=== PATIENT | female | born 1945 | race Caucasian/White ===

== ENCOUNTER 2020-07-03 00:54 | Outpatient (REF) | payer MEDICARE, SELFPAY ==
[2020-07-03 07:13] LABS: Hematocrit 30.1 % (37-47); Hemoglobin 9.6 g/dl (12.0-16.0); Mean Corpuscular HGB Conc 31.9 g/dl (31.0-35.0); Mean Corpuscular Volume 87.8 fL (80-98); Mean Platelet Volume 8.4 fL (9.4-12.3); Platelet Count 709 X10*3/uL (160-400); Red Blood Count 3.43 X10*6/uL (4.20-5.50); Red Cell Distribution Width 15.2 % (11.0-16.0)
[2020-07-03 07:21] LABS: White Blood Count 2.3 X10*3/uL (4.8-10.8)
[2020-07-03 07:27] LABS: Anion Gap 14 (12-20); Blood Urea Nitrogen 13 mg/dL (9-16); Calcium 8.3 mg/dL (8.4-10.2); Carbon Dioxide 25 mmol/L (22-29); Chloride 103 mmol/L (96-108); Estimated Glomerular Filt Rate > 60; Glucose Random 103 mg/dL (60-115); Potassium 4.6 mmol/L (3.3-5.1); Sodium 137 mmol/L (135-145)
== END 2020-07-03 00:55 | disposition home or self-care (01) ==
LOC: HO.MMNH1L 00:54
PROVIDERS: Visit Provider Family Medicine
DX: U07.1 COVID-19 (principal); N17.9 Acute kidney failure, unspecified
CPT/HCPCS: 36415; 80048; 85027; 85060

== ENCOUNTER 2020-07-10 00:38 | Outpatient (REF) | payer MEDICARE, SELFPAY ==
[2020-07-10 07:13] LABS: Hematocrit 28.4 % (37-47); Mean Corpuscular HGB Conc 31.7 g/dl (31.0-35.0); Mean Corpuscular Hemoglobin 27.4 pg (27.0-33.0); Mean Corpuscular Volume 86.3 fL (80-98); Mean Platelet Volume 8.4 fL (9.4-12.3); Platelet Count 506 X10*3/uL (160-400); Red Blood Count 3.29 X10*6/uL (4.20-5.50); Red Cell Distribution Width 15.9 % (11.0-16.0); White Blood Count 4.8 X10*3/uL (4.8-10.8)
[2020-07-10 07:42] LABS: Anion Gap 14 (12-20); Blood Urea Nitrogen 17 mg/dL (9-16); Calcium 8.7 mg/dL (8.4-10.2); Carbon Dioxide 24 mmol/L (22-29); Chloride 107 mmol/L (96-108); Estimated Glomerular Filt Rate > 60; Glucose Random 127 mg/dL (60-115); Potassium 3.8 mmol/L (3.3-5.1); Sodium 141 mmol/L (135-145)
== END 2020-07-10 00:39 | disposition home or self-care (01) ==
LOC: HO.MMNH1L 00:38
PROVIDERS: Visit Provider Family Medicine
DX: U07.1 COVID-19 (principal); N17.9 Acute kidney failure, unspecified
CPT/HCPCS: 36415; 80048; 85027

== ENCOUNTER 2020-07-17 00:32 | Outpatient (REF) | payer SELFPAY | END 2020-07-17 00:33 | disposition home or self-care (01) | LOC: HO.MMNH1L 00:32 | PROVIDERS: Visit Provider Family Medicine | DX: Z13.89 Encounter for screening for other disorder (principal) ==

== ENCOUNTER 2020-08-14 06:42 | Outpatient (REF) | payer MEDICARE, SELFPAY ==
[2020-08-14 06:58] LABS: Hematocrit 33.3 % (37-47); Hemoglobin 10.2 g/dl (12.0-16.0); Mean Corpuscular HGB Conc 30.6 g/dl (31.0-35.0); Mean Corpuscular Hemoglobin 27.3 pg (27.0-33.0); Mean Platelet Volume 8.2 fL (9.4-12.3); Platelet Count 293 X10*3/uL (160-400); Red Blood Count 3.74 X10*6/uL (4.20-5.50); Red Cell Distribution Width 19.3 % (11.0-16.0); White Blood Count 5.5 X10*3/uL (4.8-10.8)
[2020-08-14 07:23] LABS: Anion Gap 13 (12-20); Blood Urea Nitrogen 13 mg/dL (9-16); Calcium 9.2 mg/dL (8.4-10.2); Carbon Dioxide 24 mmol/L (22-29); Chloride 111 mmol/L (96-108); Estimated Glomerular Filt Rate > 60; Glucose Random 131 mg/dL (60-115); Potassium 3.3 mmol/L (3.3-5.1); Sodium 145 mmol/L (135-145)
== END 2020-08-14 06:43 | disposition home or self-care (01) ==
LOC: HO.MMNH3L 06:42
PROVIDERS: Visit Provider Family Medicine
DX: U07.1 COVID-19 (principal); N17.9 Acute kidney failure, unspecified
CPT/HCPCS: 36415; 80048; 85027

== ENCOUNTER 2020-08-21 00:37 | Outpatient (REF) | payer MEDICARE, SELFPAY ==
[2020-08-21 07:35] LABS: Hematocrit 31.9 % (37-47); Hemoglobin 9.8 g/dl (12.0-16.0); Mean Corpuscular HGB Conc 30.7 g/dl (31.0-35.0); Mean Corpuscular Hemoglobin 27.3 pg (27.0-33.0); Mean Corpuscular Volume 88.9 fL (80-98); Mean Platelet Volume 8.5 fL (9.4-12.3); Platelet Count 291 X10*3/uL (160-400); Red Blood Count 3.59 X10*6/uL (4.20-5.50); Red Cell Distribution Width 18.4 % (11.0-16.0); White Blood Count 6.6 X10*3/uL (4.8-10.8)
[2020-08-21 08:26] LABS: Anion Gap 14 (12-20); Blood Urea Nitrogen 12 mg/dL (9-16); Calcium 8.9 mg/dL (8.4-10.2); Carbon Dioxide 24 mmol/L (22-29); Chloride 111 mmol/L (96-108); Estimated Glomerular Filt Rate > 60; Glucose Random 130 mg/dL (60-115); Potassium 2.7 mmol/L (3.3-5.1); Sodium 146 mmol/L (135-145)
== END 2020-08-21 00:38 | disposition home or self-care (01) ==
LOC: HO.MMNH3L 00:37
PROVIDERS: Visit Provider Family Medicine
DX: U07.1 COVID-19 (principal); N17.9 Acute kidney failure, unspecified
CPT/HCPCS: 36415; 80048; 85027

== ENCOUNTER 2020-08-28 10:26 | Outpatient (REF) | payer MEDICARE, SELFPAY ==
[2020-08-28 07:53] LABS: Estimated Average Glucose 120 mg/dL; Hemoglobin A1c % 5.8 %
[2020-08-28 07:59] LABS: Hemoglobin 10.7 g/dl (12.0-16.0); Mean Corpuscular HGB Conc 31.5 g/dl (31.0-35.0); Mean Corpuscular Hemoglobin 27.7 pg (27.0-33.0); Mean Corpuscular Volume 88.1 fL (80-98); Mean Platelet Volume 8.4 fL (9.4-12.3); Platelet Count 278 X10*3/uL (160-400); Red Blood Count 3.86 X10*6/uL (4.20-5.50); White Blood Count 6.1 X10*3/uL (4.8-10.8)
[2020-08-28 08:22] LABS: Cholesterol 148 mg/dL; HDL Cholesterol 35 mg/dL; LDL Cholesterol Calculated 88 mg/dl; Triglycerides 125 mg/dL
[2020-08-28 08:24] LABS: Anion Gap 15 (12-20); Blood Urea Nitrogen 12 mg/dL (9-16); Calcium 9.1 mg/dL (8.4-10.2); Carbon Dioxide 23 mmol/L (22-29); Chloride 110 mmol/L (96-108); Estimated Glomerular Filt Rate > 60; Glucose Random 134 mg/dL (60-115); Potassium 3.6 mmol/L (3.3-5.1); Sodium 144 mmol/L (135-145)
[2020-08-28 08:43] LABS: Free T4 (Free Thyroxine) 1.02 ng/dL (0.71-1.85); Thyroid Stimulating Hormone 2.62 uIU/mL (0.32-4.0)
== END 2020-08-28 10:27 | disposition home or self-care (01) ==
LOC: HO.MMNH3L 10:26
PROVIDERS: Visit Provider Family Medicine
DX: E03.9 Hypothyroidism, unspecified (principal); E78.5 Hyperlipidemia, unspecified; I50.40 Unspecified combined systolic (congestive) and diastolic (congestive) heart failure; N17.9 Acute kidney failure, unspecified; U07.1 COVID-19
CPT/HCPCS: 36415; 80048; 80061; 83036; 84439; 84443; 85027

== ENCOUNTER 2020-10-24 07:22 | Outpatient (REF) | payer MEDICARE, SELFPAY ==
[2020-10-24 07:30] LABS: MANUAL DIFF FLAG NO
[2020-10-24 07:38] LABS: Basophils Percent Auto 0.5 % (0-2); Eosinophils Absolute Auto 0.2 X10*3/uL (0.0-0.4); Eosinophils Percent Auto 3.8 % (0-4); Hematocrit 34.4 % (37-47); Hemoglobin 11.2 g/dl (12.0-16.0); Imm Gran Abs Auto 0.05 X10*3/uL (0.00-0.03); Imm Gran Pct Auto 0.8 % (0.0-0.4); Lymphocytes Absolute Auto 1.6 X10*3/uL (1.2-4.9); Lymphocytes Percent Auto 25.7 % (20-40); Mean Corpuscular HGB Conc 32.6 g/dl (31.0-35.0); Mean Corpuscular Hemoglobin 27.5 pg (27.0-33.0); Mean Corpuscular Volume 84.5 fL (80-98); Mean Platelet Volume 8.2 fL (9.4-12.3); Monocytes Absolute Auto 0.5 X10*3/uL (0.1-1.2); Monocytes Percent Auto 7.2 % (2-11); Platelet Count 245 X10*3/uL (160-400); Red Blood Count 4.07 X10*6/uL (4.20-5.50); Red Cell Distribution Width 15.5 % (11.0-16.0); White Blood Count 6.4 X10*3/uL (4.8-10.8)
[2020-10-24 08:01] LABS: Anion Gap 14 (12-20); Blood Urea Nitrogen 17 mg/dL (9-16); Calcium 9.4 mg/dL (8.4-10.2); Carbon Dioxide 21 mmol/L (22-29); Chloride 112 mmol/L (96-108); Estimated Glomerular Filt Rate > 60; Glucose Random 124 mg/dL (60-115); Potassium 3.8 mmol/L (3.3-5.1); Sodium 143 mmol/L (135-145)
== END 2020-10-24 07:23 | disposition home or self-care (01) ==
LOC: HO.MMNH3L 07:22
PROVIDERS: Visit Provider Family Medicine
DX: E03.9 Hypothyroidism, unspecified (principal); E78.5 Hyperlipidemia, unspecified; I50.40 Unspecified combined systolic (congestive) and diastolic (congestive) heart failure
CPT/HCPCS: 36415; 80048; 85025

== ENCOUNTER 2020-11-24 12:09 | Outpatient (REF) | payer MEDICARE, SELFPAY ==
[2020-11-24 06:57] LABS: MANUAL DIFF FLAG NO
[2020-11-24 07:06] LABS: Basophils Percent Auto 0.5 % (0-2); Eosinophils Absolute Auto 0.3 X10*3/uL (0.0-0.4); Eosinophils Percent Auto 3.3 % (0-4); Hemoglobin 10.9 g/dl (12.0-16.0); Imm Gran Pct Auto 2.6 % (0.0-0.4); Lymphocytes Absolute Auto 1.7 X10*3/uL (1.2-4.9); Lymphocytes Percent Auto 22.8 % (20-40); Mean Corpuscular HGB Conc 32.1 g/dl (31.0-35.0); Mean Corpuscular Hemoglobin 27.3 pg (27.0-33.0); Mean Corpuscular Volume 85.2 fL (80-98); Mean Platelet Volume 8.2 fL (9.4-12.3); Monocytes Absolute Auto 0.5 X10*3/uL (0.1-1.2); Monocytes Percent Auto 6.8 % (2-11); Neutrophils Absolute Auto 4.9 X10*3/uL (2.0-8.3); Platelet Count 339 X10*3/uL (160-400); Red Blood Count 3.99 X10*6/uL (4.20-5.50); Red Cell Distribution Width 15.5 % (11.0-16.0); White Blood Count 7.6 X10*3/uL (4.8-10.8)
[2020-11-24 07:48] LABS: Anion Gap 15 (12-20); Blood Urea Nitrogen 18 mg/dL (9-16); Calcium 9.5 mg/dL (8.4-10.2); Carbon Dioxide 20 mmol/L (22-29); Chloride 111 mmol/L (96-108); Estimated Glomerular Filt Rate > 60; Glucose Random 132 mg/dL (60-115); Potassium 3.8 mmol/L (3.3-5.1); Sodium 142 mmol/L (135-145)
== END 2020-11-24 12:10 | disposition home or self-care (01) ==
LOC: HO.MMNH3L 12:09
PROVIDERS: Visit Provider Family Medicine
DX: E03.9 Hypothyroidism, unspecified (principal); E78.5 Hyperlipidemia, unspecified; I50.40 Unspecified combined systolic (congestive) and diastolic (congestive) heart failure
CPT/HCPCS: 36415; 80048; 85025

== ENCOUNTER 2020-12-26 05:00 | Outpatient (REF) | payer MEDICARE, MEDICAID, SELFPAY ==
[2020-12-26 07:13] LABS: Hematocrit 35.6 % (37-47); Hemoglobin 11.8 g/dl (12.0-16.0); Mean Corpuscular HGB Conc 33.1 g/dl (31.0-35.0); Mean Corpuscular Hemoglobin 28.2 pg (27.0-33.0); Mean Corpuscular Volume 85.2 fL (80-98); Mean Platelet Volume 8.4 fL (9.4-12.3); Platelet Count 252 X10*3/uL (160-400); Red Blood Count 4.18 X10*6/uL (4.20-5.50); Red Cell Distribution Width 15.9 % (11.0-16.0); White Blood Count 6.9 X10*3/uL (4.8-10.8)
[2020-12-26 08:11] LABS: Anion Gap 13 (12-20); Blood Urea Nitrogen 14 mg/dL (9-16); Calcium 9.5 mg/dL (8.4-10.2); Carbon Dioxide 22 mmol/L (22-29); Chloride 112 mmol/L (96-108); Estimated Glomerular Filt Rate > 60; Glucose Random 149 mg/dL (60-115); Potassium 3.9 mmol/L (3.3-5.1); Sodium 143 mmol/L (135-145)
== END 2020-12-26 05:01 ==
LOC: HO.MMNH3L 05:00
PROVIDERS: Visit Provider Family Medicine
DX: E03.9 Hypothyroidism, unspecified (principal); E78.5 Hyperlipidemia, unspecified; I50.40 Unspecified combined systolic (congestive) and diastolic (congestive) heart failure
CPT/HCPCS: 36415; 80048; 85027

== ENCOUNTER 2021-02-23 | Outpatient (REF) | payer MEDICARE, MEDICAID, SELFPAY ==
[2021-02-23 08:04] LABS: Hemoglobin 11.8 g/dl (12.0-16.0); Mean Corpuscular HGB Conc 32.8 g/dl (31.0-35.0); Mean Corpuscular Hemoglobin 28.6 pg (27.0-33.0); Mean Corpuscular Volume 87.4 fL (80.0-98.0); Mean Platelet Volume 8.6 fL (9.4-12.3); Platelet Count 211 X10*3/uL (160-400); Red Blood Count 4.12 X10*6/uL (4.20-5.50); Red Cell Distribution Width 14.7 % (11.0-16.0); White Blood Count 6.1 X10*3/uL (4.8-10.8)
[2021-02-23 08:37] LABS: Anion Gap 12 (12-20); Blood Urea Nitrogen 24 mg/dL (9-16); Calcium 9.4 mg/dL (8.4-10.2); Carbon Dioxide 21 mmol/L (22-29); Chloride 113 mmol/L (96-108); Estimated Glomerular Filt Rate > 60; Glucose Random 164 mg/dL (60-115); Potassium 3.7 mmol/L (3.3-5.1); Sodium 142 mmol/L (135-145)
== END 2021-02-23 00:01 | disposition home or self-care (01) ==
LOC: HO.MMNH3L
PROVIDERS: Visit Provider Family Medicine
DX: I50.40 Unspecified combined systolic (congestive) and diastolic (congestive) heart failure (principal); E78.5 Hyperlipidemia, unspecified; E03.9 Hypothyroidism, unspecified
CPT/HCPCS: 36415; 80048; 85027

== ENCOUNTER 2021-03-26 00:24 | Outpatient (REF) | payer MEDICARE, MEDICAID, SELFPAY ==
[2021-03-26 07:42] LABS: MANUAL DIFF FLAG NO
[2021-03-26 08:07] LABS: Basophils Percent Auto 0.4 % (0-2); Eosinophils Absolute Auto 0.2 X10*3/uL (0.0-0.4); Eosinophils Percent Auto 2.7 % (0-4); Hematocrit 36.5 % (37.0-47.0); Hemoglobin 11.9 g/dl (12.0-16.0); Imm Gran Abs Auto 0.13 X10*3/uL (0.00-0.03); Imm Gran Pct Auto 1.9 % (0.0-0.4); Lymphocytes Absolute Auto 1.9 X10*3/uL (1.2-4.9); Lymphocytes Percent Auto 27.4 % (20-40); Mean Corpuscular HGB Conc 32.6 g/dl (31.0-35.0); Mean Platelet Volume 8.4 fL (9.4-12.3); Monocytes Absolute Auto 0.5 X10*3/uL (0.1-1.2); Neutrophils Absolute Auto 4.1 x10*3/uL (2.0-8.3); Neutrophils Percent Auto 60.6 % (45-73); Platelet Count 223 X10*3/uL (160-400); Red Cell Distribution Width 14.9 % (11.0-16.0); White Blood Count 6.7 X10*3/uL (4.8-10.8)
[2021-03-26 08:27] LABS: Anion Gap 12 (12-20); Blood Urea Nitrogen 16 mg/dL (9-16); Calcium 9.6 mg/dL (8.4-10.2); Carbon Dioxide 22 mmol/L (22-29); Chloride 114 mmol/L (96-108); Estimated Glomerular Filt Rate > 60; Glucose Random 182 mg/dL (60-115); Potassium 3.9 mmol/L (3.3-5.1); Sodium 144 mmol/L (135-145)
== END 2021-03-26 00:25 | disposition home or self-care (01) ==
LOC: HO.MMNH3L 00:24
PROVIDERS: Visit Provider Family Medicine
DX: E03.9 Hypothyroidism, unspecified (principal); E78.5 Hyperlipidemia, unspecified; I50.40 Unspecified combined systolic (congestive) and diastolic (congestive) heart failure
CPT/HCPCS: 36415; 80048; 85025

== ENCOUNTER 2021-04-26 00:25 | Outpatient (REF) | payer MEDICARE, MEDICAID, SELFPAY ==
[2021-04-26 07:21] LABS: MANUAL DIFF FLAG NO
[2021-04-26 07:27] LABS: Basophils Percent Auto 0.5 % (0-2); Eosinophils Absolute Auto 0.2 X10*3/uL (0.0-0.4); Eosinophils Percent Auto 2.7 % (0-4); Hematocrit 35.8 % (37.0-47.0); Imm Gran Abs Auto 0.08 X10*3/uL (0.00-0.03); Imm Gran Pct Auto 1.1 % (0.0-0.4); Lymphocytes Percent Auto 27.6 % (20-40); Mean Corpuscular HGB Conc 33.5 g/dl (31.0-35.0); Mean Corpuscular Hemoglobin 29.3 pg (27.0-33.0); Mean Corpuscular Volume 87.3 fL (80.0-98.0); Mean Platelet Volume 8.5 fL (9.4-12.3); Monocytes Absolute Auto 0.5 X10*3/uL (0.1-1.2); Monocytes Percent Auto 6.3 % (2-11); Neutrophils Absolute Auto 4.5 x10*3/uL (2.0-8.3); Neutrophils Percent Auto 61.8 % (45-73); Platelet Count 224 X10*3/uL (160-400); Red Cell Distribution Width 14.3 % (11.0-16.0); White Blood Count 7.3 X10*3/uL (4.8-10.8)
[2021-04-26 07:54] LABS: Anion Gap 12 (12-20); Blood Urea Nitrogen 16 mg/dL (9-16); Calcium 9.5 mg/dL (8.4-10.2); Carbon Dioxide 22 mmol/L (22-29); Chloride 112 mmol/L (96-108); Estimated Glomerular Filt Rate > 60; Glucose Random 201 mg/dL (60-115); Potassium 3.8 mmol/L (3.3-5.1); Sodium 142 mmol/L (135-145)
== END 2021-04-26 00:26 | disposition home or self-care (01) ==
LOC: HO.MMNH3L 00:25
PROVIDERS: Visit Provider Family Medicine
DX: E03.9 Hypothyroidism, unspecified (principal); E78.5 Hyperlipidemia, unspecified; I50.40 Unspecified combined systolic (congestive) and diastolic (congestive) heart failure
CPT/HCPCS: 36415; 80048; 85025

== ENCOUNTER 2021-05-18 06:30 | Outpatient (REF) | payer MEDICARE, MEDICAID, SELFPAY ==
[2021-05-18 07:06] LABS: Appearance Urine HAZY; Color Urine YELLOW; Glucose Urine UA NEG (NEG); Leukocyte Esterase Urine 1+ (NEG); Nitrite Urine POS (NEG); PH 5.5 (5.0-8.0); Specific Gravity - Urine 1.025 (1.005-1.025); UACC Culture Trigger YES; Urine Blood NEG (NEG); Urine Ketones NEG (NEG); Urine Protein NEG (NEG-TRACE)
[2021-05-18 07:38] LABS: WBC Urine 30-49 /HPF (0-4)
[2021-05-18 07:39] LABS: Bacteria Urine 2+ /LPF; Mucus Urine 2+ /LPF; RBC Urine 0 /HPF (0); Squamous Epithelial Cell Urine 1+ /LPF
== END 2021-05-18 06:31 | disposition home or self-care (01) ==
LOC: HO.MMNH3L 06:30
PROVIDERS: Visit Provider Family Medicine
DX: R50.9 Fever, unspecified (principal); R41.0 Disorientation, unspecified
CPT/HCPCS: 81001; 81003; 87086; 87088; 87186

== ENCOUNTER 2021-05-28 | Outpatient (REF) | payer MEDICARE, MEDICAID, SELFPAY ==
[2021-05-28 07:21] LABS: MANUAL DIFF FLAG NO
[2021-05-28 07:35] LABS: Basophils Percent Auto 0.6 % (0-2); Eosinophils Absolute Auto 0.2 X10*3/uL (0.0-0.4); Eosinophils Percent Auto 2.6 % (0-4); Hematocrit 36.8 % (37.0-47.0); Hemoglobin 12.1 g/dl (12.0-16.0); Imm Gran Abs Auto 0.09 X10*3/uL (0.00-0.03); Imm Gran Pct Auto 1.3 % (0.0-0.4); Lymphocytes Percent Auto 28.7 % (20-40); Mean Corpuscular HGB Conc 32.9 g/dl (31.0-35.0); Mean Corpuscular Hemoglobin 29.3 pg (27.0-33.0); Mean Corpuscular Volume 89.1 fL (80.0-98.0); Mean Platelet Volume 8.8 fL (9.4-12.3); Monocytes Absolute Auto 0.4 X10*3/uL (0.1-1.2); Monocytes Percent Auto 6.1 % (2-11); Neutrophils Absolute Auto 4.1 x10*3/uL (2.0-8.3); Neutrophils Percent Auto 60.7 % (45-73); Platelet Count 244 X10*3/uL (160-400); Red Blood Count 4.13 X10*6/uL (4.20-5.50); Red Cell Distribution Width 14.3 % (11.0-16.0); White Blood Count 6.8 X10*3/uL (4.8-10.8)
[2021-05-28 08:20] LABS: Anion Gap 14 (12-20); Blood Urea Nitrogen 15 mg/dL (9-16); Calcium 9.6 mg/dL (8.4-10.2); Carbon Dioxide 23 mmol/L (22-29); Chloride 110 mmol/L (96-108); Estimated Glomerular Filt Rate > 60; Glucose Random 266 mg/dL (60-115); Potassium 3.8 mmol/L (3.3-5.1); Sodium 143 mmol/L (135-145)
== END 2021-05-28 00:01 | disposition home or self-care (01) ==
LOC: HO.MMNH3L
PROVIDERS: Visit Provider Family Medicine
DX: E03.9 Hypothyroidism, unspecified (principal); E78.5 Hyperlipidemia, unspecified; I50.40 Unspecified combined systolic (congestive) and diastolic (congestive) heart failure
CPT/HCPCS: 36415; 80048; 85025

== ENCOUNTER 2021-05-31 | Outpatient (REF) | payer MEDICARE, MEDICAID, SELFPAY ==
[2021-05-31 07:58] LABS: MANUAL DIFF FLAG NO
[2021-05-31 09:15] LABS: Basophils Percent Auto 0.4 % (0-2); Eosinophils Absolute Auto 0.2 X10*3/uL (0.0-0.4); Eosinophils Percent Auto 2.8 % (0-4); Hematocrit 37.7 % (37.0-47.0); Hemoglobin 12.5 g/dl (12.0-16.0); Imm Gran Abs Auto 0.07 X10*3/uL (0.00-0.03); Lymphocytes Absolute Auto 1.8 X10*3/uL (1.2-4.9); Lymphocytes Percent Auto 25.7 % (20-40); Mean Corpuscular HGB Conc 33.2 g/dl (31.0-35.0); Mean Corpuscular Hemoglobin 29.2 pg (27.0-33.0); Mean Corpuscular Volume 88.1 fL (80.0-98.0); Mean Platelet Volume 8.7 fL (9.4-12.3); Monocytes Absolute Auto 0.4 X10*3/uL (0.1-1.2); Monocytes Percent Auto 5.6 % (2-11); Neutrophils Absolute Auto 4.6 x10*3/uL (2.0-8.3); Neutrophils Percent Auto 64.5 % (45-73); Platelet Count 248 X10*3/uL (160-400); Red Blood Count 4.28 X10*6/uL (4.20-5.50); Red Cell Distribution Width 14.1 % (11.0-16.0); White Blood Count 7.1 X10*3/uL (4.8-10.8)
[2021-05-31 09:32] LABS: Estimated Average Glucose 183 mg/dL
[2021-05-31 09:50] LABS: Anion Gap 13 (12-20); Blood Urea Nitrogen 13 mg/dL (9-16); Calcium 9.5 mg/dL (8.4-10.2); Carbon Dioxide 25 mmol/L (22-29); Chloride 107 mmol/L (96-108); Estimated Glomerular Filt Rate > 60; Glucose Random 196 mg/dL (60-115); Potassium 3.6 mmol/L (3.3-5.1); Sodium 141 mmol/L (135-145)
== END 2021-05-31 00:01 | disposition home or self-care (01) ==
LOC: HO.MMNH3L
PROVIDERS: Visit Provider Family Medicine
DX: I48.91 Unspecified atrial fibrillation (principal)
CPT/HCPCS: 36415; 80048; 83036; 85025

== ENCOUNTER 2021-06-11 | Outpatient (REF) | payer MEDICARE, MEDICAID, SELFPAY ==
[2021-06-11 06:58] LABS: Hematocrit 37.1 % (37.0-47.0); Hemoglobin 12.3 g/dl (12.0-16.0); Mean Corpuscular HGB Conc 33.2 g/dl (31.0-35.0); Mean Corpuscular Hemoglobin 29.2 pg (27.0-33.0); Mean Corpuscular Volume 88.1 fL (80.0-98.0); Mean Platelet Volume 8.4 fL (9.4-12.3); Platelet Count 217 X10*3/uL (160-400); Red Blood Count 4.21 X10*6/uL (4.20-5.50); White Blood Count 6.9 X10*3/uL (4.8-10.8)
[2021-06-11 07:18] LABS: Anion Gap 12 (12-20); Blood Urea Nitrogen 15 mg/dL (9-16); Calcium 9.6 mg/dL (8.4-10.2); Carbon Dioxide 24 mmol/L (22-29); Chloride 108 mmol/L (96-108); Estimated Glomerular Filt Rate > 60; Glucose Random 235 mg/dL (60-115); Potassium 3.7 mmol/L (3.3-5.1); Sodium 140 mmol/L (135-145)
== END 2021-06-11 00:01 | disposition home or self-care (01) ==
LOC: HO.MMNH3L
PROVIDERS: Visit Provider Family Medicine
DX: I48.91 Unspecified atrial fibrillation (principal)
CPT/HCPCS: 36415; 80048; 85027

== ENCOUNTER 2021-06-26 | Outpatient (REF) | payer MEDICARE, MEDICAID, SELFPAY ==
[2021-06-26 06:08] LABS: MANUAL DIFF FLAG NO
[2021-06-26 06:12] LABS: Basophils Percent Auto 0.6 % (0-2); Eosinophils Absolute Auto 0.2 X10*3/uL (0.0-0.4); Eosinophils Percent Auto 3.1 % (0-4); Hematocrit 37.2 % (37.0-47.0); Hemoglobin 12.7 g/dl (12.0-16.0); Imm Gran Abs Auto 0.08 X10*3/uL (0.00-0.03); Imm Gran Pct Auto 1.3 % (0.0-0.4); Lymphocytes Absolute Auto 1.9 X10*3/uL (1.2-4.9); Lymphocytes Percent Auto 29.4 % (20-40); Mean Corpuscular HGB Conc 34.1 g/dl (31.0-35.0); Mean Corpuscular Hemoglobin 29.5 pg (27.0-33.0); Mean Corpuscular Volume 86.3 fL (80.0-98.0); Mean Platelet Volume 8.2 fL (9.4-12.3); Monocytes Absolute Auto 0.4 X10*3/uL (0.1-1.2); Monocytes Percent Auto 6.6 % (2-11); Neutrophils Absolute Auto 3.7 x10*3/uL (2.0-8.3); Platelet Count 221 X10*3/uL (160-400); Red Blood Count 4.31 X10*6/uL (4.20-5.50); Red Cell Distribution Width 13.7 % (11.0-16.0); White Blood Count 6.4 X10*3/uL (4.8-10.8)
[2021-06-26 06:26] LABS: Anion Gap 15 (12-20); Blood Urea Nitrogen 13 mg/dL (9-16); Calcium 9.8 mg/dL (8.4-10.2); Carbon Dioxide 23 mmol/L (22-29); Chloride 107 mmol/L (96-108); Estimated Glomerular Filt Rate > 60; Glucose Random 247 mg/dL (60-115); Potassium 3.9 mmol/L (3.3-5.1); Sodium 141 mmol/L (135-145)
== END 2021-06-26 00:01 ==
LOC: HO.MMNH3L
PROVIDERS: Visit Provider Family Medicine
DX: E03.9 Hypothyroidism, unspecified (principal); E78.5 Hyperlipidemia, unspecified; I50.40 Unspecified combined systolic (congestive) and diastolic (congestive) heart failure
CPT/HCPCS: 36415; 80048; 85025

== ENCOUNTER 2021-07-26 | Outpatient (REF) | payer MEDICARE, MEDICAID, SELFPAY ==
[2021-07-26 07:39] LABS: MANUAL DIFF FLAG NO
[2021-07-26 07:46] LABS: Basophils Percent Auto 0.6 % (0-2); Eosinophils Absolute Auto 0.2 X10*3/uL (0.0-0.4); Eosinophils Percent Auto 2.9 % (0-4); Hematocrit 36.6 % (37.0-47.0); Imm Gran Abs Auto 0.07 X10*3/uL (0.00-0.03); Imm Gran Pct Auto 1.1 % (0.0-0.4); Lymphocytes Absolute Auto 1.9 X10*3/uL (1.2-4.9); Lymphocytes Percent Auto 29.1 % (20-40); Mean Corpuscular HGB Conc 32.8 g/dl (31.0-35.0); Mean Corpuscular Hemoglobin 28.9 pg (27.0-33.0); Mean Corpuscular Volume 88.2 fL (80.0-98.0); Mean Platelet Volume 8.7 fL (9.4-12.3); Monocytes Absolute Auto 0.5 X10*3/uL (0.1-1.2); Monocytes Percent Auto 7.1 % (2-11); Neutrophils Absolute Auto 3.8 x10*3/uL (2.0-8.3); Neutrophils Percent Auto 59.2 % (45-73); Platelet Count 262 X10*3/uL (160-400); Red Blood Count 4.15 X10*6/uL (4.20-5.50); Red Cell Distribution Width 14.1 % (11.0-16.0); White Blood Count 6.5 X10*3/uL (4.8-10.8)
[2021-07-26 08:07] LABS: Anion Gap 16 (12-20); Blood Urea Nitrogen 12 mg/dL (9-16); Calcium 9.5 mg/dL (8.4-10.2); Carbon Dioxide 22 mmol/L (22-29); Chloride 109 mmol/L (96-108); Estimated Glomerular Filt Rate > 60; Glucose Random 225 mg/dL (60-115); Sodium 143 mmol/L (135-145)
== END 2021-07-26 00:01 | disposition home or self-care (01) ==
LOC: HO.MMNH3L
PROVIDERS: Visit Provider Family Medicine
DX: I48.91 Unspecified atrial fibrillation (principal)
CPT/HCPCS: 36415; 80048; 85025

== ENCOUNTER 2021-08-28 06:20 | Outpatient (REF) | payer MEDICARE, MEDICAID, SELFPAY ==
[2021-08-28 06:28] LABS: MANUAL DIFF FLAG NO
[2021-08-28 07:02] LABS: Basophils Percent Auto 0.4 % (0-2); Eosinophils Absolute Auto 0.3 X10*3/uL (0.0-0.4); Eosinophils Percent Auto 4.2 % (0-4); Hematocrit 38.4 % (37.0-47.0); Hemoglobin 12.5 g/dl (12.0-16.0); Imm Gran Abs Auto 0.07 X10*3/uL (0.00-0.03); Imm Gran Pct Auto 0.9 % (0.0-0.4); Lymphocytes Absolute Auto 1.7 X10*3/uL (1.2-4.9); Lymphocytes Percent Auto 22.4 % (20-40); Mean Corpuscular HGB Conc 32.6 g/dl (31.0-35.0); Mean Corpuscular Hemoglobin 28.9 pg (27.0-33.0); Mean Corpuscular Volume 88.7 fL (80.0-98.0); Mean Platelet Volume 8.7 fL (9.4-12.3); Monocytes Absolute Auto 0.5 X10*3/uL (0.1-1.2); Monocytes Percent Auto 6.2 % (2-11); Neutrophils Absolute Auto 4.9 x10*3/uL (2.0-8.3); Neutrophils Percent Auto 65.9 % (45-73); Platelet Count 241 X10*3/uL (160-400); Red Blood Count 4.33 X10*6/uL (4.20-5.50); Red Cell Distribution Width 14.5 % (11.0-16.0); White Blood Count 7.5 X10*3/uL (4.8-10.8)
[2021-08-28 07:18] LABS: Anion Gap 15 (12-20); Blood Urea Nitrogen 15 mg/dL (9-16); Calcium 9.7 mg/dL (8.4-10.2); Carbon Dioxide 22 mmol/L (22-29); Chloride 111 mmol/L (96-108); Cholesterol 167 mg/dL; Estimated Glomerular Filt Rate > 60; Glucose Random 215 mg/dL (60-115); Potassium 3.7 mmol/L (3.3-5.1); Sodium 144 mmol/L (135-145)
[2021-08-28 07:41] LABS: Free T4 (Free Thyroxine) 0.92 ng/dL (0.71-1.85); Thyroid Stimulating Hormone 0.79 uIU/mL (0.32-4.0)
[2021-08-28 07:52] LABS: Estimated Average Glucose 200 mg/dL; Hemoglobin A1c % 8.6 %
== END 2021-08-28 06:21 | disposition home or self-care (01) ==
LOC: HO.MMNH3L 06:20
PROVIDERS: Visit Provider Family Medicine
DX: E03.9 Hypothyroidism, unspecified (principal); I50.40 Unspecified combined systolic (congestive) and diastolic (congestive) heart failure; G93.41 Metabolic encephalopathy
CPT/HCPCS: 36415; 80048; 82465; 83036; 84439; 84443; 85025

== ENCOUNTER 2021-09-28 | Outpatient (REF) | payer MEDICARE, MEDICAID, SELFPAY ==
[2021-09-28 05:34] LABS: MANUAL DIFF FLAG NO
[2021-09-28 05:45] LABS: Basophils Percent Auto 0.5 % (0-2); Eosinophils Absolute Auto 0.2 X10*3/uL (0.0-0.4); Hematocrit 38.7 % (37.0-47.0); Imm Gran Abs Auto 0.07 X10*3/uL (0.00-0.03); Imm Gran Pct Auto 1.2 % (0.0-0.4); Lymphocytes Absolute Auto 1.8 X10*3/uL (1.2-4.9); Lymphocytes Percent Auto 29.4 % (20-40); Mean Corpuscular HGB Conc 33.6 g/dl (31.0-35.0); Mean Corpuscular Volume 86.2 fL (80.0-98.0); Mean Platelet Volume 8.5 fL (9.4-12.3); Monocytes Absolute Auto 0.4 X10*3/uL (0.1-1.2); Monocytes Percent Auto 6.1 % (2-11); Neutrophils Absolute Auto 3.6 x10*3/uL (2.0-8.3); Neutrophils Percent Auto 59.8 % (45-73); Platelet Count 230 X10*3/uL (160-400); Red Blood Count 4.49 X10*6/uL (4.20-5.50); Red Cell Distribution Width 13.9 % (11.0-16.0)
[2021-09-28 06:07] LABS: Anion Gap 16 (12-20); Blood Urea Nitrogen 13 mg/dL (9-16); Calcium 9.5 mg/dL (8.4-10.2); Carbon Dioxide 24 mmol/L (22-29); Chloride 106 mmol/L (96-108); Estimated Glomerular Filt Rate > 60; Glucose Random 291 mg/dL (60-115); Potassium 3.9 mmol/L (3.3-5.1); Sodium 142 mmol/L (135-145)
== END 2021-09-28 00:01 | disposition home or self-care (01) ==
LOC: HO.MMNH3L
PROVIDERS: Visit Provider Family Medicine
DX: E03.9 Hypothyroidism, unspecified (principal); I50.40 Unspecified combined systolic (congestive) and diastolic (congestive) heart failure; G93.41 Metabolic encephalopathy
CPT/HCPCS: 36415; 80048; 85025

== ENCOUNTER 2021-10-29 06:39 | Outpatient (REF) | payer MEDICARE, MEDICAID, SELFPAY ==
[2021-10-29 06:23] LABS: MANUAL DIFF FLAG NO
[2021-10-29 06:54] LABS: Basophils Percent Auto 0.4 % (0-2); Eosinophils Absolute Auto 0.2 X10*3/uL (0.0-0.4); Eosinophils Percent Auto 2.6 % (0-4); Hematocrit 39.9 % (37.0-47.0); Hemoglobin 13.3 g/dl (12.0-16.0); Imm Gran Abs Auto 0.12 X10*3/uL (0.00-0.03); Imm Gran Pct Auto 1.8 % (0.0-0.4); Lymphocytes Absolute Auto 2.2 X10*3/uL (1.2-4.9); Lymphocytes Percent Auto 31.8 % (20-40); Mean Corpuscular HGB Conc 33.3 g/dl (31.0-35.0); Mean Corpuscular Hemoglobin 28.2 pg (27.0-33.0); Mean Corpuscular Volume 84.7 fL (80.0-98.0); Mean Platelet Volume 8.7 fL (9.4-12.3); Monocytes Absolute Auto 0.4 X10*3/uL (0.1-1.2); Neutrophils Absolute Auto 3.9 x10*3/uL (2.0-8.3); Neutrophils Percent Auto 57.4 % (45-73); Platelet Count 264 X10*3/uL (160-400); Red Blood Count 4.71 X10*6/uL (4.20-5.50); White Blood Count 6.8 X10*3/uL (4.8-10.8)
[2021-10-29 07:12] LABS: Anion Gap 15 (12-20); Blood Urea Nitrogen 14 mg/dL (9-16); Calcium 9.6 mg/dL (8.4-10.2); Carbon Dioxide 22 mmol/L (22-29); Chloride 105 mmol/L (96-108); Estimated Glomerular Filt Rate > 60; Glucose Random 269 mg/dL (60-115); Potassium 3.2 mmol/L (3.3-5.1); Sodium 139 mmol/L (135-145)
== END 2021-10-29 06:40 | disposition home or self-care (01) ==
LOC: HO.MMNH3L 06:39
PROVIDERS: Visit Provider Family Medicine
DX: E03.9 Hypothyroidism, unspecified (principal); I50.40 Unspecified combined systolic (congestive) and diastolic (congestive) heart failure; G93.41 Metabolic encephalopathy
CPT/HCPCS: 36415; 80048; 85025

== ENCOUNTER 2021-11-28 06:19 | Outpatient (REF) | payer MEDICARE, MEDICAID, SELFPAY ==
[2021-11-28 06:23] LABS: MANUAL DIFF FLAG NO
[2021-11-28 06:28] LABS: Basophils Percent Auto 0.6 % (0-2); Eosinophils Absolute Auto 0.2 X10*3/uL (0.0-0.4); Eosinophils Percent Auto 2.8 % (0-4); Hematocrit 38.4 % (37.0-47.0); Hemoglobin 12.9 g/dl (12.0-16.0); Imm Gran Abs Auto 0.05 X10*3/uL (0.00-0.03); Imm Gran Pct Auto 0.7 % (0.0-0.4); Lymphocytes Absolute Auto 2.2 X10*3/uL (1.2-4.9); Lymphocytes Percent Auto 31.4 % (20-40); Mean Corpuscular HGB Conc 33.6 g/dl (31.0-35.0); Mean Corpuscular Hemoglobin 28.4 pg (27.0-33.0); Mean Corpuscular Volume 84.6 fL (80.0-98.0); Mean Platelet Volume 8.9 fL (9.4-12.3); Monocytes Absolute Auto 0.5 X10*3/uL (0.1-1.2); Monocytes Percent Auto 6.7 % (2-11); Neutrophils Percent Auto 57.8 % (45-73); Platelet Count 250 X10*3/uL (160-400); Red Blood Count 4.54 X10*6/uL (4.20-5.50); Red Cell Distribution Width 14.2 % (11.0-16.0); White Blood Count 6.9 X10*3/uL (4.8-10.8)
[2021-11-28 06:46] LABS: Anion Gap 16 (12-20); Blood Urea Nitrogen 13 mg/dL (9-16); Calcium 9.2 mg/dL (8.4-10.2); Carbon Dioxide 25 mmol/L (22-29); Chloride 103 mmol/L (96-108); Estimated Glomerular Filt Rate > 60; Glucose Random 235 mg/dL (60-115); Potassium 3.4 mmol/L (3.3-5.1); Sodium 141 mmol/L (135-145)
== END 2021-11-28 06:20 | disposition home or self-care (01) ==
LOC: HO.MMNH3L 06:19
PROVIDERS: Visit Provider Family Medicine
DX: E03.9 Hypothyroidism, unspecified (principal); I50.40 Unspecified combined systolic (congestive) and diastolic (congestive) heart failure; G93.41 Metabolic encephalopathy
CPT/HCPCS: 36415; 80048; 85025

== ENCOUNTER 2022-01-01 14:14 | Outpatient (REF) | payer MEDICARE, MEDICAID, SELFPAY ==
[2022-01-01 06:15] LABS: MANUAL DIFF FLAG NO
[2022-01-01 06:21] LABS: Basophils Percent Auto 0.6 % (0-2); Eosinophils Absolute Auto 0.2 X10*3/uL (0.0-0.4); Eosinophils Percent Auto 2.3 % (0-4); Hematocrit 37.7 % (37.0-47.0); Hemoglobin 12.5 g/dl (12.0-16.0); Imm Gran Abs Auto 0.05 X10*3/uL (0.00-0.03); Imm Gran Pct Auto 0.7 % (0.0-0.4); Lymphocytes Absolute Auto 2.1 X10*3/uL (1.2-4.9); Lymphocytes Percent Auto 29.7 % (20-40); Mean Corpuscular HGB Conc 33.2 g/dl (31.0-35.0); Mean Corpuscular Hemoglobin 28.8 pg (27.0-33.0); Mean Corpuscular Volume 86.9 fL (80.0-98.0); Mean Platelet Volume 8.8 fL (9.4-12.3); Monocytes Absolute Auto 0.5 X10*3/uL (0.1-1.2); Monocytes Percent Auto 7.1 % (2-11); Neutrophils Absolute Auto 4.2 x10*3/uL (2.0-8.3); Neutrophils Percent Auto 59.6 % (45-73); Platelet Count 248 X10*3/uL (160-400); Red Blood Count 4.34 X10*6/uL (4.20-5.50); Red Cell Distribution Width 14.6 % (11.0-16.0)
[2022-01-01 06:44] LABS: Anion Gap 17 (12-20); Blood Urea Nitrogen 23 mg/dL (9-16); Calcium 9.5 mg/dL (8.4-10.2); Carbon Dioxide 23 mmol/L (22-29); Chloride 108 mmol/L (96-108); Estimated Glomerular Filt Rate > 60; Glucose Random 288 mg/dL (60-115); Potassium 3.8 mmol/L (3.3-5.1); Sodium 144 mmol/L (135-145)
== END 2022-01-01 14:15 | disposition home or self-care (01) ==
LOC: HO.MMNH3L 14:14
PROVIDERS: Visit Provider Family Medicine
DX: E03.9 Hypothyroidism, unspecified (principal); I50.40 Unspecified combined systolic (congestive) and diastolic (congestive) heart failure; G93.41 Metabolic encephalopathy
CPT/HCPCS: 36415; 80048; 85025

== ENCOUNTER 2022-01-21 07:18 | Outpatient (REF) | payer MEDICARE, MEDICAID, SELFPAY ==
[2022-01-21 07:20] LABS: MANUAL DIFF FLAG NO
[2022-01-21 07:31] LABS: Basophils Percent Auto 0.4 % (0-2); Eosinophils Absolute Auto 0.2 X10*3/uL (0.0-0.4); Eosinophils Percent Auto 2.7 % (0-4); Hematocrit 37.5 % (37.0-47.0); Hemoglobin 12.2 g/dl (12.0-16.0); Imm Gran Abs Auto 0.04 X10*3/uL (0.00-0.03); Imm Gran Pct Auto 0.6 % (0.0-0.4); Lymphocytes Percent Auto 29.2 % (20-40); Mean Corpuscular HGB Conc 32.5 g/dl (31.0-35.0); Mean Platelet Volume 8.7 fL (9.4-12.3); Monocytes Absolute Auto 0.4 X10*3/uL (0.1-1.2); Monocytes Percent Auto 5.3 % (2-11); Neutrophils Absolute Auto 4.3 x10*3/uL (2.0-8.3); Neutrophils Percent Auto 61.8 % (45-73); Platelet Count 269 X10*3/uL (160-400); Red Blood Count 4.36 X10*6/uL (4.20-5.50); Red Cell Distribution Width 14.4 % (11.0-16.0)
[2022-01-21 08:13] LABS: Anion Gap 18 (12-20); Blood Urea Nitrogen 16 mg/dL (9-16); Calcium 9.3 mg/dL (8.4-10.2); Carbon Dioxide 20 mmol/L (22-29); Chloride 107 mmol/L (96-108); Estimated Glomerular Filt Rate > 60; Glucose Random 261 mg/dL (60-115); Potassium 3.7 mmol/L (3.3-5.1); Sodium 141 mmol/L (135-145)
== END 2022-01-21 07:19 | disposition home or self-care (01) ==
LOC: HO.MMNH3L 07:18
PROVIDERS: Visit Provider Family Medicine
DX: E03.9 Hypothyroidism, unspecified (principal); I50.40 Unspecified combined systolic (congestive) and diastolic (congestive) heart failure; G93.41 Metabolic encephalopathy
CPT/HCPCS: 36415; 80048; 85025

== ENCOUNTER 2022-01-28 06:44 | Outpatient (REF) | payer MEDICARE, MEDICAID, SELFPAY ==
[2022-01-28 06:47] LABS: MANUAL DIFF FLAG NO
[2022-01-28 07:17] LABS: Basophils Absolute Auto 0.1 X10*3/uL (0.0-0.2); Basophils Percent Auto 0.7 % (0-2); Eosinophils Absolute Auto 0.2 X10*3/uL (0.0-0.4); Eosinophils Percent Auto 2.4 % (0-4); Hematocrit 36.9 % (37.0-47.0); Hemoglobin 12.3 g/dl (12.0-16.0); Imm Gran Abs Auto 0.07 X10*3/uL (0.00-0.03); Lymphocytes Absolute Auto 2.1 X10*3/uL (1.2-4.9); Lymphocytes Percent Auto 29.7 % (20-40); Mean Corpuscular HGB Conc 33.3 g/dl (31.0-35.0); Mean Corpuscular Hemoglobin 28.4 pg (27.0-33.0); Mean Corpuscular Volume 85.2 fL (80.0-98.0); Mean Platelet Volume 8.6 fL (9.4-12.3); Monocytes Absolute Auto 0.4 X10*3/uL (0.1-1.2); Monocytes Percent Auto 5.7 % (2-11); Neutrophils Absolute Auto 4.4 x10*3/uL (2.0-8.3); Neutrophils Percent Auto 60.5 % (45-73); Platelet Count 251 X10*3/uL (160-400); Red Blood Count 4.33 X10*6/uL (4.20-5.50); Red Cell Distribution Width 14.2 % (11.0-16.0); White Blood Count 7.2 X10*3/uL (4.8-10.8)
[2022-01-28 07:28] LABS: Anion Gap 18 (12-20); Blood Urea Nitrogen 15 mg/dL (9-16); Calcium 9.1 mg/dL (8.4-10.2); Carbon Dioxide 20 mmol/L (22-29); Chloride 109 mmol/L (96-108); Cholesterol 164 mg/dL; Estimated Glomerular Filt Rate > 60; Glucose Random 222 mg/dL (60-115); Potassium 3.5 mmol/L (3.3-5.1); Sodium 143 mmol/L (135-145)
[2022-01-28 07:52] LABS: Free T4 (Free Thyroxine) 0.93 ng/dL (0.71-1.85); Thyroid Stimulating Hormone 2.31 uIU/mL (0.32-4.0)
== END 2022-01-28 06:45 | disposition home or self-care (01) ==
LOC: HO.MMNH3L 06:44
PROVIDERS: Visit Provider Family Medicine
DX: I69.391 Dysphagia following cerebral infarction (principal); E03.9 Hypothyroidism, unspecified
CPT/HCPCS: 36415; 80048; 82465; 84439; 84443; 85025

== ENCOUNTER 2022-02-18 06:19 | Outpatient (REF) | payer MEDICARE, MEDICAID, SELFPAY ==
[2022-02-18 06:33] LABS: MANUAL DIFF FLAG NO
[2022-02-18 06:56] LABS: Basophils Percent Auto 0.6 % (0-2); Eosinophils Absolute Auto 0.2 X10*3/uL (0.0-0.4); Eosinophils Percent Auto 2.6 % (0-4); Hematocrit 37.1 % (37.0-47.0); Hemoglobin 12.6 g/dl (12.0-16.0); Imm Gran Abs Auto 0.11 X10*3/uL (0.00-0.03); Imm Gran Pct Auto 1.6 % (0.0-0.4); Lymphocytes Absolute Auto 2.1 X10*3/uL (1.2-4.9); Lymphocytes Percent Auto 30.6 % (20-40); Mean Corpuscular Hemoglobin 28.9 pg (27.0-33.0); Mean Corpuscular Volume 85.1 fL (80.0-98.0); Mean Platelet Volume 9.1 fL (9.4-12.3); Monocytes Absolute Auto 0.5 X10*3/uL (0.1-1.2); Monocytes Percent Auto 6.7 % (2-11); Neutrophils Absolute Auto 4.1 x10*3/uL (2.0-8.3); Neutrophils Percent Auto 57.9 % (45-73); Platelet Count 254 X10*3/uL (160-400); Red Blood Count 4.36 X10*6/uL (4.20-5.50)
[2022-02-18 07:26] LABS: Anion Gap 17 (12-20); Blood Urea Nitrogen 12 mg/dL (9-16); Calcium 9.6 mg/dL (8.4-10.2); Carbon Dioxide 23 mmol/L (22-29); Chloride 106 mmol/L (96-108); Estimated Glomerular Filt Rate > 60; Glucose Random 284 mg/dL (60-115); Potassium 3.5 mmol/L (3.3-5.1); Sodium 142 mmol/L (135-145)
== END 2022-02-18 06:20 | disposition home or self-care (01) ==
LOC: HO.MMNH3L 06:19
PROVIDERS: Visit Provider Family Medicine
DX: E03.9 Hypothyroidism, unspecified (principal); I50.40 Unspecified combined systolic (congestive) and diastolic (congestive) heart failure; G93.41 Metabolic encephalopathy
CPT/HCPCS: 36415; 80048; 85025

== ENCOUNTER 2022-03-25 07:27 | Outpatient (REF) | payer MEDICARE, MEDICAID, SELFPAY ==
[2022-03-25 07:17] LABS: MANUAL DIFF FLAG NO
[2022-03-25 07:38] LABS: Basophils Absolute Auto 0.1 X10*3/uL (0.0-0.2); Basophils Percent Auto 0.7 % (0-2); Eosinophils Absolute Auto 0.2 X10*3/uL (0.0-0.4); Eosinophils Percent Auto 2.4 % (0-4); Hemoglobin 13.3 g/dl (12.0-16.0); Imm Gran Abs Auto 0.07 X10*3/uL (0.00-0.03); Lymphocytes Absolute Auto 2.1 X10*3/uL (1.2-4.9); Lymphocytes Percent Auto 29.6 % (20-40); Mean Corpuscular HGB Conc 32.4 g/dl (31.0-35.0); Mean Corpuscular Hemoglobin 28.1 pg (27.0-33.0); Mean Corpuscular Volume 86.7 fL (80.0-98.0); Mean Platelet Volume 8.9 fL (9.4-12.3); Monocytes Absolute Auto 0.5 X10*3/uL (0.1-1.2); Monocytes Percent Auto 6.6 % (2-11); Neutrophils Absolute Auto 4.3 x10*3/uL (2.0-8.3); Neutrophils Percent Auto 59.7 % (45-73); Platelet Count 281 X10*3/uL (160-400); Red Blood Count 4.73 X10*6/uL (4.20-5.50); Red Cell Distribution Width 14.1 % (11.0-16.0); White Blood Count 7.2 X10*3/uL (4.8-10.8)
[2022-03-25 08:21] LABS: Anion Gap 14 (12-20); Blood Urea Nitrogen 15 mg/dL (9-16); Calcium 9.4 mg/dL (8.4-10.2); Carbon Dioxide 22 mmol/L (22-29); Chloride 113 mmol/L (96-108); Estimated Glomerular Filt Rate > 60; Glucose Random 196 mg/dL (60-115); Potassium 3.8 mmol/L (3.3-5.1); Sodium 145 mmol/L (135-145)
== END 2022-03-25 07:28 | disposition home or self-care (01) ==
LOC: HO.MMNH3L 07:27
PROVIDERS: Visit Provider Family Medicine
DX: E03.9 Hypothyroidism, unspecified (principal); I50.40 Unspecified combined systolic (congestive) and diastolic (congestive) heart failure; G93.41 Metabolic encephalopathy
CPT/HCPCS: 36415; 80048; 85025

== ENCOUNTER 2022-05-27 06:44 | Outpatient (REF) | payer MEDICARE, MEDICAID, SELFPAY ==
[2022-05-27 06:40] LABS: MANUAL DIFF FLAG NO
[2022-05-27 07:20] LABS: Basophils Absolute Auto 0.1 X10*3/uL (0.0-0.2); Basophils Percent Auto 0.7 % (0-2); Eosinophils Absolute Auto 0.2 X10*3/uL (0.0-0.4); Eosinophils Percent Auto 2.8 % (0-4); Hematocrit 38.2 % (37.0-47.0); Hemoglobin 12.4 g/dl (12.0-16.0); Imm Gran Abs Auto 0.03 X10*3/uL (0.00-0.03); Imm Gran Pct Auto 0.4 % (0.0-0.4); Lymphocytes Absolute Auto 2.4 X10*3/uL (1.2-4.9); Lymphocytes Percent Auto 34.6 % (20-40); Mean Corpuscular HGB Conc 32.5 g/dl (31.0-35.0); Mean Corpuscular Hemoglobin 27.8 pg (27.0-33.0); Mean Corpuscular Volume 85.7 fL (80.0-98.0); Mean Platelet Volume 8.6 fL (9.4-12.3); Monocytes Absolute Auto 0.4 X10*3/uL (0.1-1.2); Monocytes Percent Auto 5.7 % (2-11); Neutrophils Absolute Auto 3.8 x10*3/uL (2.0-8.3); Neutrophils Percent Auto 55.8 % (45-73); Platelet Count 240 X10*3/uL (160-400); Red Blood Count 4.46 X10*6/uL (4.20-5.50); Red Cell Distribution Width 14.5 % (11.0-16.0); White Blood Count 6.8 X10*3/uL (4.8-10.8)
[2022-05-27 07:48] LABS: Anion Gap 17 (12-20); Blood Urea Nitrogen 16 mg/dL (9-16); Calcium 9.6 mg/dL (8.4-10.2); Carbon Dioxide 20 mmol/L (22-29); Chloride 109 mmol/L (96-108); Estimated Glomerular Filt Rate > 60; Glucose Random 213 mg/dL (60-115); Potassium 3.5 mmol/L (3.3-5.1); Sodium 142 mmol/L (135-145)
== END 2022-05-27 06:45 | disposition home or self-care (01) ==
LOC: HO.MMNH3L 06:44
PROVIDERS: Visit Provider Family Medicine
DX: E03.9 Hypothyroidism, unspecified (principal); I50.40 Unspecified combined systolic (congestive) and diastolic (congestive) heart failure; G93.41 Metabolic encephalopathy
CPT/HCPCS: 36415; 80048; 85025

== ENCOUNTER 2022-06-24 06:51 | Outpatient (REF) | payer MEDICARE, MEDICAID, SELFPAY ==
[2022-06-24 06:31] LABS: MANUAL DIFF FLAG NO
[2022-06-24 07:28] LABS: Basophils Absolute Auto 0.1 X10*3/uL (0.0-0.2); Basophils Percent Auto 0.9 % (0-2); Eosinophils Absolute Auto 0.2 X10*3/uL (0.0-0.4); Eosinophils Percent Auto 3.2 % (0-4); Hematocrit 39.2 % (37.0-47.0); Hemoglobin 13.1 g/dl (12.0-16.0); Imm Gran Abs Auto 0.05 X10*3/uL (0.00-0.03); Imm Gran Pct Auto 0.7 % (0.0-0.4); Lymphocytes Percent Auto 29.1 % (20-40); Mean Corpuscular HGB Conc 33.4 g/dl (31.0-35.0); Mean Corpuscular Hemoglobin 28.5 pg (27.0-33.0); Mean Corpuscular Volume 85.2 fL (80.0-98.0); Mean Platelet Volume 8.9 fL (9.4-12.3); Monocytes Absolute Auto 0.4 X10*3/uL (0.1-1.2); Monocytes Percent Auto 6.1 % (2-11); Neutrophils Absolute Auto 4.1 x10*3/uL (2.0-8.3); Platelet Count 254 X10*3/uL (160-400); Red Cell Distribution Width 14.2 % (11.0-16.0); White Blood Count 6.9 X10*3/uL (4.8-10.8)
== END 2022-06-24 06:52 | disposition home or self-care (01) ==
LOC: HO.MMNH3L 06:51
PROVIDERS: Visit Provider Family Medicine
DX: E03.9 Hypothyroidism, unspecified (principal); I50.40 Unspecified combined systolic (congestive) and diastolic (congestive) heart failure; G93.41 Metabolic encephalopathy
CPT/HCPCS: 36415; 85025

== ENCOUNTER 2022-07-22 06:24 | Outpatient (REF) | payer MEDICARE, MEDICAID, SELFPAY ==
[2022-07-22 06:23] LABS: MANUAL DIFF FLAG NO
[2022-07-22 06:51] LABS: Basophils Percent Auto 0.6 % (0-2); Eosinophils Absolute Auto 0.2 X10*3/uL (0.0-0.4); Eosinophils Percent Auto 2.7 % (0-4); Hematocrit 37.4 % (37.0-47.0); Hemoglobin 12.6 g/dl (12.0-16.0); Imm Gran Abs Auto 0.07 X10*3/uL (0.00-0.03); Lymphocytes Absolute Auto 2.4 X10*3/uL (1.2-4.9); Lymphocytes Percent Auto 33.8 % (20-40); Mean Corpuscular HGB Conc 33.7 g/dl (31.0-35.0); Mean Corpuscular Hemoglobin 28.4 pg (27.0-33.0); Mean Corpuscular Volume 84.2 fL (80.0-98.0); Mean Platelet Volume 8.7 fL (9.4-12.3); Monocytes Absolute Auto 0.4 X10*3/uL (0.1-1.2); Monocytes Percent Auto 5.6 % (2-11); Neutrophils Absolute Auto 3.9 x10*3/uL (2.0-8.3); Neutrophils Percent Auto 56.3 % (45-73); Platelet Count 254 X10*3/uL (160-400); Red Blood Count 4.44 X10*6/uL (4.20-5.50); Red Cell Distribution Width 14.1 % (11.0-16.0)
== END 2022-07-22 06:25 | disposition home or self-care (01) ==
LOC: HO.MMNH3L 06:24
PROVIDERS: Visit Provider Family Medicine
DX: E03.9 Hypothyroidism, unspecified (principal); I50.40 Unspecified combined systolic (congestive) and diastolic (congestive) heart failure; G93.41 Metabolic encephalopathy
CPT/HCPCS: 36415; 85025

== ENCOUNTER 2022-08-19 06:07 | Outpatient (REF) | payer MEDICARE, MEDICAID, SELFPAY ==
[2022-08-19 06:00] LABS: MANUAL DIFF FLAG NO
[2022-08-19 06:51] LABS: Basophils Absolute Auto 0.1 X10*3/uL (0.0-0.2); Basophils Percent Auto 0.7 % (0-2); Eosinophils Absolute Auto 0.2 X10*3/uL (0.0-0.4); Eosinophils Percent Auto 2.2 % (0-4); Hematocrit 39.8 % (37.0-47.0); Hemoglobin 13.1 g/dl (12.0-16.0); Imm Gran Abs Auto 0.08 X10*3/uL (0.00-0.03); Imm Gran Pct Auto 1.2 % (0.0-0.4); Lymphocytes Absolute Auto 2.1 X10*3/uL (1.2-4.9); Lymphocytes Percent Auto 30.2 % (20-40); Mean Corpuscular HGB Conc 32.9 g/dl (31.0-35.0); Mean Corpuscular Hemoglobin 28.3 pg (27.0-33.0); Mean Platelet Volume 8.8 fL (9.4-12.3); Monocytes Absolute Auto 0.5 X10*3/uL (0.1-1.2); Monocytes Percent Auto 6.6 % (2-11); Neutrophils Percent Auto 59.1 % (45-73); Platelet Count 250 X10*3/uL (160-400); Red Blood Count 4.63 X10*6/uL (4.20-5.50); Red Cell Distribution Width 14.1 % (11.0-16.0); White Blood Count 6.8 X10*3/uL (4.8-10.8)
[2022-08-19 07:21] LABS: Anion Gap 14 (12-20); Blood Urea Nitrogen 11 mg/dL (9-16); Calcium 9.7 mg/dL (8.4-10.2); Carbon Dioxide 24 mmol/L (22-29); Chloride 108 mmol/L (96-108); Estimated Glomerular Filt Rate > 60; Potassium 3.6 mmol/L (3.3-5.1); Sodium 142 mmol/L (135-145)
[2022-08-19 12:00] LABS: Glucose Random 346 mg/dL (60-115)
== END 2022-08-19 06:08 | disposition home or self-care (01) ==
LOC: HO.MMNH3L 06:07
PROVIDERS: Visit Provider Family Medicine
DX: E03.9 Hypothyroidism, unspecified (principal); I50.40 Unspecified combined systolic (congestive) and diastolic (congestive) heart failure; G93.41 Metabolic encephalopathy
CPT/HCPCS: 36415; 80048; 85025

== ENCOUNTER 2022-09-23 06:17 | Outpatient (REF) | payer MEDICARE, MEDICAID, SELFPAY ==
[2022-09-23 06:06] LABS: MANUAL DIFF FLAG NO
[2022-09-23 07:03] LABS: Anion Gap 15 (12-20); Basophils Percent Auto 0.6 % (0-2); Blood Urea Nitrogen 12 mg/dL (9-16); Calcium 9.8 mg/dL (8.4-10.2); Carbon Dioxide 24 mmol/L (22-29); Chloride 109 mmol/L (96-108); Eosinophils Absolute Auto 0.1 X10*3/uL (0.0-0.4); Estimated Glomerular Filt Rate > 60; Glucose Random 344 mg/dL (60-115); Hematocrit 39.2 % (37.0-47.0); Imm Gran Abs Auto 0.06 X10*3/uL (0.00-0.03); Imm Gran Pct Auto 0.9 % (0.0-0.4); Lymphocytes Percent Auto 28.3 % (20-40); Mean Corpuscular HGB Conc 33.2 g/dl (31.0-35.0); Mean Corpuscular Volume 87.3 fL (80.0-98.0); Mean Platelet Volume 8.9 fL (9.4-12.3); Monocytes Absolute Auto 0.4 X10*3/uL (0.1-1.2); Monocytes Percent Auto 6.4 % (2-11); Neutrophils Absolute Auto 4.3 x10*3/uL (2.0-8.3); Neutrophils Percent Auto 61.8 % (45-73); Platelet Count 268 X10*3/uL (160-400); Potassium 3.7 mmol/L (3.3-5.1); Red Blood Count 4.49 X10*6/uL (4.20-5.50); Sodium 144 mmol/L (135-145); White Blood Count 6.9 X10*3/uL (4.8-10.8)
== END 2022-09-23 06:18 | disposition home or self-care (01) ==
LOC: HO.MMNH3L 06:17
PROVIDERS: Visit Provider Family Medicine
DX: E03.9 Hypothyroidism, unspecified (principal); I50.40 Unspecified combined systolic (congestive) and diastolic (congestive) heart failure; G93.41 Metabolic encephalopathy
CPT/HCPCS: 36415; 80048; 85025

== ENCOUNTER 2022-10-21 06:21 | Outpatient (REF) | payer MEDICARE, MEDICAID, SELFPAY ==
[2022-10-21 06:13] LABS: MANUAL DIFF FLAG NO
[2022-10-21 07:05] LABS: Anion Gap 16 (12-20); Blood Urea Nitrogen 11 mg/dL (9-16); Calcium 9.7 mg/dL (8.4-10.2); Carbon Dioxide 18 mmol/L (22-29); Chloride 111 mmol/L (96-108); Estimated Glomerular Filt Rate > 60; Glucose Random 170 mg/dL (60-115); Potassium 3.6 mmol/L (3.3-5.1); Sodium 141 mmol/L (135-145)
[2022-10-21 07:19] LABS: Basophils Absolute Auto 0.1 X10*3/uL (0.0-0.2); Basophils Percent Auto 0.9 % (0-2); Eosinophils Absolute Auto 0.5 X10*3/uL (0.0-0.4); Eosinophils Percent Auto 6.7 % (0-4); Hematocrit 43.2 % (37.0-47.0); Hemoglobin 14.1 g/dl (12.0-16.0); Imm Gran Abs Auto 0.03 X10*3/uL (0.00-0.03); Imm Gran Pct Auto 0.4 % (0.0-0.4); Lymphocytes Percent Auto 28.7 % (20-40); Mean Corpuscular HGB Conc 32.6 g/dl (31.0-35.0); Mean Corpuscular Hemoglobin 28.6 pg (27.0-33.0); Mean Corpuscular Volume 87.6 fL (80.0-98.0); Mean Platelet Volume 9.2 fL (9.4-12.3); Monocytes Absolute Auto 0.4 X10*3/uL (0.1-1.2); Monocytes Percent Auto 6.1 % (2-11); Neutrophils Percent Auto 57.2 % (45-73); Platelet Count 212 X10*3/uL (160-400); Red Blood Count 4.93 X10*6/uL (4.20-5.50)
== END 2022-10-21 06:22 | disposition home or self-care (01) ==
LOC: HO.MMNH3L 06:21
PROVIDERS: Visit Provider Family Medicine
DX: E03.9 Hypothyroidism, unspecified (principal); I50.40 Unspecified combined systolic (congestive) and diastolic (congestive) heart failure; G93.41 Metabolic encephalopathy
CPT/HCPCS: 36415; 80048; 85025

== ENCOUNTER 2022-11-25 05:58 | Outpatient (REF) | payer MEDICARE, MEDICAID, SELFPAY ==
[2022-11-25 05:55] LABS: MANUAL DIFF FLAG NO
[2022-11-25 06:09] LABS: Basophils Percent Auto 0.5 % (0-2); Eosinophils Absolute Auto 0.3 X10*3/uL (0.0-0.4); Eosinophils Percent Auto 3.9 % (0-4); Hematocrit 36.7 % (37.0-47.0); Hemoglobin 12.1 g/dl (12.0-16.0); Imm Gran Abs Auto 0.07 X10*3/uL (0.00-0.03); Imm Gran Pct Auto 0.9 % (0.0-0.4); Lymphocytes Absolute Auto 2.5 X10*3/uL (1.2-4.9); Lymphocytes Percent Auto 31.9 % (20-40); Mean Corpuscular Hemoglobin 28.5 pg (27.0-33.0); Mean Corpuscular Volume 86.6 fL (80.0-98.0); Mean Platelet Volume 8.6 fL (9.4-12.3); Monocytes Absolute Auto 0.5 X10*3/uL (0.1-1.2); Monocytes Percent Auto 6.5 % (2-11); Neutrophils Absolute Auto 4.5 x10*3/uL (2.0-8.3); Neutrophils Percent Auto 56.3 % (45-73); Platelet Count 255 X10*3/uL (160-400); Red Blood Count 4.24 X10*6/uL (4.20-5.50); Red Cell Distribution Width 14.1 % (11.0-16.0)
[2022-11-25 06:30] LABS: Anion Gap 16 (12-20); Blood Urea Nitrogen 13 mg/dL (9-16); Calcium 9.3 mg/dL (8.4-10.2); Carbon Dioxide 21 mmol/L (22-29); Chloride 109 mmol/L (96-108); Estimated Glomerular Filt Rate > 60; Glucose Random 134 mg/dL (60-115); Potassium 3.6 mmol/L (3.3-5.1); Sodium 142 mmol/L (135-145)
== END 2022-11-25 05:59 | disposition home or self-care (01) ==
LOC: HO.MMNH3L 05:58
PROVIDERS: Visit Provider Family Medicine
DX: E03.9 Hypothyroidism, unspecified (principal); I50.40 Unspecified combined systolic (congestive) and diastolic (congestive) heart failure; G93.41 Metabolic encephalopathy
CPT/HCPCS: 36415; 80048; 85025

== ENCOUNTER 2022-11-29 20:12 | Outpatient (REF) | payer MEDICARE, MEDICAID, SELFPAY | END 2022-11-29 20:13 | disposition home or self-care (01) | LOC: HO.MMNH3L 20:12 | PROVIDERS: Visit Provider Family Medicine | DX: R50.9 Fever, unspecified (principal) | CPT/HCPCS: 87070 ==

== ENCOUNTER 2022-12-24 06:37 | Outpatient (REF) | payer MEDICARE, MEDICAID, SELFPAY ==
[2022-12-24 06:31] LABS: MANUAL DIFF FLAG NO
[2022-12-24 07:20] LABS: Basophils Absolute Auto 0.1 X10*3/uL (0.0-0.2); Basophils Percent Auto 0.7 % (0-2); Eosinophils Absolute Auto 0.2 X10*3/uL (0.0-0.4); Eosinophils Percent Auto 2.9 % (0-4); Hematocrit 42.1 % (37.0-47.0); Hemoglobin 13.9 g/dl (12.0-16.0); Imm Gran Abs Auto 0.05 X10*3/uL (0.00-0.03); Imm Gran Pct Auto 0.7 % (0.0-0.4); Lymphocytes Absolute Auto 2.2 X10*3/uL (1.2-4.9); Lymphocytes Percent Auto 28.2 % (20-40); Mean Corpuscular Hemoglobin 28.2 pg (27.0-33.0); Mean Corpuscular Volume 85.4 fL (80.0-98.0); Mean Platelet Volume 8.4 fL (9.4-12.3); Monocytes Absolute Auto 0.4 X10*3/uL (0.1-1.2); Monocytes Percent Auto 5.7 % (2-11); Neutrophils Absolute Auto 4.8 x10*3/uL (2.0-8.3); Neutrophils Percent Auto 61.8 % (45-73); Platelet Count 250 X10*3/uL (160-400); Red Blood Count 4.93 X10*6/uL (4.20-5.50); Red Cell Distribution Width 14.1 % (11.0-16.0); White Blood Count 7.7 X10*3/uL (4.8-10.8)
[2022-12-24 07:45] LABS: Anion Gap 14 (12-20); Blood Urea Nitrogen 13 mg/dL (9-16); Calcium 9.9 mg/dL (8.4-10.2); Carbon Dioxide 24 mmol/L (22-29); Chloride 108 mmol/L (96-108); Estimated Glomerular Filt Rate > 60; Glucose Random 184 mg/dL (60-115); Potassium 3.6 mmol/L (3.3-5.1); Sodium 142 mmol/L (135-145)
== END 2022-12-24 06:38 | disposition home or self-care (01) ==
LOC: HO.MMNH3L 06:37
PROVIDERS: Visit Provider Family Medicine
DX: E03.9 Hypothyroidism, unspecified (principal); I50.40 Unspecified combined systolic (congestive) and diastolic (congestive) heart failure; G93.41 Metabolic encephalopathy
CPT/HCPCS: 36415; 80048; 85025

== ENCOUNTER 2023-04-12 10:37 | Outpatient (REF) | payer MEDICARE, MEDICAID, SELFPAY ==
[2023-04-12 11:22] LABS: Influenza A PCR NEGATIVE (Negative); Influenza B PCR NEGATIVE (Negative); Resp Syncy Virus RNA Qual PCR NEGATIVE (Negative); SARS COV2 PCR INHOUSE NEGATIVE (Negative)
== END 2023-04-12 10:38 | disposition home or self-care (01) ==
LOC: HO.MMNH3L 10:37
PROVIDERS: Visit Provider Family Medicine
DX: I10 Essential (primary) hypertension (principal); F32.0 Major depressive disorder, single episode, mild; E11.8 Type 2 diabetes mellitus with unspecified complications; Z20.822 Contact with and (suspected) exposure to COVID-19
CPT/HCPCS: 0241U

== ENCOUNTER 2023-05-19 06:27 | Outpatient (REF) | payer MEDICARE, MEDICAID, SELFPAY ==
[2023-05-19 06:29] LABS: MANUAL DIFF FLAG NO
[2023-05-19 07:14] LABS: Basophils Absolute Auto 0.1 X10*3/uL (0.0-0.2); Basophils Percent Auto 0.6 % (0-2); Eosinophils Absolute Auto 0.3 X10*3/uL (0.0-0.4); Eosinophils Percent Auto 3.2 % (0-4); Hematocrit 39.4 % (37.0-47.0); Hemoglobin 12.9 g/dl (12.0-16.0); Imm Gran Abs Auto 0.06 X10*3/uL (0.00-0.03); Imm Gran Pct Auto 0.8 % (0.0-0.4); Lymphocytes Absolute Auto 2.1 X10*3/uL (1.2-4.9); Lymphocytes Percent Auto 27.2 % (20-40); Mean Corpuscular HGB Conc 32.7 g/dl (31.0-35.0); Mean Corpuscular Hemoglobin 28.7 pg (27.0-33.0); Mean Corpuscular Volume 87.6 fL (80.0-98.0); Mean Platelet Volume 8.6 fL (9.4-12.3); Monocytes Absolute Auto 0.5 X10*3/uL (0.1-1.2); Monocytes Percent Auto 6.8 % (2-11); Neutrophils Absolute Auto 4.8 x10*3/uL (2.0-8.3); Neutrophils Percent Auto 61.4 % (45-73); Platelet Count 262 X10*3/uL (160-400); Red Cell Distribution Width 14.3 % (11.0-16.0); White Blood Count 7.8 X10*3/uL (4.8-10.8)
[2023-05-19 07:29] LABS: Anion Gap 14 (12-20); Blood Urea Nitrogen 15 mg/dL (9-16); Calcium 9.8 mg/dL (8.4-10.2); Carbon Dioxide 22 mmol/L (22-29); Chloride 111 mmol/L (96-108); Estimated Glomerular Filt Rate > 60; Glucose Random 144 mg/dL (60-115); Potassium 3.4 mmol/L (3.3-5.1); Sodium 144 mmol/L (135-145)
== END 2023-05-19 06:28 | disposition home or self-care (01) ==
LOC: HO.MMNH3L 06:27
PROVIDERS: Visit Provider Family Medicine
DX: F32.0 Major depressive disorder, single episode, mild (principal); F22 Delusional disorders; E87.6 Hypokalemia
CPT/HCPCS: 36415; 80048; 85025

== ENCOUNTER 2023-05-20 15:04 | Outpatient (REF) | payer MEDICARE, MEDICAID, SELFPAY ==
[2023-05-20 15:58] LABS: Influenza A PCR NEGATIVE (Negative); Influenza B PCR NEGATIVE (Negative); Resp Syncy Virus RNA Qual PCR NEGATIVE (Negative); SARS COV2 PCR INHOUSE NEGATIVE (Negative)
== END 2023-05-20 15:05 | disposition home or self-care (01) ==
LOC: HO.MMNH3L 15:04
PROVIDERS: Visit Provider Family Medicine
DX: Z11.52 Encounter for screening for COVID-19 (principal); Z86.16 Personal history of COVID-19; Z20.828 Contact with and (suspected) exposure to other viral communicable diseases
CPT/HCPCS: 0241U

== ENCOUNTER 2023-07-30 07:03 | Outpatient (REF) | payer MEDICARE, MEDICAID, SELFPAY ==
[2023-07-30 07:05] LABS: MANUAL DIFF FLAG NO
[2023-07-30 07:46] LABS: Basophils Absolute Auto 0.1 X10*3/uL (0.0-0.2); Basophils Percent Auto 0.6 % (0-2); Eosinophils Absolute Auto 0.2 X10*3/uL (0.0-0.4); Eosinophils Percent Auto 2.5 % (0-4); Hemoglobin 13.2 g/dl (12.0-16.0); Imm Gran Abs Auto 0.09 X10*3/uL (0.00-0.03); Lymphocytes Absolute Auto 2.6 X10*3/uL (1.2-4.9); Lymphocytes Percent Auto 29.1 % (20-40); Mean Corpuscular HGB Conc 33.8 g/dl (31.0-35.0); Mean Corpuscular Volume 85.7 fL (80.0-98.0); Mean Platelet Volume 8.4 fL (9.4-12.3); Monocytes Absolute Auto 0.5 X10*3/uL (0.1-1.2); Monocytes Percent Auto 5.3 % (2-11); Neutrophils Absolute Auto 5.4 x10*3/uL (2.0-8.3); Neutrophils Percent Auto 61.5 % (45-73); Platelet Count 232 X10*3/uL (160-400); Red Blood Count 4.55 X10*6/uL (4.20-5.50); Red Cell Distribution Width 14.3 % (11.0-16.0); White Blood Count 8.8 X10*3/uL (4.8-10.8)
[2023-07-30 07:47] LABS: Anion Gap 12 (12-20); Blood Urea Nitrogen 19 mg/dL (9-16); Calcium 9.2 mg/dL (8.4-10.2); Carbon Dioxide 24 mmol/L (22-29); Chloride 110 mmol/L (96-108); Estimated Glomerular Filt Rate > 60; Glucose Random 91 mg/dL (60-115); Potassium 3.1 mmol/L (3.3-5.1); Sodium 143 mmol/L (135-145)
== END 2023-07-30 07:04 | disposition home or self-care (01) ==
LOC: HO.MMNH3L 07:03
PROVIDERS: Visit Provider Family Medicine
DX: I63.531 Cerebral infarction due to unspecified occlusion or stenosis of right posterior cerebral artery (principal); G93.41 Metabolic encephalopathy; E11.8 Type 2 diabetes mellitus with unspecified complications
CPT/HCPCS: 36415; 80048; 85025

== ENCOUNTER 2023-08-11 11:46 | Outpatient (REF) | payer MEDICARE, MEDICAID, SELFPAY ==
[2023-08-11 14:32] LABS: CDiff Gene PCR NEGATIVE (Negative)
== END 2023-08-11 11:47 | disposition home or self-care (01) ==
LOC: HO.MMNH3L 11:46
PROVIDERS: Visit Provider Family Medicine
DX: E11.8 Type 2 diabetes mellitus with unspecified complications (principal); I10 Essential (primary) hypertension
CPT/HCPCS: 87493

== ENCOUNTER 2023-08-12 05:43 | Outpatient (REF) | payer MEDICARE, MEDICAID, SELFPAY ==
[2023-08-12 05:45] LABS: MANUAL DIFF FLAG NO
[2023-08-12 06:31] LABS: Basophils Percent Auto 0.2 % (0-2); Eosinophils Percent Auto 0.1 % (0-4); Hematocrit 42.7 % (37.0-47.0); Hemoglobin 14.2 g/dl (12.0-16.0); Imm Gran Abs Auto 0.07 X10*3/uL (0.00-0.03); Imm Gran Pct Auto 0.5 % (0.0-0.4); Lymphocytes Percent Auto 7.7 % (20-40); Mean Corpuscular HGB Conc 33.3 g/dl (31.0-35.0); Mean Corpuscular Hemoglobin 28.7 pg (27.0-33.0); Mean Corpuscular Volume 86.3 fL (80.0-98.0); Mean Platelet Volume 8.6 fL (9.4-12.3); Monocytes Absolute Auto 0.6 X10*3/uL (0.1-1.2); Monocytes Percent Auto 4.2 % (2-11); Neutrophils Absolute Auto 11.4 x10*3/uL (2.0-8.3); Neutrophils Percent Auto 87.3 % (45-73); Platelet Count 254 X10*3/uL (160-400); Red Blood Count 4.95 X10*6/uL (4.20-5.50); Red Cell Distribution Width 14.7 % (11.0-16.0); White Blood Count 13.1 X10*3/uL (4.8-10.8)
[2023-08-12 06:35] LABS: Alanine Aminotransferase 19 U/L (0-31); Albumin Level 3.5 g/dL (3.5-5.0); Alkaline Phosphatase 82 U/L (39-117); Anion Gap 14 (12-20); Aspartate Amino Transferase 13 U/L (5-31); Bilirubin Total 0.8 mg/dL (0.0-1.0); Blood Urea Nitrogen 25 mg/dL (9-16); Carbon Dioxide 23 mmol/L (22-29); Chloride 111 mmol/L (96-108); Estimated Glomerular Filt Rate > 60; Glucose Random 209 mg/dL (60-115); Potassium 3.5 mmol/L (3.3-5.1); Sodium 144 mmol/L (135-145); Total Protein 6.7 g/dL (6.5-8.0)
== END 2023-08-12 05:44 | disposition home or self-care (01) ==
LOC: HO.MMNH3L 05:43
PROVIDERS: Visit Provider Family Medicine
DX: I10 Essential (primary) hypertension (principal)
CPT/HCPCS: 36415; 80053; 85025

== ENCOUNTER 2023-08-14 04:25 | Observation (INO) | payer MEDICARE, MEDICAID, SELFPAY ==
[2023-08-14] VITALS (7 sets, daily range): BP systolic 140–170; BP diastolic 68–88; PULSE 61–80; RESP 12–17; TEMP 36.4–36.7; O2SAT 94–97; BMI 32.1
--- NOTE | 2023-08-14 | ECG_ITS ---
Test Reason : SOB Blood Pressure : / mmHG Vent. Rate : 063 BPM Atrial Rate : 063 BPM P-R Int : 196 ms QRS Dur : 092 ms QT Int : 434 ms P-R-T Axes : 021 -41 116 degrees QTc Int : 444 ms Normal sinus rhythm Left axis deviation Left ventricular hypertrophy with repolarization abnormality ( R in aVL , [place] product ) Cannot rule out Septal infarct , age undetermined Abnormal ECG No previous ECGs available Referred By: Generic ED Physician Electronically Signed By:ANTHONY CHRISTIANSON MD
--- NOTE | ~2023-08-14 | CT_ITS ---
EXAMINATION: CT ANGIOGRAM OF THE CHEST WITH CONTRAST (CT PULMONARY ANGIOGRAM FOR PE) CLINICAL INFORMATION: Reason for Exam + dimer sob COMPARISON: Chest radiograph from 08/14/2023. TECHNIQUE: Prior to contrast administration, noncontrast localization images were obtained. Subsequently, multidetector volumetric imaging was performed from the thoracic inlet to below the diaphragms following the administration of 70 mL Omnipaque 350 intravenous contrast. No contrast reaction reported. Sagittal, coronal, and MIP oblique sagittal reformatted images were obtained on the CT workstation, uploaded to PACS, and reviewed. This CT examination was performed using dose optimization techniques as appropriate, variously including the following: *Automated exposure control *Adjustment of mA and/or kV according to patient size (this includes techniques or standardized protocols for targeted exams where dose is matched to indication/reason for exam; i.e. extremities or head) *Use of iterative reconstruction technique DLP: Total exam dose-length product 418 mGy-cm FINDINGS: LUNGS AND PLEURA: Mild respiratory motion on these images through the chest. Mild centrilobular emphysema. Bronchial patel are diffusely thickened. Subsegmental atelectasis within the right middle lobe. Small right pleural effusion is layering from the base to the apex. Associated mild compressive atelectasis in the dependent aspect of the right lung. The hazy and linear opacities in the posterior left upper lobe and left lower lobe appear to represent mild atelectatic changes. QUALITY OF STUDY/CONTRAST BOLUS: Satisfactory. PULMONARY ARTERIES: The pulmonary arteries are normal in size. No embolic filling defects within the main, lobar or segmental vessels. OTHER CARDIOVASCULAR: Cardiac chambers are normal in size. There is multivessel coronary artery atherosclerotic calcification. There is atherosclerotic calcification of the thoracic aorta without aneurysm or dissection. Alerx-zq-llcdqvsk pericardial effusion is present in the fluid has a simple appearance. No evidence of pericardial thickening. MEDIASTINUM/LOWER NECK: No mediastinal mass. The thyroid gland and esophagus are unremarkable. LYMPHATICS: No pathologic sized axillary, hilar or mediastinal lymph nodes. UPPER ABDOMEN: 1.6 x 1.7 cm nodule of the right adrenal gland has density of -18 Hounsfield units on these contrast-enhanced images, highly suggestive of lipid rich adenoma. 1.8 x 2.1 cm nodule of the left adrenal gland has a density of 8 Hounsfield units, also consistent with lipid rich adenoma. No adrenal imaging follow-up required/recommended. OSSEOUS STRUCTURES: Skeletal hyperostosis with presence of bulky flowing anterior ligament ossification of the degenerated thoracic spine. There is vacuum disc phenomenon at T10-T11. Osteoarthritis of bilateral glenohumeral joints and osteochondral bodies of the left glenohumeral joint. CT/CT angio chest PE protocol IMPRESSION: * No evidence of pulmonary embolism. * Mild centrilobular emphysema and diffusely thickened bronchial patel. Correlate for any history of chronic obstructive pulmonary disease. * Small right pleural effusion is present. * Kxtjd-oo-rcrtkfck pericardial effusion. * Atherosclerotic calcification of coronary arteries and thoracic aorta without aortic aneurysm. * Bilateral adrenal nodules have low attenuation, highly suggestive of lipid rich adenomas.
--- NOTE | ~2023-08-14 | XR_ITS ---
EXAMINATION: XR CHEST CLINICAL INFORMATION: Cough. COMPARISON: None available. TECHNIQUE: AP portable view of the chest was obtained. FINDINGS: No definite pneumothorax or significant pleural effusion identified. Heart upper limits of normal in size. No evidence of pulmonary edema. About the right chest there are some linear densities present and on this portable view it is difficult to tell whether these may represent suture lines of previous surgery. Clinical correlation suggested. Adjacent to the linear densities there appears to be an oval opacity and it is difficult to tell whether this may represent a lung mass. This is seen overlying the posterior aspect of the seventh rib. No old studies available for comparison. Vascular calcifications are present. XR/XR chest 1V IMPRESSION: Question post right lung surgery as described. Oval density about the right chest overlying posterior aspect of the right seventh rib.
--- OUTSIDE RECORDS SUMMARY | 2023-08-14 04:50 | XMS_ITS | Continuity of Care Document ---
Author Organization [facility] Address [address] [place] [address]- Care Team Providers Care Environmental Health Officer Name Role Phone Garret MURCIA, Gala Mohan Primary Care Physician [facility] Date[facility]): 11/[facility]/19 - 12/02/19 [facility] [address] [place] [address]- [facility] Allergies, Adverse Reactions, Alerts Substance Reaction Severity Status NKA Active Immunizations Given and Recorded Vaccine Date Status Refusal Reason Influenza Virus Vaccine (oldterm) 01/19/19 Recorde d Influenza Virus Vaccine (oldterm) 02/08/18 Recorde d pneumococcal 13-valent vaccine 02/08/18 Recorded pneumococcal 13-valent vaccine 1 03/31/15 Recorded pneumococcal 23-valent vaccine 2 02/04/17 Recorded influenza virus vaccine, inactivated 3 01/10/17 Re corded influenza virus vaccine, inactivated 02/03/16 Alberto rded influenza virus vaccine, inactivated 4 01/19/15 Re corded influenza virus vaccine, inactivated 5 01/10/14 Gi adirana influenza virus vaccine, inactivated 6 01/01/13 Gi adriana influenza virus vaccine, inactivated 7 05/07/12 Gi adriana tetanus/diphtheria/pertussis, acel(Tdap) 05/07/12 Given Zoster Vaccine Live 02/05/12 Given Pneumococcal Poly (PPV23) (oldterm) 01/06/12 Given [facility] 4Result Comment: [03/20/2015] [facility] 5Admin Note: FLUZONE [id number] 6Result Comment: [01/01/2013] vis denied, given w/o incidense..mh 7Admin Note: [facility] allopurinol 300 mg oral tablet 1 tablet = 300 mg, By Mouth, Daily, # 30 tablet, 0 Refills, Maintenance, 06/27/14 16:10:02, Tablet Start Date: 06/27/14 Status: Ordered amLODIPine 5 mg oral tablet 5 mg, 1, tablet, By Mouth, Daily, Refills 0, Maintenance, 02/16/19 13:06:58 EDT Start Date: 02/16/19 Status: Ordered aspirin 81 mg oral tablet 1 tablet = 81 mg, By Mouth, Daily, 0 Refills, Maintenance, 01/27/19 9:25:54 EDT Start Date: 01/27/19 Status: Ordered carvedilol 25 mg oral tablet 25 mg, 1, tablet, By Mouth, 2 times a day, Refills 0, Maintenance, 01/27/19 9:30:32 EDT Start Date: 01/27/19 Status: Ordered Estrace 1 mg oral tablet 1 mg, 1, tablet, By Mouth, Daily, # 30 tablet, Refills 8, Tot. Refills 8, Maintenance, 01/06/19 11:44:41 EDT, Route to Pharmacy Electronically, [id number], [facility] Start Date: 01/06/19 Stop Date: 10/03/19 Status: Ordered flutamide 125 mg oral capsule 1 capsule = 125 mg, By Mouth, 2 times a day, # 60 capsule, 11 Refills, Maintenance, 07/24/18 12:16:12 EDT Start Date: 07/24/18 Status: Ordered Freestyle Lite Lancets See Instructions, # 100 units, Refills 1, Tot. Refills 1, Maintenance, check sugars BID -AC dx-E11.65, 02/16/19 13:08:21 EDT, Compound Start Date: 02/16/19 Status: Ordered Freestyle Lite Monitor See Instructions, # 1 units, Refills 0, Tot. Refills 0, Maintenance, check sugars BID -AC dx-E11.65, 02/16/19 13:08:06 EDT, Compound Start Date: 02/16/19 Status: Ordered Freestyle Lite Test Strips See Instructions, # 100 strip(s), Refills 1, Tot. Refills 1, Maintenance, check sugars BID -AC dx-E11.65, 02/16/19 13:08:12 EDT, Compound Start Date: 02/16/19 Status: Ordered furosemide 40 mg oral tablet 80 mg, 2, tablet, By Mouth, 2 times a day, # 360 tablet, Refills 3, Tot. Refills 3, Maintenance, 02/04/17 19:17:03, Route to Pharmacy Electronically, [id number], [facility] Start Date: 02/04/17 Stop Date: 01/30/18 Status: Ordered levothyroxine 0.088 mg oral tablet 1 tablet, By Mouth, Daily, # 30 tablet, 11 Refills, Maintenance, 10/15/19 15:23:00 EDT, [facility], 155, cm, 05/24/19 11:20:00 EST, Height, 84.2, kg, 08/28/18 10:03:00 EDT, Dry Weight Start Date: 10/15/19 Status: Ordered losartan 100 mg oral tablet 1 tablet = 100 mg, By Mouth, Daily, # 90 tablet, 0 Refills, Maintenance, 04/30/17 10:36:22, Tablet Start Date: 04/30/17 Status: Ordered metFORMIN 500 mg oral tablet 1 tablet = 500 mg, By Mouth, 2 times a day, # 60 tablet, 5 Refills, Maintenance, 11/11/19 15:16:00 EDT, [facility], 155, cm, 05/24/19 11:20:00 EST, Height, 84.2, kg, 08/28/18 10:03:00 EDT, Dry Weight Start Date: 11/11/19 Stop Date: 05/09/20 Status: Ordered oxybutynin 5 mg oral tablet 1 tablet, By Mouth, 2 times a day, PLEASE SCHEDULE AN APPOINTMENT., # 60 tablet, 3 Refills, Maintenance, 07/27/19 14:23:00 EDT, [facility], 155, cm, 05/24/19 11:20:00 EST, Height, 84.2, kg, 08/28/18 10:03:00 EDT, Dry Weight Start Date: 07/27/19 Status: Ordered pravastatin 80 mg oral tablet 1 tablet = 80 mg, By Mouth, Daily, # 90 tablet, 3 Refills, Maintenance, 05/24/19 11:39:00 EST, Tablet, [facility], 155, cm, 05/24/19 11:20:00 EST, Height, 84.2, kg, 08/28/18 10:03:00 EDT, Dry Weight Start Date: 05/24/19 Stop Date: 05/18/20 Status: Ordered spironolactone 25 mg oral tablet 25 mg, 1, tablet, By Mouth, 2 times a day, # 180 tablet, Refills 0, Maintenance, 04/30/17 10:36:06 Start Date: 04/30/17 Status: Ordered Vitamin D3 1000 intl units oral tablet 1 tablet = 1,000 International_Units, By Mouth, Daily, # 30 tablet, 5 Refills, Maintenance, 07/23/19 10:39:00 EDT, Tablet, [facility], 155, cm, 05/24/19 11:20:00 EST, Height, 84.2, kg, 08/28/18 10:03:00 EDT, Dry Weight Start Date: 07/23/19 Stop Date: 01/19/20 Status: Ordered Problem List Condition Effective Dates Status Health Status Inform ant Alopecia(Confirmed) Active Dyspnea and other respirator y abnormalities(Confirmed) 08/01/10 Active Gout(Confirmed) Active Hirsutism(Confirmed) Active HTN - Hypertension(Confirmed) Active Hypothyroidism(Confirmed) Active Obstructive sleep apnea (beto lt or pediatric)(Confirmed) Active Rheumatoid Arthritis(Confirmed) Active Thyroid nodule(Confirmed) Active Social History Social History Type Response Smoking Status Never smoker entered on: 09/08/13 Sex
--- OUTSIDE RECORDS SUMMARY | 2023-08-14 04:50 | XMS_ITS | Continuity of Care Document ---
Author Organization [facility] Address [address] [place] [address]- Care Team Providers Care Overhead Crane Technician Name Role Phone Garret MURCIA, Gala Mohan Primary Care Physician [facility] Date[facility]s): 05/24/19 - 05/31/19 [facility] [address] [place] [address]- [facility] Attending Physician: Gala Combs MD Allergies, Adverse Reactions, Alerts Substance Reaction Severity [...] influenza virus vaccine, inactivated 5 01/10/14 Gi adriana influenza virus vaccine, inactivated 6 01/01/13 Gi adriana influenza virus vaccine, inactivated 7 05/07/12 Gi adriana tetanus/diphtheria/pertussis, acel(Tdap) 05/07/12 Given Zoster Vaccine Live 02/05/12 Given Pneumococcal Poly (PPV23) (oldterm) 01/06/12 Given [facility] 4Result Comment: [03/20/2015[facility] 5Admin Note: FLUZONE [id number] 6Result Comment: [01/01/2013] vis denied, given w/o incidense.. 7Admin Note: [facility] allopurinol 300 mg [...] 01/06/19 11:44:41 EDT, Route to Pharmacy Electronically, [id number], [facility] Start Date: [...] Maintenance, 02/04/17 19:17:03, Route to Pharmacy Electronically, [id number], [facility] Start Date: 02/04/17 Stop Date: 01/30/18 Status: Ordered levothyroxine 0.088 mg oral tablet 1 tablet = 88 mcg, By Mouth, Daily, # 30 tablet, 11 Refills, Maintenance, 10/26/18 12:12:53 EDT, Tablet Start Date: 10/26/18 Status: Ordered losartan 100 mg oral tablet 1 tablet = 100 mg, By Mouth, Daily, # 90 tablet, 0 Refills, Maintenance, 04/30/17 10:36:22, Tablet Start Date: 04/30/17 Status: Ordered metFORMIN 500 mg oral tablet 1 tablet = 500 mg, By Mouth, 2 times a day, # 60 tablet, 5 Refills, Maintenance, 01/27/19 9:24:34 EDT, [facility] Start Date: 01/27/19 Stop Date: 07/26/19 Status: Ordered oxybutynin 5 mg oral tablet 1 tablet, By Mouth, 2 times a day, PLEASE SCHEDULE AN APPOINTMENT., # 60 tablet, 2 Refills, Maintenance, 05/31/19 12:06:00 EST, [facility], 155, cm, 05/24/19 11:20:00 EST, Height, 84.2, kg, 08/28/18 10:03:00 EDT, Dry Weight Start Date: 05/31/19 Status: Ordered pravastatin 80 mg oral tablet 1 tablet = 80 mg, By Mouth, Daily, # 90 tablet, 3 Refills, Maintenance, 05/24/19 11:39:00 EST, Tablet, [facility], 155, cm, 05/24/19 11:20:00 EST, [...] Daily, # 30 tablet, 5 Refills, Maintenance, 01/27/19 9:24:50 EDT, Tablet Start Date: 01/27/19 Stop Date: 07/26/19 Status: Ordered Problem List Condition Effective Dates Status Health Status Inform ant Alopecia(Confirmed) Active Dyspnea and other respirator y abnormalities(Confirmed) 08/01/10 Active Gout(Confirmed) Active Hirsutism(Confirmed) Active HTN - Hypertension(Confirmed) Active Hypothyroidism(Confirmed) Active Obstructive sleep apnea (beto lt or pediatric)(Confirmed) Active Rheumatoid Arthritis(Confirmed) Active Thyroid nodule(Confirmed) Active Vital Signs Most recent to oldest [Reference Range]: 1 Height 155 cm (05/24/19 11:20 AM) Weight 83.6 kg (05/24/19 11:20 AM) Oxygen Saturation [94-100 %] 97 % (05/24/19 11:20 AM) Pulse Rate [55-90 bpm] 67 bpm (05/24/19 11:20 AM) Body Mass Index [18.5-24.99] 34.8 *>HHI* (05/24/19 11:20 AM) Blood Pressure [90-138/55-84 mm Hg] 100/ 67mm Hg (05/24/19 11:20 AM) Mode of Delivery (Oxygen) Room air (05/24/19 11:20 AM) Blood pressure sites Arm, left (05/24/19 11:20 AM) Weight Obtained Via Standing scale (05/24/19 11:20 AM) Social History Social History Type Response Smoking Status Never smoker entered on: 09/08/13 Sex
--- OUTSIDE RECORDS SUMMARY | 2023-08-14 04:50 | XMS_ITS | Continuity of Care Document ---
Author Organization [facility] Address [address] [place] [address]- Care Team Providers Care Kiln Pusher Name Role Phone Eduardo MURCIA, Valdez Primary Care Physician [facility] Date[facility]s): 03/30/20 - 07/02/20 [facility] [address] [place], [place] [address] Attending Physician: Garret MURCIA, Gala Mohan Allergies, Adverse Reactions, Alerts Substance Reaction Severity [...] [03/20/2015] [facility] 5Admin Note: FLUZONE [id number] 6Result Comment: [01/01/2013] vis denied, given w/o incidense..mh 7Admin Note: [facility] allopurinol 100 mg oral tablet 100 mg, 1, tablet, By Mouth, Daily, Refills 0, Maintenance, 06/05/20 11:14:00 EST, Partial fill upon patient request if the prescription is for a schedule II opioid drug. Start Date: 06/05/20 Status: Ordered amLODIPine 10 mg oral tablet 10 mg, 1, tablet, By Mouth, Daily, Refills 0, Maintenance, 06/05/20 11:14:00 EST, Partial fill uponpatient request if the prescription is for a schedule II opioid drug. Start Date: 06/05/20 Status: Ordered atorvastatin 80 mg oral tablet 1 tablet = 80 mg, By Mouth, Daily, # 90 tablet, 0 Refills, Maintenance, 05/18/20 18:02:00 EST, Tablet, Partial fill upon patient request if the prescription is for a schedule II opioid drug. Start Date: 05/18/20 Status: Ordered carvedilol 25 mg oral tablet 25 mg, 1, tablet, By Mouth, 2 times a day, Refills 0, Maintenance, 01/27/19 9:30:32 EDT Start Date: 01/27/19 Status: Ordered clopidogrel 75 mg oral tablet 75 mg, 1, tablet, By Mouth, Daily, for stroke, # 90 tablet, Refills 0, Tot. Refills 0, Maintenance,05/19/20 12:01:00 EST, Route to Pharmacy Electronically, [facility], Partial fillupon patient request if the prescription is for a sched... Start Date: 05/19/20 Status: Ordered Docusate/Senna Tablet 1 tablet, By Mouth, Daily, PRN Constipation, 0 Refills, Maintenance, 06/05/20 11:11:00 EST, Tablet,Partial fill upon patient request if the prescription is for a schedule II opioid drug. Start Date: 06/05/20 Status: Ordered Enoxaparin 0.4 mL = 40 mg, Subcutaneous Injection, Daily, 0 Refills, Maintenance, 06/05/20 11:11:00 EST, Injection, Partial fill upon patient request if the prescription is for a schedule II opioid drug. Start Date: 06/05/20 Status: Ordered estradiol 1 mg oral tablet 1 mg, 1, tablet, By Mouth, Daily, # 90 tablet, Refills 0, Maintenance, 05/18/20 19:43:00 EST, Partial fill upon patient request if the prescription is for a schedule II opioid drug. Start Date: 05/18/20 Status: Ordered Insulin Lispro 2-18 units, Subcutaneous Injection, 3 times a day before meals, << Sliding Scale Comments >> 150 - 199 2 units Call if less than 100 200 - 249 6 units 250 - 299 10 units 300 - 349 14 units 350 - 399 18 units Call if greater than 400 ... Start Date: 06/05/20 Status: Ordered Lantus Inj 0.2 mL = 20 units, Subcutaneous Injection, Daily at bedtime, 0 Refills, Maintenance, 06/05/20 11:11:00 EST, Injection, Partial fill upon patient request if the prescription is for a schedule II opioid drug. Start Date: 06/05/20 Status: Ordered levothyroxine 0.088 mg oral tablet 1 tablet = 88 mcg, By Mouth, Daily, # 90 tablet, 0 Refills, Maintenance, 05/18/20 19:42:00 EST, Tablet, Partial fill upon patient request if the prescription is for a schedule II opioid drug. Start Date: 05/18/20 Status: Ordered lidocaine 5% topical film Topically, Daily, 0 Refills, Maintenance, 05/19/20 12:02:00 EST, Patch, Partial fill upon patient request if the prescription is for a schedule II opioid drug. Start Date: 05/19/20 Status: Ordered losartan 100 mg oral tablet 1 tablet = 100 mg, By Mouth, Daily, # 90 tablet, 0 Refills, Maintenance, 05/18/20 19:42:00 EST, Tablet, Partial fill upon patient request if the prescription is for a schedule II opioid drug. Start Date: 05/18/20 Status: Ordered oxybutynin 5 mg oral tablet 1 tablet, By Mouth, 2 times a day, PLEASE SCHEDULE AN APPOINTMENT., # 60 tablet, 3 Refills, Maintenance, 07/27/19 14:23:00 EDT, [facility], 155, cm, 05/24/19 11:20:00 EST, Height, 84.2, kg, 08/28/18 10:03:00 EDT, Dry Weight Start Date: 07/27/19 Status: Ordered Tylenol 325 mg oral tablet 650 mg, 2, tablet, By Mouth, Every 6 hours, PRN, Refills 0, Maintenance, Pain , Mild, 05/19/20 12:02:00 EST, Partial fill upon patient request if the prescription is for a schedule II opioid drug. Start Date: 05/19/20 Status: Ordered Vitamin D3 1000 intl units [...]
--- OUTSIDE RECORDS SUMMARY | 2023-08-14 04:50 | XMS_ITS | Continuity of Care Document ---
Author Organization [facility] Address [address] [place] [address]- Care Team Providers Care Spring Layer Name Role Phone Gala Combs MD Primary Care Physician Encounter [facility] Date(s): 10/08/19 - 10/15/19 [facility] [address] [place] [address]- [facility] Attending Physician: Alexandre Fierro MD Referring Physician: Gala Combs MD Allergies, Adverse Reactions, [...] [03/20/2015] [facility] 5Admin Note: FLUZONE [id number] 6Result Comment: [01/01/2013] vis denied, given w/o [...] 01/06/19 11:44:41 EDT, Route to Pharmacy Electronically, [id number], [facility] Start Date: [...] Maintenance, 02/04/17 19:17:03, Route to Pharmacy Electronically, [id number], [facility] Start Date: 02/04/17 Stop Date: 01/30/18 Status: Ordered levothyroxine 0.088 mg oral tablet 1 tablet, By Mouth, Daily, # 30 tablet, 11 Refills, Maintenance, 10/15/19 15:23:00 EDT, [facility], 155, cm, 05/24/19 11:20:00 EST, [...] tablet, 5 Refills, Maintenance, 01/27/19 9:24:34 EDT, [facility] Start Date: 01/27/19 Stop Date: 07/26/19 Status: Ordered oxybutynin 5 mg oral tablet 1 tablet, By Mouth, 2 times a day, PLEASE SCHEDULE AN APPOINTMENT., # 60 tablet, 3 Refills, Maintenance, 07/27/19 14:23:00 EDT, [facility], 155, cm, 05/24/19 11:20:00 EST, [...]
--- OUTSIDE RECORDS SUMMARY | 2023-08-14 04:50 | XMS_ITS | Continuity of Care Document ---
Author Organization [facility] Address [address] [place] [address]- Care Team Providers Care Lifestyle Consultant Name Role Phone Gala Combs MD Primary Care Physician [facility] Date[facility]): 02[facility]16[facility]19 - 04/15/19 [facility] [address] [place] [address]- [facility] Attending Physician: Gala Combs MD [...] [03/20/2015] [facility] 5Admin Note: FLUZONE [id number] 6Result Comment: [01/01/2013] vis denied, given w/o [...] 01/06/19 11:44:41 EDT, Route to Pharmacy Electronically, [id number], [facility] Start Date: [...] Maintenance, 02/04/17 19:17:03, Route to Pharmacy Electronically, [id number], [facility] Start Date: 02/04/17 Stop Date: [...] Status: Ordered metFORMIN 500 mg oral tablet 2 tablet = 1,000 mg, By Mouth, 2 times a day, # 120 tablet, 5 Refills, Maintenance, 01/27/19 9:24:34 EDT Start Date: 01/27/19 Stop Date: 07/26/19 Status: Ordered oxybutynin 5 mg oral tablet 1 tablet = 5 mg, By Mouth, 2 times a day, # 60 tablet, 0 Refills, Maintenance, 01/06/19 11:44:42 EDT, Tablet Start Date: 01/06/19 Status: Ordered pravastatin 80 mg oral tablet 1 tablet = 80 mg, By Mouth, Daily, # 90 tablet, 3 Refills, Maintenance, 07/05/18 7:15:32 EDT, Tablet Start Date: 07/05/18 Stop Date: 06/30/19 Status: Ordered spironolactone 25 mg oral tablet 25 mg, 1, tablet, By Mouth, 2 times a day, # 180 tablet, Refills 0, Maintenance, 04/30/17 10:36:06 Start Date: 04/30/17 Status: Ordered Vitamin D 72628 iu oral capsule 50,000 International_Units, 1, capsule, By Mouth, Every week, # 5 capsule, Refills 3, Tot. Refills 3, Maintenance, 07/05/18 7:16:47 EDT, Route to Pharmacy Electronically, [id number], [facility] Start Date: 07/05/18 Stop Date: 11/02/18 Status: Ordered Vitamin D3 1000 intl units [...]
--- OUTSIDE RECORDS SUMMARY | 2023-08-14 04:50 | XMS_ITS | Continuity of Care Document ---
Author Organization [facility] Address [address] [place] [address]- Care Team Providers Care Auto Carrier Driver Name Role Phone Eduardo MURCIA, Valdez Primary Care Physician [facility] Date[facility]s): 01/17/21 - 02/16/21 [facility] [address] [place], [place] [address] Allergies, Adverse Reactions, Alerts Substance Reaction Severity [...] [03/20/2015] [facility] 5Admin Note: FLUZONE [id number] 6Result Comment: [01/01/2013] vis denied, given w/o [...] opioid drug. Start Date: 06/05/20 Status: Ordered Insulin Lispro 2-18 units, Subcutaneous [...] Dry Weight Start Date: 07/27/19 Status: Ordered Remeron 15 mg oral tablet See Instructions, 1/2 tablet (7.5 mg) By Mouth Daily at bedtime, 0 Refills, Maintenance, 07/16/20 5:46:00 EDT, Tablet, Partial fill upon patient request if the prescription is for a schedule II opioid drug. Start Date: 07/16/20 Status: Ordered Tylenol 325 mg oral tablet [...] Date: 07/23/19 Stop Date: 01/19/20 Status: Ordered Zofran 4 mg oral tablet 1 tablet = 4 mg, By Mouth, Every 12 hours, PRN Nausea, 0 Refills, Maintenance, 07/16/20 5:47:00 EDT, Partial fill upon patient request if the prescription is for a schedule II opioid drug. Start Date: 07/16/20 Status: Ordered Problem List Condition Effective Dates [...]
--- OUTSIDE RECORDS SUMMARY | 2023-08-14 04:50 | XMS_ITS | Continuity of Care Document ---
Author Organization [facility] Address [address] [place] [address]- Care Team Providers Care Doctor Podiatric Medicine Name Role Phone Garret MURCIA, Gala Mohan Primary Care Physician Encounter [facility] Date(s): 07/23/19 - 08/02/19 [facility] [address] [place] [address]- [facility] Attending Physician: Frantz Oswald Admitting Physician: Frantz Oswald Referring Physician: Frantz Oswald Allergies, Adverse Reactions, Alerts Substance Reaction Severity [...] [03/20/2015] [facility] 5Admin Note: FLUZONE [id number] 6Result Comment: [01/01/2013] vis denied, given w/o [...] 01/06/19 11:44:41 EDT, Route to Pharmacy Electronically, [id number], [facility] Start Date: [...] Maintenance, 02/04/17 19:17:03, Route to Pharmacy Electronically, [id number], [facility] Start Date: 02/04/17 Stop Date: [...] tablet, 5 Refills, Maintenance, 01/27/19 9:24:34 EDT, [facility] Start Date: 01/27/19 Stop Date: 07/26/19 Status: Ordered oxybutynin 5 mg oral tablet 1 tablet, By Mouth, 2 times a day, PLEASE SCHEDULE AN APPOINTMENT., # 60 tablet, 3 Refills, Maintenance, 07/27/19 14:23:00 EDT, [facility], 155, cm, 05/24/19 11:20:00 EST, [...] 5 Refills, Maintenance, 07/23/19 10:39:00 EDT, Tablet, [facility], 155, cm, 05/24/19 11:20:00 EST, [...]
--- OUTSIDE RECORDS SUMMARY | 2023-08-14 04:50 | XMS_ITS | Continuity of Care Document ---
Author Organization [facility] ter Address [address] [place] [address]- Care Team Providers Care Shelter Advocate Name Role Phone Eduardo MURCIA, Valdez Primary Care Physician [facility]counter [facility] Date(s): 05/30/20 - 06/05/[address] [address] Encounter Diagnosis Shortness of breath(Final) - 05/30/20 Discharge Disposition: A-Transfer SNF Attending Physician: Malick Dalton MD Admitting Physician: Alexi Malik MD Referring Physician: Not on Staff, Referring MD Allergies, Adverse Reactions, Alerts Substance Reaction [...] [03/20/2015] [facility] 5Admin Note: FLUZONE [id number] 6Result Comment: [01/01/2013] vis denied, given w/o incidense.. 7Admin Note: [facility] allopurinol 100 mg oral tablet 100 mg, 1, tablet, By Mouth, Daily, Refills 0, Maintenance, 06/05/20 11:14:00 EST, Partial fill upon patient request if the prescription is for a schedule II opioid drug. Start Date: 06/05/20 Status: Ordered amLODIPine 10 mg oral tablet 10 mg, Tablet, By Mouth, 06/05/20 9:00:00 EST Start Date: 06/05/20 Stop Date: 06/05/20 Status: Completed amLODIPine 10 mg oral tablet 10 mg, [...] carvedilol 25 mg oral tablet 25 mg, Tablet, By Mouth, 06/05/20 9:00:00 EST Start Date: 06/05/20 Stop Date: 06/05/20 Status: Completed carvedilol 25 mg oral tablet 25 mg, [...] a sched... Start Date: 05/19/20 Status: Ordered dexamethasone 6 mg oral tablet 1 tablet = 6 mg, By Mouth, Daily, for 5 days, # 5 tablet, 0 Refills, Acute 06/10/20 11:11:00 EST, 06/05/20 11:11:00 EST, Partial fill upon patient request if the prescription is for a schedule II opioid drug. Start Date: 06/05/20 Stop Date: 06/10/20 Status: Ordered Docusate/Senna Tablet 1 tablet, By [...] opioid drug. Start Date: 05/18/20 Status: Ordered losartan 50 mg oral tablet 50 mg, Tablet, By Mouth, 06/05/20 9:00:00 EST Start Date: 06/05/20 Stop Date: 06/05/20 Status: Completed oxybutynin 5 mg oral tablet 1 tablet, By Mouth, 2 times a day, PLEASE SCHEDULE AN APPOINTMENT., # 60 tablet, 3 Refills, Maintenance, 07/27/19 14:23:00 EDT, [facility], 155, cm, 05/24/19 11:20:00 EST, [...] Maintenance, 07/23/19 10:39:00 EDT, Tablet, [facility], 155, cm, 05/24/19 11:20:00 EST, [...] Active Rheumatoid Arthritis(Confirmed) Active Thyroid nodule(Confirmed) Active Results Radiology Reports * Exam Date Time Procedure Performing Provider Status 05/30/20 8:21 PM Chest Portable Yoana Hodges; Auth (Ve rified) Notes: (Chest Portable) Reason For Exam: Fever, PUI;Shortness of Breath RESULT: Chest Portable Chest Portable Hx of Present Illness: from [facility], 1500 with lethargy, 84% on RA prior to EMS arrival. SNF for[facility]A; Reason: Shortness of Breath; Fever, PUI; Clinical Question(s): Pneumonia COMPARISON: 05/08/2020 FINDINGS: LINES AND TUBES: None. LUNGS AND PLEURA: Groundglass densities in both lungs, left greater than right. No definite pleural effusion. HEART, MEDIASTINUM AND RAHEEL: Unchanged. Atherosclerosis of the thoracic aorta. BONES AND SOFT TISSUES: No acute abnormality. Chronic degenerative changes in both shoulders. IMPRESSION: Bilateral airspace disease, left greater than right, can be seen with atypical pneumonia. WSN: [id number] Ordering Physician: Isai Power Dictated By: Raman Navarrete MD Dictated Date/Time: 05/30/20 8:29 pm Reviewed By: Raman Navarrete MD Signed By: Raman Navarrete MD Signed Date/Time: 05/30/20 8:29 pm Transcribed By: LU Transcribed Date/Time: 05/30/20 8:26 pm Vital Signs Most recent to oldest [Reference Range]: 1 2 3 Height 162.5 cm (06/05/20 10:56 AM) 162.5 cm (06/05/20 7:58 AM) 162.5 cm (06/04/20 12:00 AM) Weight 83 kg (06/02/20 8:03 AM) 83.9 kg (05/30/20 11:20 PM) Oxygen Saturation [94-100 %] 94 % (06/05/20 10:56 AM) 95 % (06/05/20 7:58 AM) 95 % (06/05/20 4:00 AM) Pulse Rate [55-90 bpm] 70 bpm (06/05/20 11:28 AM) 70 bpm (06/05/20 10:56 AM) 71 bpm (06/05/20 7:58 AM) Body Mass Index [18.5-24.99] 31.43 *>HHI* (06/02/20 8:03 AM) 31.77 *>HHI* (05/30/20 11:20 PM) Blood Pressure [90-138/55-84 mm Hg] 131/64mm Hg (06/05/20 11:28 AM) 131/64mm Hg (06/05/20 11:28 AM) 131/64mm Hg (06/05/20 11:28 AM) Respiratory Rate [16-30 br/min] 16 br/min (06/05/20 10:56 AM) 16 br/min (06/05/20 7:58 AM) 17 br/min (06/05/20 4:00 AM) Temperature [96.8-100.4 DegF] 97.7 DegF (06/05/20 10:56 AM) 97.6 DegF (06/05/20 7:58 AM) 97.8 DegF (06/05/20 4:00 AM) Liters per Minute 2 L/min (06/02/20 5:00 AM) 4 L/min (06/01/20 12:00 AM) 4 L/min (05/31/20 7:00 PM) Mode of Delivery (Oxygen) Room air (06/05/20 10:56 AM) Room air (06/05/20 7:58 AM) Room air (06/05/20 4:00 AM) Blood pressure sites Arm, left (06/05/20 10:56 AM) Arm, left (06/05/20 7:58 AM) Arm, right (06/05/20 4:00 AM) Temperature Route Axillary (06/05/20 10:56 AM) Axillary (06/05/20 7:58 AM) Oral (06/05/20 4:00 AM) Dry Weight 82.9 kg (05/30/20 11:20 PM) Social History Social History Type Response Smoking Status Never smoker entered on: 09/08/13 Sex
--- OUTSIDE RECORDS SUMMARY | 2023-08-14 04:50 | XMS_ITS | Continuity of Care Document ---
Author Organization [facility] Address [address] [place] [address]- Care Team Providers Care Marketing Services Coordinator Name Role Phone Garret MURCIA, Gala Mohan Primary Care Physician [phone] [place] [facility] [place] [facility] [address] [place] [address]- [facility] Attending Physician: Frantz Oswald Admitting Physician: Frantz Oswald Referring Physician: AdmtrFrantz Allergies, Adverse Reactions, Alerts Substance Reaction Severity [...] [03/20/2015] [facility] 5Admin Note: FLUZONE [id number] 6Result Comment: [01/01/2013] vis denied, given w/o [...] 01/06/19 11:44:41 EDT, Route to Pharmacy Electronically, [id number], [facility] Start Date: [...] Maintenance, 02/04/17 19:17:03, Route to Pharmacy Electronically, [id number], [facility] Start Date: [...] Start Date: 04/30/17 Status: Ordered Vitamin D 54143 iu oral capsule 50,000 International_Units, 1, capsule, By Mouth, Every week, # 5 capsule, Refills 3, Tot. Refills 3, Maintenance, 07/05/18 7:16:47 EDT, Route to Pharmacy Electronically, [id number], [facility] Start Date: [...]
--- OUTSIDE RECORDS SUMMARY | 2023-08-14 04:50 | XMS_ITS | Continuity of Care Document ---
Author Organization [facility] Address [address] [place] [address]- Care Team Providers Care Sandwich Artist Name Role Phone Eduardo MURCIA, Valdez Primary Care Physician [facility]counter [facility] Date(s): 05/17/20 - 06/16/20 [facility] [address] [place], [place] [address] Allergies, Adverse Reactions, Alerts Substance Reaction Severity [...] [03/20/2015] [facility] 5Admin Note: FLUZONE [id number] 6Result Comment: [01/01/2013] vis denied, given w/o [...]
--- OUTSIDE RECORDS SUMMARY | 2023-08-14 04:50 | XMS_ITS | Continuity of Care Document ---
Author Organization [facility] Address [address] [place] [address]- Care Team Providers Care Financial Retirement Plan Specialist Name Role Phone Garret MURCIA, Gala Mohan Primary Care Physician [facility] Date(s): 11/10/19 - 12/10/19 [facility] [address] [place] [address]- [facility] Allergies, Adverse Reactions, Alerts Substance Reaction Severity [...] [03/20/2015] [facility] 5Admin Note: FLUZONE [id number] 6Result Comment: [01/01/2013] vis denied, given w/o [...] 01/06/19 11:44:41 EDT, Route to Pharmacy Electronically, [id number], [facility] Start Date: [...] Maintenance, 02/04/17 19:17:03, Route to Pharmacy Electronically, [id number], [facility] Start Date: 02/04/17 Stop Date: 01/30/18 Status: Ordered levothyroxine 0.088 mg oral tablet 1 tablet, By Mouth, Daily, # 30 tablet, 11 Refills, Maintenance, 10/15/19 15:23:00 EDT, [facility], 155, cm, 05/24/19 11:20:00 EST, [...] tablet, 5 Refills, Maintenance, 11/11/19 15:16:00 EDT, [facility], 155, cm, 05/24/19 11:20:00 EST, Height, 84.2, kg, 08/28/18 10:03:00 EDT, Dry Weight Start Date: 11/11/19 Stop Date: 05/09/20 Status: Ordered oxybutynin 5 mg oral tablet 1 tablet, By Mouth, 2 times a day, PLEASE SCHEDULE AN APPOINTMENT., # 60 tablet, 3 Refills, Maintenance, 07/27/19 14:23:00 EDT, [facility], 155, cm, 05/24/19 11:20:00 EST, [...]
--- OUTSIDE RECORDS SUMMARY | 2023-08-14 04:50 | XMS_ITS | Continuity of Care Document ---
Author Organization [facility] Address [address] [place] [address]- Care Team Providers Care Box Spring Upholsterer Name Role Phone Garret MURCIA, Gala Mohan Primary Care Physician [phone] Encounter [facility] Date(s): 03/29/20 - 04/05/20 [facility] [address] [place], [place] [address] Encounter Diagnosis HTN - Hypertension(Discharge Diagnosis) - 03/29/20 Rheumatoid Arthritis(Discharge Diagnosis) - 03/29/20 Hand arthritis(Discharge Diagnosis) - 03/29/20 Diabetes mellitus type 2, controlled(Discharge Diagnosis) - 03/29/20 Attending Physician: Gala Combs MD Allergies, Adverse [...] [03/20/2015] [facility] 5Admin Note: FLUZONE [id number] 6Result Comment: [01/01/2013] vis denied, given w/o [...] 01/06/19 11:44:41 EDT, Route to Pharmacy Electronically, [id number], [facility] Start Date: 01/06/19 Stop Date: 10/03/19 Status: Ordered flutamide 125 mg oral capsule 1 capsule = 125 mg, By Mouth, 2 times a day, # 60 capsule, 11 Refills, Maintenance, 07/24/18 12:16:12 EDT Start Date: 07/24/18 Status: Ordered Freestyle Lite Lancets See Instructions, # 100 each, Refills 5, Tot. Refills 5, Maintenance, check sugars BID -AC dx-E11.65, 03/01/20 8:55:00 EST, Compound, 155, cm, 02/23/20 10:11:00 EST, Height, 84.2, kg, 08/28/18 10:03:00 EDT, Dry Weight Start Date: 03/01/20 Status: Ordered Freestyle Lite Monitor See Instructions, # 1 units, Refills 0, Tot. Refills 0, Maintenance, check sugars BID -AC dx-E11.65, 02/16/19 13:08:06 EDT, Compound Start Date: 02/16/19 Status: Ordered Freestyle Lite Test Strips See Instructions, # 100 each, Refills 1, Tot. Refills 1, Maintenance, check sugars BID -AC dx-E11.65, 02/11/20 11:14:00 EDT, Compound, 155, cm, 05/24/19 11:20:00 EST, Height, 84.2, kg, 08/28/18 10:03:00 EDT, Dry Weight Start Date: 02/11/20 Status: Ordered furosemide 40 mg oral tablet 80 mg, 2, tablet, By Mouth, 2 times a day, # 360 tablet, Refills 3, Tot. Refills 3, Maintenance, 02/04/17 19:17:03, Route to Pharmacy Electronically, [id number], [facility] Start Date: 02/04/17 Stop Date: 01/30/18 Status: Ordered levothyroxine 0.088 mg oral tablet 1 tablet, By Mouth, Daily, # 30 tablet, 11 Refills, Maintenance, 10/15/19 15:23:00 EDT, [facility], 155, cm, 05/24/19 11:20:00 EST, Height, 84.2, kg, 08/28/18 10:03:00 EDT, Dry Weight Start Date: 10/15/19 Status: Ordered losartan 100 mg oral tablet 1 tablet = 100 mg, By Mouth, Daily, # 90 tablet, 0 Refills, Maintenance, 04/30/17 10:36:22, Tablet Start Date: 04/30/17 Status: Ordered meloxicam 15 mg oral tablet 1 tablet = 15 mg, By Mouth, Every other day, # 15 tablet, 0 Refills, Maintenance, 03/29/20 12:28:00EST, [facility], 155, cm, 02/23/20 10:11:00 EST, Height, 84.2, kg, 08/28/18 10:03:00 EDT, Dry Weight Start Date: 03/29/20 Stop Date: 04/28/20 Status: Ordered metFORMIN 500 mg oral tablet 1 tablet = 500 mg, By Mouth, 2 times a day, # 60 tablet, 5 Refills, Maintenance, 11/11/19 15:16:00 EDT, [facility], 155, cm, 05/24/19 11:20:00 EST, Height, 84.2, kg, 08/28/18 10:03:00 EDT, Dry Weight Start Date: 11/11/19 Stop Date: 05/09/20 Status: Ordered oxybutynin 5 mg oral tablet 1 tablet, By Mouth, 2 times a day, PLEASE SCHEDULE AN APPOINTMENT., # 60 tablet, 3 Refills, Maintenance, 07/27/19 14:23:00 EDT, [facility], 155, cm, 05/24/19 11:20:00 EST, Height, 84.2, kg, 08/28/18 10:03:00 EDT, Dry Weight Start Date: 07/27/19 Status: Ordered pravastatin 80 mg oral tablet 1 tablet = 80 mg, By Mouth, Daily, # 90 tablet, 3 Refills, Maintenance, 05/24/19 11:39:00 EST, Tablet, [facility], 155, cm, 05/24/19 11:20:00 EST, [...] Maintenance, 07/23/19 10:39:00 EDT, Tablet, [facility], 155, cm, 05/24/19 11:20:00 EST, [...] Active Rheumatoid Arthritis(Confirmed) Active Thyroid nodule(Confirmed) Active Diagnosis Diagnosis Type Effective Dates Health Status Clinical Service Informant HTN - Hypertension Discharge Diagnosis 03/29/20 Rheumatoid Arthritis Discharge Diagnosis 03/29/20 Hand arthritis Discharge Diagnosis 03/29/20 Diabetes mellitus type 2, controlled Discharge Diagnosis 03/29/20 Social History Social History Type Response Smoking Status Never smoker entered on: 09/08/13 Sex
--- OUTSIDE RECORDS SUMMARY | 2023-08-14 04:50 | XMS_ITS | Continuity of Care Document ---
Author Organization [facility] Address [address] [place] [address]- Care Team Providers Care Commercial Airplane Pilot Name Role Phone Gala Combs MD Primary Care Physician Encounter [facility] [place] Date(s): 05/17/20 - 05/24/20 [facility] [address] [place], [place] [address] Encounter Diagnosis Acute cerebral infarction(Discharge Diagnosis) - 05/23/20 Hypertensive urgency(Discharge Diagnosis) - 05/23/20 Complicated urinary tract infection(Discharge Diagnosis) - 05/23/20 Acute metabolic encephalopathy(Discharge Diagnosis) - 05/23/20 Hypothyroidism(Discharge Diagnosis) - 05/23/20 Diabetes mellitus(Discharge Diagnosis) - 05/23/20 Attending Physician: Gala Combs MD Allergies, Adverse [...] [03/20/2015] [facility] 5Admin Note: FLUZONE [id number] 6Result Comment: [01/01/2013] vis denied, given w/o incidense..mh 7Admin Note: [facility] allopurinol 300 mg oral tablet 300 mg, 1, tablet, By Mouth, Daily, # 90 tablet, Refills 0, Maintenance, 05/18/20 19:44:00 EST, Partial fill upon patient request if the prescription is for a schedule II opioid drug. Start Date: 05/18/20 Status: Ordered Amlodipine = 5 mg, By Mouth, Daily, 0 Refills, Maintenance, 05/18/20 19:43:00 EST, Partial fill upon patient request if the prescription is for a schedule II opioid drug. Start Date: 05/18/20 Status: Ordered aspirin 81 mg oral delayed release tablet 81 mg, 1, tablet, By Mouth, Daily, # 90 tablet, Refills 0, Maintenance, 05/18/20 19:43:00 EST, Partial fill upon patient request if the prescription is for a schedule II opioid drug. Start Date: 05/18/20 Status: Ordered atorvastatin 80 mg oral tablet [...] a sched... Start Date: 05/19/20 Status: Ordered estradiol 1 mg oral tablet 1 mg, 1, tablet, By Mouth, Daily, # 90 tablet, Refills 0, Maintenance, 05/18/20 19:43:00 EST, Partial fill upon patient request if the prescription is for a schedule II opioid drug. Start Date: 05/18/20 Status: Ordered flutamide 125 mg oral capsule 2 capsule = 250 mg, By Mouth, 2 times a day, # 180 capsule, 0 Refills, Maintenance, 05/18/20 19:42:00 EST, Capsule, Partial fill upon patient request if the prescription is for a schedule II opioid drug. Start Date: 05/18/20 Status: Ordered levothyroxine 0.088 mg oral tablet [...] opioid drug. Start Date: 05/18/20 Status: Ordered meloxicam 15 mg oral tablet 1 tablet = 15 mg, By Mouth, Every other day, # 15 tablet, 0 Refills, Maintenance, 03/29/20 12:28:00EST, [facility], 155, cm, 02/23/20 10:11:00 EST, Height, 84.2, kg, 08/28/18 10:03:00 EDT, Dry Weight Start Date: 03/29/20 Stop Date: 04/28/20 Status: Ordered metFORMIN 500 mg oral tablet 1 tablet = 500 mg, By Mouth, 2 times a day, # 60 tablet, 5 Refills, Maintenance, 11/11/19 15:16:00 EDT, [facility], 155, cm, 05/24/19 11:20:00 EST, Height, 84.2, kg, 08/28/18 10:03:00 EDT, Dry Weight Start Date: 11/11/19 Stop Date: 05/09/20 Status: Ordered oxybutynin 5 mg oral tablet 1 tablet, By Mouth, 2 times a day, PLEASE SCHEDULE AN APPOINTMENT., # 60 tablet, 3 Refills, Maintenance, 07/27/19 14:23:00 EDT, [facility], 155, cm, 05/24/19 11:20:00 EST, Height, 84.2, kg, 08/28/18 10:03:00 EDT, Dry Weight Start Date: 07/27/19 Status: Ordered spironolactone 25 mg oral tablet 25 mg, 1, tablet, By Mouth, Daily, # 30 tablet, Refills 0, Maintenance, 05/18/20 19:42:00 EST, Partial fill upon patient request if the prescription is for a schedule II opioid drug. Start Date: 05/18/20 Status: Ordered Tylenol 325 mg oral tablet [...] Maintenance, 07/23/19 10:39:00 EDT, Tablet, [facility], 155, cm, 05/24/19 11:20:00 EST, [...] Effective Dates Health Status Clinical Service Informant Acute cerebral infarction Discharge Diagnosis 05/23/20 Hypertensive urgency Discharge Diagnosis 05/23/20 Complicated urinary tract infection Discharge Diagnosis 05/23/20 Acute metabolic encephalopathy Discharge Diagnosis 05/23/20 Hypothyroidism Discharge Diagnosis 05/23/20 Diabetes mellitus Discharge Diagnosis 05/23/20 Social History Social History Type Response Smoking Status Never smoker entered on: 09/08/13 Sex
--- OUTSIDE RECORDS SUMMARY | 2023-08-14 04:51 | XMS_ITS | Continuity of Care Document ---
Author Organization [facility] Address [address] [place] [address]- Care Team Providers Care Testing And Regulating Technician Name Role Phone Eduardo MURCIA, Valdez Primary Care Physician [phone] Encounter [facility] Date(s): 06/02/20 - 07/02/20 [facility] [address] [place], [place] [address] Attending Physician: Frantz Oswald Admitting Physician: Frantz [...] [03/20/2015] [facility] 5Admin Note: FLUZONE [id number] 6Result Comment: [01/01/2013] vis denied, given w/o [...]
--- OUTSIDE RECORDS SUMMARY | 2023-08-14 04:51 | XMS_ITS | Continuity of Care Document ---
Author Organization [facility] Address [address] [place] [address]- Care Team Providers Care Cost And Risk Analysis Manager Name Role Phone Eduardo MURCIA, Valdez Primary Care Physician [phone] [facility] Date(s): 08/10/20 - 09/09/20 [facility] [address] [place], [place] [address] Allergies, Adverse Reactions, Alerts Substance Reaction Severity [...] [03/20/2015] [facility] 5Admin Note: FLUZONE [id number] 6Result Comment: [01/01/2013] vis denied, given w/o [...]
--- OUTSIDE RECORDS SUMMARY | 2023-08-14 04:51 | XMS_ITS | Continuity of Care Document ---
Author Organization [facility] Address [address] [place] [address]- Care Team Providers Care Dairy Farmworker Name Role Phone Gala Combs MD Primary Care Physician [phone] [place] [facility] [place] 07/23/19 - 07/30/19 [facility] [address] [place] [address]- [facility] Encounter Diagnosis Gout(Discharge Diagnosis) - 07/23/19 HTN - Hypertension(Discharge Diagnosis) - 07/23/19 Rheumatoid Arthritis(Discharge Diagnosis) - 07/23/19 Uncontrolled diabetes mellitus(Discharge Diagnosis) - 07/23/19 CKD (chronic kidney disease)(Discharge Diagnosis) - 07/23/19 Attending Physician: Gala Combs MD Allergies, Adverse [...] [03/20/2015] [facility] 5Admin Note: FLUZONE [id number] 6Result Comment: [01/01/2013] vis denied, given w/o [...] 01/06/19 11:44:41 EDT, Route to Pharmacy Electronically, [id number], [facility] Start Date: [...] Maintenance, 02/04/17 19:17:03, Route to Pharmacy Electronically, [id number], [facility] Start Date: 02/04/17 Stop Date: [...] tablet, 5 Refills, Maintenance, 01/27/19 9:24:34 EDT, [facility] Start Date: 01/27/19 Stop Date: 07/26/19 Status: Ordered oxybutynin 5 mg oral tablet 1 tablet, By Mouth, 2 times a day, PLEASE SCHEDULE AN APPOINTMENT., # 60 tablet, 3 Refills, Maintenance, 07/27/19 14:23:00 EDT, [facility], 155, cm, 05/24/19 11:20:00 EST, [...] Effective Dates Health Status Clinical Service Informant Gout Discharge Diagnosis 07/23/19 HTN - Hypertension Discharge Diagnosis 07/23/19 Rheumatoid Arthritis Discharge Diagnosis 07/23/19 Uncontrolled diabetes mellitus Discharge Diagnosis 07/23/19 CKD (chronic kidney disease) Discharge Diagnosis 07/23/19 Social History Social History Type Response Smoking Status Never smoker entered on: 09/08/13 Sex
--- OUTSIDE RECORDS SUMMARY | 2023-08-14 04:51 | XMS_ITS | Continuity of Care Document ---
Author Organization [facility] Address [address] [place] [address]- Care Team Providers Care Open Hearth Melter Name Role Phone Eduardo MURCIA, Valdez Primary Care Physician [facility]counter [facility] Date(s): 05/26/20 - 06/25/20 [facility] [address] [place], [place] [address] Allergies, Adverse Reactions, Alerts Substance [...] [03/20/2015] [facility] 5Admin Note: FLUZONE [id number] 6Result Comment: [01/01/2013] vis denied, given w/o [...]
--- OUTSIDE RECORDS SUMMARY | 2023-08-14 04:51 | XMS_ITS | Continuity of Care Document ---
Author Organization [facility] ter Address [address] [place] [address]- Care Team Providers Care Police Officer Crime Prevention Name Role Phone Valdez Clark MD Primary Care Physician [place] [facility] [place]): [place] 07/18/[address] [address] Encounter Diagnosis UTI (urinary tract infection)(Final) - 07/15/20 Discharge Disposition: A-Transfer SNF Attending Physician: Adrienne MURCIA, [facility] Admitting Physician: India Haddad DO Referring Physician: Not on Staff, Referring MD [...] [03/20/2015] [facility] 5Admin Note: FLUZONE [id number] 6Result Comment: [01/01/2013] vis denied, given w/o [...] oral tablet 10 mg, Tablet, By Mouth, 07/18/20 9:00:00 EDT Start Date: 07/18/20 Stop Date: 07/18/20 Status: Completed atorvastatin 80 mg oral tablet 1 tablet [...] 9:30:32 EDT Start Date: 01/27/19 Status: Ordered carvedilol 25 mg oral tablet 25 mg, Tablet, By Mouth, Hold for: sbp<100 or hr <55, 07/18/20 9:00:00 EDT Start Date: 07/18/20 Stop Date: 07/18/20 Status: Completed clopidogrel 75 mg oral tablet 75 mg, [...] Status: Ordered losartan 50 mg oral tablet 100 mg, Tablet, By Mouth, Hold for: sbp<100, 07/18/20 9:00:00 EDT Start Date: 07/18/20 Stop Date: 07/18/20 Status: Completed oxybutynin 5 mg oral tablet 1 tablet, By Mouth, 2 times a day, PLEASE SCHEDULE AN APPOINTMENT., # 60 tablet, 3 Refills, Maintenance, 07/27/19 14:23:00 EDT, [facility], 155, cm, 05/24/19 11:20:00 EST, [...] 5 Refills, Maintenance, 07/23/19 10:39:00 EDT, Tablet, [facility], 155, cm, 05/24/19 11:20:00 EST, [...] Rheumatoid Arthritis(Confirmed) Active Thyroid nodule(Confirmed) Active Results Orders for Microbiology Reports Name Date Urine Culture (URINE CULTURE) 07/15/20 Blood Culture 07/15/20 Blood Culture #2 07/15/20 Microbiology Reports TEST:Urine Culture STATUS:Auth (Verified) BODY SITE: SOURCE:URINE COLLECTED DATE/TIME:07/15/20 2:56 PM Urine Culture SPECIMEN DESCRIPTION : URINE SPECIAL REQUESTS : NONE CULTURE : Mixed bacterial sean, indicative of urogenital contamination. REPORT STATUS : FINAL 07/17/2020 TEST:Blood Culture, Second Order STATUS:Unauthenticated BODY SITE: SOURCE:Blood COLLECTED DATE/TIME:07/15/20 2:56 PM Blood Culture, Second Order SPECIMEN DESCRIPTION : BLOOD L HND SPECIAL REQUESTS : NONE CULTURE : NO GROWTH 3 DAYS REPORT STATUS : PRELIMINARY REPORT TEST:Blood Culture STATUS:Unauthenticated BODY SITE: SOURCE:Blood COLLECTED DATE/TIME:07/15/20 2:18 PM Blood Culture SPECIMEN DESCRIPTION : BLOOD RT WRST SPECIAL REQUESTS : NONE CULTURE : NO GROWTH 3 DAYS REPORT STATUS : PRELIMINARY REPORT Radiology Reports * Exam Date Time Procedure Performing Provider Status 07/15/20 2:02 PM Elbow Min 3 Views Left Ashley Abdul; Au th (Verified) Notes: (Elbow Min 3 Views Left) Reason For Exam: Pain RESULT: Elbow Min 3 Views Left Elbow Min 3 Views Left, 3 views Hx of Present Illness: LUE pain x 1 week; Reason: Pain; Clinical Question(s): Arthritis COMPARISON: None. FINDINGS: 3 views of the elbow is provided for interpretation demonstrating no acute fracture or dislocation. There is a moderate size joint effusion. There is mild dorsal soft tissue prominence. IMPRESSION: No acute fracture or dislocation. Moderate joint effusion. Follow-up imaging in 7-[address] imaging if management options would change. WSN: [id number] Ordering Physician: Katty Crowder Dictated By: Adolfo Harrell MD Dictated Date/Time: 07/15/20 3:25 pm Reviewed By: Adolfo Harrell MD Signed By: Adolfo Harrell MD Signed Date/Time: 07/15/20 3:25 pm Transcribed By: LU Transcribed Date/Time: 07/15/20 3:24 pm * Exam Date Time Procedure Performing Provider Status 07/15/20 2:02 PM Wrist Comp Min 3 Views Left Ashley Abdul ; Gabriel (Verified) Notes: (Wrist Comp Min 3 Views Left) Reason For Exam: Pain RESULT: Wrist Comp Min 3 Views Left Wrist Comp Min 3 Views Left Hx of Present Illness: LUE pain x 1 week; Reason: Pain; Clinical Question(s): Arthritis COMPARISON: None. FINDINGS: 4 views of the left wrist demonstrate no acute fracture or dislocation. There is deformity of the distal radius and ulna consistent with old fractures, ulnar styloid fracture is ununited. There is also an old ununited triquetral avulsion fracture. There is dorsal tilt of the lunate with mild widening of the scapholunate distance on the scaphoid view. IMPRESSION: No acute fracture or dislocation is identified. Chronic appearing injuries as noted. WSN: [id number] Ordering Physician: Katty Crowder Dictated By: Adolfo Harrell MD Dictated Date/Time: 07/15/20 3:24 pm Reviewed By: Adolfo Harrell MD Signed By: Adolfo Harrell MD Signed Date/Time: 07/15/20 3:24 pm Transcribed By: LU Transcribed Date/Time: 07/15/20 3:22 pm * Exam Date Time Procedure Performing Provider Status 07/15/20 1:59 PM Chest 2 Views Frontal and Lat Batool Abdul sa; Auth (Verified) Notes: (Chest 2 Views Frontal and Lat) Reason For Exam: Shortness of Breath, Fever;Other: RESULT: Chest 2 Views Frontal and Lat Chest 2 Views Frontal and Lat Hx of Present Illness: LUE pain x 1 week; Reason: Other:; Shortness of Breath, Fever; Clinical Question(s): Pneumonia COMPARISON: 05/30/2020 FINDINGS: LINES AND TUBES: None. LUNGS AND PLEURA: Patchy opacities in the lungs, decreased since prior. Overall low lung images. No pleural effusion. No pneumothorax. HEART, MEDIASTINUM AND RAHEEL: Heart appears enlarged but this is likely exaggerated by technique. Aorta is mildly calcified. BONES AND SOFT TISSUES: Round ossifications about the left shoulder. IMPRESSION: Improved appearance of the lungs. Round ossifications about the left shoulder could represent loose bodies or synovial calcifications. WSN: [id number] Ordering Physician: Katty Crowder Dictated By: Savanna Guerrero MD Dictated Date/Time: 07/15/20 2:09 pm Reviewed By: Savanna Guerrero MD Signed By: Savanna Guerrero MD Signed Date/Time: 07/15/20 2:09 pm Transcribed By: LU Transcribed Date/Time: 07/15/20 2:04 pm * Exam Date Time Procedure Performing Provider Status 07/15/20 2:02 PM Wrist Comp Min 3 Views Right Romelia Abdul; Auth (Verified) Notes: (Wrist Comp Min 3 Views Right) Reason For Exam: Pain RESULT: Wrist Comp Min 3 Views Right Wrist Comp Min 3 Views Right Hx of Present Illness: LUE pain x 1 week; COMPARISON: None. FINDINGS: There is diffuse osteopenia, no fracture or dislocation is seen. There is advanced degenerative changes at the base of the thumb. There is chondrocalcinosis. Moderate atherosclerotic arterial calcification. IMPRESSION: No fracture or dislocation. WSN: [id number] Ordering Physician: Katty Crowder Dictated By: Adolfo Harrell MD Dictated Date/Time: 07/15/20 2:07 pm Reviewed By: Adolfo Harrell MD Signed By: Adolfo Harrell MD Signed Date/Time: 07/15/20 2:07 pm Transcribed By: LU Transcribed Date/Time: 07/15/20 2:03 pm Vital Signs Most recent to oldest [Reference Range]: 1 2 3 4 Height 162.5 cm (07/18/20 7:53 AM) 162.5 cm (07/17/20 1:07 PM) 162.5 cm (07/17/20 8:47 AM) Weight 73.3 kg (07/18/20 12:12 AM) 73.7 kg (07/17/20 1:07 PM) 73.7 kg (07/16/20 4:30 AM) Oxygen Saturation [94-100 %] 96 % (07/18/20 4:00 PM) 96 % (07/18/20 7:53 AM) 96 % (07/18/20 12:00 AM) Pulse Rate [55-90 bpm] 63 bpm (07/18/20 4:00 PM) 64 bpm (07/18/20 9:05 AM) 64 bpm (07/18/20 7:53 AM) Body Mass Index [18.5-24.99] 27.91 *H* (07/17/20 1:07 PM) 27.91 *H* (07/16/20 4:30 AM) Blood Pressure [90-138/55-84 mm Hg] 131/84mm Hg (07/18/20 4:00 PM) 149/70mm Hg *H* (07/18/20 9:05 AM) 149/70mm Hg *H* (07/18/20 9:04 AM) 149/70mm Hg *H* (07/18/20 9:04 AM) Respiratory Rate [16-30 br/min] 18 br/min (07/18/20 4:00 PM) 20 br/min (07/18/20 7:53 AM) 18 br/min (07/18/20 12:00 AM) Temperature [96.8-100.4 DegF] 97.3 DegF (07/18/20 4:00 PM) 98.4 DegF (07/18/20 7:53 AM) 98.3 DegF (07/18/20 12:00 AM) Mode of Delivery (Oxygen) Room air (07/18/20 4:00 PM) Room air (07/18/20 7:53 AM) Room air (07/18/20 12:00 AM) Blood pressure sites Arm, right (07/18/20 4:00 PM) Arm, right (07/18/20 7:53 AM) Arm, left (07/18/20 12:00 AM) Temperature Route Oral (07/18/20 4:00 PM) Oral (07/18/20 7:53 AM) Oral (07/18/20 12:00 AM) Dry Weight 73.7 kg (07/17/20 1:07 PM) 73.7 kg (07/16/20 4:30 AM) Weight Obtained Via Bed scale (07/18/20 12:12 AM) Bed scale (07/16/20 4:30 AM) Dry Weight Obtained Via Bed scale (07/16/20 4:30 AM) Social History Social History Type Response Smoking Status Never smoker entered on: 09/08/13 Sex
--- OUTSIDE RECORDS SUMMARY | 2023-08-14 04:51 | XMS_ITS | Continuity of Care Document ---
Author Organization [facility] Address [address] [place] [address]- Care Team Providers Care Signal Operator Linguist Name Role Phone Garret MURCIA, Gala Mohan Primary Care Physician Encounter [facility] Date(s): 03/23/19 - 03/30/19 [facility] [address] [place] [address]- [facility] Attending Physician: Gala Cmobs MD Allergies, Adverse Reactions, Alerts Substance Reaction [...] [03/20/2015] [facility] 5Admin Note: FLUZONE [id number] 6Result Comment: [01/01/2013] vis denied, given w/o [...] 01/06/19 11:44:41 EDT, Route to Pharmacy Electronically, [id number], [facility] Start Date: [...] Maintenance, 02/04/17 19:17:03, Route to Pharmacy Electronically, [id number], [facility] Start Date: [...] Refills 0, Maintenance, 04/30/17 10:36:06 Start Date: 1/10/18 Status: Ordered Vitamin D 52703 iu oral capsule 50,000 International_Units, 1, capsule, By Mouth, Every week, # 5 capsule, Refills 3, Tot. Refills 3, Maintenance, 07/05/18 7:16:47 EDT, Route to Pharmacy Electronically, [id number], [facility] Start Date: [...] oldest [Reference Range]: 1 Height 155 cm (03/23/19 11:36 AM) Weight 85.3 kg (03/23/19 11:36 AM) Oxygen Saturation [94-100 %] 97 % (03/23/19 11:36 AM) Pulse Rate [55-90 bpm] 73 bpm (03/23/19 11:36 AM) Body Mass Index [18.5-24.99] 35.5 *>HHI* (03/23/19 11:36 AM) Blood Pressure [90-138/55-84 mm Hg] 140/ 80mm Hg *H* (03/23/19 11:36 AM) Mode of Delivery (Oxygen) Room air (03/23/19 11:36 AM) Blood pressure sites Arm, left (03/23/19 11:36 AM) Social History Social History Type Response Smoking Status Never smoker entered on: 09/08/13 Sex
--- OUTSIDE RECORDS SUMMARY | 2023-08-14 04:51 | XMS_ITS | Continuity of Care Document ---
Author Organization [facility] Address [address] [place] [address]- Care Team Providers Care Fiscal Specialist Name Role Phone Garret MURCIA, Gala Mohan Primary Care Physician Encounter [facility] Date(s): 03/04/20 - 04/03/20 [facility] [address] [place], [place] [address] Allergies, Adverse Reactions, Alerts Substance Reaction [...] [03/20/2015] [facility] 5Admin Note: FLUZONE [id number] 6Result Comment: [01/01/2013] vis denied, given w/o [...] 01/06/19 11:44:41 EDT, Route to Pharmacy Electronically, [id number], [facility] Start Date: [...] Maintenance, 02/04/17 19:17:03, Route to Pharmacy Electronically, [id number], [facility] Start Date: 02/04/17 Stop Date: 01/30/18 Status: Ordered levothyroxine 0.088 mg oral tablet 1 tablet, By Mouth, Daily, # 30 tablet, 11 Refills, Maintenance, 10/15/19 15:23:00 EDT, [facility], 155, cm, 05/24/19 11:20:00 EST, [...] 0 Refills, Maintenance, 03/29/20 12:28:00EST, [facility], 155, cm, 02/23/20 10:11:00 EST, Height, 84.2, kg, 08/28/18 10:03:00 EDT, Dry Weight Start Date: 03/29/20 Stop Date: 04/28/20 Status: Ordered metFORMIN 500 mg oral tablet 1 tablet = 500 mg, By Mouth, 2 times a day, # 60 tablet, 5 Refills, Maintenance, 11/11/19 15:16:00 EDT, [facility], 155, cm, 05/24/19 11:20:00 EST, Height, 84.2, kg, 08/28/18 10:03:00 EDT, Dry Weight Start Date: 11/11/19 Stop Date: 05/09/20 Status: Ordered oxybutynin 5 mg oral tablet 1 tablet, By Mouth, 2 times a day, PLEASE SCHEDULE AN APPOINTMENT., # 60 tablet, 3 Refills, Maintenance, 07/27/19 14:23:00 EDT, [facility], 155, cm, 05/24/19 11:20:00 EST, Height, 84.2, kg, 08/28/18 10:03:00 EDT, Dry Weight Start Date: 07/27/19 Status: Ordered pravastatin 80 mg oral tablet 1 tablet = 80 mg, By Mouth, Daily, # 90 tablet, 3 Refills, Maintenance, 05/24/19 11:39:00 EST, Tablet, [facility], 155, cm, 05/24/19 11:20:00 EST, [...] 5 Refills, Maintenance, 07/23/19 10:39:00 EDT, Tablet, [facility], 155, cm, 05/24/19 11:20:00 EST, [...]
--- OUTSIDE RECORDS SUMMARY | 2023-08-14 04:51 | XMS_ITS | Continuity of Care Document ---
Author Organization [facility] ter Address [address] [place] [address]- Care Team Providers Care Splitting Machine Operator Helper Name Role Phone Gala Combs MD Primary Care Physician Encounter [facility] Date(s): 03/22/19 - 04/25/[address] [address]- [facility] Attending Physician: Gala Combs MD Admitting Physician: Gala Combs MD Referring Physician: Gala Combs MD Allergies, [...] [03/20/2015] [facility] 5Admin Note: FLUZONE [id number] 6Result Comment: [01/01/2013] vis denied, given w/o [...] 01/06/19 11:44:41 EDT, Route to Pharmacy Electronically, [id number], [facility] Start Date: [...] Maintenance, 02/04/17 19:17:03, Route to Pharmacy Electronically, [id number], [facility] Start Date: [...] Start Date: 04/30/17 Status: Ordered Vitamin D 14290 iu oral capsule 50,000 International_Units, 1, capsule, By Mouth, Every week, # 5 capsule, Refills 3, Tot. Refills 3, Maintenance, 07/05/18 7:16:47 EDT, Route to Pharmacy Electronically, [id number], [facility] Start Date: [...]
[2023-08-14 05:19] LABS: Basophils Percent Auto 0.3 % (0-2); Eosinophils Absolute Auto 0.2 X10*3/uL (0.0-0.4); Eosinophils Percent Auto 1.9 % (0-4); Hematocrit 41.7 % (37.0-47.0); Hemoglobin 13.8 g/dl (12.0-16.0); Imm Gran Abs Auto 0.05 X10*3/uL (0.00-0.03); Imm Gran Pct Auto 0.6 % (0.0-0.4); Lymphocytes Absolute Auto 2.2 X10*3/uL (1.2-4.9); Lymphocytes Percent Auto 27.3 % (20-40); MANUAL DIFF FLAG NO; Mean Corpuscular HGB Conc 33.1 g/dl (31.0-35.0); Mean Corpuscular Hemoglobin 28.2 pg (27.0-33.0); Mean Corpuscular Volume 85.1 fL (80.0-98.0); Mean Platelet Volume 8.4 fL (9.4-12.3); Monocytes Absolute Auto 0.6 X10*3/uL (0.1-1.2); Monocytes Percent Auto 7.5 % (2-11); Neutrophils Percent Auto 62.4 % (45-73); Platelet Count 230 X10*3/uL (160-400); Red Cell Distribution Width 14.6 % (11.0-16.0)
[2023-08-14 05:35] LABS: Alanine Aminotransferase 53 U/L (0-31); Albumin Level 3.4 g/dL (3.5-5.0); Alkaline Phosphatase 86 U/L (39-117); Anion Gap 12 (12-20); Aspartate Amino Transferase 45 U/L (5-31); Bilirubin Total 0.6 mg/dL (0.0-1.0); Blood Urea Nitrogen 29 mg/dL (9-16); Calcium 9.3 mg/dL (8.4-10.2); Carbon Dioxide 24 mmol/L (22-29); Chloride 112 mmol/L (96-108); Creatinine Clr Calc Pharmacy 57.7; Estimated Glomerular Filt Rate > 60; Glucose Random 141 mg/dL (60-115); Potassium 3.3 mmol/L (3.3-5.1); Sodium 145 mmol/L (135-145); Total Protein 6.4 g/dL (6.5-8.0)
[2023-08-14 05:55] LABS: Influenza A PCR NEGATIVE (Negative); Influenza B PCR NEGATIVE (Negative); Resp Syncy Virus RNA Qual PCR NEGATIVE (Negative); SARS COV2 PCR INHOUSE NEGATIVE (Negative)
--- NOTE | 2023-08-14 06:48 | ED_ITS ---
HPI - General Adult General Chief complaint: Dyspnea Stated complaint: dyspnia Time Seen by Provider: 08/14/23 06:46 Source: patient and EMS Mode of arrival: EMS Limitations: altered mental status History of Present Illness HPI narrative: This is an 78-year-old female history of dementia, hypertension, gout, hyperlipidemia, CHF, diabetes presenting to the emergency department with EMS, EMS state that the facility she was at state that she reported an episode of dyspnea earlier this morning which has since resolved she took somebody else's inhaler and then felt better. She offers no complaints right now. She denies chest pain, shortness breath, nausea, vomiting abdominal pain, headache, vision changes, dizziness, weakness, fevers, chills, recent sick contacts, trauma. Patient alert to person not place, time or situation poor historian. Related Data Home Medications ?Medication ?Instructions ?Recorded ?Confirmed acetaminophen 325 mg tablet 650 mg PO Q6H PRN Mild Pain (Scale 08/14/23 08/14/23 Score 1-4) allopurinol 100 mg tablet 100 mg PO DAILY 08/14/23 08/14/23 amlodipine 10 mg tablet 10 mg PO DAILY 08/14/23 08/14/23 atorvastatin 80 mg tablet 80 mg PO DAILY 08/14/23 08/14/23 carvedilol 25 mg tablet 25 mg PO BID 08/14/23 08/14/23 cholecalciferol (vitamin D3) 75 25 mcg PO DAILY 08/14/23 08/14/23 mcg (3,000 unit) tablet clopidogrel 75 mg tablet 75 mg PO DAILY 08/14/23 08/14/23 escitalopram oxalate 10 mg tablet 10 mg PO DAILY 08/14/23 08/14/23 estradiol 0.01% (0.1 mg/gram) 2 g vaginal DAILY 08/14/23 08/14/23 vaginal cream furosemide 20 mg tablet 20 mg PO DAILY 08/14/23 08/14/23 insulin glargine 100 unit/mL (3 40 unit subcut BEDTIME 08/14/23 08/14/23 mL) subcutaneous pen (Lantus Solostar U-100 Insulin) insulin lispro 100 unit/mL 0 - 18 sliding scale dose subcut 08/14/23 08/14/23 subcutaneous pen (Humalog KwikPen TIDAC (U-100) Insulin) ipratropium 0.5 mg-albuterol 3 mg 3 ml inhalation Q6H PRN sob 08/14/23 08/14/23 (2.5 mg base)/3 mL nebulization soln levothyroxine 88 mcg tablet 88 mcg PO DAILY 08/14/23 08/14/23 losartan 100 mg tablet 100 mg PO DAILY 08/14/23 08/14/23 mirabegron 50 mg tablet,extended 50 mg PO DAILY 08/14/23 08/14/23 release 24 hr (Myrbetriq) mirtazapine 15 mg tablet (Remeron) 15 mg PO BEDTIME 08/14/23 08/14/23 nystatin 100,000 unit/gram topical 1 appl topical TID 08/14/23 08/14/23 powder potassium chloride 10 mEq 10 meq PO DAILY 08/14/23 08/14/23 tablet,extended release sennosides 8.6 mg tablet (Senna 8.6 mg PO DAILY PRN Constipation 08/14/23 08/14/23 Lax) Previous Rx's ?Medication ?Instructions ?Recorded cefuroxime axetil 250 mg tablet 250 mg PO BID 7 days #14 tabs 08/14/23 Allergies Allergy/AdvReac Type Severity Reaction Status Date / Time No Known Allergies Allergy Verified 08/14/23 04:43 Review of Systems 2 Review of Systems: Yes all other systems are reviewed and are negative PMFSH Past Medical History Attestation statement: The following information was validated with the patient. Source: old records reviewed and nursing notes reviewed Social History Social History Smoked in Last 30 Days: No Use of substances other than those prescribed or required for medical reasons: No Advance Directives: No Advance Directives Information Provided: Yes Do you have a plan to hurt others: No Plan Physical Exam ED Vital Signs: Vital Signs - 24 hr 08/14/23 04:34 08/14/23 06:08 08/14/23 08:32 Temperature 97.6 F 97.6 F 98 F Pulse Rate 64 63 61 Respiratory Rate 17 17 15 Blood Pressure 140/77 H 152/70 H 164/88 H Pulse Oximetry 96 95 94 Oxygen Delivery Method Room Air Room Air Room Air 08/14/23 12:53 08/14/23 17:17 Temperature 98.1 F Pulse Rate 62 72 Respiratory Rate 12 16 Blood Pressure 151/69 H 168/75 H Pulse Oximetry 95 95 Oxygen Delivery Method Room Air Room Air BMI result Body Mass Index 32.1 vss Appearance: Alert.? Oriented to person, not place time or situation.? No acute distress.? Head: Normocephalic, atraumatic, no step-offs or deformities Eyes: Pupils equal, round and reactive to light.? Neck: Normal inspection.? Neck supple.? CVS: Normal heart rate and rhythm.? Pulses normal.? Respiratory: No respiratory distress.? Breath sounds normal.? Abdomen: Soft and nontender.? Skin: Skin warm and dry.? Normal skin color.? Normal skin turgor.? Extremities: No lower extremity edema.? No calf ttp. Global weakness Back: No midline tenderness, no C-spine tenderness, full range of motion, no CVA tenderness bilaterally Neuro: Oriented to person, not place, time or situation.? No motor deficit.? No sensory deficit. Unable to perform a thorough neurological assessment on patient as she is only intermittently following commands. Course Reevaluation(s) Reevaluation #1: CBC unremarkable. Chemistry no acute findings requiring intervention. Troponin negative, normal BNP. Coags unremarkable. UA with infection positive nitrates positive leukocyte esterases positive bacteria. Likely contributing to patient's confusion. Flu, COVID, RSV negative. D-dimer pending Time: 12:28 Reevaluation #2: Dimer + tough access --> IV line under Us guidance attempted no sucess. Dr. Marcelo to try. Time: 15:23 Reevaluation #3: I was able to obtain access r brachial region no complication US used. Patient tolelrate well CTA ordered. Sign out to Manuel Time: 15:58 Additional Reevaluation(s): Patient's CTA shows no evidence of pulmonary embolism. However there is a small to moderate pericardial effusion. Will discuss with Dr. Serrano, Cardiothoracic. Dr. Serrano recommends echocardiogram to evaluate for cardiac compromise/strain. He recommends admission as this can not be done in the ER at night. The patient is currently hemodynamically stable Medications Administered Discontinued Medications Generic Name Dose Route Start Last Admin Trade Name Freq PRN Reason Stop Dose Admin Cefuroxime Axetil 250 mg 08/14/23 12:27 08/14/23 12:54 Cefuroxime Axetil 250 Mg Tablet PO 08/14/23 12:28 250 mg ONCE ONE Administration Iohexol 100 ml 08/14/23 16:20 08/14/23 16:20 Iohexol 350 Mg/Ml 100 Ml Infus..Btl IV 08/14/23 16:21 70 ml ONCE ONE Administration Medical Decision Making Medical Decision Making [facility] Narrative: 78-year-old female presents with an episode of dyspnea earlier today. Now she is feeling fine offers no complaints she is pleasantly confused. Physical exam alert to person, not place time or situation. No other findings on exam. Patient well-appearing. Stable vital signs. History and physical exam concerning for UTI versus cystitis versus metabolic derangements. Unlikely intracranial hemorrhage, stroke, posterior stroke, PE, ACS, dissection, acute respiratory distress. Other differentials include worsening dementia Plan at this time labs, urine. Differential Diagnosis Differential Diagnoses: The differential diagnosis associated with the presentation includes History and physical exam concerning for UTI versus cystitis versus metabolic derangements. Unlikely intracranial hemorrhage, stroke, posterior stroke, PE, ACS, dissection, acute respiratory distress. Other differentials include worsening dementia Admission/Observation Consideration of admission/observation: Escalation of care including admission/observation considered Patient requires admission for echocardiogram Consult Healthcare Provider Management of the patient was discussed with: Hospitalist (Dr. Mata) and Registered Nurse Hh Case Manager (Dr. Serrano, Cardiothoracic) Lab Data [facility] Lab Attestation statement: I reviewed the patient's lab results. 08/14/23 05:09 08/14/23 05:09 Labs: Lab Results 08/14/23 08/14/23 08/14/23 Range/Units 05:09 08:52 09:54 WBC 8.0 (4.8-10.8) X10*3/uL RBC 4.90 (4.20-5.50) X10*6/uL Hgb 13.8 (12.0-16.0) g/dl Hct 41.7 (37.0-47.0) % MCV 85.1 (80.0-98.0) fL MCH 28.2 (27.0-33.0) pg MCHC 33.1 (31.0-35.0) g/dl RDW 14.6 (11.0-16.0) % Plt Count 230 (160-400) X10*3/uL MPV 8.4 L (9.4-12.3) fL Immature Gran % (Auto) 0.6 H (0.0-0.4) % Neut % (Auto) 62.4 (45-73) % Lymph % (Auto) 27.3 (20-40) % Burt % (Auto) 7.5 (2-11) % Eos % (Auto) 1.9 (0-4) % Baso % (Auto) 0.3 (0-2) % Lymph # (Auto) 2.2 (1.2-4.9) X10*3/uL Burt # (Auto) 0.6 (0.1-1.2) X10*3/uL Eos # (Auto) 0.2 (0.0-0.4) X10*3/uL Baso # (Auto) 0.0 (0.0-0.2) X10*3/uL Abs Immat Gran (auto) 0.05 H (0.00-0.03) X10*3/uL Absolute Neuts (auto) 5.0 (2.0-8.3) x10*3/uL Absolute Nucleated RBC 0.000 (0.0-0.012) X10*3/uL Nucleated RBC % (auto) 0.0 (0.0-0.2) /100WBC PT 11.8 (11.1-13.3) SEC INR 1.0 (0.9-1.1) D-Dimer High Sensitivty 530 NG/ML Sodium 145 (135-145) mmol/L Potassium 3.3 (3.3-5.1) mmol/L Chloride 112 H (96-108) mmol/L Carbon Dioxide 24 (22-29) mmol/L Anion Gap 12 (12-20) BUN 29 H (9-16) mg/dL Creatinine 0.73 (0.5-1.4) mg/dL Estim Creat Clear Calc 57.7 Estimated GFR > 60 POC Glucose (60-115) mg/dL Random Glucose 141 H (60-115) mg/dL Calcium 9.3 D (8.4-10.2) mg/dL Total Bilirubin 0.6 (0.0-1.0) mg/dL AST 45 H (5-31) U/L ALT 53 H (0-31) U/L Alkaline Phosphatase 86 (39-117) U/L Troponin I High Sens 4.0 (<3.5-17.0) ng/L B-Natriuretic Peptide < 10 (<100) pg/mL Total Protein 6.4 L (6.5-8.0) g/dL Albumin 3.4 L (3.5-5.0) g/dL Urine Color Yellow Urine Appearance Cloudy Urine pH 5.5 (5.0-9.0) Ur Specific [place] 1.015 (1.005-1.025) Urine Protein Trace (Neg-Trace) mg/dL Urine Glucose (UA) Negative (Negative) mg/dL Urine Ketones Negative (Negative) mg/dL Urine Blood Negative (Negative) Urine Nitrite Positive H (Negative) Ur Leukocyte Esterase Large (3+) H (Negative) Urine RBC 0-2 (0-2) /HPF Urine WBC >50 H (0-5) /HPF Ur Squamous Epith Cells 6-10 (0-2) /HPF Urine Bacteria 4+ (None Seen) Hyaline Casts 0-2 (0-2) /LPF Influenza Type A (PCR) NEGATIVE (Negative) Influenza Type B (PCR) NEGATIVE (Negative) RSV RNA Qual (PCR) NEGATIVE (Negative) SARS-CoV-2 RNA (RT-PCR) NEGATIVE (Negative) 08/14/23 08/14/23 Range/Units 14:11 18:18 WBC (4.8-10.8) X10*3/uL RBC (4.20-5.50) X10*6/uL Hgb (12.0-16.0) g/dl Hct (37.0-47.0) % MCV (80.0-98.0) fL MCH (27.0-33.0) pg MCHC (31.0-35.0) g/dl RDW (11.0-16.0) % Plt Count (160-400) X10*3/uL MPV (9.4-12.3) fL Immature Gran % (Auto) (0.0-0.4) % Neut % (Auto) (45-73) % Lymph % (Auto) (20-40) % Burt % (Auto) (2-11) % Eos % (Auto) (0-4) % Baso % (Auto) (0-2) % Lymph # (Auto) (1.2-4.9) X10*3/uL Burt # (Auto) (0.1-1.2) X10*3/uL Eos # (Auto) (0.0-0.4) X10*3/uL Baso # (Auto) (0.0-0.2) X10*3/uL Abs Immat Gran (auto) (0.00-0.03) X10*3/uL Absolute Neuts (auto) (2.0-8.3) x10*3/uL Absolute Nucleated RBC (0.0-0.012) X10*3/uL Nucleated RBC % (auto) (0.0-0.2) /100WBC PT (11.1-13.3) SEC INR (0.9-1.1) D-Dimer High Sensitivty NG/ML Sodium (135-145) mmol/L Potassium (3.3-5.1) mmol/L Chloride (96-108) mmol/L Carbon Dioxide (22-29) mmol/L Anion Gap (12-20) BUN (9-16) mg/dL Creatinine (0.5-1.4) mg/dL Estim Creat Clear Calc Estimated GFR POC Glucose 98 138 H (60-115) mg/dL Random Glucose (60-115) mg/dL Calcium (8.4-10.2) mg/dL Total Bilirubin (0.0-1.0) mg/dL AST (5-31) U/L ALT (0-31) U/L Alkaline Phosphatase (39-117) U/L Troponin I High Sens (<3.5-17.0) ng/L B-Natriuretic Peptide (<100) pg/mL Total Protein (6.5-8.0) g/dL Albumin (3.5-5.0) g/dL Urine Color Urine Appearance Urine pH (5.0-9.0) Ur Specific Headrick (1.005-1.025) Urine Protein (Neg-Trace) mg/dL Urine Glucose (UA) (Negative) mg/dL Urine Ketones (Negative) mg/dL Urine Blood (Negative) Urine Nitrite (Negative) Ur Leukocyte Esterase (Negative) Urine RBC (0-2) /HPF Urine WBC (0-5) /HPF Ur Squamous Epith Cells (0-2) /HPF Urine Bacteria (None Seen) Hyaline Casts (0-2) /LPF Influenza Type A (PCR) (Negative) Influenza Type B (PCR) (Negative) RSV RNA Qual (PCR) (Negative) SARS-CoV-2 RNA (RT-PCR) (Negative) Independent Interpretation I performed an independent interpretation of an: CT Scan (R/XR chest 1V IMPRESSION: Question post right lung surgery as described. Oval density about the right chest overlying posterior aspect of the right seventh rib. ) Radiology Impression Discussion of test interpretation with radiology: I have reviewed the radiologist's reading. External Record Review External record reviewed: Inpatient record, Office record, Outpatient record, Prior outpatient labs, Prior outpatient radiology, Primary care record and Outside ED record Prescription Management I considered prescription management with: Antibiotic Chronic Conditions Patient?s care impacted by: Diabetes, Hypertension and Other (HLD,dementia ) Critical Care Time Critical Care Time Critical Care Time: Yes Total Critical Care Time: 35 Attestation: Insert critical care Discharge Plan Discharge Clinical Impression: Acute UTI, Acute pericardial effusion Patient Disposition: Admitted As Inpatient Additional Instructions: Take your medications as prescribed. If you were prescribed antibiotics today, it is important that you take your medication to their entirety, do not skip any doses, do not finish them early. Follow-up with your primary care provider this week. Return to the emergency department with new or worsening symptoms. Such as fevers, chills, chest pain, shortness of breath, nausea, vomiting, dizziness, headache, vision changes, lethargy In case of emergency call 911 Prescriptions: New cefuroxime axetil 250 mg tablet 250 mg PO BID 7 Days Qty: 14 0RF No Action atorvastatin 80 mg Tablet 80 mg PO DAILY carvedilol 25 mg Tablet 25 mg PO BID Rx Instructions: must administer with a meal/food sennosides [Senna Lax] 8.6 mg Tablet 8.6 mg PO DAILY PRN (Reason: Constipation) acetaminophen 325 mg Tablet 650 mg PO Q6H PRN (Reason: Mild Pain (Scale Score 1-4)) potassium chloride 10 mEq tablet extended release 10 meq PO DAILY clopidogrel 75 mg tablet 75 mg PO DAILY allopurinol 100 mg Tablet 100 mg PO DAILY levothyroxine 88 mcg tablet 88 mcg PO DAILY amlodipine 10 mg Tablet 10 mg PO DAILY furosemide 20 mg tablet 20 mg PO DAILY mirtazapine [Remeron] 15 mg Tablet 15 mg PO BEDTIME nystatin 100,000 unit/gram powder 1 appl topical TID estradiol 0.01 % (0.1 mg/gram) cream 2 g vaginal DAILY losartan 100 mg Tablet 100 mg PO DAILY insulin lispro [Humalog KwikPen Insulin] 100 unit/mL insulin pen 0 - 18 sliding scale dose subcut TIDAC escitalopram oxalate 10 mg tablet 10 mg PO DAILY cholecalciferol (vitamin D3) 75 mcg (3,000 unit) Tablet 25 mcg PO DAILY Myrbetriq 50 mg Tablet Extended Release 24 Hr 50 mg PO DAILY ipratropium-albuterol 0.5 mg-3 mg(2.5 mg base)/3 mL Solution For Nebulization 3 ml INHALATION Q6H PRN (Reason: sob) insulin glargine [Lantus Solostar U-100 Insulin] 100 unit/mL (3 mL) insulin pen 40 unit subcut BEDTIME Referrals: Valdez Clark MD [Primary Care Provider] - 2 days Print Language: Hungarian
[2023-08-14 07:40] LABS: B Type Natriuretic Peptide < 10 pg/mL (<100)
--- NOTE | 2023-08-14 09:17 | PHA.MEDREC ---
Pharmacy Consult ? Medication Reconciliation Pharmacy has completed the medication reconciliation. List from [facility]
[2023-08-14 09:24] LABS: Prothrombin Time 11.8 SEC (11.1-13.3)
[2023-08-14 10:02] LABS: Appearance Urine Cloudy; Color Urine Yellow; Glucose Urine UA Negative (Negative); Leukocyte Esterase Urine Large (3+) (Negative); Nitrite Urine Positive (Negative); PH 5.5 (5.0-9.0); Specific Gravity - Urine 1.015 (1.005-1.025); UMIC TRIGGER UACC YES; Urine Blood Negative (Negative); Urine Ketones Negative (Negative); Urine Protein Trace mg/dL (Neg-Trace)
[2023-08-14 10:17] LABS: Bacteria Urine 4+ (None Seen); Hyaline Casts Urine 0-2 /LPF (0-2); RBC Urine 0-2 /HPF (0-2); UACC Culture Trigger YES; WBC Urine >50 /HPF (0-5)
[2023-08-14 12:45] LABS: D Dimer High Sensitivity 530 NG/ML
[2023-08-14] MEDS: cefuroxime axetiL 250 MG TABLET PO (12:54)
[2023-08-14 14:15] LABS: Glucose, Whole Blood 98 mg/dL (60-115)
[2023-08-14] MEDS: iohexoL 350 MG/ML 100 ML INFUS..BTL IV (16:20)
[2023-08-14 18:22] LABS: Glucose, Whole Blood 138 mg/dL (60-115)
[2023-08-14] MEDS: Mirtazapine 15 MG TABLET PO (21:03)
[2023-08-14] MEDS: carvediloL 25 MG TABLET PO (21:03)
[2023-08-14] MEDS: Insulin Glargine,Hum.rec.anlog 100 UNIT/ML 10 ML VIAL 40 UNIT SUBCUT (21:04)
--- NOTE | 2023-08-14 21:21 | P.HPHOSP_ITS ---
History of Present Illness Date of Service: 08/14/23 Attending physician on admission: Edwin Neely Chief Complaint: shortness of breath Sona Laguna is 78 years old woman with past medical history significant for dementia, hyperlipidemia, hypertension, CVA, type 2 diabetes mellitus on insulin, chronic systolic and diastolic CHF and hypothyroidism was brought to the emergency department by EMS after she had an episode of dyspnea 3 hours ago, according to ED triage note patient use an inhaler that is not her own and felt relief. HPI was obtained from record review and ED provider as the patient has marked dementia. On my evaluation the patient was using the call button device as a phone. She was able to answer some of my questions appropriately and denied any acute symptoms or shortness on breath. In the ED, she was found to have stable vital signs. Last blood pressure is 170/68. Her O2 sats on room air are around 94-95%. Blood workup showed no leukocytosis. Hemoglobin platelets are normal. Transaminases slightly elevated. BNP is <10 and troponin is negative. D-dimer is elevated. UA showed positive nitrites, or leukocyte steroids and elevated WBC >50. Chest CTA showed no evidence of pulmonary embolism. It showed [id number] pericardial effusion and small right pleural effusion. CXR showed no acute cardiopulmonary pathology but questioned post right lung surgery. ECG showed NSR, heart rate 63 beats per minute and LVH changes. ED tx: Ceftin 250 mg PO. According to ED provider case was discussed with marine cargo specialist on-call recommended admission for echocardiogram. [facility] Medical History (Updated 08/14/23 @ 22:46 by Edwin Neely MD) Anxiety disorder Rheumatoid arthritis Chronic combined systolic and diastolic congestive heart failure Overactive bladder Hyperlipidemia Major depressive disorder Benign neoplasm of meninges Delusional disorders Type 2 diabetes mellitus Obstructive sleep apnea Hypothyroidism Essential (primary) hypertension CVA (cerebral vascular accident) Social History Patient Tobacco Use Status: Never used Tobacco Smoked in Last 30 Days: No Use of substances other than those prescribed or required for medical reasons: No Advance Directives: No Advance Directives Information Provided: Yes Do you have a plan to hurt others: No Plan Nutrition Risks: No Nutritional Risk Meds Allergies Allergy/AdvReac Type Severity Reaction Status Date / Time No Known Allergies Allergy Verified 08/14/23 04:43 Active Medications: Current Medications Acetaminophen (Acetaminophen 325 Mg Tablet) 975 mg PO Q6H PRN PRN Reason: mild pain, headache or fever Allopurinol (Allopurinol 100 Mg Tablet) 100 mg PO DAILY [facility] Amlodipine Besylate (Amlodipine Besylate 10 Mg Tablet) 10 mg PO DAILY [facility]; Protocol Atorvastatin Calcium (Atorvastatin Calcium 80 Mg Tablet) 80 mg PO DAILY [facility] Carvedilol (Carvedilol 25 Mg Tablet) 25 mg PO BID [facility]; Protocol Last Admin: 08/14/23 21:03 Dose: 25 mg Clopidogrel Bisulfate (Clopidogrel Bisulfate 75 Mg Tablet) 75 mg PO DAILY [facility] Escitalopram Oxalate (Escitalopram Oxalate 10 Mg Tablet) 10 mg PO DAILY [facility] Furosemide (Furosemide 20 Mg Tablet) 20 mg PO DAILY [facility]; Protocol Insulin Glargine (Insulin Glargine,Hum.Rec.Anlog 100 Unit/Ml 10 Ml Vial) 40 unit SUBCUT BEDTIME [facility] Last Admin: 08/14/23 21:04 Dose: 40 unit Levothyroxine Sodium (Levothyroxine Sodium 88 Mcg Tablet) 88 mcg PO DAILY@0600 [facility] Losartan Potassium (Losartan Potassium 50 Mg Tablet) 100 mg PO DAILY [facility]; Protocol Mirabegron (Mirabegron 50 Mg Tab.Er.24h) 50 mg PO DAILY [facility] Mirtazapine (Mirtazapine 15 Mg Tablet) 15 mg PO BEDTIME [facility] Last Admin: 08/14/23 21:03 Dose: 15 mg Potassium Chloride (Potassium Chloride Er 10 Meq Tablet.Er) 10 meq PO DAILY [facility] Senna (Sennosides 8.6 Mg Tablet) 8.6 mg PO DAILY PRN PRN Reason: Constipation Sodium Chloride (0.9 % Sodium Chloride Flush 3 Ml Syringe) 3 ml IVFLUSH QSHIFT [facility] Vitamin D (Cholecalciferol (Vitamin D3) 25 Mcg Tablet) 25 mcg PO DAILY [facility] Home Medications ?Medication ?Instructions ?Recorded ?Confirmed ?Last Taken ?Type acetaminophen 325 mg tablet 650 mg PO Q6H PRN Mild Pain (Scale 08/14/23 08/14/23 Unknown History Score 1-4) allopurinol 100 mg tablet 100 mg PO DAILY 08/14/23 08/14/23 Unknown History amlodipine 10 mg tablet 10 mg PO DAILY 08/14/23 08/14/23 Unknown History atorvastatin 80 mg tablet 80 mg PO DAILY 08/14/23 08/14/23 Unknown History carvedilol 25 mg tablet 25 mg PO BID 08/14/23 08/14/23 Unknown History cholecalciferol (vitamin D3) 75 25 mcg PO DAILY 08/14/23 08/14/23 Unknown History mcg (3,000 unit) tablet clopidogrel 75 mg tablet 75 mg PO DAILY 08/14/23 08/14/23 Unknown History escitalopram oxalate 10 mg tablet 10 mg PO DAILY 08/14/23 08/14/23 Unknown History estradiol 0.01% (0.1 mg/gram) 2 g vaginal DAILY 08/14/23 08/14/23 Unknown History vaginal cream furosemide 20 mg tablet 20 mg PO DAILY 08/14/23 08/14/23 Unknown History insulin glargine 100 unit/mL (3 40 unit subcut BEDTIME 08/14/23 08/14/23 Unknown History mL) subcutaneous pen (Lantus Solostar U-100 Insulin) insulin lispro 100 unit/mL 0 - 18 sliding scale dose subcut 08/14/23 08/14/23 Unknown History subcutaneous pen (Humalog KwikPen TIDAC (U-100) Insulin) ipratropium 0.5 mg-albuterol 3 mg 3 ml inhalation Q6H PRN sob 08/14/23 08/14/23 Unknown History (2.5 mg base)/3 mL nebulization soln levothyroxine 88 mcg tablet 88 mcg PO DAILY 08/14/23 08/14/23 Unknown History losartan 100 mg tablet 100 mg PO DAILY 08/14/23 08/14/23 Unknown History mirabegron 50 mg tablet,extended 50 mg PO DAILY 08/14/23 08/14/23 Unknown History release 24 hr (Myrbetriq) mirtazapine 15 mg tablet (Remeron) 15 mg PO BEDTIME 08/14/23 08/14/23 Unknown History nystatin 100,000 unit/gram topical 1 appl topical TID 08/14/23 08/14/23 Unknown History powder potassium chloride 10 mEq 10 meq PO DAILY 08/14/23 08/14/23 Unknown History tablet,extended release sennosides 8.6 mg tablet (Senna 8.6 mg PO DAILY PRN Constipation 08/14/23 08/14/23 Unknown History Lax) Physical Exam 2 Vital Signs and Narrative: Vital Signs: Last Vital Signs Temp 98.1 F 08/14/23 17:17 Pulse 80 08/14/23 21:03 Resp 15 08/14/23 19:57 BP 170/68 H 08/14/23 19:57 Pulse Ox 95 08/14/23 19:57 O2 Del Method Room Air 08/14/23 19:57 BMI result Body Mass Index 32.1 Constitutional - Awake and Alert, No apparent distress. Confused. Afebrile. HEENT - PERRL, EOMI Heart - RRR, No edema Lungs - Normal lung expansion, Normal respiratory effort, No respiratory distress. No tachypnea. Decreased breath sounds at bases. No crackles. No rhonchi. Abdomen - NT / ND; +BS; No rebound or guarding Extremities - no calf tenderness bilaterally, no swelling Skin - Warm/Dry. No pallor. No jaundice. Neurological - Alert & oriented only to person. No focal weakness. Confused. Psychological - No agitation. Results Labs 08/14/23 05:09 08/14/23 05:09 Labs: Laboratory Results - last 24 hr 08/14/23 08/14/23 08/14/23 05:09 08:52 09:54 MCV 85.1 MCH 28.2 MCHC 33.1 RDW 14.6 Plt Count 230 MPV 8.4 L Immature Gran % (Auto) 0.6 H Neut % (Auto) 62.4 Lymph % (Auto) 27.3 Cow[place] % (Auto) 7.5 Eos % (Auto) 1.9 Baso % (Auto) 0.3 Lymph # (Auto) 2.2 [place]ley # (Auto) 0.6 Eos # (Auto) 0.2 Baso # (Auto) 0.0 Abs Immat Gran (auto) 0.05 H Absolute Neuts (auto) 5.0 Absolute Nucleated RBC 0.000 Nucleated RBC % (auto) 0.0 PT 11.8 INR 1.0 D-Dimer High Sensitivty 530 Anion Gap 12 Estim Creat Clear Calc 57.7 Estimated GFR > 60 POC Glucose Random Glucose 141 H Calcium 9.3 D Total Bilirubin 0.6 AST 45 H ALT 53 H Alkaline Phosphatase 86 Troponin I High Sens 4.0 B-Natriuretic Peptide < 10 Total Protein 6.4 L Albumin 3.4 L Urine Color Yellow Urine Appearance Cloudy Urine pH 5.5 Ur Specific [place] 1.015 Urine Protein Trace Urine Glucose (UA) Negative Urine Ketones Negative Urine Blood Negative Urine Nitrite Positive H Ur Leukocyte Esterase Large (3+) H Urine RBC 0-2 Urine WBC >50 H Ur Squamous Epith Cells 6-10 Urine Bacteria 4+ Hyaline Casts 0-2 Influenza Type A (PCR) NEGATIVE Influenza Type B (PCR) NEGATIVE RSV RNA Qual (PCR) NEGATIVE SARS-CoV-2 RNA (RT-PCR) NEGATIVE 08/14/23 08/14/23 14:11 18:18 MCV MCH MCHC RDW Plt Count MPV Immature Gran % (Auto) Neut % (Auto) Lymph % (Auto) [place] % (Auto) Eos % (Auto) Baso % (Auto) Lymph # (Auto) [place] # (Auto) Eos # (Auto) Baso # (Auto) Abs Immat Gran (auto) Absolute Neuts (auto) Absolute Nucleated RBC Nucleated RBC % (auto) PT INR D-Dimer High Sensitivty Anion Gap Estim Creat Clear Calc Estimated GFR POC Glucose 98 138 H Random Glucose Calcium Total Bilirubin AST ALT Alkaline Phosphatase Troponin I High Sens B-Natriuretic Peptide Total Protein Albumin Urine Color Urine Appearance Urine pH Ur Specific [place] Urine Protein Urine Glucose (UA) Urine Ketones Urine Blood Urine Nitrite Ur Leukocyte Esterase Urine RBC Urine WBC Ur Squamous Epith Cells Urine Bacteria Hyaline Casts Influenza Type A (PCR) Influenza Type B (PCR) RSV RNA Qual (PCR) SARS-CoV-2 RNA (RT-PCR) Imaging Radiologist's Impressions: Impressions Chest X-Ray 08/14/23 06:54 IMPRESSION: Question post right lung surgery as described. Oval density about the right chest overlying posterior aspect of the right seventh rib. Chest CTA 08/14/23 16:19 IMPRESSION: * No evidence of pulmonary embolism. * Mild centrilobular emphysema and diffusely thickened bronchial patel. Correlate for any history of chronic obstructive pulmonary disease. * Small right pleural effusion is present. * Baeor-xk-ejgecpqp pericardial effusion. * Atherosclerotic calcification of coronary arteries and thoracic aorta without aortic aneurysm. * Bilateral adrenal nodules have low attenuation, highly suggestive of lipid rich adenomas. Assessment and Plan (1) Acute pericardial effusion: Status: Acute (2) Acute UTI: Status: Acute Plan Sona Laguna is 78 years old woman presents with: * Mild to moderate pericardial effusion on chest CTA. Keeping in observation. Telemetry. Echocardiogram. Cardiology consult. * Old CVA. Continue statin and Plavix * Presumed UTI. Ceftriaxone IV. * Type 2 diabetes mellitus. Blood glucose monitoring before meals at bedtime. Continue Lantus. Insulin sliding scale. Diabetic diet. * Gout. Continue allopurinol. * Hyperlipidemia. Continue atorvastatin. * Essential hypertension. Continue amlodipine, losartan and carvedilol. * Hypothyroidism. Continue levothyroxine. * RA. * Depressive disorder. Continue citalopram. * Overreactive bladder. Continue Myrbetriq. * Chronic systolic and diastolic congestive heart failure. Not in exacerbation. Continue carvedilol and furosemide. * Hx of hypokalemia. Continue KCl PO. * Delusional disorder. Haldol IM as needed. * AMADO. DVT prophylaxis: SCDs. Code status: DNR/DNI (per MOLTS form) Quality Stroke Does the patient have a stroke diagnosis?: No VTE Prior VTE?: No VTE Risk Level:: Medical - moderate - high VTE Device Contraindication: N/A - Device Ordered VTE Drug Contraindication: Treatment Not Indicated
--- NOTE | 2023-08-14 22:17 | PC.NURSE ---
this RN resumed care of pt at 1900. a&ox2. pt aware on who she is/where she is but unaware on why she's here/what year it is. vss and up to date aside from being slightly hypertensive. nsr on the night monitor. pt denies pain. has no complaints. pt seemingly pleasantly confused. pt continuously talking into call rooney thinking that her is on the phone not feeding her children at home. pt originally saved dinner so she was able to feed her children at home. this RN educated pt that more food can be provided and that she should eat. 100% dinner eaten. night medication administered per provider order. no sob/wob noted. respirations even and unlabored. awaiting admission. plan of care ongoing. call rooney placed within reach.
[2023-08-15] VITALS (7 sets, daily range): BP systolic 136–178; BP diastolic 77–94; PULSE 59–68; RESP 16–20; TEMP 36–36.4; O2SAT 95
--- NOTE | 2023-08-15 02:37 | PC.NURSE ---
admission worksheet complete.
[2023-08-15 03:34] LABS: Glucose, Whole Blood 129 mg/dL (60-115)
--- NOTE | 2023-08-15 07:00 | CA_ITS ---
Transthoracic Echocardiogram Patient (Last, First, Middle): Sona Laguna, Gender: Female Date of : 1945 Age: 78 Procedure Date: 08/15/2023 Procedure Type: Transthoracic Echocardiogram Location: [facility] [place] Height: 154.94 cm Weight: 77.11 kg BSA: 1.76 m2 Heart Rate: bpm BP: 178 / 86 mmHg Regional Sales Associate: Referring MD: Te Nation MD Awning Hanger Supervisor: Nathaniel Hills MD Symptoms: pericardial effusion Study Quality: Technically Difficult ECG Rhythm: Sinus Conclusions: - 1. Small to moderate pericardial effusion more prominent near the LV without hemodynamic compromise 2. Normal LV ejection fraction of 65-70% with moderate LVH with impaired relaxation filling pattern 3. Early mild aortic stenosis 4. Normal RV systolic pressure Findings Left Ventricle Normal left ventricular size and systolic function. There is moderately increased left ventricular wall thickness. The visually estimated ejection fraction is between 65-70%. Spectral Doppler is indicative of an impaired relaxation filling pattern. Right Ventricle Normal right ventricular cavity size and systolic function. Atria The left atrium is mildly dilated. There is no evidence of interatrial shunt. The right atrium is likely dilated. Aortic Valve There is mild calcification of the aortic valve. There is mild aortic valve stenosis. The peak aortic velocity is 1.75 m/s with a calculated peak gradient of 12 mmHg. The mean gradient is 6 mmHg. The aortic valve area is 2.00 cm2. There is no aortic valve regurgitation. Mitral Valve There is mild anterior and posterior mitral leaflet thickening. There is mild mitral annular calcification. There is trace mitral valve regurgitation. There is no mitral valve stenosis. Pulmonic Valve The pulmonic valve was not well visualized. Tricuspid Valve Likely normal tricuspid valve structure and function. There is trace tricuspid valve regurgitation. The right ventricular systolic pressure is normal. The right ventricular systolic pressure is 17 mmHg. Normal right atrial pressure. Great Vessels The aorta was not well visualized. The pulmonary artery was not well visualized. There is no dilatation of the ascending aorta. Venous The inferior vena cava is normal in size and collapses greater than 50% with inspiration. Pericardium/Pleural There is a small circumferential pericardial effusion. Prior Study Comparison No prior study available for comparison. Measurements 2D Linear Measurements IVSd: 1.46 0.6-0.9/0.6-1.0 cm LVIDd: 3.54 3.9-5.3/4.2-5.9 cm LVIDd Index: 2.01 2.4-3.2/2.2-3.1 cm/m2 LVIDs: 2.34 2.0-3.6 cm LVPWd: 1.45 0.7-1.1 cm Ao Root: 3.20 2.1-3.5 cm LA Diam: 2.90 2.7-3.8/3.0-4.0 cm LAIDs Index: 1.65 1.5-2.3 cm/m2 LV Mass: 232.93 67-162/88-224 g LV Mass Index: 132.35 43-95/49-115 g/m2 LVOT Diam: 2.00 3.0+(-)1.3 cm 2D Systolic Function EF 4C: 68.30 >55% EF 2C: 68.70 >55% EF BiP: 68.60 >55% Mitral Valve MV VTI: 0.31 MV Pk Varun: 1.06 MV Mn Varun: 0.55 MV Pk Grad: 4.00 MV Mn Grad: 1.00 MV Pk E: 0.55 MV PK A: 1.06 MV Decel Time: 300.00 E/A: 0.50 E'Lateral: 3.37 E'Medial: 5.00 E/E' Med: 11.00 E/E' Lat: 16.30 PHT: 88.00 MVA PHT: 2.50 MVA Continuity: 2.36 Decel O'Brien: 1.83 Aortic Valve AoV Pk Varun: 1.75 AoV Mn Varun: 1.08 AoV VTI: 0.36 AoV Pk Grad: 12.00 Aov Mn Grad: 6.00 RUIZ Cont.VTI: 2.00 LVOT LVOT Pk Varun: 0.78 LVOT Mn Varun: 0.58 LVOT VTI: 0.23 LVOT Pk Grad: 2.00 LVOT Mn Grad: 2.00 LVOT Diam: 2.00 LVOT Area: 3.14 Diastolic Function MV Pk E: 0.55 MV Pk A: 1.06 E/A: 0.50 E'Medial: 5.00 E/E' Med: 11.00 E' Laterial: 3.37 E/E' Lat: 16.30 Right Ventricle TAPSE (mm): 20.40 TVS' Varun: 12.70 Tricuspid Valve TR Pk Varun: 1.84 TR Pk Grad: 14.00 RA Press: 3.00 RVSP: 17.00 Great Vessels Aorta Ao Root-2D: 3.20 2.0-3.7 cm Ao Asc: 3.40 2.1-3.4 cm Pulmonary Valve PV Pk Varun: 0.87 Peak PV Grad: 3.00 Updated in Other Vendor System with Status of Final Nathaniel Hills MD electronically signed on 08/15/2023 11:33:28 AM with status of Final
[2023-08-15 08:12] LABS: Glucose, Whole Blood 92 mg/dL (60-115)
--- NOTE | 2023-08-15 08:27 | MHC.CM.PN ---
Patient has Dementia; CM called Primary Contact # ([phone]) and Majo (Son/Jermain's Girlfriend) answered the phone. Patient's , who is listed as the Primary Contact, has since passed. CM addressed HAWKINS with Majo, who will share HAWKINS with Son/Jermain. Patient is a LTC Resident and a [facility] bed hold at [facility] and returning there is the goal. TASHA has initiated and will follow for dc planning. TASHA has asked Nithin Vasquez to fax over a copy of the HCP.
[2023-08-15] MEDS: cefTRIAXone sodium 1 GM in 0.9 % Sodium Chloride 50 ML IV (09:04)
[2023-08-15] MEDS: allopurinoL 100 MG TABLET PO (09:08)
[2023-08-15] MEDS: Cholecalciferol (Vitamin D3) 25 MCG TABLET PO (09:08)
[2023-08-15] MEDS: amLODIPine Besylate 10 MG TABLET PO (09:10)
[2023-08-15] MEDS: carvediloL 25 MG TABLET PO (09:10)
[2023-08-15] MEDS: Escitalopram Oxalate 10 MG TABLET PO (09:10)
[2023-08-15] MEDS: Potassium Chloride ER 10 MEQ TABLET.ER PO (09:10)
[2023-08-15] MEDS: Furosemide 20 MG TABLET PO (09:10)
[2023-08-15] MEDS: 0.9 % Sodium Chloride Flush 3 ML SYRINGE IVFLUSH (09:11)
[2023-08-15] MEDS: Clopidogrel Bisulfate 75 MG TABLET PO (09:11)
[2023-08-15] MEDS: Mirabegron 50 MG TAB.ER.24H PO (09:11)
[2023-08-15] MEDS: Atorvastatin Calcium 80 MG TABLET PO (09:11)
[2023-08-15] MEDS: Losartan Potassium 50 MG TABLET 100 MG PO (09:11)
[2023-08-15 09:37] LABS: MANUAL DIFF FLAG NO
[2023-08-15 09:39] LABS: Basophils Absolute Auto 0.1 X10*3/uL (0.0-0.2); Basophils Percent Auto 0.6 % (0-2); Eosinophils Absolute Auto 0.2 X10*3/uL (0.0-0.4); Hematocrit 43.5 % (37.0-47.0); Hemoglobin 14.6 g/dl (12.0-16.0); Imm Gran Abs Auto 0.09 X10*3/uL (0.00-0.03); Imm Gran Pct Auto 1.1 % (0.0-0.4); Lymphocytes Absolute Auto 2.5 X10*3/uL (1.2-4.9); Lymphocytes Percent Auto 29.2 % (20-40); Mean Corpuscular HGB Conc 33.6 g/dl (31.0-35.0); Mean Corpuscular Hemoglobin 29.1 pg (27.0-33.0); Mean Corpuscular Volume 86.8 fL (80.0-98.0); Mean Platelet Volume 8.5 fL (9.4-12.3); Monocytes Absolute Auto 0.6 X10*3/uL (0.1-1.2); Monocytes Percent Auto 7.1 % (2-11); Neutrophils Absolute Auto 5.1 x10*3/uL (2.0-8.3); Platelet Count 226 X10*3/uL (160-400); Red Blood Count 5.01 X10*6/uL (4.20-5.50); Red Cell Distribution Width 14.3 % (11.0-16.0); White Blood Count 8.6 X10*3/uL (4.8-10.8)
[2023-08-15 09:53] LABS: Anion Gap 12 (12-20); Blood Urea Nitrogen 21 mg/dL (9-16); Calcium 9.5 mg/dL (8.4-10.2); Carbon Dioxide 24 mmol/L (22-29); Chloride 109 mmol/L (96-108); Creatinine Clr Calc Pharmacy 72.7; Estimated Glomerular Filt Rate > 60; Glucose Random 153 mg/dL (60-115); Potassium 3.3 mmol/L (3.3-5.1); Sodium 142 mmol/L (135-145)
--- NOTE | 2023-08-15 10:05 | PM.CNCAR ---
History of Present Illness History of Present Illness Date of Service: 08/15/23 Requesting physician: Edwin Neely Consult reason: other (Pericardial effusion) Chief complaint: Moderate pericardial effusion Narrative: I was consulted to see Sona in cardiology consultation today for noted incidental pericardial effusion on chest CT. Reported as as [id number] pericardial effusion. History was mostly obtained from the chart. Patient past medical history of dementia, hyperlipidemia, hypertension, CVA, diabetes, congestive heart failure reported. Patient was referred from the custodial facility because shortness of breath. Workup was basically unremarkable except for CTA showing [id number] pericardial effusion. BNP is less than 10. Blood pressure is elevated. Patient does not report any symptoms to me of chest pain or shortness of breath. Reviewed an echocardiogram from 2020 which showed small pericardial effusion which is circumferential. There is no hemodynamic compromise. Patient noted to have UTI. Review of Systems Review of Systems: Yes Unobtainable due to mental status Neurologic: Reports confusion Psychiatric: Psychiatric: Reports confusion PMF Past Medical History Medical History Anxiety disorder Rheumatoid arthritis Chronic combined systolic and diastolic congestive heart failure Overactive bladder Hyperlipidemia Major depressive disorder Benign neoplasm of meninges Delusional disorders Type 2 diabetes mellitus Obstructive sleep apnea Hypothyroidism Essential (primary) hypertension CVA (cerebral vascular accident) Social History Social History Patient Tobacco Use Status: Never used Tobacco service: No Meds Allergies Allergy/AdvReac Type Severity Reaction Status Date / Time No Known Allergies Allergy Verified 08/14/23 04:43 Active Medications: Current Medications Acetaminophen (Acetaminophen 325 Mg Tablet) 975 mg PO Q6H PRN PRN Reason: mild pain, headache or fever Allopurinol (Allopurinol 100 Mg Tablet) 100 mg PO DAILY [facility] Last Admin: 08/15/23 09:08 Dose: 100 mg Amlodipine Besylate (Amlodipine Besylate 10 Mg Tablet) 10 mg PO DAILY [facility]; Protocol Last Admin: 08/15/23 09:10 Dose: 10 mg Atorvastatin Calcium (Atorvastatin Calcium 80 Mg Tablet) 80 mg PO DAILY [facility] Last Admin: 08/15/23 09:11 Dose: 80 mg Carvedilol (Carvedilol 25 Mg Tablet) 25 mg PO BID [facility]; Protocol Last Admin: 08/15/23 09:10 Dose: 25 mg Clopidogrel Bisulfate (Clopidogrel Bisulfate 75 Mg Tablet) 75 mg PO DAILY [facility] Last Admin: 08/15/23 09:11 Dose: 75 mg Escitalopram Oxalate (Escitalopram Oxalate 10 Mg Tablet) 10 mg PO DAILY [facility] Last Admin: 08/15/23 09:10 Dose: 10 mg Furosemide (Furosemide 20 Mg Tablet) 20 mg PO DAILY [facility]; Protocol Last Admin: 08/15/23 09:10 Dose: 20 mg Glucose (Glucose Gel 15 Gm Gel..Gram.) 15 gm PO Q15M PRN; Protocol PRN Reason: per Hypoglycemia Standing Ord. Haloperidol Lactate (Haloperidol Lactate 5 Mg/Ml Vial) 5 mg IM ONCE PRN PRN Reason: agitation Ceftriaxone Sodium 1 gm/ (Sodium Chloride) 50 mls @ 100 mls/hr IV Q24H [facility] Last Admin: 08/15/23 09:04 Dose: 100 mls/hr Dextrose (D10) 250 mls @ 750 mls/hr IV Q15M PRN; Protocol PRN Reason: per Hypoglycemia Standing Ord. Insulin Glargine (Insulin Glargine,Hum.Rec.Anlog 100 Unit/Ml 10 Ml Vial) 40 unit SUBCUT BEDTIME [facility] Last Admin: 08/14/23 21:04 Dose: 40 unit Insulin Human Lispro (Insulin Lispro 100 Unit/Ml 3 Ml Vial) 0 unit SUBCUT QIDACHS [facility]; Protocol Last Admin: 08/15/23 08:13 Dose: Not Given Levothyroxine Sodium (Levothyroxine Sodium 88 Mcg Tablet) 88 mcg PO DAILY@0600 [facility] Last Admin: 08/15/23 04:42 Dose: Not Given Losartan Potassium (Losartan Potassium 50 Mg Tablet) 100 mg PO DAILY [facility]; Protocol Last Admin: 08/15/23 09:11 Dose: 100 mg Mirabegron (Mirabegron 50 Mg Tab.Er.24h) 50 mg PO DAILY [facility] Last Admin: 08/15/23 09:11 Dose: 50 mg Mirtazapine (Mirtazapine 15 Mg Tablet) 15 mg PO BEDTIME [facility] Last Admin: 08/14/23 21:03 Dose: 15 mg Potassium Chloride (Potassium Chloride Er 10 Meq Tablet.Er) 10 meq PO DAILY [facility] Last Admin: 08/15/23 09:10 Dose: 10 meq Senna (Sennosides 8.6 Mg Tablet) 8.6 mg PO DAILY PRN PRN Reason: Constipation Sodium Chloride (0.9 % Sodium Chloride Flush 3 Ml Syringe) 3 ml IVFLUSH QSHIFT [facility] Last Admin: 08/15/23 09:11 Dose: 3 ml Vitamin D (Cholecalciferol (Vitamin D3) 25 Mcg Tablet) 25 mcg PO DAILY [facility] Last Admin: 08/15/23 09:08 Dose: 25 mcg Home Medications ?Medication ?Instructions ?Recorded ?Confirmed ?Last Taken ?Type acetaminophen 325 mg tablet 650 mg PO Q6H PRN Mild Pain (Scale 08/14/23 08/14/23 Unknown History Score 1-4) allopurinol 100 mg tablet 100 mg PO DAILY 08/14/23 08/14/23 Unknown History amlodipine 10 mg tablet 10 mg PO DAILY 08/14/23 08/14/23 Unknown History atorvastatin 80 mg tablet 80 mg PO DAILY 08/14/23 08/14/23 Unknown History carvedilol 25 mg tablet 25 mg PO BID 08/14/23 08/14/23 Unknown History cholecalciferol (vitamin D3) 75 25 mcg PO DAILY 08/14/23 08/14/23 Unknown History mcg (3,000 unit) tablet clopidogrel 75 mg tablet 75 mg PO DAILY 08/14/23 08/14/23 Unknown History escitalopram oxalate 10 mg tablet 10 mg PO DAILY 08/14/23 08/14/23 Unknown History estradiol 0.01% (0.1 mg/gram) 2 g vaginal DAILY 08/14/23 08/14/23 Unknown History vaginal cream furosemide 20 mg tablet 20 mg PO DAILY 08/14/23 08/14/23 Unknown History insulin glargine 100 unit/mL (3 40 unit subcut BEDTIME 08/14/23 08/14/23 Unknown History mL) subcutaneous pen (Lantus Solostar U-100 Insulin) insulin lispro 100 unit/mL 0 - 18 sliding scale dose subcut 08/14/23 08/14/23 Unknown History subcutaneous pen (Humalog KwikPen TIDAC (U-100) Insulin) ipratropium 0.5 mg-albuterol 3 mg 3 ml inhalation Q6H PRN sob 08/14/23 08/14/23 Unknown History (2.5 mg base)/3 mL nebulization soln levothyroxine 88 mcg tablet 88 mcg PO DAILY 08/14/23 08/14/23 Unknown History losartan 100 mg tablet 100 mg PO DAILY 08/14/23 08/14/23 Unknown History mirabegron 50 mg tablet,extended 50 mg PO DAILY 08/14/23 08/14/23 Unknown History release 24 hr (Myrbetriq) mirtazapine 15 mg tablet (Remeron) 15 mg PO BEDTIME 08/14/23 08/14/23 Unknown History nystatin 100,000 unit/gram topical 1 appl topical TID 08/14/23 08/14/23 Unknown History powder potassium chloride 10 mEq 10 meq PO DAILY 08/14/23 08/14/23 Unknown History tablet,extended release sennosides 8.6 mg tablet (Senna 8.6 mg PO DAILY PRN Constipation 08/14/23 08/14/23 Unknown History Lax) Physical Exam Vital Signs: Vital Signs: Last Vital Signs Temp 96.9 F 08/15/23 07:50 Pulse 65 08/15/23 09:10 Resp 19 08/15/23 07:50 BP 136/77 08/15/23 09:10 Pulse Ox 95 08/15/23 07:50 O2 Del Method Room Air 08/15/23 07:50 BMI result Body Mass Index 32.1 Const: General: cooperative, comfortable, no acute distress, alert, awake and confusion Nutritional Appearance: overweight Orientation/consciousness: confusion HEENT: Head: Yes normocephalic and Yes atraumatic Neck: Neck: Yes trachea midline, Yes supple and Yes no JVD Resp: Effort & Inspection: decreased respiratory effort Auscultation: no rales, no wheezes and diminished lung sounds Cardio: Jugular venous distension: no JVD Rate: regular rate Rhythm: regular rhythm Heart sounds: S1 normal heart sound present, S2 normal heart sound present, no click, no gallops and no murmurs GI: Auscultation: normal bowel sounds Skin: General skin exam: no rashes or lesions noted Neuro: General: confusion Extrem: General: Yes no clubbing, cyanosis or edema Objective Labs and Meds 08/15/23 09:20 08/15/23 09:20 Lab results: Laboratory Results - last 24 hr 08/14/23 08/14/23 08/14/23 08:52 09:54 14:11 WBC RBC Hgb Hct MCV MCH MCHC RDW Plt Count MPV Immature Gran % (Auto) Neut % (Auto) Lymph % (Auto) [place] % (Auto) Eos % (Auto) Baso % (Auto) Lymph # (Auto) [place] # (Auto) Eos # (Auto) Baso # (Auto) Abs Immat Gran (auto) Absolute Neuts (auto) Absolute Nucleated RBC Nucleated RBC % (auto) D-Dimer High Sensitivty 530 Sodium Potassium Chloride Carbon Dioxide Anion Gap BUN Creatinine Estim Creat Clear Calc Estimated GFR POC Glucose 98 Random Glucose Calcium Urine RBC 0-2 Urine WBC >50 H Ur Squamous Epith Cells 6-10 Urine Bacteria 4+ Hyaline Casts 0-2 08/14/23 08/15/23 08/15/23 18:18 03:25 07:49 WBC RBC Hgb Hct MCV MCH MCHC RDW Plt Count MPV Immature Gran % (Auto) Neut % (Auto) Lymph % (Auto) [place] % (Auto) Eos % (Auto) Baso % (Auto) Lymph # (Auto) [place] # (Auto) Eos # (Auto) Baso # (Auto) Abs Immat Gran (auto) Absolute Neuts (auto) Absolute Nucleated RBC Nucleated RBC % (auto) D-Dimer High Sensitivty Sodium Potassium Chloride Carbon Dioxide Anion Gap BUN Creatinine Estim Creat Clear Calc Estimated GFR POC Glucose 138 H 129 H 92 Random Glucose Calcium Urine RBC Urine WBC Ur Squamous Epith Cells Urine Bacteria Hyaline Casts 08/15/23 09:20 WBC 8.6 RBC 5.01 Hgb 14.6 Hct 43.5 MCV 86.8 MCH 29.1 MCHC 33.6 RDW 14.3 Plt Count 226 MPV 8.5 L Immature Gran % (Auto) 1.1 H Neut % (Auto) 60.0 Lymph % (Auto) 29.2 [place] % (Auto) 7.1 Eos % (Auto) 2.0 Baso % (Auto) 0.6 Lymph # (Auto) 2.5 [place] # (Auto) 0.6 Eos # (Auto) 0.2 Baso # (Auto) 0.1 Abs Immat Gran (auto) 0.09 H Absolute Neuts (auto) 5.1 Absolute Nucleated RBC 0.000 Nucleated RBC % (auto) 0.0 D-Dimer High Sensitivty Sodium 142 Potassium 3.3 Chloride 109 H Carbon Dioxide 24 Anion Gap 12 BUN 21 H Creatinine 0.58 Estim Creat Clear Calc 72.7 Estimated GFR > 60 POC Glucose Random Glucose 153 H Calcium 9.5 Urine RBC Urine WBC Ur Squamous Epith Cells Urine Bacteria Hyaline Casts EKG shows normal sinus rhythm with LVH Imaging Radiologist's impression: Impressions Chest CTA 08/14/23 16:19 IMPRESSION: * No evidence of pulmonary embolism. * Mild centrilobular emphysema and diffusely thickened bronchial patel. Correlate for any history of chronic obstructive pulmonary disease. * Small right pleural effusion is present. * [id number] pericardial effusion. * Atherosclerotic calcification of coronary arteries and thoracic aorta without aortic aneurysm. * Bilateral adrenal nodules have low attenuation, highly suggestive of lipid rich adenomas. Assessment and Plan (1) Pericardial effusion: Status: Acute Asymptomatic pericardial effusion incidentally noted on chest CT for other workup. Reviewed old echocardiogram from [facility] from 2020 patient had a small circumferential pericardial effusion at that time. Not sure if this pericardial effusion is acute. There is no obvious etiology for it at this point time. There is no hemodynamic compromise. Would suggest an echocardiogram to assess for pericardial effusion and if any hemodynamic compromise. No interventions required at this point in time. Continue underlying medical treatment. Will sign of the case. Thank you for allowing me to partake in her care Procedures Date of Service Date of Service: 08/15/23
--- NOTE | 2023-08-15 10:56 | HO.THORCON_ITS ---
Documented by User: Laxmi Jack PA-C 08/15/23 11:27 History of Present Illness Consult details Consult date: 08/15/23 Reason for consult: other (pericardial and pleural effusion ) Narrative: Sona Laguna is an 78 year old woman with PMH significant for dementia, hyperlipidemia, hypertension, CVA, type 2 diabetes mellitus on insulin, CHF and hypothyroidism was brought to the ED from her SNF for shortness of breath that began the same day. Unable to get significant history due to the patient's dementia and history obtained from EMR. Patient had stable vitals in the ED with SBP 140-170s, normal HR and O2 sat mid 90s on RA. CBC, BMP were WNL. BNP was <10, troponin was negative however D-dimer was elevated. Urinalysis was also positive. Chest CTA was performed which showed no evidence of pulmonary embolism however demonstrated [id number] pericardial effusion and small right pleural effusion. SHe was admitted to the medical service for further treatment of her UTI, pericardial and pleural effusion. Thoracic surgery was therefore consulted. She was also seen by cardiology who reviewed her old echo from 2020 which had a small circumferential pericardial effusion at that time. Echocardiogram has been ordered for today. Review of Systems 2 Review of Systems: Yes Unobtainable due to mental status PMFSH Past Medical History Medical History Anxiety disorder Rheumatoid arthritis Chronic combined systolic and diastolic congestive heart failure Overactive bladder Hyperlipidemia Major depressive disorder Benign neoplasm of meninges Delusional disorders Type 2 diabetes mellitus Obstructive sleep apnea Hypothyroidism Essential (primary) hypertension CVA (cerebral vascular accident) Social History Social History Patient Tobacco Use Status: Never used Tobacco service: No Meds Allergies Allergy/AdvReac Type Severity Reaction Status Date / Time No Known Allergies Allergy Verified 08/14/23 04:43 Active Medications: Current Medications Acetaminophen (Acetaminophen 325 Mg Tablet) 975 mg PO Q6H PRN PRN Reason: mild pain, headache or fever Allopurinol (Allopurinol 100 Mg Tablet) 100 mg PO DAILY [facility] Last Admin: 08/15/23 09:08 Dose: 100 mg Amlodipine Besylate (Amlodipine Besylate 10 Mg Tablet) 10 mg PO DAILY [facility]; Protocol Last Admin: 08/15/23 09:10 Dose: 10 mg Atorvastatin Calcium (Atorvastatin Calcium 80 Mg Tablet) 80 mg PO DAILY [facility] Last Admin: 08/15/23 09:11 Dose: 80 mg Carvedilol (Carvedilol 25 Mg Tablet) 25 mg PO BID [facility]; Protocol Last Admin: 08/15/23 09:10 Dose: 25 mg Clopidogrel Bisulfate (Clopidogrel Bisulfate 75 Mg Tablet) 75 mg PO DAILY [facility] Last Admin: 08/15/23 09:11 Dose: 75 mg Escitalopram Oxalate (Escitalopram Oxalate 10 Mg Tablet) 10 mg PO DAILY [facility] Last Admin: 08/15/23 09:10 Dose: 10 mg Furosemide (Furosemide 20 Mg Tablet) 20 mg PO DAILY [facility]; Protocol Last Admin: 08/15/23 09:10 Dose: 20 mg Glucose (Glucose Gel 15 Gm Gel..Gram.) 15 gm PO Q15M PRN; Protocol PRN Reason: per Hypoglycemia Standing Ord. Haloperidol Lactate (Haloperidol Lactate 5 Mg/Ml Vial) 5 mg IM ONCE PRN PRN Reason: agitation Ceftriaxone Sodium 1 gm/ (Sodium Chloride) 50 mls @ 100 mls/hr IV Q24H [facility] Last Admin: 08/15/23 09:04 Dose: 100 mls/hr Dextrose (D10) 250 mls @ 750 mls/hr IV Q15M PRN; Protocol PRN Reason: per Hypoglycemia Standing Ord. Insulin Glargine (Insulin Glargine,Hum.Rec.Anlog 100 Unit/Ml 10 Ml Vial) 40 unit SUBCUT BEDTIME [facility] Last Admin: 08/14/23 21:04 Dose: 40 unit Insulin Human Lispro (Insulin Lispro 100 Unit/Ml 3 Ml Vial) 0 unit SUBCUT QIDACHS [facility]; Protocol Last Admin: 08/15/23 08:13 Dose: Not Given Levothyroxine Sodium (Levothyroxine Sodium 88 Mcg Tablet) 88 mcg PO DAILY@0600 [facility] Last Admin: 08/15/23 04:42 Dose: Not Given Losartan Potassium (Losartan Potassium 50 Mg Tablet) 100 mg PO DAILY [facility]; Protocol Last Admin: 08/15/23 09:11 Dose: 100 mg Mirabegron (Mirabegron 50 Mg Tab.Er.24h) 50 mg PO DAILY [facility] Last Admin: 08/15/23 09:11 Dose: 50 mg Mirtazapine (Mirtazapine 15 Mg Tablet) 15 mg PO BEDTIME [facility] Last Admin: 08/14/23 21:03 Dose: 15 mg Potassium Chloride (Potassium Chloride Er 10 Meq Tablet.Er) 10 meq PO DAILY [facility] Last Admin: 08/15/23 09:10 Dose: 10 meq Senna (Sennosides 8.6 Mg Tablet) 8.6 mg PO DAILY PRN PRN Reason: Constipation Sodium Chloride (0.9 % Sodium Chloride Flush 3 Ml Syringe) 3 ml IVFLUSH QSHIFT [facility] Last Admin: 08/15/23 09:11 Dose: 3 ml Vitamin D (Cholecalciferol (Vitamin D3) 25 Mcg Tablet) 25 mcg PO DAILY [facility] Last Admin: 08/15/23 09:08 Dose: 25 mcg Home Medications ?Medication ?Instructions ?Recorded ?Confirmed ?Last Taken ?Type acetaminophen 325 mg tablet 650 mg PO Q6H PRN Mild Pain (Scale 08/14/23 08/14/23 Unknown History Score 1-4) allopurinol 100 mg tablet 100 mg PO DAILY 08/14/23 08/14/23 Unknown History amlodipine 10 mg tablet 10 mg PO DAILY 08/14/23 08/14/23 Unknown History atorvastatin 80 mg tablet 80 mg PO DAILY 08/14/23 08/14/23 Unknown History carvedilol 25 mg tablet 25 mg PO BID 08/14/23 08/14/23 Unknown History cholecalciferol (vitamin D3) 75 25 mcg PO DAILY 08/14/23 08/14/23 Unknown History mcg (3,000 unit) tablet clopidogrel 75 mg tablet 75 mg PO DAILY 08/14/23 08/14/23 Unknown History escitalopram oxalate 10 mg tablet 10 mg PO DAILY 08/14/23 08/14/23 Unknown History estradiol 0.01% (0.1 mg/gram) 2 g vaginal DAILY 08/14/23 08/14/23 Unknown History vaginal cream furosemide 20 mg tablet 20 mg PO DAILY 08/14/23 08/14/23 Unknown History insulin glargine 100 unit/mL (3 40 unit subcut BEDTIME 08/14/23 08/14/23 Unknown History mL) subcutaneous pen (Lantus Solostar U-100 Insulin) insulin lispro 100 unit/mL 0 - 18 sliding scale dose subcut 08/14/23 08/14/23 Unknown History subcutaneous pen (Humalog KwikPen TIDAC (U-100) Insulin) ipratropium 0.5 mg-albuterol 3 mg 3 ml inhalation Q6H PRN sob 08/14/23 08/14/23 Unknown History (2.5 mg base)/3 mL nebulization soln levothyroxine 88 mcg tablet 88 mcg PO DAILY 08/14/23 08/14/23 Unknown History losartan 100 mg tablet 100 mg PO DAILY 08/14/23 08/14/23 Unknown History mirabegron 50 mg tablet,extended 50 mg PO DAILY 08/14/23 08/14/23 Unknown History release 24 hr (Myrbetriq) mirtazapine 15 mg tablet (Remeron) 15 mg PO BEDTIME 08/14/23 08/14/23 Unknown History nystatin 100,000 unit/gram topical 1 appl topical TID 08/14/23 08/14/23 Unknown History powder potassium chloride 10 mEq 10 meq PO DAILY 08/14/23 08/14/23 Unknown History tablet,extended release sennosides 8.6 mg tablet (Senna 8.6 mg PO DAILY PRN Constipation 08/14/23 08/14/23 Unknown History Lax) Physical Exam 2 Vital Signs: Vital Signs: Last Vital Signs Temp 96.9 F 08/15/23 07:50 Pulse 65 08/15/23 09:10 Resp 19 08/15/23 07:50 BP 136/77 08/15/23 09:10 Pulse Ox 95 08/15/23 07:50 O2 Del Method Room Air 08/15/23 07:50 BMI result Body Mass Index 32.1 Const: General: comfortable and no acute distress Neck: Neck: Yes no JVD Chest: Chest palpation & inspection: normal inspection of the chest Resp: Effort & Inspection: normal respiratory effort, able to speak in complete sentences, no respiratory distress, not tachypneic, no tracheal deviation and no use of accessory muscles Cardio: Rate: regular rate GI: Inspection: No distended Palpation (GI): Soft to palpation and nontender Skin: General skin exam: no rashes or lesions noted Results Labs 08/15/23 09:20 08/15/23 09:20 Labs: Abnormal lab results 08/14/23 08/15/23 08/15/23 Range/Units 18:18 03:25 09:20 MPV 8.5 L (9.4-12.3) fL Immature Gran % (Auto) 1.1 H (0.0-0.4) % Abs Immat Gran (auto) 0.09 H (0.00-0.03) X10*3/uL Chloride 109 H (96-108) mmol/L BUN 21 H (9-16) mg/dL POC Glucose 138 H 129 H (60-115) mg/dL Random Glucose 153 H (60-115) mg/dL Short CBC 08/15/23 Range/Units 09:20 WBC 8.6 (4.8-10.8) X10*3/uL Hgb 14.6 (12.0-16.0) g/dl Hct 43.5 (37.0-47.0) % Plt Count 226 (160-400) X10*3/uL BMP 08/15/23 09:20 Sodium 142 Potassium 3.3 Chloride 109 H Carbon Dioxide 24 BUN 21 H Creatinine 0.58 Calcium 9.5 Urine 08/14/23 Range/Units 09:54 Urine Color Yellow Urine Appearance Cloudy Urine pH 5.5 (5.0-9.0) Ur Specific [place] 1.015 (1.005-1.025) Urine Protein Trace (Neg-Trace) mg/dL Urine Glucose (UA) Negative (Negative) mg/dL All other labs normal. Imaging CT scan - chest: report reviewed and image reviewed Assessment and Plan (1) Pericardial effusion: Status: Acute (2) Pleural effusion: Status: Acute Plan Sona Laguna is an 78 year old woman with PMH significant for dementia, hyperlipidemia, hypertension, CVA, type 2 diabetes mellitus on insulin, CHF and hypothyroidism brought in from her SNF for acute onset shortness of breath found to have incidental small pericardial and right pleural effusion on work up. She is comfortable appearing on exam and is hemodynamically stable without signs of cardiac tamponade. Will await echocardiogram today and if appears unchanged from prior, will order thoracentesis for pleural effusion which may be causing her dyspnea. Continue underlying medical treatment. Procedures Date of Service Date of Service: 08/15/23 Documented by User: Garo Serrano MD 08/15/23 13:06 [facility] Past Medical History Medical History Anxiety disorder Rheumatoid arthritis Chronic combined systolic and diastolic congestive heart failure Overactive bladder Hyperlipidemia Major depressive disorder Benign neoplasm of meninges Delusional disorders Type 2 diabetes mellitus Obstructive sleep apnea Hypothyroidism Essential (primary) hypertension CVA (cerebral vascular accident) Social History Social History Patient Tobacco Use Status: Never used Tobacco service: No Meds Allergies Allergy/AdvReac Type Severity Reaction Status Date / Time No Known Allergies Allergy Verified 08/14/23 04:43 Home Medications ?Medication ?Instructions ?Recorded ?Confirmed ?Last Taken ?Type acetaminophen 325 mg tablet 650 mg PO Q6H PRN Mild Pain (Scale 08/14/23 08/14/23 Unknown History Score 1-4) allopurinol 100 mg tablet 100 mg PO DAILY 08/14/23 08/14/23 Unknown History amlodipine 10 mg tablet 10 mg PO DAILY 08/14/23 08/14/23 Unknown History atorvastatin 80 mg tablet 80 mg PO DAILY 08/14/23 08/14/23 Unknown History carvedilol 25 mg tablet 25 mg PO BID 08/14/23 08/14/23 Unknown History cholecalciferol (vitamin D3) 75 25 mcg PO DAILY 08/14/23 08/14/23 Unknown History mcg (3,000 unit) tablet clopidogrel 75 mg tablet 75 mg PO DAILY 08/14/23 08/14/23 Unknown History escitalopram oxalate 10 mg tablet 10 mg PO DAILY 08/14/23 08/14/23 Unknown History estradiol 0.01% (0.1 mg/gram) 2 g vaginal DAILY 08/14/23 08/14/23 Unknown History vaginal cream furosemide 20 mg tablet 20 mg PO DAILY 08/14/23 08/14/23 Unknown History insulin glargine 100 unit/mL (3 40 unit subcut BEDTIME 08/14/23 08/14/23 Unknown History mL) subcutaneous pen (Lantus Solostar U-100 Insulin) insulin lispro 100 unit/mL 0 - 18 sliding scale dose subcut 08/14/23 08/14/23 Unknown History subcutaneous pen (Humalog KwikPen TIDAC (U-100) Insulin) ipratropium 0.5 mg-albuterol 3 mg 3 ml inhalation Q6H PRN sob 08/14/23 08/14/23 Unknown History (2.5 mg base)/3 mL nebulization soln levothyroxine 88 mcg tablet 88 mcg PO DAILY 08/14/23 08/14/23 Unknown History losartan 100 mg tablet 100 mg PO DAILY 08/14/23 08/14/23 Unknown History mirabegron 50 mg tablet,extended 50 mg PO DAILY 08/14/23 08/14/23 Unknown History release 24 hr (Myrbetriq) mirtazapine 15 mg tablet (Remeron) 15 mg PO BEDTIME 08/14/23 08/14/23 Unknown History nystatin 100,000 unit/gram topical 1 appl topical TID 08/14/23 08/14/23 Unknown History powder potassium chloride 10 mEq 10 meq PO DAILY 08/14/23 08/14/23 Unknown History tablet,extended release sennosides 8.6 mg tablet (Senna 8.6 mg PO DAILY PRN Constipation 08/14/23 08/14/23 Unknown History Lax) Results Labs 08/15/23 09:20 08/15/23 09:20 Assessment and Plan (1) Pericardial effusion: Status: Acute (2) Pleural effusion: Status: Acute Plan Sona Laguna is an 78 year old woman with PMH significant for dementia, hyperlipidemia, hypertension, CVA, type 2 diabetes mellitus on insulin, CHF and hypothyroidism brought in from her SNF for acute onset shortness of breath found to have incidental small pericardial and right pleural effusion on work up. She is comfortable appearing on exam and is hemodynamically stable without signs of cardiac tamponade. Will await echocardiogram today and if appears unchanged from prior, will order thoracentesis for pleural effusion which may be causing her dyspnea. Continue underlying medical treatment. Echo negative for significant pericardial effusion causing hemodynamic compromise. Will order right thoracentesis to drain pleural effusion secondary to patient's dyspnea. Procedures Date of Service Date of Service: 08/15/23
[2023-08-15 12:03] LABS: Glucose, Whole Blood 162 mg/dL (60-115)
--- NOTE | 2023-08-15 12:29 | P.DS_ITS ---
DS: Providers Provider Date of Service: 08/15/23 Date of admission: 08/14/23 20:41 Primary care physician: Valdez Clark MD Consults: 08/14/23 20:44 Consult to Cardiology Routine Consulting Provider: [facility] Reason for consultation: NSTEMI Has provider been notified: Yes 08/14/23 21:56 Consult to Cardiology Routine Consulting Provider: [facility] Reason for consultation: pericardial effusion. Has provider been notified: Yes 08/15/23 04:06 Consult to Thoracic Surgery Routine Consulting Provider: Garo Serrano Reason for consultation: Pericardial effusion Has provider been notified: Yes 08/15/23 11:58 Consult to Wound Care Routine Reason for consultation: Ursula ROSALES Has provider been notified: No DS: Diagnosis Discharge Diagnosis (1) Pericardial effusion: Status: Acute (2) Pleural effusion: Status: Acute DS: Summary Hospital Course Hospital Course: from initial hpi: 78 years old woman with past medical history significant for dementia, hyperlipidemia, hypertension, CVA, type 2 diabetes mellitus on insulin, chronic systolic and diastolic CHF and hypothyroidism was brought to the emergency department by EMS after she had an episode of dyspnea 3 hours ago, according to ED triage note patient use an inhaler that is not her own and felt relief. HPI was obtained from record review and ED provider as the patient has marked dementia. On my evaluation the patient was using the call button device as a phone. She was able to answer some of my questions appropriately and denied any acute symptoms or shortness on breath. In the ED, she was found to have stable vital signs. Last blood pressure is 170/68. Her O2 sats on room air are around 94-95%. Blood workup showed no leukocytosis. Hemoglobin platelets are normal. Transaminases slightly elevated. BNP is <10 and troponin is negative. D-dimer is elevated. UA showed positive nitrites, or leukocyte steroids and elevated WBC >50. Chest CTA showed no evidence of pulmonary embolism. It showed [id number] pericardial effusion and small right pleural effusion. CXR showed no acute cardiopulmonary pathology but questioned post right lung surgery. ECG showed NSR, heart rate 63 beats per minute and LVH changes. ED tx: Ceftin 250 mg PO. According to ED provider case was discussed with classified advertising supervisor on-call recommended admission for echocardiogram. hospital course: Patient was observed for mild to moderate pericardial effusion on CTA. Echocardiogram was stable, pericardial effusion is known from at least 2020. Fo r presumed urinary tract infection was treated with ceftriaxone will be discharged on 5 days of Ceftin, urine cultures pending. For old CVA was continued on aspirin Plavix, for diabetes was continue on insulin. For gout was continue allopurinol. For hyperlipidemia was continue atorvastatin. For hypertension was continue amlodipine, losartan, carvedilol. For hypothyroidism was continue Synthroid. For depression was continue citalopram. For CHF with reduced ejection fraction was continued on carvedilol and Lasix. Patient is feeling back to baseline will be discharged home. Time Attestation Discharge Coordination Time (in mins): 35 Quality: Safe Use of Opioids Does Pt have an Active Cancer Diagnosis on the Problem List?: No Quality: Stroke Does the patient have a stroke diagnosis?: No Physical Exam Vital Signs: Vital Signs: Last Vital Signs Temp 97.6 F 08/15/23 11:37 Pulse 67 08/15/23 11:37 Resp 20 08/15/23 11:37 BP 170/88 H 08/15/23 11:37 Pulse Ox 95 08/15/23 11:37 O2 Del Method Room Air 08/15/23 11:37 BMI result Body Mass Index 32.1 Const: General: comfortable and no acute distress Neck: Neck: Yes no JVD Chest: Chest palpation & inspection: normal inspection of the chest Resp: Effort & Inspection: normal respiratory effort, able to speak in complete sentences, no respiratory distress, not tachypneic, no tracheal deviation and no use of accessory muscles Cardio: Rate: regular rate GI: Inspection: No distended Palpation (GI): Soft to palpation and nontender Skin: General skin exam: no rashes or lesions noted DS: Data Data Completed and Pending Labs on day of discharge: Laboratory Results - last 24 hr 08/14/23 08/14/23 08/14/23 08:52 14:11 18:18 WBC RBC Hgb Hct MCV MCH MCHC RDW Plt Count MPV Immature Gran % (Auto) Neut % (Auto) Lymph % (Auto) [place] % (Auto) Eos % (Auto) Baso % (Auto) Lymph # (Auto) [place] # (Auto) Eos # (Auto) Baso # (Auto) Abs Immat Gran (auto) Absolute Neuts (auto) Absolute Nucleated RBC Nucleated RBC % (auto) D-Dimer High Sensitivty 530 Sodium Potassium Chloride Carbon Dioxide Anion Gap BUN Creatinine Estim Creat Clear Calc Estimated GFR POC Glucose 98 138 H Random Glucose Calcium 08/15/23 08/15/23 08/15/23 03:25 07:49 09:20 WBC 8.6 RBC 5.01 Hgb 14.6 Hct 43.5 MCV 86.8 MCH 29.1 MCHC 33.6 RDW 14.3 Plt Count 226 MPV 8.5 L Immature Gran % (Auto) 1.1 H Neut % (Auto) 60.0 Lymph % (Auto) 29.2 [place] % (Auto) 7.1 Eos % (Auto) 2.0 Baso % (Auto) 0.6 Lymph # (Auto) 2.5 [place] # (Auto) 0.6 Eos # (Auto) 0.2 Baso # (Auto) 0.1 Abs Immat Gran (auto) 0.09 H Absolute Neuts (auto) 5.1 Absolute Nucleated RBC 0.000 Nucleated RBC % (auto) 0.0 D-Dimer High Sensitivty Sodium 142 Potassium 3.3 Chloride 109 H Carbon Dioxide 24 Anion Gap 12 BUN 21 H Creatinine 0.58 Estim Creat Clear Calc 72.7 Estimated GFR > 60 POC Glucose 129 H 92 Random Glucose 153 H Calcium 9.5 08/15/23 11:39 WBC RBC Hgb Hct MCV MCH MCHC RDW Plt Count MPV Immature Gran % (Auto) Neut % (Auto) Lymph % (Auto) [place] % (Auto) Eos % (Auto) Baso % (Auto) Lymph # (Auto) [place] # (Auto) Eos # (Auto) Baso # (Auto) Abs Immat Gran (auto) Absolute Neuts (auto) Absolute Nucleated RBC Nucleated RBC % (auto) D-Dimer High Sensitivty Sodium Potassium Chloride Carbon Dioxide Anion Gap BUN Creatinine Estim Creat Clear Calc Estimated GFR POC Glucose 162 H Random Glucose Calcium Discharge Plan Discharge Anticipated Discharge Date/Time: 08/15/23 12:25 Patient Disposition: Home, Self-Care Discharge Diagnosis: uti Referrals: Valdez Clark MD [Primary Care Provider] - 2 days Discharge Medications: New cefuroxime axetil 250 mg tablet 250 mg PO BID Qty: 10 0RF Continued atorvastatin 80 mg Tablet 80 mg PO DAILY carvedilol 25 mg Tablet 25 mg PO BID Rx Instructions: must administer with a meal/food sennosides [Senna Lax] 8.6 mg Tablet 8.6 mg PO DAILY PRN (Reason: Constipation) acetaminophen 325 mg Tablet 650 mg PO Q6H PRN (Reason: Mild Pain (Scale Score 1-4)) potassium chloride 10 mEq tablet extended release 10 meq PO DAILY clopidogrel 75 mg tablet 75 mg PO DAILY allopurinol 100 mg Tablet 100 mg PO DAILY levothyroxine 88 mcg tablet 88 mcg PO DAILY amlodipine 10 mg Tablet 10 mg PO DAILY furosemide 20 mg tablet 20 mg PO DAILY mirtazapine [Remeron] 15 mg Tablet 15 mg PO BEDTIME nystatin 100,000 unit/gram powder 1 appl topical TID estradiol 0.01 % (0.1 mg/gram) cream 2 g vaginal DAILY losartan 100 mg Tablet 100 mg PO DAILY insulin lispro [Humalog KwikPen Insulin] 100 unit/mL insulin pen 0 - 18 sliding scale dose subcut TIDAC escitalopram oxalate 10 mg tablet 10 mg PO DAILY cholecalciferol (vitamin D3) 75 mcg (3,000 unit) Tablet 25 mcg PO DAILY Myrbetriq 50 mg Tablet Extended Release 24 Hr 50 mg PO DAILY ipratropium-albuterol 0.5 mg-3 mg(2.5 mg base)/3 mL Solution For Nebulization 3 ml INHALATION Q6H PRN (Reason: sob) insulin glargine [Lantus Solostar U-100 Insulin] 100 unit/mL (3 mL) insulin pen 40 unit subcut BEDTIME Discharge Orders: Discharge Order (Routine); Ordered 08/15/23 Ordered By: [place] Diet: Advance to usual diet Activity on Discharge: As tolerated Stand Alone Forms: Patient Portal Discharge page Print Language: Greek Activity Restrictions/Additional Instructions: Take your medications as prescribed. If you were prescribed antibiotics today, it is important that you take your medication to their entirety, do not skip any doses, do not finish them early. Follow-up with your primary care provider this week. Return to the emergency department with new or worsening symptoms. Such as fevers, chills, chest pain, shortness of breath, nausea, vomiting, dizziness, headache, vision changes, lethargy In case of emergency call 911 Care Plan Goals: recovery Health Concerns: uti Plan of Treatment: 5 days ceftin Assessment: see above
[2023-08-15] MEDS: Insulin Lispro 100 UNIT/ML 3 ML VIAL SUBCUT (12:37)
--- NOTE | 2023-08-15 12:43 | MHC.CM.PN ---
Patient has been medically cleared for dc to SNF/LTC today. Patient will return to LTC @ [facility] today at 2PM, via [facility]. CM spoke with Son/Jermain @ [phone] and informed him of the dc plan.
--- NOTE | 2023-08-15 13:51 | HO.WOUND ---
Wound Consult: Initial 78yr old?F admitted [place] [facility] [place] - See progress notes and H&P for detailed history.? Wound consult placed for sacral wound POA.? Patient agreeable to assessment and photo documentation.? Patient denies knowning if she had a previous injury to the bottom there is evidence to suggest she has had previous pressure injuries to the sacrum - scar tissue noted. Sacrum Etiology: Deep Tissue Injury??Present on Admission Wound Bed: red maroon purple nonblanchable tissue with scattered areas of partial thickness tissue loss Drainage / Odor: scant serous drainage Edges: ? irregular and attached Kiana wound: ? hyperpigmentation noted - No Induration, Fluctuance or Warmth noted Pain: denies Goals of Treatment: ? Foam dressing to protect from moisture and friction Recommendations: 1. Turn and Reposition every 2 hours and as needed for patient comfort.? Use pillows or wedges to support off loading positions. 2. Off Load all bony prominences with use of pillows and heel boots if needed.? Apply Preventative foams where needed. ? 3. Monitor for incontinence and moisture control, use barrier creams when needed for prevention and treatment. 4. Provide adequate and supplemental nutrition.? 5. Order low air loss mattress. 6. When applicable maintain blood glucose levels per Providers order. 7. Sacrum - Cleanse with ph balanced wipes, pat dry. Cover with sacral foam dressing peel back and assess Q shift change every 3 days and PRN. Off Load Pressure. Re-consult wound care Nurse for wound deterioration or wound changes.
== END 2023-08-15 14:06 ==
LOC: HO.ED 19:41 → HO.EDOVER 21:18 → HO.IMC 08-15 02:31
PROVIDERS: Physician Assistant; Admitting Provider Internal Medicine; Emergency Provider Emergency Medicine; PCP Family Medicine; Visit Provider Internal Medicine
DX: N39.0 Urinary tract infection, site not specified (principal); J90 Pleural effusion, not elsewhere classified; I31.39 Other pericardial effusion (noninflammatory); E11.9 Type 2 diabetes mellitus without complications; E03.9 Hypothyroidism, unspecified; M06.9 Rheumatoid arthritis, unspecified; I11.0 Hypertensive heart disease with heart failure; I50.40 Unspecified combined systolic (congestive) and diastolic (congestive) heart failure; F22 Delusional disorders; F32.A Depression, unspecified; G47.33 Obstructive sleep apnea (adult) (pediatric); R79.1 Abnormal coagulation profile; R06.02 Shortness of breath; R05.9 Cough, unspecified; M10.9 Gout, unspecified; F03.90 Unspecified dementia, unspecified severity, without behavioral disturbance, psychotic disturbance, mood disturbance, and anxiety; E78.5 Hyperlipidemia, unspecified; Z79.4 Long term (current) use of insulin; Z86.73 Personal history of transient ischemic attack (TIA), and cerebral infarction without residual deficits; Z79.899 Other long term (current) drug therapy
CPT/HCPCS: 0241U; 36415; 71045; 71275; 80048; 80053; 81001; 82947; 83880; 84484; 85025; 85379; 85610; 87086; 87088; 87186; 93005; 93306; 96365; 99222; 99285; J0696; Q9957; Q9967

== ENCOUNTER → 2023-08-14 04:54 | Outpatient (BNV) | payer MEDICARE, MEDICAID, SELFPAY | PROVIDERS: Emergency Provider Emergency Medicine; PCP Family Medicine; Visit Provider Internal Medicine Cardiovascular Disease | DX: R94.31 Abnormal electrocardiogram [ECG] [EKG] (principal) | CPT/HCPCS: 93010 ==

== ENCOUNTER 2023-08-14 20:41 | Outpatient (BNV) | payer MEDICARE, MEDICAID, SELFPAY | END 2023-08-15 07:00 | PROVIDERS: Admitting Provider Internal Medicine; Emergency Provider Emergency Medicine; PCP Family Medicine; Visit Provider Internal Medicine Cardiovascular Disease | DX: I35.0 Nonrheumatic aortic (valve) stenosis (principal) | CPT/HCPCS: 93306 ==

== ENCOUNTER → 2023-08-14 20:41 | Outpatient (BNV) | payer MEDICARE, MEDICAID, SELFPAY | PROVIDERS: Admitting Provider Internal Medicine; Emergency Provider Emergency Medicine; PCP Family Medicine; Visit Provider Internal Medicine | DX: I30.9 Acute pericarditis, unspecified (principal); N39.0 Urinary tract infection, site not specified; I31.39 Other pericardial effusion (noninflammatory); J90 Pleural effusion, not elsewhere classified | CPT/HCPCS: 99222; 99239 ==

== ENCOUNTER → 2023-08-14 20:41 | Outpatient (BNV) | payer MEDICARE, MEDICAID, SELFPAY | PROVIDERS: Admitting Provider Internal Medicine; Emergency Provider Emergency Medicine; PCP Family Medicine; Visit Provider Internal Medicine Cardiovascular Disease | DX: I31.39 Other pericardial effusion (noninflammatory) (principal) | CPT/HCPCS: 99222 ==

== ENCOUNTER → 2023-08-14 20:41 | Outpatient (BNV) | payer MEDICARE, MEDICAID, SELFPAY | PROVIDERS: Admitting Provider Internal Medicine; Emergency Provider Emergency Medicine; PCP Family Medicine; Visit Provider Physician Assistant Surgical | DX: I31.39 Other pericardial effusion (noninflammatory) (principal); J90 Pleural effusion, not elsewhere classified | CPT/HCPCS: 99223 ==

== ENCOUNTER 2024-02-02 06:49 | Outpatient (REF) | payer MEDICARE, MEDICAID, SELFPAY ==
[2024-02-02 06:04] LABS: MANUAL DIFF FLAG NO
[2024-02-02 07:17] LABS: Basophils Absolute Auto 0.1 X10*3/uL (0.0-0.2); Basophils Percent Auto 0.7 % (0-2); Eosinophils Absolute Auto 0.2 X10*3/uL (0.0-0.4); Eosinophils Percent Auto 2.1 % (0-4); Hematocrit 39.8 % (37.0-47.0); Hemoglobin 13.4 g/dl (12.0-16.0); Imm Gran Abs Auto 0.13 X10*3/uL (0.00-0.03); Imm Gran Pct Auto 1.7 % (0.0-0.4); Lymphocytes Absolute Auto 2.2 X10*3/uL (1.2-4.9); Lymphocytes Percent Auto 28.6 % (20-40); Mean Corpuscular HGB Conc 33.7 g/dl (31.0-35.0); Mean Corpuscular Hemoglobin 29.6 pg (27.0-33.0); Mean Corpuscular Volume 87.9 fL (80.0-98.0); Mean Platelet Volume 8.3 fL (9.4-12.3); Monocytes Absolute Auto 0.5 X10*3/uL (0.1-1.2); Monocytes Percent Auto 5.9 % (2-11); NRBC Pct Auto 0.3 /100WBC (0.0-0.2); Neutrophils Absolute Auto 4.7 x10*3/uL (2.0-8.3); Platelet Count 235 X10*3/uL (160-400); Red Blood Count 4.53 X10*6/uL (4.20-5.50); Red Cell Distribution Width 14.2 % (11.0-16.0); White Blood Count 7.7 X10*3/uL (4.8-10.8)
[2024-02-02 07:29] LABS: Anion Gap 11 (12-20); Blood Urea Nitrogen 15 mg/dL (9-16); Calcium 9.2 mg/dL (8.4-10.2); Carbon Dioxide 25 mmol/L (22-29); Chloride 114 mmol/L (96-108); Estimated Glomerular Filt Rate > 60; Glucose Random 193 mg/dL (60-115); Potassium 3.4 mmol/L (3.3-5.1); Sodium 147 mmol/L (135-145)
== END 2024-02-02 06:50 | disposition home or self-care (01) ==
LOC: HO.MMNH3L 06:49
PROVIDERS: Visit Provider Family Medicine
DX: I11.0 Hypertensive heart disease with heart failure (principal); I50.40 Unspecified combined systolic (congestive) and diastolic (congestive) heart failure; E11.8 Type 2 diabetes mellitus with unspecified complications
CPT/HCPCS: 36415; 80048; 85025

== ENCOUNTER 2024-02-20 05:39 | Outpatient (REF) | payer MEDICARE, MEDICAID, SELFPAY ==
[2024-02-20 05:42] LABS: MANUAL DIFF FLAG NO
[2024-02-20 05:53] LABS: Basophils Absolute Auto 0.1 X10*3/uL (0.0-0.2); Basophils Percent Auto 0.7 % (0-2); Eosinophils Absolute Auto 0.2 X10*3/uL (0.0-0.4); Eosinophils Percent Auto 2.2 % (0-4); Hematocrit 39.1 % (37.0-47.0); Imm Gran Abs Auto 0.09 X10*3/uL (0.00-0.03); Imm Gran Pct Auto 1.2 % (0.0-0.4); Lymphocytes Absolute Auto 2.4 X10*3/uL (1.2-4.9); Lymphocytes Percent Auto 32.3 % (20-40); Mean Corpuscular HGB Conc 33.2 g/dl (31.0-35.0); Mean Corpuscular Hemoglobin 29.4 pg (27.0-33.0); Mean Corpuscular Volume 88.5 fL (80.0-98.0); Mean Platelet Volume 8.5 fL (9.4-12.3); Monocytes Absolute Auto 0.5 X10*3/uL (0.1-1.2); Monocytes Percent Auto 6.8 % (2-11); Neutrophils Absolute Auto 4.2 x10*3/uL (2.0-8.3); Neutrophils Percent Auto 56.8 % (45-73); Platelet Count 235 X10*3/uL (160-400); Red Blood Count 4.42 X10*6/uL (4.20-5.50); Red Cell Distribution Width 14.3 % (11.0-16.0); White Blood Count 7.3 X10*3/uL (4.8-10.8)
[2024-02-20 06:37] LABS: Anion Gap 15 (12-20); Blood Urea Nitrogen 19 mg/dL (9-16); Calcium 9.1 mg/dL (8.4-10.2); Carbon Dioxide 23 mmol/L (22-29); Chloride 107 mmol/L (96-108); Cholesterol 191 mg/dL (<200); Estimated Glomerular Filt Rate > 60; Glucose Random 255 mg/dL (60-115); HDL Cholesterol 34 mg/dL (>40); LDL Cholesterol Calculated 111 mg/dL (<100); Potassium 3.9 mmol/L (3.3-5.1); Sodium 141 mmol/L (135-145); T4 Thyroxine 5.2 ug/dL (4.5-12.0); Thyroid Stimulating Hormone 3.82 uIU/mL (0.32-4.0); Triglycerides 230 mg/dL (<150)
== END 2024-02-20 05:40 | disposition home or self-care (01) ==
LOC: HO.MMNH3L 05:39
PROVIDERS: Visit Provider Family Medicine
DX: I63.531 Cerebral infarction due to unspecified occlusion or stenosis of right posterior cerebral artery (principal); G93.41 Metabolic encephalopathy
CPT/HCPCS: 36415; 80048; 80061; 84436; 84443; 85025

== ENCOUNTER 2024-05-19 14:31 | Outpatient (REF) | payer MEDICARE, MEDICAID, SELFPAY ==
[2024-05-19 14:33] LABS: MANUAL DIFF FLAG NO
[2024-05-19 14:39] LABS: Basophils Absolute Auto 0.1 X10*3/uL (0.0-0.2); Basophils Percent Auto 0.6 % (0-2); Eosinophils Absolute Auto 0.2 X10*3/uL (0.0-0.4); Eosinophils Percent Auto 2.9 % (0-4); Hematocrit 38.5 % (37.0-47.0); Hemoglobin 12.8 g/dl (12.0-16.0); Imm Gran Abs Auto 0.07 X10*3/uL (0.00-0.03); Imm Gran Pct Auto 0.9 % (0.0-0.4); Lymphocytes Percent Auto 26.5 % (20-40); Mean Corpuscular HGB Conc 33.2 g/dl (31.0-35.0); Mean Corpuscular Hemoglobin 29.2 pg (27.0-33.0); Mean Corpuscular Volume 87.7 fL (80.0-98.0); Mean Platelet Volume 8.3 fL (9.4-12.3); Monocytes Absolute Auto 0.5 X10*3/uL (0.1-1.2); Monocytes Percent Auto 5.8 % (2-11); Neutrophils Absolute Auto 4.9 x10*3/uL (2.0-8.3); Neutrophils Percent Auto 63.3 % (45-73); Platelet Count 271 X10*3/uL (160-400); Red Blood Count 4.39 X10*6/uL (4.20-5.50); Red Cell Distribution Width 14.2 % (11.0-16.0); White Blood Count 7.7 X10*3/uL (4.8-10.8)
[2024-05-19 14:57] LABS: Alanine Aminotransferase 15 U/L (0-31); Albumin Level 3.4 g/dL (3.5-5.0); Alkaline Phosphatase 89 U/L (39-117); Anion Gap 11 (12-20); Aspartate Amino Transferase 31 U/L (5-31); Bilirubin Total 0.4 mg/dL (0.0-1.0); Blood Urea Nitrogen 11 mg/dL (9-16); Carbon Dioxide 24 mmol/L (22-29); Chloride 108 mmol/L (96-108); Estimated Glomerular Filt Rate > 60; Glucose Random 314 mg/dL (60-115); Potassium 3.1 mmol/L (3.3-5.1); Sodium 140 mmol/L (135-145); Total Protein 6.5 g/dL (6.5-8.0)
--- OUTSIDE RECORDS SUMMARY | 2024-05-19 16:43 | XMS_ITS | Encounter Summary ---
Author Organization [facility], Address [address] [place] [address] Phone Care Team Providers Care Facility Manager Name Role Phone Gala Combs MD Primary Care Provider [phone] Reason for Visit * Reason Comments Med Refill Encounter Details Date Type Department Care Team (Late st Contact Info) Description 07/04/2019 Refill [facility] [address] [place] [phone] Es Luz PA Social History Tobacco Use Types Packs/Day Years Used Date Smoking Tobacco: Never Comments Unknown Sex and Gender Information Value Date Recorded Sex Assigned at Not on file Legal Sex Female 4:36 PM EST Gender Identity Not on file Sexual Orientation Not on file documented as of this encounter Plan of Treatment Not on file documented as of this encounter Visit Diagnoses Not on filedocumented in this encounter Care Teams Facility Manager Relationship Specialty Start Date End Date Gala Combs MD [address] [place], [place] PCP - General 02/23/19 documented as of this encounter
--- OUTSIDE RECORDS SUMMARY | 2024-05-19 16:44 | XMS_ITS | Encounter Summary ---
Author Organization [facility], Address [address] [place] [address] Phone Care Team Providers Care Supervising Editor Trailer Name Role Phone Gala Combs MD Primary Care Provider [phone] Reason for Visit * Reason Comments Med Refill Encounter Details Date Type Department Care Team (Late st Contact Info) Description 07/05/2019 Refill [facility] [address] [place] [phone] Es Luz PA Social History Tobacco Use [...] on filedocumented in this encounter Care Teams Supervising Editor Trailer Relationship Specialty Start Date End Date Gala Combs MD [address] [place], [place] PCP - General 02/23/19 documented as of this encounter
--- OUTSIDE RECORDS SUMMARY | 2024-05-19 16:44 | XMS_ITS | Clinical Summary ---
Author Organization [facility], Address [address] [place] [address] [place] [address] Phone Care Team Providers Care Director Of Materials Name Role Phone Gala Combs MD Primary Care Provider [phone] Allergies No known active allergies Medications allopurinol (ZYLOPRIM) 300 MG tablet Take 300 mg by mouth 03/31/2019 Active cholecalciferol (VITAMIN D-3) 25 MCG (1000 UT) tablet TAKE ONE TABLET BY MOUTH EVERY DAY 01/27/2019 Active estradiol (ESTRACE) 1 MG tablet TAKE ONE TABLET BY MOUTH EVERY DAY 03/31/2019 Active flutamide (EULEXIN) 125 MG chemo capsule Take 1 capsule by mouth 2 (two) times a day Active FREESTYLE LITE test strip CHECK SUGARS TWO TIMES A DAY BEFORE MEALS 02/16/2019 Active ketorolac (ACULAR) 0.5 % ophthalmic solution INSTILL 1 DROP IN THE LEFT EYE 4 TIMES A DAY. START ON 04/03/19. USE AT BREAKFAST,MICKEY CH, DINNER AND BEDTIME 03/31/2019 Active Lancets (FREESTYLE) lancets CHECK SUGARS TWO TIMES A DAY BEFORE MEALS 02/16/2019 Active levothyroxine (SYNTHROID, LEVOTHROID) 88 MCG tablet Take 88 mcg by mouth daily 04/02/2019 Active losartan (COZAAR) 100 MG tablet Take 1 tablet by mouth 1 (one) time each day Active metFORMIN (GLUCOPHAGE) 500 MG tablet Take 1,000 mg by mouth twice a day 04/02/2019 Active oxybutynin (DITROPAN) 5 MG tablet Take 5 mg by mouth as directed 03/06/2019 Active potassium chloride (KLOR-CON M10) 10 MEQ CR tablet Take 10 mEq by mouth as directed 01/22/2019 Active pravastatin (PRAVACHOL) 80 MG tablet Take 80 mg by mouth daily 02/21/2019 Active spironolactone (ALDACTONE) 25 MG tablet TAKE ONE TABLET BY MOUTH TWICE A DAY DIRECTED 60 tablet 09/22/2019 Active furosemide (LASIX) 40 MG tablet TAKE 2 TABLETS BY MOUTH TWICE A DAY 360 tablet 10/28/2019 Active amLODIPine (NORVASC) 5 MG tablet TAKE 1 TABLET BY MOUTH EVERY DAY. 30 tablet 1 12/02/2019 Active carvedilol (COREG) 25 MG tablet TAKE ONE TABLET BY MOUTH TWICE A DAY 180 tablet 3 03/08/2020 Active Active Problems Problem Noted Date Diagnosed Date Microalbuminuria 04/05/2019 Hyperlipidemia 04/05/2019 Hypothyroidism 04/05/2019 Gout 04/05/2019 Essential hypertension 04/05/2019 Chronic kidney disease stage 3 04/05/2019 Type 2 diabetes mellitus without complication Immunizations Name Administration Dates Next Due Influenza TIV (IM) 02/03/2016 Influenza, Trivalent, Adjuvanted 12/29/2018 Pneumococcal Polysaccharide 01/06/2012 Tdap 05/07/2012 Family History Medical History Relation Comments Heart disease Father and heart attack Hypertension Father Dementia Mother Alzheimers Heart disease Mother unspecified card iac issues Hypertension Mother Cancer Sibling brother and sist er leukemia Hypertension Sibling sisters/2 sister s Relation Status Comments Father Mother Sibling Social History Tobacco Use Types Packs/Day Years Used Date Smoking Tobacco: Never Alcohol Use Standard Drinks/Week Comments No 0 (1 standard drink = 0.6 oz pur e alcohol) Comments Unknown Sex and Gender Information Value Date Recorded Sex Assigned at Not on file Legal Sex Female 4:36 PM EST Gender Identity Not on file Sexual Orientation Not on file Last Filed Vital Signs Vital Sign Reading Time Taken Comments Blood Pressure 124/68 04/05/2019 2:43 PM EST Pulse 71 03/02/2019 12:00 PM EST Temperature - - Respiratory Rate - - Oxygen Saturation - - Inhaled Oxygen Concentration - - Weight 85.5 kg (188 lb 6.4 oz) 04/05/2019 2:43 P M EST Height 162.6 cm (5' 4 ) 04/05/2019 2:43 PM EST Body Mass Index 32.34 04/05/2019 2:43 PM EST Plan of Treatment Health Maintenance Due Date Last Done Comments Diabetes: Ophthalmology Exam 04/05/2019 Diabetes: Pedal Pulse Checked 04/05/2019 Diabetes: Sensory Foot Exam 04/05/2019 Diabetes: Visual Foot Exam 04/05/2019 Diabetes: Hemoglobin A1C 04/19/2019 01/18/2019 Influenza Vaccine (#1) 2023 9, 02/03/2016, 02/02/2016 Pneumococcal Vaccine: 65+ Years Completed 11/29/2015, 01/06/2012 Hepatitis B Vaccine Aged Out No longe r eligible based on patient's age to complete this topic Procedures Procedure Name Priority Date/Time Associated Diagnosis Comments HEMOGLOBIN A1C Routine 01/18/2019 2:42 PM EDT from Last 3 Months or Most Recently Relevant to Health Maintenance Results * (ABNORMAL) Hemoglobin A1c (01/18/2019 2:42 PM EDT) Hemoglobin A1C 8.6(H) (4-6) % [facility] Comment: HEMOGLOBIN A1C(%) ?? GLUCOSE CONTROL INDEX ?<6% ? EXCELLENT ?6-7% ?VERY GOOD ?7-8% ?GOOD ?8-10% ? FAIR ?>10% ?POOR Hemoglobin (Hb) A1c testing is performed by Piotr Marcela-quant immunoassay. Any cause of shortened erythrocyte survival will reduce exposure of erythrocytes to glucose with a consequent decrease in Hb A1c (%). Testing performed or reported by ~[facility], ~a Service of [facility], ~[address] [place] [address]~ 01/18/2019 2:42 PM EDT us Es [facility]LO[facility] ORDER[facility]LES Final Res ult [facility] from Last 3 Months or Most Recently Relevant to Health Maintenance Insurance MEDICARE [facility] Care Teams Director Of Materials Relationship Specialty Start Date End Date Gala Combs MD [address] [place] [address] PCP - General 02/23/19
--- OUTSIDE RECORDS SUMMARY | 2024-05-19 16:44 | XMS_ITS | Data Portability ---
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 carvedilol 25 mg bidlosarta n 100 mg dailykcl 10 meq dailywill monitor Gout 33078220 M10.09 allopurino l 100 mg dailywill monitor Hyperlipidemia 54506772 E78.49 atorvastat in 80 mg dailywill monitor Hypothyroidism 02078201 E03.8 levothyrox ine 88 mcg dailywill monitor 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 mirtazapin e 7.5 mg at hsescitalo pram 5 mg dailywill monitor Overactive urinary bladder 689944927 N32.81 oxybutynin 5 mg bidwill monitor Type 2 monty betes mellitus 31922070 E11.9 glargine 20U daily at hs lispro per sliding scale will monitor [id number] Ashley Guan MD [address] [phone] 5 05/28/2021 14:37:44 06/18/2021 14:24:40 Cerebrovascular accident 528973756 Z86.79 Continues at baseline.C ontinue ASA 81 mg qd, atorvastat in 80 mg qd and clopidogre l 75 mg qd.Continu e supportive care, continues to be total care/flynn .Monitor neuros Cerebral meningioma 1890 25884 D32.0 Monitor for sxsF/U with neurosurg prn Essential hypertension 41980436 I10 Good control on carvedilol 25 mg BID, amlodipine 10 mg qd, and losartan 100 mg qd.Monitor BP and labs. Gout 20641221 M10.09 No current sxs.Contin ue allopurino l 100 mg qd.Monitor for flare. Hyperlipidemia 37156663 E78.49 Continue atorvastat in 80 mg qd.Monitor labs yearly. Hypothyroidism 43011051 E03.8 Continue levothyrox ine 88 mcg qd.Monitor TSH yearly, due in August. Mixed anxi ety and depressive disorder 478446506 F41.8 Continue mirtazapin e 7.5 mg qhs and escitalopr am 5 mg qd.Monitor mood.Psych consult prn. Overactive urinary bladder 047460090 N32.81 Continue oxybutynin 5 mg BIDMonitor urinary function. Type 2 monty betes mellitus 25442402 E11.9 Borderline control on current meds. But would rather have mild hyperglyce tanner, than risk hypoglycem ia. Continue Lantus 20 U qd and SSIMonitor accuchecks TID and HgA1C q 3 months. Hypokalemia 95741832 E87 .6 On KCl 20 meq qd. 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 [id number] JULISSA MAGAÑA [address] [place] [address] 5 07/06/2021 10:19:49 07/09/2021 15:03:05 Cerebrovascular accident 582068526 Z86.79 atorvastat in 80 mg daily clopidogre l 75 mg daily will monitorPT/ OT prnPMR prn Cerebral meningioma 1891 33444 D32.0 f/u neurosurge ry prn Essential hypertension 64102703 I10 carvedilol 25 mg bidamlodip ine 10 mg dailylosar myers 100 mg dailykcl 10 meq dailywill monitor Gout 49977363 M10.09 allopurino l 100 mg dailywill monitor Hyperlipidemia 01588575 E78.49 atorvastat in 80 mg dailywill monitor Hypothyroidism 32834969 E03.8 levothyrox ine 88 mcg dailywill monitor Mixed anxi ety and depressive disorder 400505636 F41.8 mirtazapin e 7.5 mg at hsescitalo pram 5 mg dailywill monitor Overactive urinary bladder 082486148 N32.81 oxybutynin 5 mg bidwill monitor Type 2 monty betes mellitus 04915778 E11.9 glargine 21 Units daily at hs lispro per sliding scale will monitor [id number] DEBO GRIPPIN, LEAD [employer] TECH[employer]IAN [address] [address] 07/11/2021 09:07:17 07/18/2021 10:47:02 Cerebrovascular accident 924124733 Z86.79 atorvastat in 80 mg daily clopidogre l 75 mg daily will monitorPT/ OT prnPMR prn Mixed anxi ety and depressive disorder 138204942 F41.8 mirtazapin e 7.5 mg at hsescitalo pram 5 mg dailywill monitor [id number] DEBO STACY NP [address] [address] 5 07/19/2021 09:03:31 07/24/2021 12:12:05 Cerebrovascular accident 948321551 Z86.79 atorvastat in 80 mg daily clopidogre l 75 mg daily will monitorPT/ OT prnPMR prn Cerebral meningioma 1891 98327 D32.0 f/u neurosurge ry prn Essential hypertension 60796651 I10 carvedilol 25 mg bidamlodip ine 10 mg dailylosar myers 100 mg dailykcl 10 meq dailywill monitor Gout 54067476 M10.09 allopurino l 100 mg dailywill monitor Hyperlipidemia 90323523 E78.49 atorvastat in 80 mg dailywill monitor Hypothyroidism 26741871 E03.8 levothyrox ine 88 mcg dailywill monitor Mixed anxi ety and depressive disorder 873603633 F41.8 mirtazapin e 7.5 mg at hsescitalo pram 5 mg dailywill monitor Overactive urinary bladder 869263784 N32.81 oxybutynin 5 mg bidwill monitor Type 2 monty betes mellitus 13236590 E11.9 glargine 21 Units daily at hs lispro per sliding scale will monitor [id number] Ashley Guan MD [address] [address] 5 08/30/2021 21:05:24 09/04/2021 13:31:57 Cerebral meningioma 215536334 D32.0 f/u neurosurge ry prn Cerebrovas cular accident 885882661 Z86.79 Continues at baseline.C ontinue ASA 81 mg qd, atorvastat in 80 mg qd and clopidogre l 75 mg qd.Continu e supportive care, continues to be total care/flynn .Monitor neuros Essential hypertension 63363003 I10 Continues to be in good control on carvedilol 25 mg BID, amlodipine 10 mg qd, and losartan 100 mg qd.Monitor BP and labs. Gout 82533511 M10.09 No current sxs.Contin ue allopurino l 100 mg qd.Monitor for flare. Hyperlipidemia 04525559 E78.49 Continue atorvastat in 80 mg qd.Monitor labs yearly. Hypothyroidism 60562169 E03.8 Continue levothyrox ine 88 mcg qd.Monitor TSH yearly, due in August. Mixed anxi ety and depressive disorder 486376381 F41.8 Continue mirtazapin e 7.5 mg qhs and escitalopr am 5 mg qd.Monitor mood.Psych consult prn. Overactive urinary bladder 080644814 N32.81 Continue oxybutynin 5 mg BIDMonitor urinary function. Type 2 monty betes mellitus 27503888 E11.9 HgA1C up to 8.6, and sugars almost all >200 Would rather have mild hyperglyce tanner, than hypoglycem ia, but now sugars are consistent ly too high. Will increase Lantus from 21 U qd to 25U and monitor and continue SSIMonitor accuchecks TID and HgA1C q 3 months. Hypokalemia 05475289 E87 .6 K+ continues in good range on KCl 20 meq qd.Monitor labs monthly. Delusional disorder 4850 0005 F22 Pleasantly delusional .Continue mirtazapin e 7.5 mg qhsPsych consult prn. [id number] DEBO STACY NP [address] [place] [address] 10/25/2021 11:09:18 10/30/2021 15:29:31 Cerebrovascular accident 236047340 Z86.79 atorvastat in 80 mg daily clopidogre l 75 mg daily will monitorPT/ OT prn Cerebral meningioma 1891 86627 D32.0 f/u neurosurge ry prn Essential hypertension 65295785 I10 carvedilol 25 mg bidamlodip ine 10 mg dailylosar myers 100 mg dailykcl 10 meq dailylasix 20 mg dailywill monitor Gout 32635897 M10.09 allopurino l 100 mg dailywill monitor Hyperlipidemia 42657623 E78.49 atorvastat in 80 mg dailywill monitor Hypothyroidism 41813721 E03.8 levothyrox ine 88 mcg dailywill monitor Mixed anxi ety and depressive disorder 830238483 F41.8 mirtazapin e 7.5 mg at hsescitalo pram 5 mg dailywill monitor Overactive urinary bladder 416660872 N32.81 oxybutynin 5 mg bidwill monitor Type 2 monty betes mellitus 35371174 E11.9 glargine 15 Units daily at hs lispro per sliding scale will monitor [id number] MD SHARMAINE Vicente MATIAS [address] [place] [phone] 5 12/11/2021 09:07:16 12/13/2021 12:40:52 Cerebrovascular accident 483727594 Z86.79 atorvastat in 80 mg daily clopidogre l 75 mg daily will monitorPT/ OT prnPMR prn Essential hypertension 85187776 I10 amlodipine 10 mg dailycarve dilol 25 mg bidlosarta n 100 mg dailyfuros emide 20 mg dailywill monitor Gout 91162589 M10.09 allopurino l 100 mg dailywill monitor Mixed anxi ety and depressive disorder 664788525 F41.8 mirtazapin e 7.5 mg at hsescitalo pram 5 mg dailywill monitor Rheumatoid arthritis 698 59713 M06.4 meloxicam 15 mg qodwill monitor Type 2 monty betes mellitus 48017046 E11.9 glargine 25U daily at hs lispro per sliding scale will monitor Overactive urinary bladder 577399865 N32.81 oxybutynin 5 mg bidwill monitor Hypothyroidism 62545727 E03.8 levothyrox ine 88 mcg dailywill monitor [id number] DEBO STACY NP [address] [address] 5 02/01/2022 10:11:49 02/05/2022 15:30:32 Cerebrovascular accident 917798633 Z86.79 atorvastat in 80 mg daily clopidogre l 75 mg daily will monitorPT/ OT prn Cerebral meningioma 1891 43223 D32.0 f/u neurosurge ry prn Essential hypertension 84169995 I10 carvedilol 25 mg bidamlodip ine 10 mg dailylosar myers 100 mg dailykcl 10 meq dailylasix 20 mg dailywill monitor Gout 32702575 M10.09 allopurino l 100 mg dailywill monitor Hyperlipidemia 47568363 E78.49 atorvastat in 80 mg dailywill monitor Hypothyroidism 99781665 E03.8 levothyrox ine 88 mcg dailywill monitor Mixed anxi ety and depressive disorder 326795968 F41.8 mirtazapin e 7.5 mg at hsescitalo pram 5 mg dailywill monitor Overactive urinary bladder 328538047 N32.81 oxybutynin 5 mg bidwill monitor Type 2 monty betes mellitus 38606236 E11.9 glargine 15 Units daily at hs lispro per sliding scale will monitor [id number] MD SHARMAINE Vicente [address] [place] [phone] 5 03/29/2022 06:45:42 04/02/2022 15:52:47 Essential hypertension 73320554 I10 amlodipine 10 mg dailycarve dilol 25 mg bidlosarta n 100 mg dailyfuros emide 20 mg dailywill monitor Mixed anxi ety and depressive disorder 755146101 F41.8 mirtazapin e 7.5 mg at hsescitalo pram 5 mg dailywill monitor Overactive urinary bladder 038296841 N32.81 oxybutynin 5 mg bidwill monitor Rheumatoid arthritis 698 98805 M06.4 meloxicam 15 mg qodPMR prnAPAP 650 mg q6h prnwill monitor Type 2 monty betes mellitus 09775098 E11.9 insulin glargine 25U daily at hs lispro per sliding scale will monitor History of cerebrovascular accident 801759792 Z86.73 atorvastat in 80 mg daily clopidogre l 75 mg daily will monitorPT/ OT prnPMR prn Gout 89810136 M10.09 allopurino l 100 mg dailywill monitor Hypothyroidism 29975584 E03.8 levothyrox ine 88 mcg dailywill monitor [id number] JULISSA MAGAÑA MATIAS [address] [place] [address] 5 04/18/2022 12:53:11 04/26/2022 14:36:27 SARS-CoV-2 163797399 U07.1 04/16 covid positive encourage po fluids consider ivf for anorexiaco nsider paxlovid and dexamethas one for symptomsmo nitor for any changes in mental or medical status send to ED for decompensa tion [id number] DEBO STACY NP [address] [address] 5 04/19/2022 10:20:50 04/26/2022 15:14:17 SARS-CoV-2 180444891 U07.1 04/16 covid positive encourage po fluids consider ivf for anorexiaco nsider paxlovid and dexamethas one for symptomsmo nitor for any changes in mental or medical status send to ED for decompensa tion [id number] DEBO STACY NP [address] [address] 5 04/24/2022 11:25:00 04/26/2022 15:56:37 SARS-CoV-2 382337903 U07.1 04/16 covid positive-a symptomati c, recovered by date encourage po fluids consider ivf for anorexiaco nsider paxlovid and dexamethas one for symptomsmo nitor for any changes in mental or medical status send to ED for decompensa tion [id number] DEBO STACY NP [address] [phone] 5 05/23/2022 12:31:45 05/28/2022 08:11:34 Essential hypertension 54531062 I10 amlodipine 10 mg dailycarve dilol 25 mg bidlosarta n 100 mg dailyfuros emide 20 mg dailywill monitor Mixed anxi ety and depressive disorder 644536568 F41.8 mirtazapin e 7.5 mg at hsescitalo pram 5 mg dailywill monitor Overactive urinary bladder 006969970 N32.81 oxybutynin 5 mg bidwill monitor Rheumatoid arthritis 698 19417 M06.4 meloxicam 15 mg qodPMR prnAPAP 650 mg q6h prnwill monitor Type 2 monty betes mellitus 45619013 E11.9 insulin glargine 25U daily at hs lispro per sliding scale will monitor History of cerebrovascular accident 776505971 Z86.73 atorvastat in 80 mg daily clopidogre l 75 mg daily will monitorPT/ OT prnPMR prn Gout 06716749 M10.09 allopurino l 100 mg dailywill monitor Hypothyroidism 26688674 E03.8 levothyrox ine 88 mcg dailywill monitor [id number] Maryellen Muñoz MD [address] [address] 5 07/31/2022 06:55:12 08/06/2022 12:13:09 Impaired cognition 992001894 R41.89 will monitor and support as needed Essential hypertension 77312935 I10 amlodipine 10 mg dailycarve dilol 25 mg bidlosarta n 100 mg dailyfuros emide 20 mg dailywill monitor Hyperlipidemia 49257030 E78.49 atorvastat in 80 mg dailywill monitor History of cerebrovascular accident 129318666 Z86.73 atorvastat in 80 mg daily clopidogre l 75 mg daily will monitorPT/ OT prnPMR prn Hypothyroidism 39558314 E03.8 levothyrox ine 88 mcg dailywill monitor Mixed anxi ety and depressive disorder 292534870 F41.8 mirtazapin e 7.5 mg at hsescitalo pram 5 mg dailywill monitor Gout 58789210 M10.09 allopurino l 100 mg dailywill monitor Overactive urinary bladder 722416905 N32.81 oxybutynin 5 mg bidwill monitor Type 2 monty betes mellitus 91030715 E11.9 insulin glargine 25U daily at hs lispro per sliding scale will monitor [id number] JULISSA MAGAÑA MATIAS [address] [place] [phone] 5 08/07/2022 13:54:18 08/09/2022 15:59:16 Essential hypertension 57117179 I10 amlodipine 10 mg dailycarve dilol 25 mg bidlosarta n 100 mg dailyfuros emide 20 mg dailywill monitor Mixed anxi ety and depressive disorder 620688378 F41.8 mirtazapin e 7.5 mg at hsescitalo pram 5 mg dailywill monitor Overactive urinary bladder 645960206 N32.81 oxybutynin 5 mg bidwill monitor Rheumatoid arthritis 698 92817 M06.4 meloxicam 15 mg qodPMR prnAPAP 650 mg q6h prnwill monitor Type 2 monty betes mellitus 49176157 E11.9 insulin glargine 25 Units daily at hs lispro per sliding scale will monitor History of cerebrovascular accident 805721671 Z86.73 atorvastat in 80 mg daily clopidogre l 75 mg daily will monitorPT/ OT prnPMR prn Gout 43191307 M10.09 allopurino l 100 mg dailywill monitor Hypothyroidism 36666618 E03.8 levothyrox ine 88 mcg dailywill monitor Hyperlipidemia 75203953 E78.49 atorvastat in 80 mg dailywill monitor [id number] DEBO STACY NP [address] [address] 5 09/18/2022 11:32:26 09/26/2022 11:00:23 Essential hypertension 58583764 I10 amlodipine 10 mg dailycarve dilol 25 mg bidlosarta n 100 mg dailyfuros emide 20 mg dailywill monitor Mixed anxi ety and depressive disorder 555793500 F41.8 mirtazapin e 7.5 mg at hsescitalo pram 10 mg dailywill monitor Overactive urinary bladder 109599014 N32.81 oxybutynin 5 mg bidwill monitor Rheumatoid arthritis 698 70901 M06.4 meloxicam 15 mg qodPMR prnAPAP 650 mg q6h prnwill monitor Type 2 monty betes mellitus 61398831 E11.9 insulin glargine 30 Units daily at hs lispro per sliding scale will monitor History of cerebrovascular accident 104614294 Z86.73 atorvastat in 80 mg daily clopidogre l 75 mg daily will monitorPT/ OT prnPMR prn Gout 76738798 M10.09 allopurino l 100 mg dailywill monitor Hypothyroidism 21462506 E03.8 levothyrox ine 88 mcg dailywill monitor Hyperlipidemia 12106163 E78.49 atorvastat in 80 mg dailywill monitor [id number] DEBO STACY NP [address] [address] 5 09/20/2022 10:27:37 09/26/2022 14:20:03 Epidermal burn of skin 490348170 T14.8XXA keflex 500 mg bid for 5 daysbacitr acin with dsd qshiftwoun d consult [id number] DEBO STACY NP [address] [address] 5 09/23/2022 14:55:08 09/26/2022 15:18:55 Epidermal burn of skin 657794673 T14.8XXA keflex 500 mg bid for 5 days acitra patty with dsd qshiftwoun d consult [id number] DEBO STACY NP [address] [address] 5 10/14/2022 12:39:30 10/17/2022 14:25:15 Cerebrovascular accident 174293497 Z86.79 atorvastat in 80 mg daily clopidogre l 75 mg daily will monitorPT/ OT prn Mixed anxi ety and depressive disorder 061416442 F41.8 [facility] 10 mg dailywill monitorpsy ch prn Rheumatoid arthritis 698 58031 M06.4 meloxicam 15 mg qodPMR prnAPAP 650 mg q6h prnwill monitor Epidermal burn of skin 946856817 T14.8XXA healedkefl ex 500 mg bid for 5 days acitra patty with dsd qshiftwoun d consult Pneumonia 773912492 J18. 9 azithromyc in 500mg x1 then 250 mg x4 days [id number] Ashley Guan MD [address] [address] 5 12/17/2022 19:39:05 01/06/2023 12:24:08 Cerebrovascular accident 132690107 Z86.79 Hx of.Continu e atorvastat in 80 mg qd and clopidogre l 75 mg qd.Continu e supportive care, continues to be total care/flynn .Monitor for change in neuro status. Cerebral meningioma 1891 72527 D32.0 No tx recommende d currently. F/U with neurosurge ry prn Delusional disorder 4850 0005 F22 As above. Essential hypertension 91427325 I10 Continues to be in good control on carvedilol 25 mg BID, amlodipine 10 mg qd, and losartan 100 mg qd.Monitor BP and labs. Hypothyroidism 38325104 E03.8 Last TSH WNL in 01/2022.Co ntinue levothyrox ine 88 mcg qd.Monitor TSH yearly, due in Jan. Overactive urinary bladder 442093905 N32.81 Continue oxybutynin 5 mg BIDMonitor urinary function. Type 2 monty betes mellitus 07007761 E11.9 HgA1C was 8.6 in 08/2021, not rechecked since then, sugars >200 about 1/3 of the time. Would rather have mild hyperglyce tanner, than hypoglycem ia. Lantus was increased to 36U in 09/2022, will continue this and continue SSIMonitor accuchecks TID and recheck HgA1C with next labs. Hypokalemia 71159751 E87 .6 K+ continues in good range on KCl 10 meq qd.Monitor labs monthly. Impaired cognition 71962 6002 R41.89 Continues at baselineCo ntinue escitalopr am 10 mg qd and mirtazapin e 7.5 mg qdContinue supportive care, expect decline.HC P invokedMon itor mood and behaviors. Psych consult prn. [id number] JULISSA MAGAÑA [address] [place] [address] 5 02/07/2023 14:18:45 02/11/2023 15:36:44 Impaired cognition 875943942 R41.89 Continues at baselinees citalopram 10 mg qdmirtazap ine 7.5 mg qdContinue supportive care, expect decline.HC P invokedMon itor mood and behaviors. Psych consult prn. Delusional disorder 0 4 F22 As above. Cerebrovas cular accident 746078584 Z86.79 Hx of--at baselineat orvastatin 80 mg qdclopidog rel 75 mg qd.Continu e supportive care, continues to be total care/flynn .Monitor for change in neuro status. Cerebral meningioma 1891 33972 D32.0 No tx recommende d currently. F/U with neurosurge ry prn Essential hypertension 06793767 I10 Continues to be in good control on carvedilol 25 mg BID,amlodi pine 10 mg qd,losarta n 100 mg qd.Monitor BP and labs. Hypothyroidism 84181154 E03.8 Last TSH WNL in 01/2022.le vothyroxin e 88 mcg qd.Monitor TSH yearly, due in Jan. Overactive urinary bladder 155234253 N32.81 oxybutynin 5 mg BIDMonitor urinary function. Type 2 monty betes mellitus 58974925 E11.9 HgA1C was 8.6 in 08/2021, not rechecked since then, sugars >200 about 1/3 of the time. Would rather have mild hyperglyce tanner, than hypoglycem ia. Lantus was increased to 36U in 09/2022, will continue this and continue SSIMonitor accuchecks TID and recheck HgA1C with next labs. Hypokalemia 44401647 E87 .6 K+ continues in good range on KCl 10 meq qd.Monitor labs monthly. [id number] Ashley Guan MD [address] [place] [address] 04/11/2023 14:34:53 04/28/2023 16:03:28 Cough 86657345 R05.8 Appears acutely ill, with junky cough.So far is covid neg.Will check for RSV and influenza, and check labs on 04/15-CBC and CMP.Start Mucinex 600 mg q 6 hrs x 1 wk. and continue duonebs q 6 hrs prn. Impaired cognition 91706 6002 R41.89 Continues at baseline with delusions as usual.Cont inue escitalopr am 10 mg qd and mirtazapin e 7.5 mg qdContinue supportive care, expect decline.HC P invokedMon itor mood and behaviors. Psych follows Delusional disorder 4850 0005 F22 As above. Cerebrovas cular accident 733266491 Z86.79 In hx.No new sxsContinu e atorvastat in 80 mg qd and clopidogre l 75 mg qd.Continu e supportive care, remains total care/flynn .Monitor for change in neuro status. Cerebral meningioma 1891 29002 D32.0 No tx recommende d currently. F/U with neurosurge ry prn Essential hypertension 40626916 I10 With occ. borderline SBP, but generally in good control on carvedilol 25 mg BID, amlodipine 10 mg qd, and losartan 100 mg qd.Monitor BP and labs. Hypothyroidism 98712413 E03.8 Last TSH WNL in 01/2022.Co ntinue levothyrox ine 88 mcg qd.Monitor TSH yearly, was due in Jan., not done, will order with next labs due in 06/2023. Overactive urinary bladder 123440953 N32.81 Changed to Myrbetriq 50 mg qd on 03/25/23, from oxybutynin 5 mg BIDStarted on Estrace 2 gms M/W/F in 01/2023.Mo nitor urinary function. Type 2 monty betes mellitus 44883086 E11.9 Sugars are >200 about 1/2 of the time. Would rather have mild hyperglyce tanner, than hypoglycem ia, but overall too high.Will increase Lantus from 36U to 40U and continue SSIMonitor accuchecks TID and recheck HgA1C with next labs. Hypokalemia 80560720 E87 .6 K+ continues in good range on KCl 10 meq qd.Monitor labs monthly. [id number] CHRISSY CROCKETT [address] [place] [address] 5 05/20/2023 08:38:41 05/28/2023 08:36:29 Dyspnea 487698969 R06.00 chest xray suggestive of pneumoniap reviously started on augmentinh ydration encourages continue oxygen titrate to keep sat greater than 90%will send swab for covid, flu and rsv as well. fall W19.XXXA 05/18/23:se e hpiunwitne ssed with no apparent injuries.+ ROM to all small[facility] hospital checks per facility protocol. [id number] CHRISSY CROCKETT [address] [address] 5 06/17/2023 11:19:07 06/19/2023 12:27:49 Impaired cognition 380341585 R41.89 Continues at baseline with delusions as usual.Cont inue escitalopr am 10 mg qd and mirtazapin e 7.5 mg qdContinue supportive care, expect decline.HC P invokedMon itor mood and behaviors. Psych follows Delusional disorder 4850 0005 F22 As above. Cerebrovas cular accident 475103719 Z86.79 In hx.No new sxsContinu e atorvastat in 80 mg qd and clopidogre l 75 mg qd.Continu e supportive care, remains total care/flynn .Monitor for change in neuro status. Cerebral meningioma 1891 26421 D32.0 No tx recommende d currently. F/U with neurosurge ry prn Essential hypertension 35307882 I10 continue:c arvedilol 25 mg BID,amlodi pine 10 mg qdand losartan 100 mg qd.Monitor BP and labs. Hypothyroidism 61099286 E03.8 Last TSH WNL in 01/2022.Co ntinue levothyrox ine 88 mcg qd.Monitor TSH yearly, was due in Jan., not done, will order with next labs due in 06/2023. Overactive urinary bladder 654527397 N32.81 Myrbetriq 50 mg qdEstrace 2 gms M/W/F in 01/2023.Mo nitor urinary function.i ncontinent - nursing reports heavy wetter. Type 2 monty betes mellitus 30348340 E11.9 as high as 300 Will increase Lantus from 36U to 40U and continue SSIMonitor accuchecks TID and recheck HgA1C with next labs. [id number] CHRISSY CROCKETT [address] [address] 5 08/11/2023 10:05:01 08/15/2023 15:28:26 Diarrhea and vomiting, symptom 182482695 R19.7 Concerned for Cdiff, nursing reports foul smelling, slimy mucous like stool.stoo l sample sent to labCBC with diff, and CMP orderedinc reased oral hydrationa waiting results to treat. [id number] CHRISSY CROCKETT [address] [address] 5 08/15/2023 16:10:25 08/19/2023 15:16:25 Urinary tract infectious disease 71742513 N39.0 see hpistarted on cefuroxime 250 mg BIDadd probiotic 1 tab BID for 10 dayincreas e oral hydration. Type 2 monty betes mellitus 73508470 E11.9 continue lantus 40 unit continue Insulin SSCmonitor FS TID Essential hypertension 28556316 I10 continue:c arvedilol 25 mg BID,amlodi pine 10 mg qdand losartan 100 mg qd.Monitor BP and labs. Hypothyroidism 56759243 E03.8 Continue levothyrox ine 88 mcg qd.check TSH at next rounding visit Heart failure 20019837 I 50.9 continued on carvedilol 25 mg and Lasix 20 mg dailymonit or weight, sob, edemamonit or VS and labs. [id number] CHRISSY CROCKETT [address] [address] 5 08/21/2023 10:04:33 08/26/2023 10:06:00 Urinary tract infectious disease 09470017 N39.0 see hpistarted on cefuroxime 250 mg BID-comple carmelo.add probiotic 1 tab BID for 10 dayincreas e oral hydration. Type 2 monty betes mellitus 57039113 E11.9 BGL mainly under 200continu e lantus 40 unit continue Insulin SSCmonitor FS TID Essential hypertension 35814640 I10 continue:c arvedilol 25 mg BID,amlodi pine 10 mg qdand losartan 100 mg qd.Monitor BP and labs. Heart failure 34608299 I 50.9 appears to be stable.con tinued on carvedilol 25 mg and Lasix 20 mg dailymonit or weight, sob, edemamonit or VS and labs. [id number] CHRISSY CROCKETT [address] [id number] 09/01/2023 13:25:32 09/03/2023 10:00:39 Type 2 diabetes mellitus 78650715 E11.9 BGL mainly under 200continu e lantus 40 unit continue Insulin SSCmonitor FS TID Essential hypertension 36736051 I10 continue:c arvedilol 25 mg BID,amlodi pine 10 mg qdand losartan 100 mg qd.Monitor BP and labs. Heart failure 89812996 I 50.9 appears to be stable.con tinued on carvedilol 25 mg and Lasix 20 mg dailymonit or weight, sob, edemamonit or VS and labs. [id number] CHRISSY CROCKETT [address] [place] [address] 09/08/2023 13:58:44 09/11/2023 13:24:52 Urinary tract infectious disease 56647809 N39.0 resolved Type 2 monty betes mellitus 73161347 E11.9 BGL mainly under 200continu e lantus 40 unit continue Insulin SSCmonitor FS TID Essential hypertension 28129608 I10 continue:c arvedilol 25 mg BID,amlodi pine 10 mg qdand losartan 100 mg qd.Monitor BP and labs. Heart failure 01677499 I 50.9 appears to be stable.con tinued on carvedilol 25 mg and Lasix 20 mg dailymonit or weight, sob, edemamonit or VS and labs. [id number] Ashley Guan MD [address] [place] [address] 09/09/2023 21:18:06 10/15/2023 09:01:55 Impaired cognition 102732356 R41.89 Continues at baseline.C ontinue escitalopr am 10 mg qd and mirtazapin e 7.5 mg qdContinue supportive care, expect decline.HC P invokedMon itor mood and behaviors. Psych follows Delusional disorder 4850 0005 F22 As above. Cerebrovas cular accident 930307077 Z86.79 In hx.No new sxsContinu e atorvastat in 80 mg qd and clopidogre l 75 mg qd.Continu e supportive care, remains total care/flynn .Monitor for change in neuro status. Cerebral meningioma 1891 54228 D32.0 No tx recommende d currently. F/U with neurosurge ry prn Essential hypertension 07869360 I10 With occ. borderline SBP, but generally in good control on carvedilol 25 mg BID, amlodipine 10 mg qd, and losartan 100 mg qd.Monitor BP and labs. Hypothyroidism 03093640 E03.8 Last TSH WNL in 01/2022.Co ntinue levothyrox ine 88 mcg qd.Monitor TSH yearly, was supposed to be done in 06/2023, but not done.Reord ered in 07/2023, still not done. Overactive urinary bladder 283556527 N32.81 Continue Myrbetriq 50 mg qd and Estrace 2 gms M/W/F in 01/2023.Mo nitor urinary function. Type 2 monty betes mellitus 74170341 E11.9 Sugars in better control since increased lantus. Continue Lantus 40U qd and continue SSIMonitor accuchecks TID and recheck HgA1C with next labs. Hypokalemia 88405402 E87 .6 K+ continues in good range on KCl 10 meq qd.Monitor labs monthly. [id number] CHRISSY CROCKETT [address] [address] 09/11/2023 10:09:18 09/23/2023 10:38:22 Urinary tract infectious disease 56955339 N39.0 resolved Type 2 monty betes mellitus 19637873 E11.9 BGL mainly under 200continu e lantus 40 unit continue Insulin SSCmonitor FS TID Essential hypertension 07282753 I10 continue:c arvedilol 25 mg BID,amlodi pine 10 mg qdand losartan 100 mg qd.Monitor BP and labs. Heart failure 04320336 I 50.9 appears to be stable.con tinued on carvedilol 25 mg and Lasix 20 mg dailymonit or weight, sob, edemamonit or VS and labs. [id number] CHRISSY CROCKETT [address] [address] 10/30/2023 09:01:33 11/11/2023 08:30:21 Impaired cognition 105430737 R41.89 Continue escitalopr am 10 mg qd and mirtazapin e 7.5 mg qdContinue supportive care, expect decline.HC P invokedMon itor mood and behaviors. Psych follows Cerebrovas cular accident 211337121 Z86.79 In hxContinue atorvastat in 80 mg qd and clopidogre l 75 mg qd.Continu e supportive care, remains total care/flynn .Monitor for change in neuro status. Cerebral meningioma 1891 78944 D32.0 No tx recommende d currently. F/U with neurosurge ry prn Essential hypertension 52585067 I10 continueca rvedilol 25 mg BID, amlodipine 10 mg qd, and losartan 100 mg qd.Monitor BP and labs. Hypothyroidism 22402630 E03.8 Last TSH WNL in 01/2022.Co ntinue levothyrox ine 88 mcg qd.Monitor TSH yearly, was supposed to be done in 06/2023, but not done.Reord ered in 07/2023, still not done. Overactive urinary bladder 742204720 N32.81 Continue Myrbetriq 50 mg qd and Estrace 2 gms M/W/F in 01/2023.Mo nitor urinary function. Type 2 monty betes mellitus 77140113 E11.9 Continue Lantus 40U qd and continue SSIMonitor accuchecks TID and recheck HgA1C with next labs. Hypokalemia 15169659 E87 .6 continue KCl 10 meq qd.Monitor labs monthly. [id number] CHRISSY CROCKETT [address] [address] 12/31/2023 08:34:10 01/01/2024 12:01:23 Impaired cognition 856068107 R41.89 Continue escitalopr am 10 mg qd and mirtazapin e 7.5 mg qdContinue supportive care, expect decline.HC P invokedMon itor mood and behaviors. Psych follows Cerebrovas cular accident 702656369 Z86.79 Continue atorvastat in 80 mg qd and clopidogre l 75 mg qd.Continu e supportive care, remains total care/flynn .Monitor for change in neuro status. Essential hypertension 76016319 I10 continueca rvedilol 25 mg BID, amlodipine 10 mg qd, and losartan 100 mg qd.Monitor BP and labs. Hypothyroidism 94626468 E03.8 CBC, BMP, TSH, Free T4 on 01/05/24Con tinue levothyrox ine 88 mcg qd. Overactive urinary bladder 040259825 N32.81 Continue Myrbetriq 50 mg qd and Estrace 2 gmsMonitor urinary function. Type 2 monty betes mellitus 00069496 E11.9 lantus increase to 45 unit qd for bgl 250-300sco ntinue SSC with FS TIDmonitor for hypoglycem ia Hypokalemia 07570457 E87 .6 continue KCl 10 meq qd.Monitor labs monthly.neisha sanders on 01/04 [id number] CHRISSY CROCKETT [address] [address] 02/20/2024 14:14:26 02/23/2024 13:38:42 Impaired cognition 941277229 R41.89 Continue escitalopr am 10 mg qd and mirtazapin e 7.5 mg qdContinue supportive care, expect decline.HC P invokedMon itor mood and behaviors. Psych follows Cerebrovas cular accident 841919340 Z86.79 Continue atorvastat in 80 mg qd and clopidogre l 75 mg qd.Continu e supportive care, remains total care/flynn .Monitor for change in neuro status. Essential hypertension 74522380 I10 continueca rvedilol 25 mg BID, amlodipine 10 mg qd, and losartan 100 mg qd.Monitor BP and labs. Hypothyroidism 35012427 E03.8 CBC, BMP, TSH, Free T4 on 01/05/24Con tinue levothyrox ine 88 mcg qd. Overactive urinary bladder 301963861 N32.81 Continue Myrbetriq 50 mg qd and Estrace 2 gmsMonitor urinary function. Type 2 monty betes mellitus 66883756 E11.9 lantus increase to 45 unit qd for bgl 250-300sco ntinue SSC with FS TIDmonitor for hypoglycem ia Hypokalemia 51152481 E87 .6 continue KCl 10 meq qd.Monitor labs monthly. [id number] CHRISSY CROCKETT [address] [place] [address] SHOSHANA MARCH [address] 04/12/2024 10:23:08 04/13/2024 09:57:49 Impaired cognition 043297223 R41.89 Continue escitalopr am 10 mg qd and mirtazapin e 7.5 mg qdContinue supportive care, expect decline.HC P invokedMon itor mood and behaviors. Psych follows Cerebrovas cular accident 559070996 Z86.79 Continue atorvastat in 80 mg qd and clopidogre l 75 mg qd.Continu e supportive care, remains total care/flynn .Monitor for change in neuro status. Essential hypertension 18336794 I10 continueca rvedilol 25 mg BID, amlodipine 10 mg qd, and losartan 100 mg qd.Monitor BP and labs. Hypothyroidism 96684643 E03.8 Continue levothyrox ine 88 mcg qd. Overactive urinary bladder 063486088 N32.81 oncontinen tContinue Myrbetriq 50 mg qd and Estrace 2 gms -tapering to offMonitor urinary function. Type 2 monty betes mellitus 26760467 E11.9 04/12; lantus increase to 48 unit qd for bgl 250-300sco ntinue SSC with FS TIDmonitor for hypoglycem ia Hypokalemia 87580915 E87 .6 continue KCl 10 meq qd.Monitor labs monthly. Health Concerns Section Related Observation LastModified by Organization Detai ls LastModified Time None Recorded Concern Status LastModified by Organization Details LastModified Time None Recorded Advance Directives Directive Y: DNR/DNI Payers Encounter Date Sequence Insurance Name Policy Number Policy Rogers Covered Member ID Rogers Member ID Guarantor Name 09/11/2023 2 [place] [facility] Tarrs Lariviere [id number] Sona Lariviere 09/11/2023 1 [place] [employer] Tarrs A Lariviere [id number] Tarrs Lariviere 10/30/2023 2 [place] [facility] Tarrs Lariviere [id number] Tarrs Lariviere 10/30/2023 1 [place] [employer] Tarrs A Lariviere [id number] Sona Lariviere 12/31/2023 2 [place] [facility] Sona Lariviere [id number] Sona Lariviere 12/31/2023 1 [place] [employer] Sona A Lariviere [id number] Sona Lariviere 02/20/2024 2 [place] [facility] Sona Lariviere [id number] Sona Lariviere 02/20/2024 1 [place] [employer] Sona A Lariviere [id number] Tarrs Lariviere 04/12/2024 2 [place] [facility] Sona Lariviere [id number] Tarrs Lariviere 04/12/2024 1 [place] [employer] Tarrs A Lariviere [id number] Sona Lariviere Notes Date Note Type Note Provider Name and Address Organization Details Recorded Time 09/11/2023 text/html Patient is an 78 years old woman with past medical history significant for dementia, hyperlipidemia, hypertension, CVA, type 2 diabetes mellitus on insulin, chronic systolic and diastolic CHF and hypothyroidism. She was sent to ED for evaluation of hypoxia with sats as low as 60's .Chest CTA showed no evidence of pulmonary embolism. It showed [id number] pericardial effusion and small right pleural effusion. Echocardiogram was stable, pericardial effusion is known from at least 2020. UA showed positive nitrites, and elevated WBC >50.For presumed urinary tract infection was treated with ceftriaxone and discharged on 5 days of Ceftin. Patient is seen today for acute rounding visit.She is alert and pleasantly confused, she has been tolerating OOB. There is no acute respiratory concerns, breathing easy and unlabored on room air. There is no acute nursing concerns. CHRISSY CROCKETT [address] [facility], [address], [place], [address], [employer] 09/11/2023 14:30:14 10/30/2023 text/html Ms. 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 08/15/23 re-admitted to after short stay in hospital for UTI. She is alert and pleasant with confused noted. she is dependent on nursing staff to meet care needs, she stays in bed most days.There is no acute nursing concerns. Past medical history significant for dementia, hyperlipidemia, hypertension, CVA, type 2 diabetes mellitus on insulin, chronic systolic and diastolic CHF and hypothyroidism. CHRISSY CROCKETT [address] [facility], [address], [place], [address], [employer] 11/02/2023 14:10:35 12/31/2023 text/html Ms. 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 Past medical history significant for dementia, hyperlipidemia, hypertension, CVA, type 2 diabetes mellitus on insulin, chronic systolic and diastolic CHF and hypothyroidism. She is stable with baseline dementia, dependant on staff to meet daily care needs, she is eating, drinking and eliminating without concerns, she has been getting OOB more and having meals in the common area. CHRISSY CROCKETT [address] [facility], [address], [place], [address], [employer] 12/31/2023 22:47:17 02/20/2024 text/html Emely is an 78 y r old female LTC resident with a past medical hx of dementia, hyperlipidemia, hypertension, CVA, type 2 diabetes mellitus on insulin, chronic systolic and diastolic CHF and hypothyroidism. Seen for routine rounding. She is stable at baseline with dementia in NAD. VSS she is alert to self and pleasant with confusion. She denies any discomfort. she is eating and drinking ok. Often refuses OOB to wheelchair. there are no nursing concerns. will continue with current medications and care plan. CHRISSY CROCKETT [address] [facility], [address], [place], [address], [employer] 02/20/2024 14:23:12 04/12/2024 text/html This is an 78 yr old female LTC resident seen for routine rounding. She is at her baseline in NAD. There are no nursing concerns. she is dependent on staff to meet healthcare needs. Past medical hx of dementia, hyperlipidemia, hypertension, CVA, type 2 diabetes mellitus on insulin, chronic systolic and diastolic CHF and hypothyroidism. CHRISSY CROCKETT [address] [facility], [address], [place], [address], [employer] 04/12/2024 13:44:49 OBGyn Episode No OBEpisode recorded.
--- OUTSIDE RECORDS SUMMARY | 2024-05-19 16:44 | XMS_ITS | Encounter Summary ---
Author Organization [facility], Address [address] [place] [address] Phone Care Team Providers Care Sr. Vendor Management Associate Name Role Phone Gala Combs MD Primary Care Provider Reason for Visit * Reason Comments Med Refill Encounter Details Date Type Department Care Team (Late st Contact Info) Description 09/23/2019 Refill [facility] [address] [place] [address] Es Luz PA Social History Tobacco Use [...] on filedocumented in this encounter Care Teams Sr. Vendor Management Associate Relationship Specialty Start Date End Date Gala Combs MD [address] [place], [place] PCP - General 02/23/19 documented as of this encounter
--- OUTSIDE RECORDS SUMMARY | 2024-05-19 16:44 | XMS_ITS | Encounter Summary ---
Author Organization [facility], Address [address] [place] [address] Phone Care Team Providers Care School Health Assistant Name Role Phone Gala Combs MD Primary Care Provider [phone] Reason for Visit * Reason Comments Med Refill Encounter Details Date Type Department Care Team (Late st Contact Info) Description 09/10/2019 Refill [facility] [address] [place] [phone] Es Luz PA Social History Tobacco Use [...] on filedocumented in this encounter Care Teams School Health Assistant Relationship Specialty Start Date End Date Gala Combs MD [address] [place], [place] PCP - General 02/23/19 documented as of this encounter
--- OUTSIDE RECORDS SUMMARY | 2024-05-19 16:44 | XMS_ITS | Encounter Summary ---
Author Organization [facility], Address [address] [place] [address] Phone Care Team Providers Care City Weighmaster Name Role Phone Gala Combs MD Primary Care Provider [phone] Reason for Visit * Reason Comments Med Refill Encounter Details Date Type Department Care Team (Late st Contact Info) Description 10/28/2019 Refill [facility] [address] [place] [address] Es Luz [...] on filedocumented in this encounter Care Teams City Weighmaster Relationship Specialty Start Date End Date Gala Combs MD [address] [place], [place] PCP - General 02/23/19 documented as of this encounter
== END 2024-05-19 14:32 | disposition home or self-care (01) ==
LOC: HO.MMNH3L 14:31
PROVIDERS: Visit Provider Family Medicine
DX: E11.8 Type 2 diabetes mellitus with unspecified complications (principal); E87.6 Hypokalemia; F22 Delusional disorders
CPT/HCPCS: 36415; 80053; 85025

== ENCOUNTER 2024-08-02 05:47 | Outpatient (REF) | payer MEDICARE, MEDICAID, SELFPAY ==
[2024-08-02 05:37] LABS: MANUAL DIFF FLAG NO
--- OUTSIDE RECORDS SUMMARY | 2024-08-02 06:02 | XMS_ITS | Encounter Summary ---
Author Organization [facility], Address [address] [place] [address] Phone Care Team Providers Care Fiberglass Fabricator Name Role Phone Gala Combs MD Primary Care Provider [phone] Reason for Visit * Reason Comments Med Refill Encounter Details Date Type Department Care Team (Late st Contact Info) Description 07/04/2019 Refill [facility] [address] [place] [phone] Es Luz PA Social History Tobacco Use [...] on filedocumented in this encounter Care Teams Fiberglass Fabricator Relationship Specialty Start Date End Date Gala Combs MD [address] [place], [place] PCP - General 02/23/19 documented as of this encounter
--- OUTSIDE RECORDS SUMMARY | 2024-08-02 06:02 | XMS_ITS | Data Portability ---
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 mg qd.Monitor mood.Psych consult prn. Overactive urinary bladder 804822760 N32.81 Continue oxybutynin 5 mg BIDMonitor urinary function. Type 2 monty betes mellitus 52792017 E11.9 Borderline control on current meds. But would rather have mild hyperglyce tanner, than risk hypoglycem ia. Continue Lantus 20 U qd and SSIMonitor accuchecks TID and HgA1C q 3 months. Hypokalemia 95915775 E87 .6 On KCl 20 meq qd. 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 [id number] JULISSA MAGAÑA [address] [place] [address]165 5 07/06/2021 10:19:49 07/09/2021 15:03:05 Cerebrovascular accident [id number] Z86.79 atorvastat in 80 mg daily clopidogre l 75 mg daily will monitorPT/ OT prnPMR prn Cerebral meningioma 1891 84957 D32.0 f/u neurosurge ry prn Essential hypertension 85082155 I10 carvedilol 25 mg bidamlodip ine 10 mg dailylosar myers 100 mg dailykcl 10 meq dailywill monitor Gout 98742588 M10.09 allopurino l 100 mg dailywill monitor Hyperlipidemia 56792553 E78.49 atorvastat in 80 mg dailywill monitor Hypothyroidism 52442506 E03.8 levothyrox ine 88 mcg dailywill monitor Mixed anxi ety and depressive disorder 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.8 mirtazapin e 7.5 mg at hsescitalo pram 5 mg dailywill monitor Overactive urinary bladder 641684063 N32.81 oxybutynin 5 mg bidwill monitor Type 2 monty betes mellitus 14634650 E11.9 glargine 21 Units daily at hs lispro per sliding scale will monitor [id number] DEBO GRIPPIN, [employer]EDIT [employer]K MODELER [address] [address] 07/11/2021 09:07:17 07/18/2021 10:47:02 Cerebrovascular accident 276160100 Z86.79 atorvastat in 80 mg daily clopidogre l 75 mg daily will monitorPT/ OT prnPMR prn Mixed anxi ety and depressive disorder 060268418 F41.8 mirtazapin e 7.5 mg at hsescitalo pram 5 mg dailywill monitor [id number] DEBO STACY NP [address] [address] 5 07/19/2021 09:03:31 07/24/2021 12:12:05 Cerebrovascular accident 341395844 Z86.79 atorvastat in 80 mg daily clopidogre l 75 mg daily will monitorPT/ OT prnPMR prn Cerebral meningioma 1891 47541 D32.0 f/u neurosurge ry prn Essential hypertension 49243109 I10 carvedilol 25 mg bidamlodip ine 10 mg dailylosar myers 100 mg dailykcl 10 meq dailywill monitor Gout 68316824 M10.09 allopurino l 100 mg dailywill monitor Hyperlipidemia 16225589 E78.49 atorvastat in 80 mg dailywill monitor Hypothyroidism 36156482 E03.8 levothyrox ine 88 mcg dailywill monitor Mixed anxi ety and depressive disorder 976070668 F41.8 mirtazapin e 7.5 mg at hsescitalo pram 5 mg dailywill monitor Overactive urinary bladder 146795844 N32.81 oxybutynin 5 mg bidwill monitor Type 2 monty betes mellitus 64847915 E11.9 glargine 21 Units daily at hs lispro per sliding scale will monitor [id number] Ashley Guan MD [address] [address] 08/30/2021 21:05:24 09/04/2021 13:31:57 Cerebral meningioma 041700954 D32.0 f/u neurosurge ry prn Cerebrovas cular accident 121031370 Z86.79 Continues at baseline.C ontinue ASA 81 mg qd, atorvastat in 80 mg qd and clopidogre l 75 mg qd.Continu e supportive care, continues to be total care/flynn .Monitor neuros Essential hypertension 41291920 I10 Continues to be in good control on carvedilol 25 mg BID, amlodipine 10 mg qd, and losartan 100 mg qd.Monitor BP and labs. Gout 59702480 M10.09 No current sxs.Contin ue allopurino l 100 mg qd.Monitor for flare. Hyperlipidemia 88927293 E78.49 Continue atorvastat in 80 mg qd.Monitor labs yearly. Hypothyroidism 59816229 E03.8 Continue levothyrox ine 88 mcg qd.Monitor TSH yearly, due in August. Mixed anxi ety and depressive disorder 230933781 F41.8 Continue mirtazapin e 7.5 mg qhs and escitalopr am 5 mg qd.Monitor mood.Psych consult prn. Overactive urinary bladder 778264768 N32.81 Continue oxybutynin 5 mg BIDMonitor urinary function. Type 2 monty betes mellitus 62472934 E11.9 HgA1C up to 8.6, and sugars almost all >200 Would rather have mild hyperglyce tanner, than hypoglycem ia, but now sugars are consistent ly too high. Will increase Lantus from 21 U qd to 25U and monitor and continue SSIMonitor accuchecks TID and HgA1C q 3 months. Hypokalemia 17633183 E87 .6 K+ continues in good range on KCl 20 meq qd.Monitor labs monthly. Delusional disorder 4850 0005 F22 Pleasantly delusional .Continue mirtazapin e 7.5 mg qhsPsych consult prn. [id number] DEBO STACY NP [address] [place] [address] 10/25/2021 11:09:18 10/30/2021 15:29:31 Cerebrovascular accident [id number] Z86.79 atorvastat in 80 mg daily clopidogre l 75 mg daily will monitorPT/ OT prn Cerebral meningioma 1891 61306 D32.0 f/u neurosurge ry prn Essential hypertension 45737613 I10 carvedilol 25 mg bidamlodip ine 10 mg dailylosar myers 100 mg dailykcl 10 meq dailylasix 20 mg dailywill monitor Gout 43222693 M10.09 allopurino l 100 mg dailywill monitor Hyperlipidemia 18894112 E78.49 atorvastat in 80 mg dailywill monitor Hypothyroidism 97992601 E03.8 levothyrox ine 88 mcg dailywill monitor Mixed anxi ety and depressive disorder 894147341 F41.8 mirtazapin e 7.5 mg at hsescitalo pram 5 mg dailywill monitor Overactive urinary bladder 574701282 N32.81 oxybutynin 5 mg bidwill monitor Type 2 monty betes mellitus 16134894 E11.9 glargine 15 Units daily at hs lispro per sliding scale will monitor [id number] MD SHARMAINE Vicente MATIAS [address] [place] [phone] 5 12/11/2021 09:07:16 12/13/2021 12:40:52 Cerebrovascular accident 258725623 Z86.79 atorvastat in 80 mg daily clopidogre l 75 mg daily will monitorPT/ OT prnPMR prn Essential hypertension 96343116 I10 amlodipine 10 mg dailycarve dilol 25 mg bidlosarta n 100 mg dailyfuros emide 20 mg dailywill monitor Gout 07885301 M10.09 allopurino l 100 mg dailywill monitor Mixed anxi ety and depressive disorder 604854009 F41.8 mirtazapin e 7.5 mg at hsescitalo pram 5 mg dailywill monitor Rheumatoid arthritis 698 02310 M06.4 meloxicam 15 mg qodwill monitor Type 2 monty betes mellitus 28150971 E11.9 glargine 25U daily at hs lispro per sliding scale will monitor Overactive urinary bladder 181373957 N32.81 oxybutynin 5 mg bidwill monitor Hypothyroidism 59804602 E03.8 levothyrox ine 88 mcg dailywill monitor [id number] DEBO STACY NP [address] [address] 5 02/01/2022 10:11:49 02/05/2022 15:30:32 Cerebrovascular accident 296715015 Z86.79 atorvastat in 80 mg daily clopidogre l 75 mg daily will monitorPT/ OT prn Cerebral meningioma 1891 91584 D32.0 f/u neurosurge ry prn Essential hypertension 48779205 I10 carvedilol 25 mg bidamlodip ine 10 mg dailylosar myers 100 mg dailykcl 10 meq dailylasix 20 mg dailywill monitor Gout 55982434 M10.09 allopurino l 100 mg dailywill monitor Hyperlipidemia 18174448 E78.49 atorvastat in 80 mg dailywill monitor Hypothyroidism 93362893 E03.8 levothyrox ine 88 mcg dailywill monitor Mixed anxi ety and depressive disorder 005143723 F41.8 mirtazapin e 7.5 mg at hsescitalo pram 5 mg dailywill monitor Overactive urinary bladder 582614942 N32.81 oxybutynin 5 mg bidwill monitor Type 2 monty betes mellitus 79631664 E11.9 glargine 15 Units daily at hs lispro per sliding scale will monitor [id number] MD SHARMAINE Vicente [address] [place] [phone] 5 03/29/2022 06:45:42 04/02/2022 15:52:47 Essential hypertension 25199141 I10 amlodipine 10 mg dailycarve dilol 25 mg bidlosarta n 100 mg dailyfuros emide 20 mg dailywill monitor Mixed anxi ety and depressive disorder 232512299 F41.8 mirtazapin e 7.5 mg at hsescitalo pram 5 mg dailywill monitor Overactive urinary bladder 318748107 N32.81 oxybutynin 5 mg bidwill monitor Rheumatoid arthritis 698 81128 M06.4 meloxicam 15 mg qodPMR prnAPAP 650 mg q6h prnwill monitor Type 2 monty betes mellitus 46720576 E11.9 insulin glargine 25U daily at hs lispro per sliding scale will monitor History of cerebrovascular accident 272135465 Z86.73 atorvastat in 80 mg daily clopidogre l 75 mg daily will monitorPT/ OT prnPMR prn Gout 07102022 M10.09 allopurino l 100 mg dailywill monitor Hypothyroidism 33341060 E03.8 levothyrox ine 88 mcg dailywill monitor [id number] JULISSA MAGAÑA MATIAS [address] [place] [address]327 5 04/18/2022 12:53:11 04/26/2022 14:36:27 SARS-CoV-2 937221603 U07.1 04/16 covid positive encourage po fluids consider ivf for anorexiaco nsider paxlovid and dexamethas one for symptomsmo nitor for any changes in mental or medical status send to ED for decompensa tion [id number] DEBO STACY NP [address] [address] 5 04/19/2022 10:20:50 04/26/2022 15:14:17 SARS-CoV-2 671045593 U07.1 04/16 covid positive encourage po fluids consider ivf for anorexiaco nsider paxlovid and dexamethas one for symptomsmo nitor for any changes in mental or medical status send to ED for decompensa tion [id number] DEBO STACY NP [address] [address] 5 04/24/2022 11:25:00 04/26/2022 15:56:37 SARS-CoV-2 316839992 U07.1 04/16 covid positive-a symptomati c, recovered by date encourage po fluids consider ivf for anorexiaco nsider paxlovid and dexamethas one for symptomsmo nitor for any changes in mental or medical status send to ED for decompensa tion [id number] DEBO STACY NP [address] [phone] 5 05/23/2022 12:31:45 05/28/2022 08:11:34 Essential hypertension 35685063 I10 amlodipine 10 mg dailycarve dilol 25 mg bidlosarta n 100 mg dailyfuros emide 20 mg dailywill monitor Mixed anxi ety and depressive disorder 398887818 F41.8 mirtazapin e 7.5 mg at hsescitalo pram 5 mg dailywill monitor Overactive urinary bladder 672136529 N32.81 oxybutynin 5 mg bidwill monitor Rheumatoid arthritis 698 93067 M06.4 meloxicam 15 mg qodPMR prnAPAP 650 mg q6h prnwill monitor Type 2 monty betes mellitus 37525532 E11.9 insulin glargine 25U daily at hs lispro per sliding scale will monitor History of cerebrovascular accident 622494404 Z86.73 atorvastat in 80 mg daily clopidogre l 75 mg daily will monitorPT/ OT prnPMR prn Gout 00892868 M10.09 allopurino l 100 mg dailywill monitor Hypothyroidism 13788908 E03.8 levothyrox ine 88 mcg dailywill monitor [id number] Maryellen Muñoz MD [address] [address] 5 07/31/2022 06:55:12 08/06/2022 12:13:09 Impaired cognition 249771861 R41.89 will monitor and support as needed Essential hypertension 21407085 I10 amlodipine 10 mg dailycarve dilol 25 mg bidlosarta n 100 mg dailyfuros emide 20 mg dailywill monitor Hyperlipidemia 06951004 E78.49 atorvastat in 80 mg dailywill monitor History of cerebrovascular accident 004748185 Z86.73 atorvastat in 80 mg daily clopidogre l 75 mg daily will monitorPT/ OT prnPMR prn Hypothyroidism 84561366 E03.8 levothyrox ine 88 mcg dailywill monitor Mixed anxi ety and depressive disorder 716374307 F41.8 mirtazapin e 7.5 mg at hsescitalo pram 5 mg dailywill monitor Gout 63968002 M10.09 allopurino l 100 mg dailywill monitor Overactive urinary bladder 632932373 N32.81 oxybutynin 5 mg bidwill monitor Type 2 monty betes mellitus 80522106 E11.9 insulin glargine 25U daily at hs lispro per sliding scale will monitor [id number] JULISSA MAGAÑA MATIAS [address] [place] [phone] 5 08/07/2022 13:54:18 08/09/2022 15:59:16 Essential hypertension 52370065 I10 amlodipine 10 mg dailycarve dilol 25 mg bidlosarta n 100 mg dailyfuros emide 20 mg dailywill monitor Mixed anxi ety and depressive disorder 059662610 F41.8 mirtazapin e 7.5 mg at hsescitalo pram 5 mg dailywill monitor Overactive urinary bladder 507830510 N32.81 oxybutynin 5 mg bidwill monitor Rheumatoid arthritis 698 30404 M06.4 meloxicam 15 mg qodPMR prnAPAP 650 mg q6h prnwill monitor Type 2 monty betes mellitus 44706488 E11.9 insulin glargine 25 Units daily at hs lispro per sliding scale will monitor History of cerebrovascular accident 106839371 Z86.73 atorvastat in 80 mg daily clopidogre l 75 mg daily will monitorPT/ OT prnPMR prn Gout 96976361 M10.09 allopurino l 100 mg dailywill monitor Hypothyroidism 29378263 E03.8 levothyrox ine 88 mcg dailywill monitor Hyperlipidemia 06872724 E78.49 atorvastat in 80 mg dailywill monitor [id number] DEBO STACY NP [address] [address] 5 09/18/2022 11:32:26 09/26/2022 11:00:23 Essential hypertension 13058680 I10 amlodipine 10 mg dailycarve dilol 25 mg bidlosarta n 100 mg dailyfuros emide 20 mg dailywill monitor Mixed anxi ety and depressive disorder 828605336 F41.8 mirtazapin e 7.5 mg at hsescitalo pram 10 mg dailywill monitor Overactive urinary bladder 838459875 N32.81 oxybutynin 5 mg bidwill monitor Rheumatoid arthritis 698 23057 M06.4 meloxicam 15 mg qodPMR prnAPAP 650 mg q6h prnwill monitor Type 2 monty betes mellitus 08155805 E11.9 insulin glargine 30 Units daily at hs lispro per sliding scale will monitor History of cerebrovascular accident 282517849 Z86.73 atorvastat in 80 mg daily clopidogre l 75 mg daily will monitorPT/ OT prnPMR prn Gout 58950457 M10.09 allopurino l 100 mg dailywill monitor Hypothyroidism 68931852 E03.8 levothyrox ine 88 mcg dailywill monitor Hyperlipidemia 00258709 E78.49 atorvastat in 80 mg dailywill monitor [id number] DEBO STACY NP [address] [address] 5 09/20/2022 10:27:37 09/26/2022 14:20:03 Epidermal burn of skin 903885607 T14.8XXA keflex 500 mg bid for 5 daysbacitr acin with dsd qshiftwoun d consult [id number] DEBO STACY NP [address] [address] 5 09/23/2022 14:55:08 09/26/2022 15:18:55 Epidermal burn of skin 554288466 T14.8XXA keflex 500 mg bid for 5 days acitra patty with dsd qshiftwoun d consult [id number] DEBO STACY NP [address] [address] 5 10/14/2022 12:39:30 10/17/2022 14:25:15 Cerebrovascular accident 012171540 Z86.79 atorvastat in 80 mg daily clopidogre l 75 mg daily will monitorPT/ OT prn Mixed anxi ety and depressive disorder 241460058 F41.8 [facility] mg dailywill monitorpsy ch prn Rheumatoid arthritis 698 92848 M06.4 meloxicam 15 mg qodPMR prnAPAP 650 mg q6h prnwill monitor Epidermal burn of skin 864762999 T14.8XXA healedkefl ex 500 mg bid for 5 days acitra patty with dsd qshiftwoun d consult Pneumonia 689187088 J18. 9 azithromyc in 500mg x1 then 250 mg x4 days [id number] Ashley Guan MD [address] [address] 5 12/17/2022 19:39:05 01/06/2023 12:24:08 Cerebrovascular accident 269744451 Z86.79 Hx of.Continu e atorvastat in 80 mg qd and clopidogre l 75 mg qd.Continu e supportive care, continues to be total care/flynn .Monitor for change in neuro status. Cerebral meningioma 1891 04885 D32.0 No tx recommende d currently. F/U with neurosurge ry prn Delusional disorder 4850 0005 F22 As above. Essential hypertension 96173664 I10 Continues to be in good control on carvedilol 25 mg BID, amlodipine 10 mg qd, and losartan 100 mg qd.Monitor BP and labs. Hypothyroidism 45866505 E03.8 Last TSH WNL in 01/2022.Co ntinue levothyrox ine 88 mcg qd.Monitor TSH yearly, due in Jan. Overactive urinary bladder 717872538 N32.81 Continue oxybutynin 5 mg BIDMonitor urinary function. Type 2 monty betes mellitus 20997557 E11.9 HgA1C was 8.6 in 08/2021, not rechecked since then, sugars >200 about 1/3 of the time. Would rather have mild hyperglyce tanner, than hypoglycem ia. Lantus was increased to 36U in 09/2022, will continue this and continue SSIMonitor accuchecks TID and recheck HgA1C with next labs. Hypokalemia 39637857 E87 .6 K+ continues in good range on KCl 10 meq qd.Monitor labs monthly. Impaired cognition 82340 6002 R41.89 Continues at baselineCo ntinue escitalopr am 10 mg qd and mirtazapin e 7.5 mg qdContinue supportive care, expect decline.HC P invokedMon itor mood and behaviors. Psych consult prn. [id number] JULISSA MAGAÑA [address] [place] [phone] 5 02/07/2023 14:18:45 02/11/2023 15:36:44 Impaired cognition 354475563 R41.89 Continues at baselinees citalopram 10 mg qdmirtazap ine 7.5 mg qdContinue supportive care, expect decline.HC P invokedMon itor mood and behaviors. Psych consult prn. Delusional disorder 0 4 F22 As above. Cerebrovas cular accident 426581831 Z86.79 Hx of--at baselineat orvastatin 80 mg qdclopidog rel 75 mg qd.Continu e supportive care, continues to be total care/flynn .Monitor for change in neuro status. Cerebral meningioma 1891 79737 D32.0 No tx recommende d currently. F/U with neurosurge ry prn Essential hypertension 27832036 I10 Continues to be in good control on carvedilol 25 mg BID,amlodi pine 10 mg qd,losarta n 100 mg qd.Monitor BP and labs. Hypothyroidism 28228277 E03.8 Last TSH WNL in 01/2022.le vothyroxin e 88 mcg qd.Monitor TSH yearly, due in Jan. Overactive urinary bladder 095625053 N32.81 oxybutynin 5 mg BIDMonitor urinary function. Type 2 monty betes mellitus 05396174 E11.9 HgA1C was 8.6 in 08/2021, not rechecked since then, sugars >200 about 1/3 of the time. Would rather have mild hyperglyce tanner, than hypoglycem ia. Lantus was increased to 36U in 09/2022, will continue this and continue SSIMonitor accuchecks TID and recheck HgA1C with next labs. Hypokalemia 42565317 E87 .6 K+ continues in good range on KCl 10 meq qd.Monitor labs monthly. [id number] Ashley Guan MD [address] [place] [address] 04/11/2023 14:34:53 04/28/2023 16:03:28 Cough 42848232 R05.8 Appears acutely ill, with junky cough.So far is covid neg.Will check for RSV and influenza, and check labs on 04/15-CBC and CMP.Start Mucinex 600 mg q 6 hrs x 1 wk. and continue duonebs q 6 hrs prn. Impaired cognition 71979 6002 R41.89 Continues at baseline with delusions as usual.Cont inue escitalopr am 10 mg qd and mirtazapin e 7.5 mg qdContinue supportive care, expect decline.HC P invokedMon itor mood and behaviors. Psych follows Delusional disorder 4850 0005 F22 As above. Cerebrovas cular accident 607646719 Z86.79 In hx.No new sxsContinu e atorvastat in 80 mg qd and clopidogre l 75 mg qd.Continu e supportive care, remains total care/flynn .Monitor for change in neuro status. Cerebral meningioma 1891 72896 D32.0 No tx recommende d currently. F/U with neurosurge ry prn Essential hypertension 34894650 I10 With occ. borderline SBP, but generally in good control on carvedilol 25 mg BID, amlodipine 10 mg qd, and losartan 100 mg qd.Monitor BP and labs. Hypothyroidism 38574927 E03.8 Last TSH WNL in 01/2022.Co ntinue levothyrox ine 88 mcg qd.Monitor TSH yearly, was due in Jan., not done, will order with next labs due in 06/2023. Overactive urinary bladder 278012416 N32.81 Changed to Myrbetriq 50 mg qd on 03/25/23, from oxybutynin 5 mg BIDStarted on Estrace 2 gms M/W/F in 01/2023.Mo nitor urinary function. Type 2 monty betes mellitus 41144396 E11.9 Sugars are >200 about 1/2 of the time. Would rather have mild hyperglyce tanner, than hypoglycem ia, but overall too high.Will increase Lantus from 36U to 40U and continue SSIMonitor accuchecks TID and recheck HgA1C with next labs. Hypokalemia 64335548 E87 .6 K+ continues in good range on KCl 10 meq qd.Monitor labs monthly. [id number] CHRISSY CROCKETT [address] [place] [address] 5 05/20/2023 08:38:41 05/28/2023 08:36:29 Dyspnea 136108717 R06.00 chest xray suggestive of pneumoniap reviously started on augmentinh ydration encourages continue oxygen titrate to keep sat greater than 90%will send swab for covid, flu and rsv as well. fall W19.XXXA 05/18/23:se e hpiunwitne ssed with no apparent injuries.+ ROM to all [facility] checks per facility protocol. [id number] CHRISSY CROCKETT [address] [address] 5 06/17/2023 11:19:07 06/19/2023 12:27:49 Impaired cognition 751252077 R41.89 Continues at baseline with delusions as usual.Cont inue escitalopr am 10 mg qd and mirtazapin e 7.5 mg qdContinue supportive care, expect decline.HC P invokedMon itor mood and behaviors. Psych follows Delusional disorder 4850 0005 F22 As above. Cerebrovas cular accident 347094251 Z86.79 In hx.No new sxsContinu e atorvastat in 80 mg qd and clopidogre l 75 mg qd.Continu e supportive care, remains total care/flynn .Monitor for change in neuro status. Cerebral meningioma 1891 35279 D32.0 No tx recommende d currently. F/U with neurosurge ry prn Essential hypertension 43458487 I10 continue:c arvedilol 25 mg BID,amlodi pine 10 mg qdand losartan 100 mg qd.Monitor BP and labs. Hypothyroidism 16126714 E03.8 Last TSH WNL in 01/2022.Co ntinue levothyrox ine 88 mcg qd.Monitor TSH yearly, was due in Jan., not done, will order with next labs due in 06/2023. Overactive urinary bladder 053664240 N32.81 Myrbetriq 50 mg qdEstrace 2 gms M/W/F in 01/2023.Mo nitor urinary function.i ncontinent - nursing reports heavy wetter. Type 2 monty betes mellitus 11754215 E11.9 as high as 300 Will increase Lantus from 36U to 40U and continue SSIMonitor accuchecks TID and recheck HgA1C with next labs. [id number] CHRISSY CROCKETT [address] [address] 5 08/11/2023 10:05:01 08/15/2023 15:28:26 Diarrhea and vomiting, symptom 570097252 R19.7 Concerned for Cdiff, nursing reports foul smelling, slimy mucous like stool.stoo l sample sent to labCBC with diff, and CMP orderedinc reased oral hydrationa waiting results to treat. [id number] CHRISSY CROCKETT [address] [address] 5 08/15/2023 16:10:25 08/19/2023 15:16:25 Urinary tract infectious disease 09981452 N39.0 see hpistarted on cefuroxime 250 mg BIDadd probiotic 1 tab BID for 10 dayincreas e oral hydration. Type 2 monty betes mellitus 68169157 E11.9 continue lantus 40 unit continue Insulin SSCmonitor FS TID Essential hypertension 60138819 I10 continue:c arvedilol 25 mg BID,amlodi pine 10 mg qdand losartan 100 mg qd.Monitor BP and labs. Hypothyroidism 29067878 E03.8 Continue levothyrox ine 88 mcg qd.check TSH at next rounding visit Heart failure 26006699 I 50.9 continued on carvedilol 25 mg and Lasix 20 mg dailymonit or weight, sob, edemamonit or VS and labs. [id number] CHRISSY CROCKETT [address] [address] 5 08/21/2023 10:04:33 08/26/2023 10:06:00 Urinary tract infectious disease 51251524 N39.0 see hpistarted on cefuroxime 250 mg BID-comple carmelo.add probiotic 1 tab BID for 10 dayincreas e oral hydration. Type 2 monty betes mellitus 50093989 E11.9 BGL mainly under 200continu e lantus 40 unit continue Insulin SSCmonitor FS TID Essential hypertension 83866595 I10 continue:c arvedilol 25 mg BID,amlodi pine 10 mg qdand losartan 100 mg qd.Monitor BP and labs. Heart failure 08887337 I 50.9 appears to be stable.con tinued on carvedilol 25 mg and Lasix 20 mg dailymonit or weight, sob, edemamonit or VS and labs. [id number] CHRISSY CROCKETT [address] [address] 5 09/01/2023 13:25:32 09/03/2023 10:00:39 Type 2 diabetes mellitus 52807059 E11.9 BGL mainly under 200continu e lantus 40 unit continue Insulin SSCmonitor FS TID Essential hypertension 97383397 I10 continue:c arvedilol 25 mg BID,amlodi pine 10 mg qdand losartan 100 mg qd.Monitor BP and labs. Heart failure 73766488 I 50.9 appears to be stable.con tinued on carvedilol 25 mg and Lasix 20 mg dailymonit or weight, sob, edemamonit or VS and labs. [id number] CHRISSY CROCKETT [address] [place] [address] 09/08/2023 13:58:44 09/11/2023 13:24:52 Urinary tract infectious disease 41805391 N39.0 resolved Type 2 monty betes mellitus 98249889 E11.9 BGL mainly under 200continu e lantus 40 unit continue Insulin SSCmonitor FS TID Essential hypertension 00970880 I10 continue:c arvedilol 25 mg BID,amlodi pine 10 mg qdand losartan 100 mg qd.Monitor BP and labs. Heart failure 36440499 I 50.9 appears to be stable.con tinued on carvedilol 25 mg and Lasix 20 mg dailymonit or weight, sob, edemamonit or VS and labs. [id number] Ashley Guan MD [address] [place] [address] 5 09/09/2023 21:18:06 10/15/2023 09:01:55 Impaired cognition 282077551 R41.89 Continues at baseline.C ontinue escitalopr am 10 mg qd and mirtazapin e 7.5 mg qdContinue supportive care, expect decline.HC P invokedMon itor mood and behaviors. Psych follows Delusional disorder 4850 0005 F22 As above. Cerebrovas cular accident 026493570 Z86.79 In hx.No new sxsContinu e atorvastat in 80 mg qd and clopidogre l 75 mg qd.Continu e supportive care, remains total care/flynn .Monitor for change in neuro status. Cerebral meningioma 1891 17962 D32.0 No tx recommende d currently. F/U with neurosurge ry prn Essential hypertension 19838861 I10 With occ. borderline SBP, but generally in good control on carvedilol 25 mg BID, amlodipine 10 mg qd, and losartan 100 mg qd.Monitor BP and labs. Hypothyroidism 94076812 E03.8 Last TSH WNL in 01/2022.Co ntinue levothyrox ine 88 mcg qd.Monitor TSH yearly, was supposed to be done in 06/2023, but not done.Reord ered in 07/2023, still not done. Overactive urinary bladder [id number] N32.81 Continue Myrbetriq 50 mg qd and Estrace 2 gms M/W/F in 01/2023.Mo nitor urinary function. Type 2 monty betes mellitus 97168872 E11.9 Sugars in better control since increased lantus. Continue Lantus 40U qd and continue SSIMonitor accuchecks TID and recheck HgA1C with next labs. Hypokalemia 53209427 E87 .6 K+ continues in good range on KCl 10 meq qd.Monitor labs monthly. [id number] CHRISSY CROCKETT [address] [address] 09/11/2023 10:09:18 09/23/2023 10:38:22 Urinary tract infectious disease 89644800 N39.0 resolved Type 2 monty betes mellitus 92111329 E11.9 BGL mainly under 200continu e lantus 40 unit continue Insulin SSCmonitor FS TID Essential hypertension 24226593 I10 continue:c arvedilol 25 mg BID,amlodi pine 10 mg qdand losartan 100 mg qd.Monitor BP and labs. Heart failure 77313862 I 50.9 appears to be stable.con tinued on carvedilol 25 mg and Lasix 20 mg dailymonit or weight, sob, edemamonit or VS and labs. [id number] CHRISSY CROCKETT [address] [address] 10/30/2023 09:01:33 11/11/2023 08:30:21 Impaired cognition 796561119 R41.89 Continue escitalopr am 10 mg qd and mirtazapin e 7.5 mg qdContinue supportive care, expect decline.HC P invokedMon itor mood and behaviors. Psych follows Cerebrovas cular accident 650288069 Z86.79 In hxContinue atorvastat in 80 mg qd and clopidogre l 75 mg qd.Continu e supportive care, remains total care/flynn .Monitor for change in neuro status. Cerebral meningioma 1891 63753 D32.0 No tx recommende d currently. F/U with neurosurge ry prn Essential hypertension 33250492 I10 continueca rvedilol 25 mg BID, amlodipine 10 mg qd, and losartan 100 mg qd.Monitor BP and labs. Hypothyroidism 96215901 E03.8 Last TSH WNL in 01/2022.Co ntinue levothyrox ine 88 mcg qd.Monitor TSH yearly, was supposed to be done in 06/2023, but not done.Reord ered in 07/2023, still not done. Overactive urinary bladder 999726214 N32.81 Continue Myrbetriq 50 mg qd and Estrace 2 gms M/W/F in 01/2023.Mo nitor urinary function. Type 2 monty betes mellitus 09476205 E11.9 Continue Lantus 40U qd and continue SSIMonitor accuchecks TID and recheck HgA1C with next labs. Hypokalemia 77591337 E87 .6 continue KCl 10 meq qd.Monitor labs monthly. [id number] CHRISSY CROCKETT [address] [address] 12/31/2023 08:34:10 01/01/2024 12:01:23 Impaired cognition 065384180 R41.89 Continue escitalopr am 10 mg qd and mirtazapin e 7.5 mg qdContinue supportive care, expect decline.HC P invokedMon itor mood and behaviors. Psych follows Cerebrovas cular accident 776202771 Z86.79 Continue atorvastat in 80 mg qd and clopidogre l 75 mg qd.Continu e supportive care, remains total care/flynn .Monitor for change in neuro status. Essential hypertension 13119239 I10 continueca rvedilol 25 mg BID, amlodipine 10 mg qd, and losartan 100 mg qd.Monitor BP and labs. Hypothyroidism 87054737 E03.8 CBC, BMP, TSH, Free T4 on 01/05/24Con tinue levothyrox ine 88 mcg qd. Overactive urinary bladder 282659224 N32.81 Continue Myrbetriq 50 mg qd and Estrace 2 gmsMonitor urinary function. Type 2 monty betes mellitus 72077870 E11.9 lantus increase to 45 unit qd for bgl 250-300sco ntinue SSC with FS TIDmonitor for hypoglycem ia Hypokalemia 27085689 E87 .6 continue KCl 10 meq qd.Monitor labs monthly.neisha sanders on 01/04 [id number] CHRISSY CROCKETT [address] [address] 02/20/2024 14:14:26 02/23/2024 13:38:42 Impaired cognition 622846391 R41.89 Continue escitalopr am 10 mg qd and mirtazapin e 7.5 mg qdContinue supportive care, expect decline.HC P invokedMon itor mood and behaviors. Psych follows Cerebrovas cular accident 444018163 Z86.79 Continue atorvastat in 80 mg qd and clopidogre l 75 mg qd.Continu e supportive care, remains total care/flynn .Monitor for change in neuro status. Essential hypertension 49327158 I10 continueca rvedilol 25 mg BID, amlodipine 10 mg qd, and losartan 100 mg qd.Monitor BP and labs. Hypothyroidism 43666924 E03.8 CBC, BMP, TSH, Free T4 on 01/05/24Con tinue levothyrox ine 88 mcg qd. Overactive urinary bladder 462245245 N32.81 Continue Myrbetriq 50 mg qd and Estrace 2 gmsMonitor urinary function. Type 2 monty betes mellitus 59049770 E11.9 lantus increase to 45 unit qd for bgl 250-300sco ntinue SSC with FS TIDmonitor for hypoglycem ia Hypokalemia 45863043 E87 .6 continue KCl 10 meq qd.Monitor labs monthly. [id number] CHRISSY CROCKETT [address] [place] [address] SHOSHANA MARCH [address] 04/12/2024 10:23:08 04/13/2024 09:57:49 Impaired cognition 061252278 R41.89 Continue escitalopr am 10 mg qd and mirtazapin e 7.5 mg qdContinue supportive care, expect decline.HC P invokedMon itor mood and behaviors. Psych follows Cerebrovas cular accident 182842408 Z86.79 Continue atorvastat in 80 mg qd and clopidogre l 75 mg qd.Continu e supportive care, remains total care/flynn .Monitor for change in neuro status. Essential hypertension 86753046 I10 continueca rvedilol 25 mg BID, amlodipine 10 mg qd, and losartan 100 mg qd.Monitor BP and labs. Hypothyroidism 13391057 E03.8 Continue levothyrox ine 88 mcg qd. Overactive urinary bladder 127868504 N32.81 oncontinen tContinue Myrbetriq 50 mg qd and Estrace 2 gms -tapering to offMonitor urinary function. Type 2 monty betes mellitus 38186311 E11.9 04/12; lantus increase to 48 unit qd for bgl 250-300sco ntinue SSC with FS TIDmonitor for hypoglycem ia Hypokalemia 71116735 E87 .6 continue KCl 10 meq qd.Monitor labs monthly. [id number] CHRISSY CROCKETT MATIAS [address] [place] [address] rd SHOSHANA MARCH [address] 07/18/2024 10:58:50 07/22/2024 16:16:46 Impaired cognition 917801295 R41.89 Continue escitalopr am 10 mg qd and mirtazapin e 7.5 mg qdContinue supportive care, expect decline.HC P invokedMon itor mood and behaviors. Psych follows Cerebrovas cular accident 933356249 Z86.79 stableCont inue atorvastat in 80 mg qd and clopidogre l 75 mg qd.Continu e supportive care, remains total care/flynn .Monitor for change in neuro status. Essential hypertension 36778815 I10 stablecarv edilol 25 mg BID, amlodipine 10 mg qd, and losartan 100 mg qd.Monitor BP and labs. Hypothyroidism 00671488 E03.8 Continue levothyrox ine 88 mcg qd. Overactive urinary bladder 825702293 N32.81 incontinen tContinue Myrbetriq 50 mg qd and Estrace 2 gms -tapering to offMonitor urinary function. Type 2 monty betes mellitus 16668855 E11.9 unstable- high 200 -300will increase lantus to 50 unit in divided dose BIDcontinu e SSC with FS TIDmonitor for hypoglycem ia Hypokalemia 67350951 E87 .6 continue KCl 10 meq qd.Monitor labs monthly. Health Concerns Section Related Observation LastModified by Organization Detai ls LastModified Time None Recorded Concern Status LastModified by Organization Details LastModified Time None Recorded Advance Directives Directive Y: DNR/DNI Payers Encounter Date Sequence Insurance Name Policy Number Policy Rogers Covered Member ID Rogers Member ID Guarantor Name 10/30/2023 1 [place] [employer] Sona [place]una [id number] [place] 10/30/2023 2 [place] Sona Lariviere [id number] [place] 12/31/2023 1 [place] [employer] Sona A Lariviere [id number] Sona [place] 12/31/2023 2 [place] [id number] [place] 02/20/2024 1 [place] [employer] Sona A [place]iere [id number] Sona [place] 02/20/2024 2 [facility] Sona [place] [id number] Sona [place] 04/12/2024 1 [place] [employer] Sona A [place] [id number] Sona [place] 04/12/2024 2 [place] Sona [place] [id number] [place] 07/18/2024 1 [place]: [employer] Sona A [place]iere [id number] [place] 07/18/2024 2 [place] [place] [id number] Sona [place] Notes Date Note Type Note Provider Name and Address Organization Details Recorded Time 10/30/2023 text/html Ms. Magallanes is a 78 years old woman seen today for CREDIT RISK MODELER routine rounding visit. 08/15/23 re-admitted to after [...] diastolic CHF and hypothyroidism. CHRISSY CROCKETT [address], [address], [place], [address], [facility] [employer] [facility] 11/02/2023 14:10:35 12/31/2023 text/html Ms. Magallanes is a 78 years old woman seen today for CREDIT RISK MODELER routine rounding visit. Past medical history significant for dementia, hyperlipidemia, hypertension, CVA, type 2 diabetes mellitus on insulin, chronic systolic and diastolic CHF and hypothyroidism. She is stable with baseline dementia, dependant on staff to meet daily care needs, she is eating, drinking and eliminating without concerns, she has been getting OOB more and having meals in the common area. CHRISSY CROCKETT [address], [address], [place], [address], [employer] 12/31/2023 22:47:17 02/20/2024 text/html Thisn is an 78 y r old female [...] medications and care plan. CHRISSY CROCKETT [address], [address], [place], [address], [employer] 02/20/2024 14:23:12 04/12/2024 text/html This is an 78 yr old female LTC resident seen for routine rounding. She is at her baseline in [facility]. There are no nursing concerns. she is dependent on staff to meet healthcare needs. Past medical hx of dementia, hyperlipidemia, hypertension, CVA, type 2 diabetes mellitus on insulin, chronic systolic and diastolic CHF and hypothyroidism. CHRISSY CROCKETT [address], [address], [place], [address], [employer] 04/12/2024 13:44:49 07/18/2024 text/html This is an 79 yr old female LTC resident seen for routine rounding. She is at her baseline in [facility]. She is dependent on staff to meet healthcare needs she can be combative and disruptive with care at times, she refused to get OOB most days. There sre no changes in appetite and elimination, she is compliant with medication. CHRISSY CROCKETT [address], [address], [place], [address], [employer] 07/19/2024 07:45:45 OBGyn Episode No OBEpisode recorded.
--- OUTSIDE RECORDS SUMMARY | 2024-08-02 06:03 | XMS_ITS | Encounter Summary ---
Author Organization [facility], Address [address] [place] [address] Phone Care Team Providers Care Sustainable Landscape Architect Name Role Phone Gala Combs MD Primary Care Provider [phone] Reason for Visit * Reason Comments Med Refill Encounter Details Date Type Department Care Team (Late st Contact Info) Description 09/23/2019 Refill [facility] [address] [place] [address] Es Luz PA Social History [...] on filedocumented in this encounter Care Teams Sustainable Landscape Architect Relationship Specialty Start Date End Date Gala Combs MD [address], [place] PCP - General 02/23/19 documented as of this encounter
--- OUTSIDE RECORDS SUMMARY | 2024-08-02 06:03 | XMS_ITS | Encounter Summary ---
Author Organization [facility], Address [address] [place] [address] Phone Care Team Providers Care Dye And Chemical Coordinator Name Role Phone Gala Combs MD Primary Care Provider Reason for Visit * Reason Comments Med Refill Encounter Details Date Type Department Care Team (Late st Contact Info) Description 07/05/2019 Refill [facility] [address] [place] [phone] Es Luz PA Social History Tobacco Use [...] on filedocumented in this encounter Care Teams Dye And Chemical Coordinator Relationship Specialty Start Date End Date Gala Combs MD [address] [place], [place] PCP - General 02/23/19 documented as of this encounter
--- OUTSIDE RECORDS SUMMARY | 2024-08-02 06:03 | XMS_ITS | Encounter Summary ---
Author Organization [facility], Address [address] [place] [address] Phone Care Team Providers Care Gear Tooth Lapping Machine Operator Name Role Phone Gala Combs MD Primary Care Provider [phone] Reason for Visit * Reason Comments Med Refill Encounter Details Date Type Department Care Team (Late st Contact Info) Description 10/28/2019 Refill [facility] [address] [place] [address] Es Luz PA Social History [...] on filedocumented in this encounter Care Teams Gear Tooth Lapping Machine Operator Relationship Specialty Start Date End Date Gala Combs MD [address] [place], [place] PCP - General 02/23/19 documented as of this encounter
--- OUTSIDE RECORDS SUMMARY | 2024-08-02 06:03 | XMS_ITS | Clinical Summary ---
Author Organization [facility], Address [address] [place] [address] [place] [address] Phone Care Team Providers Care Social Media Analyst Name Role Phone Gala Combs MD Primary Care Provider [phone] Allergies No known active allergies Medications allopurinol [...] Type 2 diabetes mellitus without complication Immunizations Immunization Administration Dates Next Due Influenza TIV (IM) [...] Diabetes: Hemoglobin A1C 04/19/2019 01/18/2019 Influenza Vaccine (Season Ended) 2024 12/29/2018, 02/03/2016, 02/02/2016 Pneumococcal Vaccine: 50+ Years Completed 11/29/2015, 01/06/2012 Pneumococcal Vaccine: Peds ( 0 to 5 Years) and At-Risk Patients (6 to 49 Years) Discontinued 11/29/2015, 01/06/2012 Hepatitis B Vaccine Aged Out No longe r eligible based on patient's age to complete this topic Procedures Procedure Name Priority Date/Time Associated Diagnosis Comments HEMOGLOBIN A1C Routine 01/18/2019 2:42 PM EDT from Last 3 Months or Most Recently Relevant to Health Maintenance Results * (ABNORMAL) Hemoglobin A1c (01/18/2019 2:42 PM EDT) Hemoglobin A1C 8.6(H) (4-6) % [facility] Comment: HEMOGLOBIN A1C(%) ?? GLUCOSE CONTROL INDEX ?<6% ? EXCELLENT ?6-7% ?VERY GOOD ?7-8% ?GOOD ?8-10% ? FAIR ?>10% ?POOR Hemoglobin (Hb) A1c testing is performed by Piotr Marcela-quant immunoassay. Any cause of shortened erythrocyte survival will reduce exposure of erythrocytes to glucose with a consequent decrease in Hb A1c (%). Testing performed or reported by ~[facility], ~a Service of [facility], ~[address], [place] [address]~ 01/18/2019 2:42 PM EDT us Es [facility] BLOOD ORDERABLES Final Res ult [facility] from Last 3 Months or Most Recently Relevant to Health Maintenance Insurance Medicare [facility] Care Teams Social Media Analyst Relationship Specialty Start Date End Date Gala Combs MD [address] [place] [address] [facility] - General 02/23/19
--- OUTSIDE RECORDS SUMMARY | 2024-08-02 06:03 | XMS_ITS | Encounter Summary ---
Author Organization [facility], Address [address] [place] [address] Phone Care Team Providers Care Audograph Operator Name Role Phone Gala Combs MD Primary Care Provider [phone] Reason for Visit * Reason Comments Med Refill Encounter Details Date Type Department Care Team (Late st Contact Info) Description 09/10/2019 Refill [facility] [address] [place] [phone] Es Luz PA Social History Tobacco Use [...] on filedocumented in this encounter Care Teams Audograph Operator Relationship Specialty Start Date End Date Gala Combs MD [address] [place], [place] PCP - General 02/23/19 documented as of this encounter
[2024-08-02 06:18] LABS: Basophils Absolute Auto 0.1 X10*3/uL (0.0-0.2); Basophils Percent Auto 0.6 % (0-2); Eosinophils Absolute Auto 0.3 X10*3/uL (0.0-0.4); Eosinophils Percent Auto 3.4 % (0-4); Hematocrit 41.6 % (37.0-47.0); Hemoglobin 13.8 g/dl (12.0-16.0); Imm Gran Pct Auto 1.3 % (0.0-0.4); Lymphocytes Absolute Auto 2.2 X10*3/uL (1.2-4.9); Lymphocytes Percent Auto 28.5 % (20-40); Mean Corpuscular HGB Conc 33.2 g/dl (31.0-35.0); Mean Corpuscular Hemoglobin 29.3 pg (27.0-33.0); Mean Corpuscular Volume 88.3 fL (80.0-98.0); Mean Platelet Volume 8.4 fL (9.4-12.3); Monocytes Absolute Auto 0.5 X10*3/uL (0.1-1.2); Monocytes Percent Auto 6.1 % (2-11); Neutrophils Absolute Auto 4.7 x10*3/uL (2.0-8.3); Neutrophils Percent Auto 60.1 % (45-73); Platelet Count 264 X10*3/uL (160-400); Red Blood Count 4.71 X10*6/uL (4.20-5.50); Red Cell Distribution Width 13.9 % (11.0-16.0); White Blood Count 7.8 X10*3/uL (4.8-10.8)
[2024-08-02 06:49] LABS: Anion Gap 14 (12-20); Blood Urea Nitrogen 15 mg/dL (9-16); Calcium 9.3 mg/dL (8.4-10.2); Carbon Dioxide 23 mmol/L (22-29); Chloride 110 mmol/L (96-108); Cholesterol 187 mg/dL (<200); Estimated Glomerular Filt Rate > 60; Glucose Random 254 mg/dL (60-115); HDL Cholesterol 38 mg/dL (>40); LDL Cholesterol Calculated 120 mg/dL (<100); Potassium 3.5 mmol/L (3.3-5.1); Sodium 143 mmol/L (135-145); Triglycerides 149 mg/dL (<150); Uric Acid 4.2 mg/dL (2.4-5.7)
[2024-08-02 06:58] LABS: Free T4 (Free Thyroxine) 0.82 ng/dL (0.71-1.85); Thyroid Stimulating Hormone 2.03 uIU/mL (0.32-4.0)
== END 2024-08-02 05:48 | disposition home or self-care (01) ==
LOC: HO.MMNH3L 05:47
PROVIDERS: Visit Provider Student in an Organized Health Care Education/Training Program
DX: I69.391 Dysphagia following cerebral infarction (principal); E11.8 Type 2 diabetes mellitus with unspecified complications; I63.531 Cerebral infarction due to unspecified occlusion or stenosis of right posterior cerebral artery
CPT/HCPCS: 36415; 80048; 80061; 84439; 84443; 84550; 85025

== ENCOUNTER 2024-08-06 17:34 | Outpatient (REF) | payer MEDICARE, MEDICAID, SELFPAY ==
--- OUTSIDE RECORDS SUMMARY | 2024-08-06 17:37 | XMS_ITS | Data Portability ---
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 monitor Hyperlipidemia 19791135 E78.49 atorvastat in 80 mg dailywill monitor Hypothyroidism 50399527 E03.8 levothyrox ine 88 mcg dailywill monitor 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 mirtazapin e 7.5 mg at hsescitalo pram 5 mg dailywill monitor Overactive urinary bladder 707639908 N32.81 oxybutynin 5 mg bidwill monitor Type 2 monty betes mellitus 42703574 E11.9 glargine 21 Units daily at hs lispro per sliding scale will monitor [id number] DEBO GRIPPIN, [employer] [address] [address] 5 07/11/2021 09:07:17 07/18/2021 10:47:02 Cerebrovascular accident [id number] Z86.79 atorvastat in 80 mg daily clopidogre l 75 mg daily will monitorPT/ OT prnPMR prn Mixed anxi ety and depressive disorder 577160753 F41.8 mirtazapin e 7.5 mg at hsescitalo pram 5 mg dailywill monitor [id number] DEOB STACY NP [address] [address] 5 07/19/2021 09:03:31 07/24/2021 12:12:05 Cerebrovascular accident 308826948 Z86.79 atorvastat in 80 mg daily clopidogre l 75 mg daily will monitorPT/ OT prnPMR prn Cerebral meningioma 1891 21165 D32.0 f/u neurosurge ry prn Essential hypertension 42756251 I10 carvedilol 25 mg bidamlodip ine 10 mg dailylosar myers 100 mg dailykcl 10 meq dailywill monitor Gout 76717880 M10.09 allopurino l 100 mg dailywill monitor Hyperlipidemia 93909757 E78.49 atorvastat in 80 mg dailywill monitor Hypothyroidism 32521038 E03.8 levothyrox ine 88 mcg dailywill monitor Mixed anxi ety and depressive disorder 738101518 F41.8 mirtazapin e 7.5 mg at hsescitalo pram 5 mg dailywill monitor Overactive urinary bladder 770643866 N32.81 oxybutynin 5 mg bidwill monitor Type 2 monty betes mellitus 06127845 E11.9 glargine 21 Units daily at hs lispro per sliding scale will monitor [id number] Ashley Guan MD [address] [address] 5 08/30/2021 21:05:24 09/04/2021 13:31:57 Cerebral meningioma 480277252 D32.0 f/u neurosurge ry prn Cerebrovas cular accident 497686056 Z86.79 Continues at baseline.C ontinue ASA 81 mg qd, atorvastat in 80 mg qd and clopidogre l 75 mg qd.Continu e supportive care, continues to be total care/flynn .Monitor neuros Essential hypertension 24716364 I10 Continues to be in good control on carvedilol 25 mg BID, amlodipine 10 mg qd, and losartan 100 mg qd.Monitor BP and labs. Gout 88458878 M10.09 No current sxs.Contin ue allopurino l 100 mg qd.Monitor for flare. Hyperlipidemia 11062876 E78.49 Continue atorvastat in 80 mg qd.Monitor labs yearly. Hypothyroidism 43522214 E03.8 Continue levothyrox ine 88 mcg qd.Monitor TSH yearly, due in August. Mixed anxi ety and depressive disorder 267401690 F41.8 Continue mirtazapin e 7.5 mg qhs and escitalopr am 5 mg qd.Monitor mood.Psych consult prn. Overactive urinary bladder 434531377 N32.81 Continue oxybutynin 5 mg BIDMonitor urinary function. Type 2 monty betes mellitus 28072752 E11.9 HgA1C up to 8.6, and sugars almost all >200 Would rather have mild hyperglyce tanner, than hypoglycem ia, but now sugars are consistent ly too high. Will increase Lantus from 21 U qd to 25U and monitor and continue SSIMonitor accuchecks TID and HgA1C q 3 months. Hypokalemia 13975449 E87 .6 K+ continues in good range on KCl 20 meq qd.Monitor labs monthly. Delusional disorder 4850 0005 F22 Pleasantly delusional .Continue mirtazapin e 7.5 mg qhsPsych consult prn. [id number] DEBO STACY NP [address] [place] [address] 5 10/25/2021 11:09:18 10/30/2021 15:29:31 Cerebrovascular accident [id number] Z86.79 atorvastat in 80 mg daily clopidogre l 75 mg daily will monitorPT/ OT prn Cerebral meningioma 1891 14370 D32.0 f/u neurosurge ry prn Essential hypertension 07742401 I10 carvedilol 25 mg bidamlodip ine 10 mg dailylosar myers 100 mg dailykcl 10 meq dailylasix 20 mg dailywill monitor Gout 53220010 M10.09 allopurino l 100 mg dailywill monitor Hyperlipidemia 10705615 E78.49 atorvastat in 80 mg dailywill monitor Hypothyroidism 92974917 E03.8 levothyrox ine 88 mcg dailywill monitor Mixed anxi ety and depressive disorder 659466470 F41.8 mirtazapin e 7.5 mg at hsescitalo pram 5 mg dailywill monitor Overactive urinary bladder 579827238 N32.81 oxybutynin 5 mg bidwill monitor Type 2 motny betes mellitus 26498138 E11.9 glargine 15 Units daily at hs lispro per sliding scale will monitor [id number] MD SHARMAINE Vicente MATIAS [address] [place] [phone] 5 12/11/2021 09:07:16 12/13/2021 12:40:52 Cerebrovascular accident 423380866 Z86.79 atorvastat in 80 mg daily clopidogre l 75 mg daily will monitorPT/ OT prnPMR prn Essential hypertension 25910407 I10 amlodipine 10 mg dailycarve dilol 25 mg bidlosarta n 100 mg dailyfuros emide 20 mg dailywill monitor Gout 65137694 M10.09 allopurino l 100 mg dailywill monitor Mixed anxi ety and depressive disorder 796571031 F41.8 mirtazapin e 7.5 mg at hsescitalo pram 5 mg dailywill monitor Rheumatoid arthritis 698 88875 M06.4 meloxicam 15 mg qodwill monitor Type 2 monty betes mellitus 80249663 E11.9 glargine 25U daily at hs lispro per sliding scale will monitor Overactive urinary bladder 891521928 N32.81 oxybutynin 5 mg bidwill monitor Hypothyroidism 35139066 E03.8 levothyrox ine 88 mcg dailywill monitor [id number] DEBO STACY NP [address] [address] 5 02/01/2022 10:11:49 02/05/2022 15:30:32 Cerebrovascular accident 436564742 Z86.79 atorvastat in 80 mg daily clopidogre l 75 mg daily will monitorPT/ OT prn Cerebral meningioma 1891 60719 D32.0 f/u neurosurge ry prn Essential hypertension 83370724 I10 carvedilol 25 mg bidamlodip ine 10 mg dailylosar myers 100 mg dailykcl 10 meq dailylasix 20 mg dailywill monitor Gout 99817940 M10.09 allopurino l 100 mg dailywill monitor Hyperlipidemia 41484648 E78.49 atorvastat in 80 mg dailywill monitor Hypothyroidism 81599697 E03.8 levothyrox ine 88 mcg dailywill monitor Mixed anxi ety and depressive disorder 041260796 F41.8 mirtazapin e 7.5 mg at hsescitalo pram 5 mg dailywill monitor Overactive urinary bladder 379716616 N32.81 oxybutynin 5 mg bidwill monitor Type 2 monty betes mellitus 36620505 E11.9 glargine 15 Units daily at hs lispro per sliding scale will monitor [id number] MD SHARMAINE Vicente [address] [place] [address]512 5 03/29/2022 06:45:42 04/02/2022 15:52:47 Essential hypertension 30646211 I10 amlodipine 10 mg dailycarve dilol 25 mg bidlosarta n 100 mg dailyfuros emide 20 mg dailywill monitor Mixed anxi ety and depressive disorder 607283243 F41.8 mirtazapin e 7.5 mg at hsescitalo pram 5 mg dailywill monitor Overactive urinary bladder 560486992 N32.81 oxybutynin 5 mg bidwill monitor Rheumatoid arthritis 698 49166 M06.4 meloxicam 15 mg qodPMR prnAPAP 650 mg q6h prnwill monitor Type 2 monty betes mellitus 87913415 E11.9 insulin glargine 25U daily at hs lispro per sliding scale will monitor History of cerebrovascular accident 333849106 Z86.73 atorvastat in 80 mg daily clopidogre l 75 mg daily will monitorPT/ OT prnPMR prn Gout 42582970 M10.09 allopurino l 100 mg dailywill monitor Hypothyroidism 88607036 E03.8 levothyrox ine 88 mcg dailywill monitor [id number] JULISSA MAGAÑA MATIAS [address] [place] [phone] 5 04/18/2022 12:53:11 04/26/2022 14:36:27 SARS-CoV-2 686850429 U07.1 04/16 covid positive encourage po fluids consider ivf for anorexiaco nsider paxlovid and dexamethas one for symptomsmo nitor for any changes in mental or medical status send to ED for decompensa tion [id number] DEBO STACY NP [address] [address]744 5 04/19/2022 10:20:50 04/26/2022 15:14:17 SARS-CoV-2 958241789 U07.1 04/16 covid positive encourage po fluids consider ivf for anorexiaco nsider paxlovid and dexamethas one for symptomsmo nitor for any changes in mental or medical status send to ED for decompensa tion [id number] DEBO STACY NP [address] [address]783 5 04/24/2022 11:25:00 04/26/2022 15:56:37 SARS-CoV-2 809472926 U07.1 04/16 covid positive-a symptomati c, recovered by date encourage po fluids consider ivf for anorexiaco nsider paxlovid and dexamethas one for symptomsmo nitor for any changes in mental or medical status send to ED for decompensa tion [id number] DEBO STACY NP [address] [address]168 5 05/23/2022 12:31:45 05/28/2022 08:11:34 Essential hypertension 84188318 I10 amlodipine 10 mg dailycarve dilol 25 mg bidlosarta n 100 mg dailyfuros emide 20 mg dailywill monitor Mixed anxi ety and depressive disorder 133814199 F41.8 mirtazapin e 7.5 mg at hsescitalo pram 5 mg dailywill monitor Overactive urinary bladder 051748010 N32.81 oxybutynin 5 mg bidwill monitor Rheumatoid arthritis 698 95961 M06.4 meloxicam 15 mg qodPMR prnAPAP 650 mg q6h prnwill monitor Type 2 monty betes mellitus 23988201 E11.9 insulin glargine 25U daily at hs lispro per sliding scale will monitor History of cerebrovascular accident 151088836 Z86.73 atorvastat in 80 mg daily clopidogre l 75 mg daily will monitorPT/ OT prnPMR prn Gout 53892162 M10.09 allopurino l 100 mg dailywill monitor Hypothyroidism 11659815 E03.8 levothyrox ine 88 mcg dailywill monitor [id number] Maryellen Muñoz MD [address] [address] 5 07/31/2022 06:55:12 08/06/2022 12:13:09 Impaired cognition 225166395 R41.89 will monitor and support as needed Essential hypertension 74218840 I10 amlodipine 10 mg dailycarve dilol 25 mg bidlosarta n 100 mg dailyfuros emide 20 mg dailywill monitor Hyperlipidemia 13074336 E78.49 atorvastat in 80 mg dailywill monitor History of cerebrovascular accident 558138240 Z86.73 atorvastat in 80 mg daily clopidogre l 75 mg daily will monitorPT/ OT prnPMR prn Hypothyroidism 59543741 E03.8 levothyrox ine 88 mcg dailywill monitor Mixed anxi ety and depressive disorder 337427062 F41.8 mirtazapin e 7.5 mg at hsescitalo pram 5 mg dailywill monitor Gout 71085847 M10.09 allopurino l 100 mg dailywill monitor Overactive urinary bladder 782161585 N32.81 oxybutynin 5 mg bidwill monitor Type 2 monty betes mellitus 86037229 E11.9 insulin glargine 25U daily at hs lispro per sliding scale will monitor [id number] JULISSA MAGAÑA MATIAS [address] [place] [phone] 5 08/07/2022 13:54:18 08/09/2022 15:59:16 Essential hypertension 03584436 I10 amlodipine 10 mg dailycarve dilol 25 mg bidlosarta n 100 mg dailyfuros emide 20 mg dailywill monitor Mixed anxi ety and depressive disorder 103692823 F41.8 mirtazapin e 7.5 mg at hsescitalo pram 5 mg dailywill monitor Overactive urinary bladder 441880664 N32.81 oxybutynin 5 mg bidwill monitor Rheumatoid arthritis 698 17211 M06.4 meloxicam 15 mg qodPMR prnAPAP 650 mg q6h prnwill monitor Type 2 monty betes mellitus 76524011 E11.9 insulin glargine 25 Units daily at hs lispro per sliding scale will monitor History of cerebrovascular accident 386015706 Z86.73 atorvastat in 80 mg daily clopidogre l 75 mg daily will monitorPT/ OT prnPMR prn Gout 76331627 M10.09 allopurino l 100 mg dailywill monitor Hypothyroidism 10367690 E03.8 levothyrox ine 88 mcg dailywill monitor Hyperlipidemia 75674444 E78.49 atorvastat in 80 mg dailywill monitor [id number] DEBO STACY NP [address] [address]866 5 09/18/2022 11:32:26 09/26/2022 11:00:23 Essential hypertension 32307910 I10 amlodipine 10 mg dailycarve dilol 25 mg bidlosarta n 100 mg dailyfuros emide 20 mg dailywill monitor Mixed anxi ety and depressive disorder 440936381 F41.8 mirtazapin e 7.5 mg at hsescitalo pram 10 mg dailywill monitor Overactive urinary bladder 899809875 N32.81 oxybutynin 5 mg bidwill monitor Rheumatoid arthritis 698 68521 M06.4 meloxicam 15 mg qodPMR prnAPAP 650 mg q6h prnwill monitor Type 2 monty betes mellitus 61818178 E11.9 insulin glargine 30 Units daily at hs lispro per sliding scale will monitor History of cerebrovascular accident 616024009 Z86.73 atorvastat in 80 mg daily clopidogre l 75 mg daily will monitorPT/ OT prnPMR prn Gout 99758378 M10.09 allopurino l 100 mg dailywill monitor Hypothyroidism 65029920 E03.8 levothyrox ine 88 mcg dailywill monitor Hyperlipidemia 20430238 E78.49 atorvastat in 80 mg dailywill monitor [id number] DEBO STACY NP [address] [address] 5 09/20/2022 10:27:37 09/26/2022 14:20:03 Epidermal burn of skin 562262441 T14.8XXA keflex 500 mg bid for 5 daysbacitr acin with dsd qshiftwoun d consult [id number] DEBO STACY NP [address] [address] 5 09/23/2022 14:55:08 09/26/2022 15:18:55 Epidermal burn of skin 998274389 T14.8XXA keflex 500 mg bid for 5 days acitra patty with dsd qshiftwoun d consult [id number] DEBO STACY NP [address] [address] 5 10/14/2022 12:39:30 10/17/2022 14:25:15 Cerebrovascular accident 914771863 Z86.79 atorvastat in 80 mg daily clopidogre l 75 mg daily will monitorPT/ OT prn Mixed anxi ety and depressive disorder 569157917 F41.8 [facility] mg dailywill monitorpsy ch prn Rheumatoid arthritis 698 23703 M06.4 meloxicam 15 mg qodPMR prnAPAP 650 mg q6h prnwill monitor Epidermal burn of skin 503864560 T14.8XXA healedkefl ex 500 mg bid for 5 days acitra patty with dsd qshiftwoun d consult Pneumonia 778404584 J18. 9 azithromyc in 500mg x1 then 250 mg x4 days [id number] Ashley Guan MD [address] [address] 5 12/17/2022 19:39:05 01/06/2023 12:24:08 Cerebrovascular accident 530223079 Z86.79 Hx of.Continu e atorvastat in 80 mg qd and clopidogre l 75 mg qd.Continu e supportive care, continues to be total care/flynn .Monitor for change in neuro status. Cerebral meningioma 1891 08558 D32.0 No tx recommende d currently. F/U with neurosurge ry prn Delusional disorder 4850 0005 F22 As above. Essential hypertension 11465022 I10 Continues to be in good control on carvedilol 25 mg BID, amlodipine 10 mg qd, and losartan 100 mg qd.Monitor BP and labs. Hypothyroidism 59869839 E03.8 Last TSH WNL in 01/2022.Co ntinue levothyrox ine 88 mcg qd.Monitor TSH yearly, due in Jan. Overactive urinary bladder 821861750 N32.81 Continue oxybutynin 5 mg BIDMonitor urinary function. Type 2 monty betes mellitus 40815000 E11.9 HgA1C was 8.6 in 08/2021, not rechecked since then, sugars >200 about 1/3 of the time. Would rather have mild hyperglyce tanner, than hypoglycem ia. Lantus was increased to 36U in 09/2022, will continue this and continue SSIMonitor accuchecks TID and recheck HgA1C with next labs. Hypokalemia 74961228 E87 .6 K+ continues in good range on KCl 10 meq qd.Monitor labs monthly. Impaired cognition 86008 6002 R41.89 Continues at baselineCo ntinue escitalopr am 10 mg qd and mirtazapin e 7.5 mg qdContinue supportive care, expect decline.HC P invokedMon itor mood and behaviors. Psych consult prn. [id number] JULISSA MAGAÑA [address] [place] [phone] 5 02/07/2023 14:18:45 02/11/2023 15:36:44 Impaired cognition 801982144 R41.89 Continues at baselinees citalopram 10 mg qdmirtazap ine 7.5 mg qdContinue supportive care, expect decline.HC P invokedMon itor mood and behaviors. Psych consult prn. Delusional disorder 0 4 F22 As above. Cerebrovas cular accident 455068921 Z86.79 Hx of--at baselineat orvastatin 80 mg qdclopidog rel 75 mg qd.Continu e supportive care, continues to be total care/flynn .Monitor for change in neuro status. Cerebral meningioma 1891 68612 D32.0 No tx recommende d currently. F/U with neurosurge ry prn Essential hypertension 28585057 I10 Continues to be in good control on carvedilol 25 mg BID,amlodi pine 10 mg qd,losarta n 100 mg qd.Monitor BP and labs. Hypothyroidism 64423262 E03.8 Last TSH WNL in 01/2022.le vothyroxin e 88 mcg qd.Monitor TSH yearly, due in Jan. Overactive urinary bladder 629396651 N32.81 oxybutynin 5 mg BIDMonitor urinary function. Type 2 monty betes mellitus 51236935 E11.9 HgA1C was 8.6 in 08/2021, not rechecked since then, sugars >200 about 1/3 of the time. Would rather have mild hyperglyce tanner, than hypoglycem ia. Lantus was increased to 36U in 09/2022, will continue this and continue SSIMonitor accuchecks TID and recheck HgA1C with next labs. Hypokalemia 47522860 E87 .6 K+ continues in good range on KCl 10 meq qd.Monitor labs monthly. [id number] Ashley Guan MD [address] [place] [address] 04/11/2023 14:34:53 04/28/2023 16:03:28 Cough 00665930 R05.8 Appears acutely ill, with junky cough.So far is covid neg.Will check for RSV and influenza, and check labs on 04/15-CBC and CMP.Start Mucinex 600 mg q 6 hrs x 1 wk. and continue duonebs q 6 hrs prn. Impaired cognition 31776 6002 R41.89 Continues at baseline with delusions as usual.Cont inue escitalopr am 10 mg qd and mirtazapin e 7.5 mg qdContinue supportive care, expect decline.HC P invokedMon itor mood and behaviors. Psych follows Delusional disorder 4850 0005 F22 As above. Cerebrovas cular accident 431471166 Z86.79 In hx.No new sxsContinu e atorvastat in 80 mg qd and clopidogre l 75 mg qd.Continu e supportive care, remains total care/flynn .Monitor for change in neuro status. Cerebral meningioma 1891 11118 D32.0 No tx recommende d currently. F/U with neurosurge ry prn Essential hypertension 18701832 I10 With occ. borderline SBP, but generally in good control on carvedilol 25 mg BID, amlodipine 10 mg qd, and losartan 100 mg qd.Monitor BP and labs. Hypothyroidism 83849909 E03.8 Last TSH WNL in 01/2022.Co ntinue levothyrox ine 88 mcg qd.Monitor TSH yearly, was due in Jan., not done, will order with next labs due in 06/2023. Overactive urinary bladder 729342106 N32.81 Changed to Myrbetriq 50 mg qd on 03/25/23, from oxybutynin 5 mg BIDStarted on Estrace 2 gms M/W/F in 01/2023.Mo nitor urinary function. Type 2 monty betes mellitus 23799499 E11.9 Sugars are >200 about 1/2 of the time. Would rather have mild hyperglyce tanner, than hypoglycem ia, but overall too high.Will increase Lantus from 36U to 40U and continue SSIMonitor accuchecks TID and recheck HgA1C with next labs. Hypokalemia 83321351 E87 .6 K+ continues in good range on KCl 10 meq qd.Monitor labs monthly. [id number] CHRISSY CROCKETT [address] [place] [address]263 5 05/20/2023 08:38:41 05/28/2023 08:36:29 Dyspnea 398189305 R06.00 chest xray suggestive of pneumoniap reviously started on augmentinh ydration encourages continue oxygen titrate to keep sat greater than 90%will send swab for covid, flu and rsv as well. fall W19.XXXA 05/18/23:se e hpiunwitne ssed with no apparent injuries.+ ROM to all [facility] checks per facility protocol. [id number] CHRISSY CROCKETT [address] [address] 5 06/17/2023 11:19:07 06/19/2023 12:27:49 Impaired cognition 959159205 R41.89 Continues at baseline with delusions as usual.Cont inue escitalopr am 10 mg qd and mirtazapin e 7.5 mg qdContinue supportive care, expect decline.HC P invokedMon itor mood and behaviors. Psych follows Delusional disorder 4850 0005 F22 As above. Cerebrovas cular accident 027279301 Z86.79 In hx.No new sxsContinu e atorvastat in 80 mg qd and clopidogre l 75 mg qd.Continu e supportive care, remains total care/flynn .Monitor for change in neuro status. Cerebral meningioma 1891 21794 D32.0 No tx recommende d currently. F/U with neurosurge ry prn Essential hypertension 97092832 I10 continue:c arvedilol 25 mg BID,amlodi pine 10 mg qdand losartan 100 mg qd.Monitor BP and labs. Hypothyroidism 72792358 E03.8 Last TSH WNL in 01/2022.Co ntinue levothyrox ine 88 mcg qd.Monitor TSH yearly, was due in Jan., not done, will order with next labs due in 06/2023. Overactive urinary bladder 346361888 N32.81 Myrbetriq 50 mg qdEstrace 2 gms M/W/F in 01/2023.Mo nitor urinary function.i ncontinent - nursing reports heavy wetter. Type 2 monty betes mellitus 50455008 E11.9 as high as 300 Will increase Lantus from 36U to 40U and continue SSIMonitor accuchecks TID and recheck HgA1C with next labs. [id number] CHRISSY CROCKETT [address] [address] 5 08/11/2023 10:05:01 08/15/2023 15:28:26 Diarrhea and vomiting, symptom 918658345 R19.7 Concerned for Cdiff, nursing reports foul smelling, slimy mucous like stool.stoo l sample sent to labCBC with diff, and CMP orderedinc reased oral hydrationa waiting results to treat. [id number] CHRISSY CROCKETT [address] [address] 5 08/15/2023 16:10:25 08/19/2023 15:16:25 Urinary tract infectious disease 55069927 N39.0 see hpistarted on cefuroxime 250 mg BIDadd probiotic 1 tab BID for 10 dayincreas e oral hydration. Type 2 monty betes mellitus 38785982 E11.9 continue lantus 40 unit continue Insulin SSCmonitor FS TID Essential hypertension 20407555 I10 continue:c arvedilol 25 mg BID,amlodi pine 10 mg qdand losartan 100 mg qd.Monitor BP and labs. Hypothyroidism 42521324 E03.8 Continue levothyrox ine 88 mcg qd.check TSH at next rounding visit Heart failure 10695355 I 50.9 continued on carvedilol 25 mg and Lasix 20 mg dailymonit or weight, sob, edemamonit or VS and labs. [id number] CHRISSY CROCKETT [address] [address] 5 08/21/2023 10:04:33 08/26/2023 10:06:00 Urinary tract infectious disease 06890621 N39.0 see hpistarted on cefuroxime 250 mg BID-comple carmelo.add probiotic 1 tab BID for 10 dayincreas e oral hydration. Type 2 monty betes mellitus 25319689 E11.9 BGL mainly under 200continu e lantus 40 unit continue Insulin SSCmonitor FS TID Essential hypertension 17658939 I10 continue:c arvedilol 25 mg BID,amlodi pine 10 mg qdand losartan 100 mg qd.Monitor BP and labs. Heart failure 18987352 I 50.9 appears to be stable.con tinued on carvedilol 25 mg and Lasix 20 mg dailymonit or weight, sob, edemamonit or VS and labs. [id number] CHRISSY CROCKETT [address] [address] 5 09/01/2023 13:25:32 09/03/2023 10:00:39 Type 2 diabetes mellitus 27332887 E11.9 BGL mainly under 200continu e lantus 40 unit continue Insulin SSCmonitor FS TID Essential hypertension 51688012 I10 continue:c arvedilol 25 mg BID,amlodi pine 10 mg qdand losartan 100 mg qd.Monitor BP and labs. Heart failure 20833195 I 50.9 appears to be stable.con tinued on carvedilol 25 mg and Lasix 20 mg dailymonit or weight, sob, edemamonit or VS and labs. [id number] CHRISSY CROCKETT [address] [place] [address] 5 09/08/2023 13:58:44 09/11/2023 13:24:52 Urinary tract infectious disease 34794451 N39.0 resolved Type 2 monty betes mellitus 79606058 E11.9 BGL mainly under 200continu e lantus 40 unit continue Insulin SSCmonitor FS TID Essential hypertension 62237070 I10 continue:c arvedilol 25 mg BID,amlodi pine 10 mg qdand losartan 100 mg qd.Monitor BP and labs. Heart failure 67089528 I 50.9 appears to be stable.con tinued on carvedilol 25 mg and Lasix 20 mg dailymonit or weight, sob, edemamonit or VS and labs. [id number] Ashley Guan MD [address] [place] [address] 5 09/09/2023 21:18:06 10/15/2023 09:01:55 Impaired cognition 679347195 R41.89 Continues at baseline.C ontinue escitalopr am 10 mg qd and mirtazapin e 7.5 mg qdContinue supportive care, expect decline.HC P invokedMon itor mood and behaviors. Psych follows Delusional disorder 4850 0005 F22 As above. Cerebrovas cular accident 269789871 Z86.79 In hx.No new sxsContinu e atorvastat in 80 mg qd and clopidogre l 75 mg qd.Continu e supportive care, remains total care/flynn .Monitor for change in neuro status. Cerebral meningioma 1891 64175 D32.0 No tx recommende d currently. F/U with neurosurge ry prn Essential hypertension 56260359 I10 With occ. borderline SBP, but generally in good control on carvedilol 25 mg BID, amlodipine 10 mg qd, and losartan 100 mg qd.Monitor BP and labs. Hypothyroidism 10702545 E03.8 Last TSH WNL in 01/2022.Co ntinue levothyrox ine 88 mcg qd.Monitor TSH yearly, was supposed to be done in 06/2023, but not done.Reord ered in 07/2023, still not done. Overactive urinary bladder 165336440 N32.81 Continue Myrbetriq 50 mg qd and Estrace 2 gms M/W/F in 01/2023.Mo nitor urinary function. Type 2 monty betes mellitus 68131596 E11.9 Sugars in better control since increased lantus. Continue Lantus 40U qd and continue SSIMonitor accuchecks TID and recheck HgA1C with next labs. Hypokalemia 42747116 E87 .6 K+ continues in good range on KCl 10 meq qd.Monitor labs monthly. [id number] CHRISSY CROCKETT [address] [address] 09/11/2023 10:09:18 09/23/2023 10:38:22 Urinary tract infectious disease 28252458 N39.0 resolved Type 2 monty betes mellitus 27812458 E11.9 BGL mainly under 200continu e lantus 40 unit continue Insulin SSCmonitor FS TID Essential hypertension 43052397 I10 continue:c arvedilol 25 mg BID,amlodi pine 10 mg qdand losartan 100 mg qd.Monitor BP and labs. Heart failure 19563645 I 50.9 appears to be stable.con tinued on carvedilol 25 mg and Lasix 20 mg dailymonit or weight, sob, edemamonit or VS and labs. [id number] CHRISSY CROCKETT [address] [address] 10/30/2023 09:01:33 11/11/2023 08:30:21 Impaired cognition 845172013 R41.89 Continue escitalopr am 10 mg qd and mirtazapin e 7.5 mg qdContinue supportive care, expect decline.HC P invokedMon itor mood and behaviors. Psych follows Cerebrovas cular accident 838414055 Z86.79 In hxContinue atorvastat in 80 mg qd and clopidogre l 75 mg qd.Continu e supportive care, remains total care/flynn .Monitor for change in neuro status. Cerebral meningioma 1891 20236 D32.0 No tx recommende d currently. F/U with neurosurge ry prn Essential hypertension 96624339 I10 continueca rvedilol 25 mg BID, amlodipine 10 mg qd, and losartan 100 mg qd.Monitor BP and labs. Hypothyroidism 93515011 E03.8 Last TSH WNL in 01/2022.Co ntinue levothyrox ine 88 mcg qd.Monitor TSH yearly, was supposed to be done in 06/2023, but not done.Reord ered in 07/2023, still not done. Overactive urinary bladder 829890954 N32.81 Continue Myrbetriq 50 mg qd and Estrace 2 gms M/W/F in 01/2023.Mo nitor urinary function. Type 2 monty betes mellitus 21027018 E11.9 Continue Lantus 40U qd and continue SSIMonitor accuchecks TID and recheck HgA1C with next labs. Hypokalemia 02728968 E87 .6 continue KCl 10 meq qd.Monitor labs monthly. [id number] CHRISSY CROCKETT [address] [address] 12/31/2023 08:34:10 01/01/2024 12:01:23 Impaired cognition 256553267 R41.89 Continue escitalopr am 10 mg qd and mirtazapin e 7.5 mg qdContinue supportive care, expect decline.HC P invokedMon itor mood and behaviors. Psych follows Cerebrovas cular accident 274999308 Z86.79 Continue atorvastat in 80 mg qd and clopidogre l 75 mg qd.Continu e supportive care, remains total care/flynn .Monitor for change in neuro status. Essential hypertension 56166021 I10 continueca rvedilol 25 mg BID, amlodipine 10 mg qd, and losartan 100 mg qd.Monitor BP and labs. Hypothyroidism 68369131 E03.8 CBC, BMP, TSH, Free T4 on 01/05/24Con tinue levothyrox ine 88 mcg qd. Overactive urinary bladder 204975809 N32.81 Continue Myrbetriq 50 mg qd and Estrace 2 gmsMonitor urinary function. Type 2 monty betes mellitus 50696038 E11.9 lantus increase to 45 unit qd for bgl 250-300sco ntinue SSC with FS TIDmonitor for hypoglycem ia Hypokalemia 12320562 E87 .6 continue KCl 10 meq qd.Monitor labs monthly.neisha sanders on 01/04 [id number] CHRISSY CROCKETT [address] [address] 02/20/2024 14:14:26 02/23/2024 13:38:42 Impaired cognition 951326665 R41.89 Continue escitalopr am 10 mg qd and mirtazapin e 7.5 mg qdContinue supportive care, expect decline.HC P invokedMon itor mood and behaviors. Psych follows Cerebrovas cular accident 152434730 Z86.79 Continue atorvastat in 80 mg qd and clopidogre l 75 mg qd.Continu e supportive care, remains total care/flynn .Monitor for change in neuro status. Essential hypertension 53127900 I10 continueca rvedilol 25 mg BID, amlodipine 10 mg qd, and losartan 100 mg qd.Monitor BP and labs. Hypothyroidism 36948406 E03.8 CBC, BMP, TSH, Free T4 on 01/05/24Con tinue levothyrox ine 88 mcg qd. Overactive urinary bladder 952679341 N32.81 Continue Myrbetriq 50 mg qd and Estrace 2 gmsMonitor urinary function. Type 2 monty betes mellitus 86177012 E11.9 lantus increase to 45 unit qd for bgl 250-300sco ntinue SSC with FS TIDmonitor for hypoglycem ia Hypokalemia 97040294 E87 .6 continue KCl 10 meq qd.Monitor labs monthly. [id number] CHRISSY CROCKETT [address] [place] [address] SHOSHANA MARCH [address] 04/12/2024 10:23:08 04/13/2024 09:57:49 Impaired cognition 567821615 R41.89 Continue escitalopr am 10 mg qd and mirtazapin e 7.5 mg qdContinue supportive care, expect decline.HC P invokedMon itor mood and behaviors. Psych follows Cerebrovas cular accident 318253655 Z86.79 Continue atorvastat in 80 mg qd and clopidogre l 75 mg qd.Continu e supportive care, remains total care/flynn .Monitor for change in neuro status. Essential hypertension 24408073 I10 continueca rvedilol 25 mg BID, amlodipine 10 mg qd, and losartan 100 mg qd.Monitor BP and labs. Hypothyroidism 17913426 E03.8 Continue levothyrox ine 88 mcg qd. Overactive urinary bladder 861474454 N32.81 oncontinen tContinue Myrbetriq 50 mg qd and Estrace 2 gms -tapering to offMonitor urinary function. Type 2 monty betes mellitus 68789054 E11.9 04/12; lantus increase to 48 unit qd for bgl 250-300sco ntinue SSC with FS TIDmonitor for hypoglycem ia Hypokalemia 99485755 E87 .6 continue KCl 10 meq qd.Monitor labs monthly. [id number] CHRISSY CROCKETT MATIAS [address] [place] [address] rd SHOSHANA MARCH [address] 07/18/2024 10:58:50 07/22/2024 16:16:46 Impaired cognition 324917427 R41.89 Continue escitalopr am 10 mg qd and mirtazapin e 7.5 mg qdContinue supportive care, expect decline.HC P invokedMon itor mood and behaviors. Psych follows Cerebrovas cular accident 333199324 Z86.79 stableCont inue atorvastat in 80 mg qd and clopidogre l 75 mg qd.Continu e supportive care, remains total care/flynn .Monitor for change in neuro status. Essential hypertension 21103691 I10 stablecarv edilol 25 mg BID, amlodipine 10 mg qd, and losartan 100 mg qd.Monitor BP and labs. Hypothyroidism 14382900 E03.8 Continue levothyrox ine 88 mcg qd. Overactive urinary bladder 389316024 N32.81 incontinen tContinue Myrbetriq 50 mg qd and Estrace 2 gms -tapering to offMonitor urinary function. Type 2 monty betes mellitus 66179377 E11.9 unstable- high 200 -300will increase lantus to 50 unit in divided dose BIDcontinu e SSC with FS TIDmonitor for hypoglycem ia Hypokalemia 52778020 E87 .6 continue KCl 10 meq qd.Monitor labs monthly. Health Concerns Section Related Observation LastModified by Organization Detai ls LastModified Time None Recorded Concern Status LastModified by Organization Details LastModified Time None Recorded Advance Directives Directive Y: DNR/DNI Payers Encounter Date Sequence Insurance Name Policy Number Policy Rogers Covered Member ID Rogers Member ID Guarantor Name 10/30/2023 2 [place] Sona Laguna [id number] Blum Lariviere 10/30/2023 1 [place] [employer] Blum A Lariviere [id number] Blum Lariviere 12/31/2023 2 [place] Blum Lariviere [id number] Blum Lariviere 12/31/2023 1 [place] [employer] Sona A Lariviere [id number] Blum Lariviere 02/20/2024 2 [place] Sona Lariviere [id number] Blum Lariviere 02/20/2024 1 [place] [employer] Sona A Lariviere [id number] Sona Lariviere 04/12/2024 2 [place] [facility]um [place] [id number] Sona Lariviere 04/12/2024 1 [place] [employer] Sona A Lariviere [id number] Blum Lariviere 07/18/2024 2 [place] Blum Lariviere [id number] Sona Lariviere 07/18/2024 1 [place] [employer] Sona A Lariviere [id number] Sona Lariviere Notes Date Note Type Note Provider Name and Address Organization Details Recorded Time 10/30/2023 text/html Ms. Magallanes is a 78 years old woman seen today for HEEL SPRAYER FIRST routine rounding visit. 08/15/23 re-admitted to after [...] CROCKETT [address] [facility], [address], [place], [address], [facility] [employer] [facility] 11/02/2023 14:10:35 12/31/2023 text/html Ms. Magallanes is a 78 years old woman seen today for HEEL SPRAYER FIRST routine rounding visit. Past medical history significant [...] CROCKETT [address], [address], [place], [address], [facility] 12/31/2023 22:47:17 02/20/2024 text/html Thisn is an [...] CROCKETT [address] [facility], [address], [place], [address], [facility] 02/20/2024 14:23:12 04/12/2024 text/html This is an [...] CROCKETT [address], [address], [place], [address], [facility] 04/12/2024 13:44:49 07/18/2024 text/html This is an 79 yr old female LTC resident seen for routine rounding. She is at her baseline in [facility]. She is dependent on staff to meet healthcare needs she can be combative and disruptive with care at times, she refused to get OOB most days. There sre no changes in appetite and elimination, she is compliant with medication. CHRISSY CROCKETT [address], [address], [place], [address], [facility] 07/19/2024 07:45:45 OBGyn Episode No OBEpisode recorded.
--- OUTSIDE RECORDS SUMMARY | 2024-08-06 17:37 | XMS_ITS | Encounter Summary ---
Author Organization [facility], Address [address] [place] [address] Phone Care Team Providers Care Lead Mechanical Engineer Name Role Phone Gala Combs MD Primary Care Provider [phone] Reason for Visit * Reason Comments Med Refill Encounter Details Date Type Department Care Team (Late st Contact Info) Description 07/05/2019 Refill [facility] [address] [place] [address] Es Luz PA Social History Tobacco Use [...] on filedocumented in this encounter Care Teams Lead Mechanical Engineer Relationship Specialty Start Date End Date Gala Combs MD [address] [place], [place] PCP - General 02/23/19 documented as of this encounter
--- OUTSIDE RECORDS SUMMARY | 2024-08-06 17:37 | XMS_ITS | Encounter Summary ---
Author Organization [facility], Address [address] [place] [address] Phone Care Team Providers Care Regrind Mill Operator Name Role Phone Gala Combs MD Primary Care Provider [phone] Reason for Visit * Reason Comments Med Refill Encounter Details Date Type Department Care Team (Late st Contact Info) Description 09/23/2019 Refill [facility] [address] [place] [address] Es Luz PA Social History [...] on filedocumented in this encounter Care Teams Regrind Mill Operator Relationship Specialty Start Date End Date Gala Combs MD [address] [place], [place] PCP - General 02/23/19 documented as of this encounter
--- OUTSIDE RECORDS SUMMARY | 2024-08-06 17:37 | XMS_ITS | Encounter Summary ---
Author Organization [facility], Address [address] [place] [address] Phone Care Team Providers Care Computer System Technician Name Role Phone Gala Combs MD Primary Care Provider [phone] Reason for Visit * Reason Comments Med Refill Encounter Details Date Type Department Care Team (Late st Contact Info) Description 09/10/2019 Refill [facility] [address] [place] [address] Es Luz PA Social History Tobacco Use [...] on filedocumented in this encounter Care Teams Computer System Technician Relationship Specialty Start Date End Date Gala Combs MD [address] [place], [place] PCP - General 02/23/19 documented as of this encounter
--- OUTSIDE RECORDS SUMMARY | 2024-08-06 17:37 | XMS_ITS | Encounter Summary ---
Author Organization [facility], Address [address] [place] [address] Phone Care Team Providers Care Bull Riveter Name Role Phone Gala Combs MD Primary Care Provider [phone] Reason for Visit * Reason Comments Med Refill Encounter Details Date Type Department Care Team (Late st Contact Info) Description 10/28/2019 [facility] [address] [place] [address] Es Luz PA Social History [...] on filedocumented in this encounter Care Teams Bull Riveter Relationship Specialty Start Date End Date Gala Combs MD [address] [place], [place] PCP - General 02/23/19 documented as of this encounter
--- OUTSIDE RECORDS SUMMARY | 2024-08-06 17:37 | XMS_ITS | Clinical Summary ---
Author Organization [facility], Address [address] [place] [address] [place] [address] Phone Care Team Providers Care Merchandising Director Name Role Phone Gala Combs MD Primary Care Provider [phone] Allergies No known active allergies Medications allopurinol [...] PM EDT) Hemoglobin A1C 8.6(H) (4-6) % [facility] Comment: HEMOGLOBIN A1C(%) ?? GLUCOSE CONTROL INDEX ?<6% ? EXCELLENT ?6-7% ?VERY GOOD ?7-8% ?GOOD ?8-10% ? FAIR ?>10% ?POOR Hemoglobin (Hb) A1c testing is performed by Piotr Marcela-quant immunoassay. Any cause of shortened erythrocyte survival will reduce exposure of erythrocytes to glucose with a consequent decrease in Hb A1c (%). Testing performed or reported by ~[facility], ~a Service of [facility], ~[address], [place] [address]~ 01/18/2019 2:42 PM EDT us Es [facility] BLOOD ORDERABLES Final Res ult [facility] from Last 3 Months or Most Recently Relevant to Health Maintenance Insurance Medicare [facility] Care Teams Merchandising Director Relationship Specialty Start Date End Date Gala Combs MD [address] [place] [address] [facility] - General 02/23/19
[2024-08-06 18:32] LABS: Influenza A PCR NEGATIVE (Negative); Influenza B PCR NEGATIVE (Negative); Resp Syncy Virus RNA Qual PCR NEGATIVE (Negative); SARS COV2 PCR INHOUSE NEGATIVE (Negative)
[2024-08-07 09:21] LABS: Adenovirus PCR Not Detected (Not Detect.); Bordetella parapertussis PCR Not Detected (Not Detect.); Bordetella pertussis PCR Not Detected (Not Detect.); Chlamydia pneumoniae PCR Not Detected (Not Detect.); Coronavirus 229E PCR Not Detected (Not Detect.); Coronavirus HKU1 PCR Not Detected (Not Detect.); Coronavirus NL63 PCR Not Detected (Not Detect.); Coronavirus OC43 PCR Not Detected (Not Detect.); Human metapneumovirus PCR Not Detected (Not Detect.); Influenza A PCR Not Detected (Not Detect.); Influenza B PCR Not Detected (Not Detect.); Mycoplasma pneumoniae PCR Not Detected (Not Detect.); Parainfluenza 1 PCR Not Detected (Not Detect.); Parainfluenza 2 PCR Not Detected (Not Detect.); Parainfluenza 3 PCR Not Detected (Not Detect.); Parainfluenza 4 PCR Not Detected (Not Detect.); RSV PCR Not Detected (Not Detect.); Rhino/Enterovirus PCR Not Detected (Not Detect.)
[2024-08-07 09:36] LABS: SARS-CoV-2 PCR Not Detected (Not Detect.)
[2024-08-07 09:37] LABS: Influenza A H1 PCR Not Detected (Not Detect.); Influenza A H1-2009 PCR Not Detected (Not Detect.); Influenza A H3 PCR Not Detected (Not Detect.)
== END 2024-08-06 17:35 | disposition home or self-care (01) ==
LOC: HO.MMNH3L 17:34
PROVIDERS: Visit Provider Family Medicine
DX: I63.531 Cerebral infarction due to unspecified occlusion or stenosis of right posterior cerebral artery (principal); I69.391 Dysphagia following cerebral infarction
CPT/HCPCS: 0241U; 87633

== ENCOUNTER 2024-11-19 06:45 | Outpatient (REF) | payer MEDICARE, MEDICAID, SELFPAY ==
[2024-11-19 06:49] LABS: MANUAL DIFF FLAG NO
[2024-11-19 07:49] LABS: Hematocrit 37.7 % (37.0-47.0); Hemoglobin 12.7 g/dl (12.0-16.0); Imm Gran Abs Auto 0.08 X10*3/uL (0.00-0.03); Imm Gran Pct Auto 1.0 % (0.0-0.4); Lymphocytes Absolute Auto 2.1 X10*3/uL (1.2-4.9); Mean Corpuscular HGB Conc 33.7 g/dl (31.0-35.0); Mean Corpuscular Hemoglobin 28.9 pg (27.0-33.0); Mean Corpuscular Volume 85.9 fL (80.0-98.0); NRBC Abs Auto 0.000 X10*3/uL (0.0-0.012); NRBC Pct Auto 0.0 /100WBC (0.0-0.2); Platelet Count 211 X10*3/uL (160-400); Red Blood Count 4.39 X10*6/uL (4.20-5.50); White Blood Count 7.6 X10*3/uL (4.8-10.8)
[2024-11-19 08:03] LABS: Hemoglobin A1C 214.5771 umol/L; Total Hemoglobin (HGBA1C) 3395.9151 umol/L
[2024-11-19 08:08] LABS: B Type Natriuretic Peptide 12 pg/mL (<100)
[2024-11-19 08:11] LABS: Alanine Aminotransferase 19 U/L (0-31); Albumin Level 3.4 g/dL (3.5-5.0); Alkaline Phosphatase 90 U/L (39-117); Anion Gap 12 (12-20); Aspartate Amino Transferase 18 U/L (5-31); Blood Urea Nitrogen 14 mg/dL (9-16); Calcium 9.0 mg/dL (8.4-10.2); Carbon Dioxide 23 mmol/L (22-29); Chloride 111 mmol/L (96-108); Estimated Glomerular Filt Rate > 60; Potassium 3.4 mmol/L (3.3-5.1); Sodium 143 mmol/L (135-145); Total Protein 6.2 g/dL (6.5-8.0)
[2024-11-19 08:29] LABS: Thyroid Stimulating Hormone 3.67 uIU/mL (0.32-4.0)
== END 2024-11-19 06:46 | disposition home or self-care (01) ==
LOC: HO.MMNH3L 06:45
PROVIDERS: Visit Provider Student in an Organized Health Care Education/Training Program
DX: E11.9 Type 2 diabetes mellitus without complications (principal); I50.9 Heart failure, unspecified
CPT/HCPCS: 36415; 80053; 83036; 83880; 84443; 85025

== ENCOUNTER 2025-01-24 06:45 | Outpatient (REF) | payer MEDICARE, MEDICAID, SELFPAY ==
[2025-01-24 06:33] LABS: MANUAL DIFF FLAG NO
[2025-01-24 06:44] LABS: Hematocrit 36.7 % (37.0-47.0); Hemoglobin 12.1 g/dl (12.0-16.0); Imm Gran Abs Auto 0.12 X10*3/uL (0.00-0.03); Imm Gran Pct Auto 1.3 % (0.0-0.4); Lymphocytes Absolute Auto 2.5 X10*3/uL (1.2-4.9); Mean Corpuscular HGB Conc 33.0 g/dl (31.0-35.0); Mean Corpuscular Hemoglobin 28.5 pg (27.0-33.0); Mean Corpuscular Volume 86.6 fL (80.0-98.0); NRBC Abs Auto 0.000 X10*3/uL (0.0-0.012); NRBC Pct Auto 0.0 /100WBC (0.0-0.2); Platelet Count 231 X10*3/uL (160-400); Red Blood Count 4.24 X10*6/uL (4.20-5.50); White Blood Count 9.0 X10*3/uL (4.8-10.8)
--- OUTSIDE RECORDS SUMMARY | 2025-01-24 07:01 | XMS_ITS | Encounter Summary ---
Author Organization [facility], Address [address] [place] [address] Phone Care Team Providers Care Residential Coordinator Name Role Phone Gaal Combs MD Primary Care Provider [phone] Reason for Visit * Reason Comments Med Refill Encounter Details Date Type Department Care Team (Late st Contact Info) Description 09/10/2019 Refill [facility] [address] [place] [address] Es Luz PA Social History Tobacco Use [...] on filedocumented in this encounter Care Teams Residential Coordinator Relationship Specialty Start Date End Date Gala Combs MD [address] [place], [place] PCP - General 02/23/19 documented as of this encounter
--- OUTSIDE RECORDS SUMMARY | 2025-01-24 07:01 | XMS_ITS | Clinical Summary ---
Author Organization [facility], Address [address] [place] [address] [place] [address] Phone Care Team Providers Care Supervisor Model Making Name Role Phone Gala Combs MD Primary Care Provider Allergies No known active allergies Medications allopurinol [...] Hemoglobin A1C 04/19/2019 01/18/2019 Influenza Vaccine (#1) 2024 9, 02/03/2016, 02/02/2016 Pneumococcal Vaccine: 50+ Years Completed [...] PM EDT) Hemoglobin A1C 8.6(H) (4-6) % [facility] Comment: HEMOGLOBIN A1C(%) GLUCOSE CONTROL INDEX <6% EXCELLENT 6-7% VERY GOOD 7-8% GOOD 8-10% FAIR >10% POOR Hemoglobin (Hb) A1c testing is performed by Piotr Marcela-quant immunoassay. Any cause of shortened erythrocyte survival will reduce exposure of erythrocytes to glucose with a consequent decrease in Hb A1c (%). Testing performed or reported by ~[facility], ~a Service of [facility], ~[address] [place] [address]~ 01/18/2019 2:42 PM EDT us Es [facility] LAB BLOOD ORDERABLES Final Res ult [facility] from Last 3 Months or Most Recently Relevant to Health Maintenance Insurance Medicare [facility] Care Teams Supervisor Model Making Relationship Specialty Start Date End Date Gala Combs MD [address] [place] [address] PCP - General 02/23/19
--- OUTSIDE RECORDS SUMMARY | 2025-01-24 07:01 | XMS_ITS | Encounter Summary ---
Author Organization [facility], Address [address] [place] [address] Phone Care Team Providers Care Scientific Advisor Name Role Phone Gala Combs MD Primary Care Provider [phone] Reason for Visit * Reason Comments Med Refill Encounter Details Date Type Department Care Team (Late st Contact Info) Description 07/04/2019 Refill [facility] [address] [place] [address] Es Luz PA Social History [...] on filedocumented in this encounter Care Teams Scientific Advisor Relationship Specialty Start Date End Date Gala Combs MD [address] [place], [place] PCP - General 02/23/19 documented as of this encounter
--- OUTSIDE RECORDS SUMMARY | 2025-01-24 07:01 | XMS_ITS | Encounter Summary ---
Author Organization [facility], Address [address] [place] [address] Phone Care Team Providers Care Franchise Sales Representative Name Role Phone Gala Combs MD Primary Care Provider [phone] Reason for Visit * Reason Comments Med Refill Encounter Details Date Type Department Care Team (Late st Contact Info) Description 10/28/2019 Refill [facility] [address] [place] [address] Es Luz PA Social History [...] on filedocumented in this encounter Care Teams Franchise Sales Representative Relationship Specialty Start Date End Date Gala Combs MD [address] [place], [place] PCP - General 02/23/19 documented as of this encounter
--- OUTSIDE RECORDS SUMMARY | 2025-01-24 07:01 | XMS_ITS | Encounter Summary ---
Author Organization [facility], Address [address] [place] [address] Phone Care Team Providers Care Director Of Cloud Services Name Role Phone Gala Combs MD Primary Care Provider [phone] Reason for Visit * Reason Comments Med Refill Encounter Details Date Type Department Care Team (Late st Contact Info) Description 09/23/2019 Refill [facility] [address] [place] [address] Es Luz PA Social History [...] on filedocumented in this encounter Care Teams Director Of Cloud Services Relationship Specialty Start Date End Date Gala Combs MD [address] [place], [place] PCP - General 02/23/19 documented as of this encounter
--- OUTSIDE RECORDS SUMMARY | 2025-01-24 07:01 | XMS_ITS | Encounter Summary ---
Author Organization [facility], Address [address] [place] [address] Phone Care Team Providers Care Tipping Machine Operator Automatic Name Role Phone Gaal Combs MD Primary Care Provider [phone] Reason for Visit * Reason Comments Med Refill Encounter Details Date Type Department Care Team (Late st Contact Info) Description 07/05/2019 Refill [facility] [address] [place] [address] Es uLz PA Social History Tobacco Use Types Packs/Day [...] on filedocumented in this encounter Care Teams Tipping Machine Operator Automatic Relationship Specialty Start Date End Date Gala Combs MD [address] [place], [place] PCP - General 02/23/19 documented as of this encounter
--- OUTSIDE RECORDS SUMMARY | 2025-01-24 07:01 | XMS_ITS | Data Portability ---
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 bidwill monitor Type 2 monty betes mellitus 19501321 E11.9 glargine 20U daily at hs lispro per sliding scale will monitor [id number] MD SHARMAINE Funk MATIAS [address] [place] [phone] 5 05/28/2021 14:37:44 06/18/2021 14:24:40 Cerebrovascular accident 449828511 Z86.79 Continues at baseline.C ontinue ASA 81 mg qd, atorvastat in 80 mg qd and clopidogre l 75 mg qd.Continu e supportive care, continues to be total care/flynn .Monitor neuros Cerebral meningioma 189 57288 D32.0 Monitor for sxsF/U with neurosurg prn Essential hypertension 25189825 I10 Good control on carvedilol 25 mg BID, amlodipine 10 mg qd, and losartan 100 mg qd.Monitor BP and labs. Gout 04024356 M10.09 No current sxs.Contin ue allopurino l 100 mg qd.Monitor for flare. Hyperlipidemia 96721990 E78.49 Continue atorvastat in 80 mg qd.Monitor labs yearly. Hypothyroidism 81458675 E03.8 Continue levothyrox ine 88 mcg qd.Monitor TSH yearly, due in August. 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 Overactive urinary bladder 720522723 N32.81 Continue oxybutynin 5 mg BIDMonitor urinary function. Type 2 monty betes mellitus 18640934 E11.9 Borderline control on current meds. But would rather have mild hyperglyce tanner, than risk hypoglycem ia. Continue Lantus 20 U qd and SSIMonitor accuchecks TID and HgA1C q 3 months. Hypokalemia 98326469 E87 .6 On KCl 20 meq qd. 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 [id number] JULISSA MAGAÑA [address] [place] [phone] 5 07/06/2021 10:19:49 07/09/2021 15:03:05 Cerebrovascular accident [id number] Z86.79 atorvastat in 80 mg daily clopidogre l 75 mg daily will monitorPT/ OT prnPMR prn Cerebral meningioma 1891 23246 D32.0 f/u neurosurge ry prn Essential hypertension 28866493 I10 carvedilol 25 mg bidamlodip ine 10 mg dailylosar myers 100 mg dailykcl 10 meq dailywill monitor Gout 99982781 M10.09 allopurino l 100 mg dailywill monitor Hyperlipidemia 83939189 E78.49 atorvastat in 80 mg dailywill monitor Hypothyroidism 85840997 E03.8 levothyrox ine 88 mcg dailywill monitor Mixed anxi ety and depressive disorder 358069001 F41.8 mirtazapin e 7.5 mg at hsescitalo pram 5 mg dailywill monitor Overactive urinary bladder 512749637 N32.81 oxybutynin 5 mg bidwill monitor Type 2 monty betes mellitus 21882751 E11.9 glargine 21 Units daily at hs lispro per sliding scale will monitor [id number] DEBO STACY NP [address] [phone] 5 07/11/2021 09:07:17 07/18/2021 10:47:02 Cerebrovascular accident 960676017 Z86.79 atorvastat in 80 mg daily clopidogre l 75 mg daily will monitorPT/ OT prnPMR prn Mixed anxi ety and depressive disorder 104809515 F41.8 mirtazapin e 7.5 mg at hsescitalo pram 5 mg dailywill monitor [id number] DEBO STACY NP [address] [phone] 5 07/19/2021 09:03:31 07/24/2021 12:12:05 Cerebrovascular accident 810695529 Z86.79 atorvastat in 80 mg daily clopidogre l 75 mg daily will monitorPT/ OT prnPMR prn Cerebral meningioma 1891 67401 D32.0 f/u neurosurge ry prn Essential hypertension 93922166 I10 carvedilol 25 mg bidamlodip ine 10 mg dailylosar myers 100 mg dailykcl 10 meq dailywill monitor Gout 42977488 M10.09 allopurino l 100 mg dailywill monitor Hyperlipidemia 34831290 E78.49 atorvastat in 80 mg dailywill monitor Hypothyroidism 28904482 E03.8 levothyrox ine 88 mcg dailywill monitor Mixed anxi ety and depressive disorder 214238732 F41.8 mirtazapin e 7.5 mg at hsescitalo pram 5 mg dailywill monitor Overactive urinary bladder 145914493 N32.81 oxybutynin 5 mg bidwill monitor Type 2 monty betes mellitus 73834161 E11.9 glargine 21 Units daily at hs lispro per sliding scale will monitor [id number] Ashley Guna MD [address] [phone] 5 08/30/2021 21:05:24 09/04/2021 13:31:57 Cerebral meningioma 890119517 D32.0 f/u neurosurge ry prn Cerebrovas cular accident 873309438 Z86.79 Continues at baseline.C ontinue ASA 81 mg qd, atorvastat in 80 mg qd and clopidogre l 75 mg qd.Continu e supportive care, continues to be total care/flynn .Monitor neuros Essential hypertension 65669456 I10 Continues to be in good control on carvedilol 25 mg BID, amlodipine 10 mg qd, and losartan 100 mg qd.Monitor BP and labs. Gout 28020199 M10.09 No current sxs.Contin ue allopurino l 100 mg qd.Monitor for flare. Hyperlipidemia 89060923 E78.49 Continue atorvastat in 80 mg qd.Monitor labs yearly. Hypothyroidism 04280793 E03.8 Continue levothyrox ine 88 mcg qd.Monitor TSH yearly, due in August. Mixed anxi ety and depressive disorder 101843833 F41.8 Continue mirtazapin e 7.5 mg qhs and escitalopr am 5 mg qd.Monitor mood.Psych consult prn. Overactive urinary bladder 553289370 N32.81 Continue oxybutynin 5 mg BIDMonitor urinary function. Type 2 monty betes mellitus 33258785 E11.9 HgA1C up to 8.6, and sugars almost all >200 Would rather have mild hyperglyce tanner, than hypoglycem ia, but now sugars are consistent ly too high. Will increase Lantus from 21 U qd to 25U and monitor and continue SSIMonitor accuchecks TID and HgA1C q 3 months. Hypokalemia 57408878 E87 .6 K+ continues in good range on KCl 20 meq qd.Monitor labs monthly. Delusional disorder 4850 0005 F22 Pleasantly delusional .Continue mirtazapin e 7.5 mg qhsPsych consult prn. [id number] JULISSA MAGAÑA [address] [place] [address] rd SHOSHANA MARCH [address]661 5 10/25/2021 11:09:18 10/30/2021 15:29:31 Cerebrovascular accident 389584348 Z86.79 atorvastat in 80 mg daily clopidogre l 75 mg daily will monitorPT/ OT prn Cerebral meningioma 1891 13018 D32.0 f/u neurosurge ry prn Essential hypertension 28443847 I10 carvedilol 25 mg bidamlodip ine 10 mg dailylosar myers 100 mg dailykcl 10 meq dailylasix 20 mg dailywill monitor Gout 27709215 M10.09 allopurino l 100 mg dailywill monitor Hyperlipidemia 10853842 E78.49 atorvastat in 80 mg dailywill monitor Hypothyroidism 84339024 E03.8 levothyrox ine 88 mcg dailywill monitor Mixed anxi ety and depressive disorder 119412024 F41.8 mirtazapin e 7.5 mg at hsescitalo pram 5 mg dailywill monitor Overactive urinary bladder 459763307 N32.81 oxybutynin 5 mg bidwill monitor Type 2 monty betes mellitus 81821311 E11.9 glargine 15 Units daily at hs lispro per sliding scale will monitor [id number] Maryellen Muñoz MD [address] [phone] 5 12/11/2021 09:07:16 12/13/2021 12:40:52 Cerebrovascular accident 451380692 Z86.79 atorvastat in 80 mg daily clopidogre l 75 mg daily will monitorPT/ OT prnPMR prn Essential hypertension 02468125 I10 amlodipine 10 mg dailycarve dilol 25 mg bidlosarta n 100 mg dailyfuros emide 20 mg dailywill monitor Gout 75315728 M10.09 allopurino l 100 mg dailywill monitor Mixed anxi ety and depressive disorder 847296715 F41.8 mirtazapin e 7.5 mg at hsescitalo pram 5 mg dailywill monitor Rheumatoid arthritis 698 07194 M06.4 meloxicam 15 mg qodwill monitor Type 2 monty betes mellitus 16509186 E11.9 glargine 25U daily at hs lispro per sliding scale will monitor Overactive urinary bladder 216224910 N32.81 oxybutynin 5 mg bidwill monitor Hypothyroidism 60201511 E03.8 levothyrox ine 88 mcg dailywill monitor [id number] DEBO STACY NP [address] [address]-226 5 02/01/2022 10:11:49 02/05/2022 15:30:32 Cerebrovascular accident 033509131 Z86.79 atorvastat in 80 mg daily clopidogre l 75 mg daily will monitorPT/ OT prn Cerebral meningioma 1891 66837 D32.0 f/u neurosurge ry prn Essential hypertension 71450936 I10 carvedilol 25 mg bidamlodip ine 10 mg dailylosar myers 100 mg dailykcl 10 meq dailylasix 20 mg dailywill monitor Gout 35113122 M10.09 allopurino l 100 mg dailywill monitor Hyperlipidemia 38857025 E78.49 atorvastat in 80 mg dailywill monitor Hypothyroidism 96591424 E03.8 levothyrox ine 88 mcg dailywill monitor Mixed anxi ety and depressive disorder 123168829 F41.8 mirtazapin e 7.5 mg at hsescitalo pram 5 mg dailywill monitor Overactive urinary bladder 357772139 N32.81 oxybutynin 5 mg bidwill monitor Type 2 monty betes mellitus 46198412 E11.9 glargine 15 Units daily at hs lispro per sliding scale will monitor [id number] MD SHARMAINE Vicente MATIAS [address] [place] [address] 5 03/29/2022 06:45:42 04/02/2022 15:52:47 Essential hypertension 49095759 I10 amlodipine 10 mg dailycarve dilol 25 mg bidlosarta n 100 mg dailyfuros emide 20 mg dailywill monitor Mixed anxi ety and depressive disorder 816185954 F41.8 mirtazapin e 7.5 mg at hsescitalo pram 5 mg dailywill monitor Overactive urinary bladder 174699426 N32.81 oxybutynin 5 mg bidwill monitor Rheumatoid arthritis 698 84329 M06.4 meloxicam 15 mg qodPMR prnAPAP 650 mg q6h prnwill monitor Type 2 monty betes mellitus 28585640 E11.9 insulin glargine 25U daily at hs lispro per sliding scale will monitor History of cerebrovascular accident 960825233 Z86.73 atorvastat in 80 mg daily clopidogre l 75 mg daily will monitorPT/ OT prnPMR prn Gout 72733637 M10.09 allopurino l 100 mg dailywill monitor Hypothyroidism 50233484 E03.8 levothyrox ine 88 mcg dailywill monitor [id number] DEBO STACY NP SHARMAINE SALCEDO [address] [place] [phone] 5 04/18/2022 12:53:11 04/26/2022 14:36:27 SARS-CoV-2 152922601 U07.1 04/16 covid positive encourage po fluids consider ivf for anorexiaco nsider paxlovid and dexamethas one for symptomsmo nitor for any changes in mental or medical status send to ED for decompensa tion [id number] DEBO STACY NP [address] [address]-486 5 04/19/2022 10:20:50 04/26/2022 15:14:17 SARS-CoV-2 786968939 U07.1 04/16 covid positive encourage po fluids consider ivf for anorexiaco nsider paxlovid and dexamethas one for symptomsmo nitor for any changes in mental or medical status send to ED for decompensa tion [id number] DEBO STACY NP [address] [address]-713 5 04/24/2022 11:25:00 04/26/2022 15:56:37 SARS-CoV-2 695786317 U07.1 04/16 covid positive-a symptomati c, recovered by date encourage po fluids consider ivf for anorexiaco nsider paxlovid and dexamethas one for symptomsmo nitor for any changes in mental or medical status send to ED for decompensa tion [id number] DEBO STACY NP [address] [phone] 5 05/23/2022 12:31:45 05/28/2022 08:11:34 Essential hypertension 16423306 I10 amlodipine 10 mg dailycarve dilol 25 mg bidlosarta n 100 mg dailyfuros emide 20 mg dailywill monitor Mixed anxi ety and depressive disorder 647177886 F41.8 mirtazapin e 7.5 mg at hsescitalo pram 5 mg dailywill monitor Overactive urinary bladder 670451000 N32.81 oxybutynin 5 mg bidwill monitor Rheumatoid arthritis 698 45093 M06.4 meloxicam 15 mg qodPMR prnAPAP 650 mg q6h prnwill monitor Type 2 monty betes mellitus 73584881 E11.9 insulin glargine 25U daily at hs lispro per sliding scale will monitor History of cerebrovascular accident 899355418 Z86.73 atorvastat in 80 mg daily clopidogre l 75 mg daily will monitorPT/ OT prnPMR prn Gout 03319798 M10.09 allopurino l 100 mg dailywill monitor Hypothyroidism 90397986 E03.8 levothyrox ine 88 mcg dailywill monitor [id number] Maryellen Muñoz MD [address] [address]-235 5 07/31/2022 06:55:12 08/06/2022 12:13:09 Impaired cognition 156693751 R41.89 will monitor and support as needed Essential hypertension 16606945 I10 amlodipine 10 mg dailycarve dilol 25 mg bidlosarta n 100 mg dailyfuros emide 20 mg dailywill monitor Hyperlipidemia 87551233 E78.49 atorvastat in 80 mg dailywill monitor History of cerebrovascular accident 480398720 Z86.73 atorvastat in 80 mg daily clopidogre l 75 mg daily will monitorPT/ OT prnPMR prn Hypothyroidism 77465953 E03.8 levothyrox ine 88 mcg dailywill monitor Mixed anxi ety and depressive disorder 101354115 F41.8 mirtazapin e 7.5 mg at hsescitalo pram 5 mg dailywill monitor Gout 77845701 M10.09 allopurino l 100 mg dailywill monitor Overactive urinary bladder 194487817 N32.81 oxybutynin 5 mg bidwill monitor Type 2 monty betes mellitus 63211712 E11.9 insulin glargine 25U daily at hs lispro per sliding scale will monitor [id number] DEBO STACY NP [address] [address] 5 08/07/2022 13:54:18 08/09/2022 15:59:16 Essential hypertension 22683343 I10 amlodipine 10 mg dailycarve dilol 25 mg bidlosarta n 100 mg dailyfuros emide 20 mg dailywill monitor Mixed anxi ety and depressive disorder 524860584 F41.8 mirtazapin e 7.5 mg at hsescitalo pram 5 mg dailywill monitor Overactive urinary bladder 860287906 N32.81 oxybutynin 5 mg bidwill monitor Rheumatoid arthritis 698 24106 M06.4 meloxicam 15 mg qodPMR prnAPAP 650 mg q6h prnwill monitor Type 2 monty betes mellitus 41342355 E11.9 insulin glargine 25 Units daily at hs lispro per sliding scale will monitor History of cerebrovascular accident 291076378 Z86.73 atorvastat in 80 mg daily clopidogre l 75 mg daily will monitorPT/ OT prnPMR prn Gout 66539554 M10.09 allopurino l 100 mg dailywill monitor Hypothyroidism 22361741 E03.8 levothyrox ine 88 mcg dailywill monitor Hyperlipidemia 32160099 E78.49 atorvastat in 80 mg dailywill monitor [id number] JULISSA MAGAÑA MATIAS [address] [place] [address] [phone] 5 09/18/2022 11:32:26 09/26/2022 11:00:23 Essential hypertension 71568329 I10 amlodipine 10 mg dailycarve dilol 25 mg bidlosarta n 100 mg dailyfuros emide 20 mg dailywill monitor Mixed anxi ety and depressive disorder 238400992 F41.8 mirtazapin e 7.5 mg at hsescitalo pram 10 mg dailywill monitor Overactive urinary bladder 487468710 N32.81 oxybutynin 5 mg bidwill monitor Rheumatoid arthritis 698 93838 M06.4 meloxicam 15 mg qodPMR prnAPAP 650 mg q6h prnwill monitor Type 2 monty betes mellitus 74255861 E11.9 insulin glargine 30 Units daily at hs lispro per sliding scale will monitor History of cerebrovascular accident 855247493 Z86.73 atorvastat in 80 mg daily clopidogre l 75 mg daily will monitorPT/ OT prnPMR prn Gout 04079218 M10.09 allopurino l 100 mg dailywill monitor Hypothyroidism 08925008 E03.8 levothyrox ine 88 mcg dailywill monitor Hyperlipidemia 82517706 E78.49 atorvastat in 80 mg dailywill monitor [id number] DEBO STACY NP [address] [address] 5 09/20/2022 10:27:37 09/26/2022 14:20:03 Epidermal burn of skin 606480100 T14.8XXA keflex 500 mg bid for 5 daysbacitr acin with dsd qshiftwoun d consult [id number] DEBO STACY NP [address] [address]-528 5 09/23/2022 14:55:08 09/26/2022 15:18:55 Epidermal burn of skin 268501950 T14.8XXA keflex 500 mg bid for 5 days acitra patty with dsd qshiftwoun d consult [id number] DEBO STACY NP [address] [address]930 5 10/14/2022 12:39:30 10/17/2022 14:25:15 Cerebrovascular accident 982881272 Z86.79 atorvastat in 80 mg daily clopidogre l 75 mg daily will monitorPT/ OT prn Mixed anxi ety and depressive disorder 304893014 F41.8 [facility] e 7.[facility] pram 10 mg dailywill monitorpsy ch prn Rheumatoid arthritis 698 02642 M06.4 meloxicam 15 mg qodPMR prnAPAP 650 mg q6h prnwill monitor Epidermal burn of skin 874929756 T14.8XXA healedkefl ex 500 mg bid for 5 days acitra patty with dsd qshiftwoun d consult Pneumonia 206248253 J18. 9 azithromyc in 500mg x1 then 250 mg x4 days [id number] Ashley Guan MD [address] [address]-803 5 12/17/2022 19:39:05 01/06/2023 12:24:08 Cerebrovascular accident 341838239 Z86.79 Hx of.Continu e atorvastat in 80 mg qd and clopidogre l 75 mg qd.Continu e supportive care, continues to be total care/flynn .Monitor for change in neuro status. Cerebral meningioma 1891 97216 D32.0 No tx recommende d currently. F/U with neurosurge ry prn Delusional disorder 0 4 F22 As above. Essential hypertension 43257246 I10 Continues to be in good control on carvedilol 25 mg BID, amlodipine 10 mg qd, and losartan 100 mg qd.Monitor BP and labs. Hypothyroidism 34024739 E03.8 Last TSH WNL in 01/2022.Co ntinue levothyrox ine 88 mcg qd.Monitor TSH yearly, due in Jan. Overactive urinary bladder 801686697 N32.81 Continue oxybutynin 5 mg BIDMonitor urinary function. Type 2 monty betes mellitus 22627053 E11.9 HgA1C was 8.6 in 08/2021, not rechecked since then, sugars >200 about 1/3 of the time. Would rather have mild hyperglyce tannre, than hypoglycem ia. Lantus was increased to 36U in 09/2022, will continue this and continue SSIMonitor accuchecks TID and recheck HgA1C with next labs. Hypokalemia 31837424 E87 .6 K+ continues in good range on KCl 10 meq qd.Monitor labs monthly. Impaired cognition 53564 6002 R41.89 Continues at baselineCo ntinue escitalopr am 10 mg qd and mirtazapin e 7.5 mg qdContinue supportive care, expect decline.HC P invokedMon itor mood and behaviors. Psych consult prn. [id number] JULISSA MAGAÑA [address] [place] [address] [place] [address] 5 02/07/2023 14:18:45 02/11/2023 15:36:44 Impaired cognition 322308129 R41.89 Continues at baselinees citalopram 10 mg qdmirtazap ine 7.5 mg qdContinue supportive care, expect decline.HC P invokedMon itor mood and behaviors. Psych consult prn. Delusional disorder 4849 4 F22 As above. Cerebrovas cular accident 591958418 Z86.79 Hx of--at baselineat orvastatin 80 mg qdclopidog rel 75 mg qd.Continu e supportive care, continues to be total care/flynn .Monitor for change in neuro status. Cerebral meningioma 1891 76762 D32.0 No tx recommende d currently. F/U with neurosurge ry prn Essential hypertension 44692048 I10 Continues to be in good control on carvedilol 25 mg BID,amlodi pine 10 mg qd,losarta n 100 mg qd.Monitor BP and labs. Hypothyroidism 38915040 E03.8 Last TSH WNL in 01/2022.le vothyroxin e 88 mcg qd.Monitor TSH yearly, due in Jan. Overactive urinary bladder 328857917 N32.81 oxybutynin 5 mg BIDMonitor urinary function. Type 2 monty betes mellitus 14086788 E11.9 HgA1C was 8.6 in 08/2021, not rechecked since then, sugars >200 about 1/3 of the time. Would rather have mild hyperglyce tanner, than hypoglycem ia. Lantus was increased to 36U in 09/2022, will continue this and continue SSIMonitor accuchecks TID and recheck HgA1C with next labs. Hypokalemia 16432407 E87 .6 K+ continues in good range on KCl 10 meq qd.Monitor labs monthly. [id number] Ashley Guan MD [address] [phone] 5 04/11/2023 14:34:53 04/28/2023 16:03:28 Cough 56075306 R05.8 Appears acutely ill, with junky cough.So far is covid neg.Will check for RSV and influenza, and check labs on 04/15-CBC and CMP.Start Mucinex 600 mg q 6 hrs x 1 wk. and continue duonebs q 6 hrs prn. Impaired cognition 82037 6002 R41.89 Continues at baseline with delusions as usual.Cont inue escitalopr am 10 mg qd and mirtazapin e 7.5 mg qdContinue supportive care, expect decline.HC P invokedMon itor mood and behaviors. Psych follows Delusional disorder 4850 0005 F22 As above. Cerebrovas cular accident 757777158 Z86.79 In hx.No new sxsContinu e atorvastat in 80 mg qd and clopidogre l 75 mg qd.Continu e supportive care, remains total care/flynn .Monitor for change in neuro status. Cerebral meningioma 1891 36693 D32.0 No tx recommende d currently. F/U with neurosurge ry prn Essential hypertension 68824131 I10 With occ. borderline SBP, but generally in good control on carvedilol 25 mg BID, amlodipine 10 mg qd, and losartan 100 mg qd.Monitor BP and labs. Hypothyroidism 93471593 E03.8 Last TSH WNL in 01/2022.Co ntinue levothyrox ine 88 mcg qd.Monitor TSH yearly, was due in Jan., not done, will order with next labs due in 06/2023. Overactive urinary bladder 626121939 N32.81 Changed to Myrbetriq 50 mg qd on 03/25/23, from oxybutynin 5 mg BIDStarted on Estrace 2 gms M/W/F in 01/2023.Mo nitor urinary function. Type 2 monty betes mellitus 24554995 E11.9 Sugars are >200 about 1/2 of the time. Would rather have mild hyperglyce tanner, than hypoglycem ia, but overall too high.Will increase Lantus from 36U to 40U and continue SSIMonitor accuchecks TID and recheck HgA1C with next labs. Hypokalemia 92777344 E87 .6 K+ continues in good range on KCl 10 meq qd.Monitor labs monthly. [id number] CHRISSY CROCKETT [address] [place] [address] [place] [address] 5 05/20/2023 08:38:41 05/28/2023 08:36:29 Dyspnea 242825961 R06.00 chest xray suggestive of pneumoniap reviously started on augmentinh ydration encourages continue oxygen titrate to keep sat greater than 90%will send swab for covid, flu and rsv as well. Fall W19.XXXA 05/18/23:se e hpiunwitne ssed with no apparent injuries.+ [facility] per facility protocol. [id number] CHRISSY CROCKETT [facility] [address] [place] [address] [place] [address] 5 06/17/2023 11:19:07 06/19/2023 12:27:49 Impaired cognition 425185404 R41.89 Continues at baseline with delusions as usual.Cont inue escitalopr am 10 mg qd and mirtazapin e 7.5 mg qdContinue supportive care, expect decline.HC P invokedMon itor mood and behaviors. Psych follows Delusional disorder 4850 0005 F22 As above. Cerebrovas cular accident 271503127 Z86.79 In hx.No new sxsContinu e atorvastat in 80 mg qd and clopidogre l 75 mg qd.Continu e supportive care, remains total care/flynn .Monitor for change in neuro status. Cerebral meningioma 1891 01597 D32.0 No tx recommende d currently. F/U with neurosurge ry prn Essential hypertension 25450267 I10 continue:c arvedilol 25 mg BID,amlodi pine 10 mg qdand losartan 100 mg qd.Monitor BP and labs. Hypothyroidism 15322511 E03.8 Last TSH WNL in 01/2022.Co ntinue levothyrox ine 88 mcg qd.Monitor TSH yearly, was due in Jan., not done, will order with next labs due in 06/2023. Overactive urinary bladder 322108400 N32.81 Myrbetriq 50 mg qdEstrace 2 gms M/W/F in 01/2023.Mo nitor urinary function.i ncontinent - nursing reports heavy wetter. Type 2 monty betes mellitus 93640056 E11.9 as high as 300 Will increase Lantus from 36U to 40U and continue SSIMonitor accuchecks TID and recheck HgA1C with next labs. [id number] CHRISSY CROCKETT [facility] [place] [address] 08/11/2023 10:05:01 08/15/2023 15:28:26 Diarrhea and vomiting, symptom 484379811 R19.7 Concerned for Cdiff, nursing reports foul smelling, slimy mucous like stool.stoo l sample sent to labCBC with diff, and CMP orderedinc reased oral hydrationa waiting results to treat. [id number] BRIGITTE STEWART, HOUSE DES[employer] [address] [address] 08/15/2023 16:10:25 08/19/2023 15:16:25 Urinary tract infectious disease 92138524 N39.0 see hpistarted on cefuroxime 250 mg BIDadd probiotic 1 tab BID for 10 dayincreas e oral hydration. Type 2 monty betes mellitus 03875849 E11.9 continue lantus 40 unit continue Insulin SSCmonitor FS TID Essential hypertension 98237549 I10 continue:c arvedilol 25 mg BID,amlodi pine 10 mg qdand losartan 100 mg qd.Monitor BP and labs. Hypothyroidism 76190734 E03.8 Continue levothyrox ine 88 mcg qd.check TSH at next rounding visit Heart failure 55694891 I 50.9 continued on carvedilol 25 mg and Lasix 20 mg dailymonit or weight, sob, edemamonit or VS and labs. [id number] CHRISSY CROCKETT [address] [address] 5 08/21/2023 10:04:33 08/26/2023 10:06:00 Urinary tract infectious disease 67847471 N39.0 see hpistarted on cefuroxime 250 mg BID-comple carmelo.add probiotic 1 tab BID for 10 dayincreas e oral hydration. Type 2 monty betes mellitus 99078768 E11.9 BGL mainly under 200continu e lantus 40 unit continue Insulin SSCmonitor FS TID Essential hypertension 63278418 I10 continue:c arvedilol 25 mg BID,amlodi pine 10 mg qdand losartan 100 mg qd.Monitor BP and labs. Heart failure 37823070 I 50.9 appears to be stable.con tinued on carvedilol 25 mg and Lasix 20 mg dailymonit or weight, sob, edemamonit or VS and labs. [id number] CHRISSY CROCKETT [address] [address] 5 09/01/2023 13:25:32 09/03/2023 10:00:39 Type 2 diabetes mellitus 76421430 E11.9 BGL mainly under 200continu e lantus 40 unit continue Insulin SSCmonitor FS TID Essential hypertension [id number] I10 continue:c arvedilol 25 mg BID,amlodi pine 10 mg qdand losartan 100 mg qd.Monitor BP and labs. Heart failure 53630322 I 50.9 appears to be stable.con tinued on carvedilol 25 mg and Lasix 20 mg dailymonit or weight, sob, edemamonit or VS and labs. [id number] CHRISSY CROCKETT [address] [address] 09/08/2023 13:58:44 09/11/2023 13:24:52 Urinary tract infectious disease 75865984 N39.0 resolved Type 2 monty betes mellitus 30765327 E11.9 BGL mainly under 200continu e lantus 40 unit continue Insulin SSCmonitor FS TID Essential hypertension 89236399 I10 continue:c arvedilol 25 mg BID,amlodi pine 10 mg qdand losartan 100 mg qd.Monitor BP and labs. Heart failure 17479214 I 50.9 appears to be stable.con tinued on carvedilol 25 mg and Lasix 20 mg dailymonit or weight, sob, edemamonit or VS and labs. [id number] Ashley Guan MD [address] [address] 09/09/2023 21:18:06 10/15/2023 09:01:55 Impaired cognition 057016314 R41.89 Continues at baseline.C ontinue escitalopr am 10 mg qd and mirtazapin e 7.5 mg qdContinue supportive care, expect decline.HC P invokedMon itor mood and behaviors. Psych follows Delusional disorder 4850 0005 F22 As above. Cerebrovas cular accident [id number] Z86.79 In hx.No new sxsContinu e atorvastat in 80 mg qd and clopidogre l 75 mg qd.Continu e supportive care, remains total care/flynn .Monitor for change in neuro status. Cerebral meningioma 1891 17379 D32.0 No tx recommende d currently. F/U with neurosurge ry prn Essential hypertension 66951963 I10 With occ. borderline SBP, but generally in good control on carvedilol 25 mg BID, amlodipine 10 mg qd, and losartan 100 mg qd.Monitor BP and labs. Hypothyroidism 88426015 E03.8 Last TSH WNL in 01/2022.Co ntinue levothyrox ine 88 mcg qd.Monitor TSH yearly, was supposed to be done in 06/2023, but not done.Reord ered in 07/2023, still not done. Overactive urinary bladder 926692363 N32.81 Continue Myrbetriq 50 mg qd and Estrace 2 gms M/W/F in 01/2023.Mo nitor urinary function. Type 2 monty betes mellitus 41811216 E11.9 Sugars in better control since increased lantus. Continue Lantus 40U qd and continue SSIMonitor accuchecks TID and recheck HgA1C with next labs. Hypokalemia 84033840 E87 .6 K+ continues in good range on KCl 10 meq qd.Monitor labs monthly. [id number] CHRISSY CROCKETT [address] [address] 09/11/2023 10:09:18 09/23/2023 10:38:22 Urinary tract infectious disease 14876593 N39.0 resolved Type 2 monty betes mellitus 32706396 E11.9 BGL mainly under 200continu e lantus 40 unit continue Insulin SSCmonitor FS TID Essential hypertension 61355715 I10 continue:c arvedilol 25 mg BID,amlodi pine 10 mg qdand losartan 100 mg qd.Monitor BP and labs. Heart failure 28350088 I 50.9 appears to be stable.con tinued on carvedilol 25 mg and Lasix 20 mg dailymonit or weight, sob, edemamonit or VS and labs. [id number] CHRISSY CROCKETT [address] [address] 10/30/2023 09:01:33 11/11/2023 08:30:21 Impaired cognition 570739861 R41.89 Continue escitalopr am 10 mg qd and mirtazapin e 7.5 mg qdContinue supportive care, expect decline.HC P invokedMon itor mood and behaviors. Psych follows Cerebrovas cular accident 600824723 Z86.79 In hxContinue atorvastat in 80 mg qd and clopidogre l 75 mg qd.Continu e supportive care, remains total care/flynn .Monitor for change in neuro status. Cerebral meningioma 1891 06767 D32.0 No tx recommende d currently. F/U with neurosurge ry prn Essential hypertension 88578555 I10 continueca rvedilol 25 mg BID, amlodipine 10 mg qd, and losartan 100 mg qd.Monitor BP and labs. Hypothyroidism 67335259 E03.8 Last TSH WNL in 01/2022.Co ntinue levothyrox ine 88 mcg qd.Monitor TSH yearly, was supposed to be done in 06/2023, but not done.Reord ered in 07/2023, still not done. Overactive urinary bladder 796320829 N32.81 Continue Myrbetriq 50 mg qd and Estrace 2 gms M// in 01/2023.Mo nitor urinary function. Type 2 monty betes mellitus 97004840 E11.9 Continue Lantus 40U qd and continue SSIMonitor accuchecks TID and recheck HgA1C with next labs. Hypokalemia 67896020 E87 .6 continue KCl 10 meq qd.Monitor labs monthly. [id number] CHRISSY CROCKETT [address] [place] [address] 12/31/2023 08:34:10 01/01/2024 12:01:23 Impaired cognition 385268651 R41.89 Continue escitalopr am 10 mg qd and mirtazapin e 7.5 mg qdContinue supportive care, expect decline.HC P invokedMon itor mood and behaviors. Psych follows Cerebrovas cular accident 553751718 Z86.79 Continue atorvastat in 80 mg qd and clopidogre l 75 mg qd.Continu e supportive care, remains total care/flynn .Monitor for change in neuro status. Essential hypertension 00978611 I10 continueca rvedilol 25 mg BID, amlodipine 10 mg qd, and losartan 100 mg qd.Monitor BP and labs. Hypothyroidism 95048648 E03.8 CBC, BMP, TSH, Free T4 on 01/05/24Con tinue levothyrox ine 88 mcg qd. Overactive urinary bladder 495752495 N32.81 Continue Myrbetriq 50 mg qd and Estrace 2 gmsMonitor urinary function. Type 2 monty betes mellitus 24695784 E11.9 lantus increase to 45 unit qd for bgl 250-300sco ntinue SSC with FS TIDmonitor for hypoglycem ia Hypokalemia 48682424 E87 .6 continue KCl 10 meq qd.Monitor labs monthly.la bs on 01/04 [id number] CHRISSY CROCKETT [address] [address] 02/20/2024 14:14:26 02/23/2024 13:38:42 Impaired cognition 579832455 R41.89 Continue escitalopr am 10 mg qd and mirtazapin e 7.5 mg qdContinue supportive care, expect decline.HC P invokedMon itor mood and behaviors. Psych follows Cerebrovas cular accident 967514787 Z86.79 Continue atorvastat in 80 mg qd and clopidogre l 75 mg qd.Continu e supportive care, remains total care/flynn .Monitor for change in neuro status. Essential hypertension 66809856 I10 continueca rvedilol 25 mg BID, amlodipine 10 mg qd, and losartan 100 mg qd.Monitor BP and labs. Hypothyroidism 25020270 E03.8 CBC, BMP, TSH, Free T4 on 01/05/24Con tinue levothyrox ine 88 mcg qd. Overactive urinary bladder 986531039 N32.81 Continue Myrbetriq 50 mg qd and Estrace 2 gmsMonitor urinary function. Type 2 monty betes mellitus 47068188 E11.9 lantus increase to 45 unit qd for bgl 250-300sco ntinue SSC with FS TIDmonitor for hypoglycem ia Hypokalemia 38044240 E87 .6 continue KCl 10 meq qd.Monitor labs monthly. [id number] CHRISSY CROCKETT [address] [address] 04/12/2024 10:23:08 04/13/2024 09:57:49 Impaired cognition 309740474 R41.89 Continue escitalopr am 10 mg qd and mirtazapin e 7.5 mg qdContinue supportive care, expect decline.HC P invokedMon itor mood and behaviors. Psych follows Cerebrovas cular accident 539052058 Z86.79 Continue atorvastat in 80 mg qd and clopidogre l 75 mg qd.Continu e supportive care, remains total care/flynn .Monitor for change in neuro status. Essential hypertension 80084766 I10 continueca rvedilol 25 mg BID, amlodipine 10 mg qd, and losartan 100 mg qd.Monitor BP and labs. Hypothyroidism 93069874 E03.8 Continue levothyrox ine 88 mcg qd. Overactive urinary bladder 607077556 N32.81 oncontinen tContinue Myrbetriq 50 mg qd and Estrace 2 gms -tapering to offMonitor urinary function. Type 2 monty betes mellitus 91368663 E11.9 04/12; lantus increase to 48 unit qd for bgl 250-300sco ntinue SSC with FS TIDmonitor for hypoglycem ia Hypokalemia 88696347 E87 .6 continue KCl 10 meq qd.Monitor labs monthly. [id number] CHRISSY CROCKETT MATIAS [address] [place] [address] [place] [address] 07/18/2024 10:58:50 07/22/2024 16:16:46 Impaired cognition 590339048 R41.89 Continue escitalopr am 10 mg qd and mirtazapin e 7.5 mg qdContinue supportive care, expect decline.HC P invokedMon itor mood and behaviors. Psych follows Cerebrovas cular accident 065336160 Z86.79 stableCont inue atorvastat in 80 mg qd and clopidogre l 75 mg qd.Continu e supportive care, remains total care/flynn .Monitor for change in neuro status. Essential hypertension 37534848 I10 stablecarv edilol 25 mg BID, amlodipine 10 mg qd, and losartan 100 mg qd.Monitor BP and labs. Hypothyroidism 33687284 E03.8 Continue levothyrox ine 88 mcg qd. Overactive urinary bladder 665236994 N32.81 incontinen tContinue Myrbetriq 50 mg qd and Estrace 2 gms -tapering to offMonitor urinary function. Type 2 monty betes mellitus 99418593 E11.9 unstable- high 200 -300will increase lantus to 50 unit in divided dose BIDcontinu e SSC with FS TIDmonitor for hypoglycem ia Hypokalemia 53890412 E87 .6 continue KCl 10 meq qd.Monitor labs monthly. [id number] CHRISSY CROCKETT [address] [place] [address] rd SHOSHANA MARCH [address] 10/27/2024 05:56:02 11/04/2024 14:51:55 Impaired cognition 294080434 R41.89 Continue escitalopr am 10 mg qd and mirtazapin e 7.5 mg qdContinue supportive care, expect decline.HC P invokedMon itor mood and behaviors. Psych follows Cerebrovas cular accident 324998574 Z86.79 Continue atorvastat in 80 mg qd and clopidogre l 75 mg qd.Continu e supportive care, remains total care/flynn .Monitor for change in neuro status. Essential hypertension 55721279 I10 stablecarv edilol 25 mg BID, amlodipine 10 mg qd, and losartan 100 mg qd.Monitor BP and labs. Hypothyroidism 66941669 E03.8 Continue levothyrox ine 88 mcg qd. Overactive urinary bladder 250885582 N32.81 incontinen tContinue Myrbetriq 50 mg qd and Estrace 2 gms -tapering to offMonitor urinary function. Type 2 monty betes mellitus 02849661 E11.9 stablecont inue lantus to 50 unit in divided dose BIDcontinu e SSC with FS TIDmonitor for hypoglycem ia Health Concerns Section Related Observation LastModified by Organization Detai ls LastModified Time None Recorded Concern Status LastModified by Organization Details LastModified Time None Recorded Advance Directives Directive Y: DNR/DNI Payers Insurance Date Sequence Insurance Name Policy Number Policy Rogers Covered Member ID Rogers Member ID Guarantor Name 04/12/2024 2 [place] [id number] Sona Laguna [id number] Sona Laguna 10/27/2024 2 [place] [facility] Sona Laguna [id number] Sona Laguna 10/27/2024 1 [place] [employer] Sona Laguna [id number] Sona Laguna Notes Date Note Type Note Provider Name and Address Organization Details Recorded Time 12/31/2023 text/html ROS as noted in the HPI Ms. 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 Past medical history significant for dementia, hyperlipidemia, hypertension, CVA, type 2 diabetes mellitus on insulin, chronic systolic and diastolic CHF and hypothyroidism. She is stable with baseline dementia, dependant on staff to meet daily care needs, she is eating, drinking and eliminating without concerns, she has been getting OOB more and having meals in the common area. CHRISSY CROCKETT [address] [facility], [address], [place], [address], [facility] 12/31/2023 22:47:17 02/20/2024 text/html ROS as noted in the HPI Thisn is an 78 yr old female LTC resident with a past [...] medications and care plan. CHRISSY CROCKETT [address] [facility], [address], [place], [address], [facility] 02/20/2024 14:23:12 04/12/2024 text/html ROS as noted in the HPI This is an 78 yr old female LTC resident seen for routine rounding. She is at her baseline in NAD. There are no nursing concerns. she is dependent on staff to meet healthcare needs. Past medical hx of dementia, hyperlipidemia, hypertension, CVA, type 2 diabetes mellitus on insulin, chronic systolic and diastolic CHF and hypothyroidism. CHRISSY CROCKETT [address] [facility], [address], [place], [address], [facility] 04/12/2024 13:44:49 07/18/2024 text/html ROS as noted in the HPI This is an 79 yr old female LTC resident seen for routine rounding. She is at her baseline in NAD. She is dependent on staff to meet healthcare needs she can be combative and disruptive with care at times, she refused to get OOB most days. There sre no changes in appetite and elimination, she is compliant with medication. CHRISSY CROCKETT [address] [facility], [address], [place], [address], [facility] 07/19/2024 07:45:45 10/27/2024 text/html ROS as noted in the HPI This is an 79 yr old female LTC resident due for annual exam Medically she is stable, there is no acute concerns. CHRISSY CROCKETT [address] [facility], [address], [place], [address], [facility] 11/02/2024 13:54:45 OBGyn Episode No OBEpisode recorded.
[2025-01-24 07:27] LABS: Anion Gap 10 (12-20); Blood Urea Nitrogen 18 mg/dL (9-16); Calcium 8.7 mg/dL (8.4-10.2); Carbon Dioxide 27 mmol/L (22-29); Chloride 110 mmol/L (96-108); Cholesterol 132 mg/dL (<200); Estimated Glomerular Filt Rate > 60; HDL Cholesterol 33 mg/dL (>40); Potassium 3.4 mmol/L (3.3-5.1); Sodium 144 mmol/L (135-145); Triglycerides 113 mg/dL (<150); Uric Acid 4.0 mg/dL (2.4-5.7)
[2025-01-24 07:44] LABS: Free T4 (Free Thyroxine) 0.84 ng/dL (0.71-1.85); Thyroid Stimulating Hormone 1.61 uIU/mL (0.32-4.0)
== END 2025-01-24 06:46 | disposition home or self-care (01) ==
LOC: HO.MMNH3L 06:45
PROVIDERS: Visit Provider Student in an Organized Health Care Education/Training Program
DX: I63.531 Cerebral infarction due to unspecified occlusion or stenosis of right posterior cerebral artery (principal); I69.391 Dysphagia following cerebral infarction; E11.8 Type 2 diabetes mellitus with unspecified complications
CPT/HCPCS: 36415; 80048; 80061; 84439; 84443; 84550; 85025

== ENCOUNTER 2025-04-04 13:51 | Outpatient (REF) | payer MEDICARE, MEDICAID, SELFPAY ==
[2025-04-04 14:12] LABS: MANUAL DIFF FLAG NO
[2025-04-04 14:18] LABS: Hematocrit 35.8 % (37.0-47.0); Hemoglobin 11.6 g/dl (12.0-16.0); Imm Gran Abs Auto 0.14 X10*3/uL (0.00-0.03); Imm Gran Pct Auto 1.0 % (0.0-0.4); Lymphocytes Absolute Auto 0.8 X10*3/uL (1.2-4.9); Mean Corpuscular HGB Conc 32.4 g/dl (31.0-35.0); Mean Corpuscular Hemoglobin 28.4 pg (27.0-33.0); Mean Corpuscular Volume 87.7 fL (80.0-98.0); NRBC Abs Auto 0.000 X10*3/uL (0.0-0.012); NRBC Pct Auto 0.0 /100WBC (0.0-0.2); Platelet Count 210 X10*3/uL (160-400); Red Blood Count 4.08 X10*6/uL (4.20-5.50); White Blood Count 13.7 X10*3/uL (4.8-10.8)
[2025-04-04 14:40] LABS: Alanine Aminotransferase 9 U/L (0-31); Albumin Level 3.1 g/dL (3.5-5.0); Alkaline Phosphatase 89 U/L (39-117); Anion Gap 11 (12-20); Aspartate Amino Transferase 19 U/L (5-31); Blood Urea Nitrogen 24 mg/dL (9-16); Calcium 9.5 mg/dL (8.4-10.2); Carbon Dioxide 24 mmol/L (22-29); Chloride 114 mmol/L (96-108); Estimated Glomerular Filt Rate 54; Potassium 4.0 mmol/L (3.3-5.1); Sodium 145 mmol/L (135-145); Total Protein 6.2 g/dL (6.5-8.0)
[2025-04-04 14:56] LABS: Procalcitonin 7.21 ng/mL
[2025-04-04 16:08] LABS: Appearance Urine Turbid; Glucose Urine UA Negative (Negative); PH 8.5 (5.0-9.0); Specific Gravity - Urine 1.015 (1.005-1.025); UMIC TRIGGER UA YES
--- OUTSIDE RECORDS SUMMARY | 2025-04-04 20:36 | XMS_ITS | Data Portability ---
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 SSIMonitor accuchecks TID and HgA1C q 3 months. Hypokalemia 26508070 E87 .6 On KCl 20 meq qd. 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 [id number] JULISSA MAGAÑA MATIAS [address] [place] [address] [place] [address] 07/06/2021 10:19:49 07/09/2021 15:03:05 Cerebrovascular accident [id number] Z86.79 atorvastat in 80 mg daily clopidogre l 75 mg daily will monitorPT/ OT prnPMR prn Cerebral meningioma 1891 45693 D32.0 f/u neurosurge ry prn Essential hypertension 31697899 I10 carvedilol 25 mg bidamlodip ine 10 mg dailylosar myers 100 mg dailykcl 10 meq dailywill monitor Gout 19196347 M10.09 allopurino l 100 mg dailywill monitor Hyperlipidemia 85411621 E78.49 atorvastat in 80 mg dailywill monitor Hypothyroidism 25564774 E03.8 levothyrox ine 88 mcg dailywill monitor 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 mirtazapin e 7.5 mg at hsescitalo pram 5 mg dailywill monitor Overactive urinary bladder 589825849 N32.81 oxybutynin 5 mg bidwill monitor Type 2 monty betes mellitus 64720468 E11.9 glargine 21 Units daily at hs lispro per sliding scale will monitor [id number] DEBO STACY NP [address] [address] 07/11/2021 09:07:17 07/18/2021 10:47:02 Cerebrovascular accident 141418318 Z86.79 atorvastat in 80 mg daily clopidogre l 75 mg daily will monitorPT/ OT prnPMR prn Mixed anxi ety and depressive disorder 520977152 F41.8 mirtazapin e 7.5 mg at hsescitalo pram 5 mg dailywill monitor [id number] DEBO STACY NP [address] [address] 07/19/2021 09:03:31 07/24/2021 12:12:05 Cerebrovascular accident 539423205 Z86.79 atorvastat in 80 mg daily clopidogre l 75 mg daily will monitorPT/ OT prnPMR prn Cerebral meningioma 1891 10262 D32.0 f/u neurosurge ry prn Essential hypertension 23668760 I10 carvedilol 25 mg bidamlodip ine 10 mg dailylosar myers 100 mg dailykcl 10 meq dailywill monitor Gout 05818506 M10.09 allopurino l 100 mg dailywill monitor Hyperlipidemia 86250428 E78.49 atorvastat in 80 mg dailywill monitor Hypothyroidism 85034835 E03.8 levothyrox ine 88 mcg dailywill monitor Mixed anxi ety and depressive disorder 675911783 F41.8 mirtazapin e 7.5 mg at hsescitalo pram 5 mg dailywill monitor Overactive urinary bladder 829062939 N32.81 oxybutynin 5 mg bidwill monitor Type 2 monty betes mellitus 71876670 E11.9 glargine 21 Units daily at hs lispro per sliding scale will monitor [id number] Ashley Guan MD [address] [address] 08/30/2021 21:05:24 09/04/2021 13:31:57 Cerebral meningioma 453588732 D32.0 f/u neurosurge ry prn Cerebrovas cular accident 035941956 Z86.79 Continues at baseline.C ontinue ASA 81 mg qd, atorvastat in 80 mg qd and clopidogre l 75 mg qd.Continu e supportive care, continues to be total care/flynn .Monitor neuros Essential hypertension 21738307 I10 Continues to be in good control on carvedilol 25 mg BID, amlodipine 10 mg qd, and losartan 100 mg qd.Monitor BP and labs. Gout 05173249 M10.09 No current sxs.Contin ue allopurino l 100 mg qd.Monitor for flare. Hyperlipidemia 43244370 E78.49 Continue atorvastat in 80 mg qd.Monitor labs yearly. Hypothyroidism 35929626 E03.8 Continue levothyrox ine 88 mcg qd.Monitor TSH yearly, due in August. Mixed anxi ety and depressive disorder 922484136 F41.8 Continue mirtazapin e 7.5 mg qhs and escitalopr am 5 mg qd.Monitor mood.Psych consult prn. Overactive urinary bladder 580310681 N32.81 Continue oxybutynin 5 mg BIDMonitor urinary function. Type 2 monty betes mellitus 63576289 E11.9 HgA1C up to 8.6, and sugars almost all >200 Would rather have mild hyperglyce tanner, than hypoglycem ia, but now sugars are consistent ly too high. Will increase Lantus from 21 U qd to 25U and monitor and continue SSIMonitor accuchecks TID and HgA1C q 3 months. Hypokalemia 73297941 E87 .6 K+ continues in good range on KCl 20 meq qd.Monitor labs monthly. Delusional disorder 4850 0005 F22 Pleasantly delusional .Continue mirtazapin e 7.5 mg qhsPsych consult prn. [id number] JULISSA MAGAÑA [address] [place] [address] rd [place]OSHANA MARCH [address] 10/25/2021 11:09:18 10/30/2021 15:29:31 Cerebrovascular accident 759058948 Z86.79 atorvastat in 80 mg daily clopidogre l 75 mg daily will monitorPT/ OT prn Cerebral meningioma 1891 06977 D32.0 f/u neurosurge ry prn Essential hypertension 95793485 I10 carvedilol 25 mg bidamlodip ine 10 mg dailylosar myers 100 mg dailykcl 10 meq dailylasix 20 mg dailywill monitor Gout 65813055 M10.09 allopurino l 100 mg dailywill monitor Hyperlipidemia 25568655 E78.49 atorvastat in 80 mg dailywill monitor Hypothyroidism 37305331 E03.8 levothyrox ine 88 mcg dailywill monitor Mixed anxi ety and depressive disorder 723971084 F41.8 mirtazapin e 7.5 mg at hsescitalo pram 5 mg dailywill monitor Overactive urinary bladder 070060255 N32.81 oxybutynin 5 mg bidwill monitor Type 2 monty betes mellitus 06925272 E11.9 glargine 15 Units daily at hs lispro per sliding scale will monitor [id number] MD SHARMAINE Vicente [address] [place] [address] 12/11/2021 09:07:16 12/13/2021 12:40:52 Cerebrovascular accident 125525478 Z86.79 atorvastat in 80 mg daily clopidogre l 75 mg daily will monitorPT/ OT prnPMR prn Essential hypertension 57045516 I10 amlodipine 10 mg dailycarve dilol 25 mg bidlosarta n 100 mg dailyfuros emide 20 mg dailywill monitor Gout 51739672 M10.09 allopurino l 100 mg dailywill monitor Mixed anxi ety and depressive disorder 793307300 F41.8 mirtazapin e 7.5 mg at hsescitalo pram 5 mg dailywill monitor Rheumatoid arthritis 698 00135 M06.4 meloxicam 15 mg qodwill monitor Type 2 monty betes mellitus 91085816 E11.9 glargine 25U daily at hs lispro per sliding scale will monitor Overactive urinary bladder 349780733 N32.81 oxybutynin 5 mg bidwill monitor Hypothyroidism 60678512 E03.8 levothyrox ine 88 mcg dailywill monitor [id number] JULISSA MAGAÑA MATIAS [address] [place] [address] 02/01/2022 10:11:49 02/05/2022 15:30:32 Cerebrovascular accident 178982107 Z86.79 atorvastat in 80 mg daily clopidogre l 75 mg daily will monitorPT/ OT prn Cerebral meningioma 1891 27593 D32.0 f/u neurosurge ry prn Essential hypertension 68273960 I10 carvedilol 25 mg bidamlodip ine 10 mg dailylosar myers 100 mg dailykcl 10 meq dailylasix 20 mg dailywill monitor Gout 87213298 M10.09 allopurino l 100 mg dailywill monitor Hyperlipidemia 83609456 E78.49 atorvastat in 80 mg dailywill monitor Hypothyroidism 59739870 E03.8 levothyrox ine 88 mcg dailywill monitor Mixed anxi ety and depressive disorder 214843686 F41.8 mirtazapin e 7.5 mg at hsescitalo pram 5 mg dailywill monitor Overactive urinary bladder 960592031 N32.81 oxybutynin 5 mg bidwill monitor Type 2 monty betes mellitus 19822868 E11.9 glargine 15 Units daily at hs lispro per sliding scale will monitor [id number] Maryellen Muñoz MD [address] [address] 03/29/2022 06:45:42 04/02/2022 15:52:47 Essential hypertension 86497719 I10 amlodipine 10 mg dailycarve dilol 25 mg bidlosarta n 100 mg dailyfuros emide 20 mg dailywill monitor Mixed anxi ety and depressive disorder 393906690 F41.8 mirtazapin e 7.5 mg at hsescitalo pram 5 mg dailywill monitor Overactive urinary bladder 316519685 N32.81 oxybutynin 5 mg bidwill monitor Rheumatoid arthritis 698 33043 M06.4 meloxicam 15 mg qodPMR prnAPAP 650 mg q6h prnwill monitor Type 2 monty betes mellitus 64901099 E11.9 insulin glargine 25U daily at hs lispro per sliding scale will monitor History of cerebrovascular accident 110343529 Z86.73 atorvastat in 80 mg daily clopidogre l 75 mg daily will monitorPT/ OT prnPMR prn Gout 37164906 M10.09 allopurino l 100 mg dailywill monitor Hypothyroidism 94390264 E03.8 levothyrox ine 88 mcg dailywill monitor [id number] DEBO STACY NP [address] [address] 04/18/2022 12:53:11 04/26/2022 14:36:27 SARS-CoV-2 294794857 U07.1 04/16 covid positive encourage po fluids consider ivf for anorexiaco nsider paxlovid and dexamethas one for symptomsmo nitor for any changes in mental or medical status send to ED for decompensa tion [id number] DEBO STACY NP [address] [address] 04/19/2022 10:20:50 04/26/2022 15:14:17 SARS-CoV-2 710406967 U07.1 04/16 covid positive encourage po fluids consider ivf for anorexiaco nsider paxlovid and dexamethas one for symptomsmo nitor for any changes in mental or medical status send to ED for decompensa tion [id number] DEBO STACY NP [address] [address] 04/24/2022 11:25:00 04/26/2022 15:56:37 SARS-CoV-2 062119973 U07.1 04/16 covid positive-a symptomati c, recovered by date encourage po fluids consider ivf for anorexiaco nsider paxlovid and dexamethas one for symptomsmo nitor for any changes in mental or medical status send to ED for decompensa tion [id number] DEBO STACY NP [address] [address] 05/23/2022 12:31:45 05/28/2022 08:11:34 Essential hypertension 48578318 I10 amlodipine 10 mg dailycarve dilol 25 mg bidlosarta n 100 mg dailyfuros emide 20 mg dailywill monitor Mixed anxi ety and depressive disorder 339788220 F41.8 mirtazapin e 7.5 mg at hsescitalo pram 5 mg dailywill monitor Overactive urinary bladder 329822194 N32.81 oxybutynin 5 mg bidwill monitor Rheumatoid arthritis 698 57715 M06.4 meloxicam 15 mg qodPMR prnAPAP 650 mg q6h prnwill monitor Type 2 monty betes mellitus 68061174 E11.9 insulin glargine 25U daily at hs lispro per sliding scale will monitor History of cerebrovascular accident 838097626 Z86.73 atorvastat in 80 mg daily clopidogre l 75 mg daily will monitorPT/ OT prnPMR prn Gout 57626013 M10.09 allopurino l 100 mg dailywill monitor Hypothyroidism 01408038 E03.8 levothyrox ine 88 mcg dailywill monitor [id number] Maryellen Muñoz MD [address] [address] 07/31/2022 06:55:12 08/06/2022 12:13:09 Impaired cognition 807311783 R41.89 will monitor and support as needed Essential hypertension 09623618 I10 amlodipine 10 mg dailycarve dilol 25 mg bidlosarta n 100 mg dailyfuros emide 20 mg dailywill monitor Hyperlipidemia 60972968 E78.49 atorvastat in 80 mg dailywill monitor History of cerebrovascular accident 107799247 Z86.73 atorvastat in 80 mg daily clopidogre l 75 mg daily will monitorPT/ OT prnPMR prn Hypothyroidism 53463838 E03.8 levothyrox ine 88 mcg dailywill monitor Mixed anxi ety and depressive disorder 704856320 F41.8 mirtazapin e 7.5 mg at hsescitalo pram 5 mg dailywill monitor Gout 77862778 M10.09 allopurino l 100 mg dailywill monitor Overactive urinary bladder 122005963 N32.81 oxybutynin 5 mg bidwill monitor Type 2 monty betes mellitus 33469120 E11.9 insulin glargine 25U daily at hs lispro per sliding scale will monitor [id number] DEBO STACY NP [address] [address] 5 08/07/2022 13:54:18 08/09/2022 15:59:16 Essential hypertension 02487361 I10 amlodipine 10 mg dailycarve dilol 25 mg bidlosarta n 100 mg dailyfuros emide 20 mg dailywill monitor Mixed anxi ety and depressive disorder 463175796 F41.8 mirtazapin e 7.5 mg at hsescitalo pram 5 mg dailywill monitor Overactive urinary bladder 383701414 N32.81 oxybutynin 5 mg bidwill monitor Rheumatoid arthritis 698 65695 M06.4 meloxicam 15 mg qodPMR prnAPAP 650 mg q6h prnwill monitor Type 2 monty betes mellitus 22533567 E11.9 insulin glargine 25 Units daily at hs lispro per sliding scale will monitor History of cerebrovascular accident 132313849 Z86.73 atorvastat in 80 mg daily clopidogre l 75 mg daily will monitorPT/ OT prnPMR prn Gout 36378632 M10.09 allopurino l 100 mg dailywill monitor Hypothyroidism 68582229 E03.8 levothyrox ine 88 mcg dailywill monitor Hyperlipidemia 56222706 E78.49 atorvastat in 80 mg dailywill monitor [id number] JULISSA MAGAÑA [address] [place] [address] 09/18/2022 11:32:26 09/26/2022 11:00:23 Essential hypertension 67553423 I10 amlodipine 10 mg dailycarve dilol 25 mg bidlosarta n 100 mg dailyfuros emide 20 mg dailywill monitor Mixed anxi ety and depressive disorder 220633147 F41.8 mirtazapin e 7.5 mg at hsescitalo pram 10 mg dailywill monitor Overactive urinary bladder 658985431 N32.81 oxybutynin 5 mg bidwill monitor Rheumatoid arthritis 698 44465 M06.4 meloxicam 15 mg qodPMR prnAPAP 650 mg q6h prnwill monitor Type 2 monty betes mellitus 53952687 E11.9 insulin glargine 30 Units daily at hs lispro per sliding scale will monitor History of cerebrovascular accident 519233989 Z86.73 atorvastat in 80 mg daily clopidogre l 75 mg daily will monitorPT/ OT prnPMR prn Gout 19171139 M10.09 allopurino l 100 mg dailywill monitor Hypothyroidism 22350801 E03.8 levothyrox ine 88 mcg dailywill monitor Hyperlipidemia 00358068 E78.49 atorvastat in 80 mg dailywill monitor [id number] DEBO STACY NP [address] [address] 09/20/2022 10:27:37 09/26/2022 14:20:03 Epidermal burn of skin 574228697 T14.8XXA keflex 500 mg bid for 5 daysbacitr acin with dsd qshiftwoun d consult [id number] DEBO STACY NP [address] [address] 5 09/23/2022 14:55:08 09/26/2022 15:18:55 Epidermal burn of skin 563686673 T14.8XXA keflex 500 mg bid for 5 days acitra patty with dsd qshiftwoun d consult [id number] DEBO STACY NP [address] [address] 5 10/14/2022 12:39:30 10/17/2022 14:25:15 Cerebrovascular accident 378163429 Z86.79 atorvastat in 80 mg daily clopidogre l 75 mg daily will monitorPT/ OT prn Mixed anxi ety and depressive disorder 427533013 F41.8 mirtazapin e 7.5 mg at hsescitalo pram 10 mg dailywill monitorpsy ch prn Rheumatoid arthritis 698 50938 M06.4 meloxicam 15 mg qodPMR prnAPAP 650 mg q6h prnwill monitor Epidermal burn of skin 845856752 T14.8XXA healedkefl ex 500 mg bid for 5 days acitra patty with dsd qshiftwoun d consult Pneumonia 141162629 J18. 9 azithromyc in 500mg x1 then 250 mg x4 days [id number] Ashley Guan MD [address] [address] 12/17/2022 19:39:05 01/06/2023 12:24:08 Cerebrovascular accident 570782176 Z86.79 Hx of.Continu e atorvastat in 80 mg qd and clopidogre l 75 mg qd.Continu e supportive care, continues to be total care/flynn .Monitor for change in neuro status. Cerebral meningioma 1891 75722 D32.0 No tx recommende d currently. F/U with neurosurge ry prn Delusional disorder 4850 4 F22 As above. Essential hypertension 11457747 I10 Continues to be in good control on carvedilol 25 mg BID, amlodipine 10 mg qd, and losartan 100 mg qd.Monitor BP and labs. Hypothyroidism 65645878 E03.8 Last TSH WNL in 01/2022.Co ntinue levothyrox ine 88 mcg qd.Monitor TSH yearly, due in Jan. Overactive urinary bladder 635004345 N32.81 Continue oxybutynin 5 mg BIDMonitor urinary function. Type 2 monty betes mellitus 31156790 E11.9 HgA1C was 8.6 in 08/2021, not rechecked since then, sugars >200 about 1/3 of the time. Would rather have mild hyperglyce tanner, than hypoglycem ia. Lantus was increased to 36U in 09/2022, will continue this and continue SSIMonitor accuchecks TID and recheck HgA1C with next labs. Hypokalemia 41831316 E87 .6 K+ continues in good range on KCl 10 meq qd.Monitor labs monthly. Impaired cognition 56549 6002 R41.89 Continues at baselineCo ntinue escitalopr am 10 mg qd and mirtazapin e 7.5 mg qdContinue supportive care, expect decline.HC P invokedMon itor mood and behaviors. Psych consult prn. [id number] JULISSA MAGAÑA [address] [place] [address] [place] [address] 02/07/2023 14:18:45 02/11/2023 15:36:44 Impaired cognition 725318370 R41.89 Continues at baselinees citalopram 10 mg qdmirtazap ine 7.5 mg qdContinue supportive care, expect decline.HC P invokedMon itor mood and behaviors. Psych consult prn. Delusional disorder 0 4 F22 As above. Cerebrovas cular accident 476631092 Z86.79 Hx of--at baselineat orvastatin 80 mg qdclopidog rel 75 mg qd.Continu e supportive care, continues to be total care/flynn .Monitor for change in neuro status. Cerebral meningioma 1891 40167 D32.0 No tx recommende d currently. F/U with neurosurge ry prn Essential hypertension 58173914 I10 Continues to be in good control on carvedilol 25 mg BID,amlodi pine 10 mg qd,losarta n 100 mg qd.Monitor BP and labs. Hypothyroidism 39293640 E03.8 Last TSH WNL in 01/2022.le vothyroxin e 88 mcg qd.Monitor TSH yearly, due in Jan. Overactive urinary bladder 116653495 N32.81 oxybutynin 5 mg BIDMonitor urinary function. Type 2 monty betes mellitus 67854320 E11.9 HgA1C was 8.6 in 08/2021, not rechecked since then, sugars >200 about 1/3 of the time. Would rather have mild hyperglyce tanner, than hypoglycem ia. Lantus was increased to 36U in 09/2022, will continue this and continue SSIMonitor accuchecks TID and recheck HgA1C with next labs. Hypokalemia 96933227 E87 .6 K+ continues in good range on KCl 10 meq qd.Monitor labs monthly. [id number] Ashley Guan MD [address] [address] 04/11/2023 14:34:53 04/28/2023 16:03:28 Cough 76653500 R05.8 Appears acutely ill, with junky cough.So far is covid neg.Will check for RSV and influenza, and check labs on 04/15-CBC and CMP.Start Mucinex 600 mg q 6 hrs x 1 wk. and continue duonebs q 6 hrs prn. Impaired cognition 02120 6002 R41.89 Continues at baseline with delusions as usual.Cont inue escitalopr am 10 mg qd and mirtazapin e 7.5 mg qdContinue supportive care, expect decline.HC P invokedMon itor mood and behaviors. Psych follows Delusional disorder 4850 0005 F22 As above. Cerebrovas cular accident 154749672 Z86.79 In hx.No new sxsContinu e atorvastat in 80 mg qd and clopidogre l 75 mg qd.Continu e supportive care, remains total care/flynn .Monitor for change in neuro status. Cerebral meningioma 1891 24484 D32.0 No tx recommende d currently. F/U with neurosurge ry prn Essential hypertension 61163523 I10 With occ. borderline SBP, but generally in good control on carvedilol 25 mg BID, amlodipine 10 mg qd, and losartan 100 mg qd.Monitor BP and labs. Hypothyroidism 85959957 E03.8 Last TSH WNL in 01/2022.Co ntinue levothyrox ine 88 mcg qd.Monitor TSH yearly, was due in Jan., not done, will order with next labs due in 06/2023. Overactive urinary bladder 376311092 N32.81 Changed to Myrbetriq 50 mg qd on 03/25/23, from oxybutynin 5 mg BIDStarted on Estrace 2 gms M/W/ in 01/2023.Mo nitor urinary function. Type 2 monty betes mellitus 58037121 E11.9 Sugars are >200 about 1/2 of the time. Would rather have mild hyperglyce tanner, than hypoglycem ia, but overall too high.Will increase Lantus from 36U to 40U and continue SSIMonitor accuchecks TID and recheck HgA1C with next labs. Hypokalemia 43355324 E87 .6 K+ continues in good range on KCl 10 meq qd.Monitor labs monthly. [id number] [facility] [address] [place] [address] [place] [address] 05/20/2023 08:38:41 05/28/2023 08:36:29 Dyspnea 227948710 R06.00 chest xray suggestive of pneumoniap reviously started on augmentinh ydration encourages continue oxygen titrate to keep sat greater than 90%will send swab for covid, flu and rsv as well. Fall W19.XXXA 05/18/23:se e hpiunwitne ssed with no apparent injuries.+ ROM to all [facility] checks per facility protocol. [id number] CHRISSY CROCKETT [address] [address] 06/17/2023 11:19:07 06/19/2023 12:27:49 Impaired cognition 583783314 R41.89 Continues at baseline with delusions as usual.Cont inue escitalopr am 10 mg qd and mirtazapin e 7.5 mg qdContinue supportive care, expect decline.HC P invokedMon itor mood and behaviors. Psych follows Delusional disorder 4850 0005 F22 As above. Cerebrovas cular accident 519360421 Z86.79 In hx.No new sxsContinu e atorvastat in 80 mg qd and clopidogre l 75 mg qd.Continu e supportive care, remains total care/flynn .Monitor for change in neuro status. Cerebral meningioma 1891 97505 D32.0 No tx recommende d currently. F/U with neurosurge ry prn Essential hypertension 32001193 I10 continue:c arvedilol 25 mg BID,amlodi pine 10 mg qdand losartan 100 mg qd.Monitor BP and labs. Hypothyroidism 80051136 E03.8 Last TSH WNL in 01/2022.Co ntinue levothyrox ine 88 mcg qd.Monitor TSH yearly, was due in Jan., not done, will order with next labs due in 06/2023. Overactive urinary bladder 229126527 N32.81 Myrbetriq 50 mg qdEstrace 2 gms M/W/F in 01/2023.Mo nitor urinary function.i ncontinent - nursing reports heavy wetter. Type 2 monty betes mellitus 78033009 E11.9 as high as 300 Will increase Lantus from 36U to 40U and continue SSIMonitor accuchecks TID and recheck HgA1C with next labs. [id number] [facility] CR[facility] [address] [place] [address] 08/11/2023 10:05:01 08/15/2023 15:28:26 Diarrhea and vomiting, symptom 569293729 R19.7 Concerned for Cdiff, nursing reports foul smelling, slimy mucous like stool.stoo l sample sent to labCBC with diff, and CMP orderedinc reased oral hydrationa waiting results to treat. [id number] CHRISSY CROCKETT [address] [address] 08/15/2023 16:10:25 08/19/2023 15:16:25 Urinary tract infectious disease 68812857 N39.0 see hpistarted on cefuroxime 250 mg BIDadd probiotic 1 tab BID for 10 dayincreas e oral hydration. Type 2 monty betes mellitus 88898593 E11.9 continue lantus 40 unit continue Insulin SSCmonitor FS TID Essential hypertension 57083079 I10 continue:c arvedilol 25 mg BID,amlodi pine 10 mg qdand losartan 100 mg qd.Monitor BP and labs. Hypothyroidism 68209288 E03.8 Continue levothyrox ine 88 mcg qd.check TSH at next rounding visit Heart failure 03373784 I 50.9 continued on carvedilol 25 mg and Lasix 20 mg dailymonit or weight, sob, edemamonit or VS and labs. [id number] [facility]SY CROCKET[facility] [address] [place] [address] 08/21/2023 10:04:33 08/26/2023 10:06:00 Urinary tract infectious disease 84877267 N39.0 see hpistarted on cefuroxime 250 mg BID-comple carmelo.add probiotic 1 tab BID for 10 dayincreas e oral hydration. Type 2 monty betes mellitus 30096573 E11.9 BGL mainly under 200continu e lantus 40 unit continue Insulin SSCmonitor FS TID Essential hypertension 02444816 I10 continue:c arvedilol 25 mg BID,amlodi pine 10 mg qdand losartan 100 mg qd.Monitor BP and labs. Heart failure 17911595 I 50.9 appears to be stable.con tinued on carvedilol 25 mg and Lasix 20 mg dailymonit or weight, sob, edemamonit or VS and labs. [id number] CH[facility]SY CROCKETT [facility] [address] [place] [address] 5 09/01/2023 13:25:32 09/03/2023 10:00:39 Type 2 diabetes mellitus 96545458 E11.9 BGL mainly under 200continu e lantus 40 unit continue Insulin SSCmonitor FS TID Essential hypertension 99967877 I10 continue:c arvedilol 25 mg BID,amlodi pine 10 mg qdand losartan 100 mg qd.Monitor BP and labs. Heart failure 20717964 I 50.9 appears to be stable.con tinued on carvedilol 25 mg and Lasix 20 mg dailymonit or weight, sob, edemamonit or VS and labs. [id number] CHRISSY CROCKETT [address] [place] [address] 5 09/08/2023 13:58:44 09/11/2023 13:24:52 Urinary tract infectious disease 37578091 N39.0 resolved Type 2 monty betes mellitus 32429668 E11.9 BGL mainly under 200continu e lantus 40 unit continue Insulin SSCmonitor FS TID Essential hypertension 91967262 I10 continue:c arvedilol 25 mg BID,amlodi pine 10 mg qdand losartan 100 mg qd.Monitor BP and labs. Heart failure 32348641 I 50.9 appears to be stable.con tinued on carvedilol 25 mg and Lasix 20 mg dailymonit or weight, sob, edemamonit or VS and labs. [id number] Ashley Guan MD [address] [place] [address] 09/09/2023 21:18:06 10/15/2023 09:01:55 Impaired cognition 394576582 R41.89 Continues at baseline.C ontinue escitalopr am 10 mg qd and mirtazapin e 7.5 mg qdContinue supportive care, expect decline.HC P invokedMon itor mood and behaviors. Psych follows Delusional disorder 4850 0005 F22 As above. Cerebrovas cular accident 882336525 Z86.79 In hx.No new sxsContinu e atorvastat in 80 mg qd and clopidogre l 75 mg qd.Continu e supportive care, remains total care/flynn .Monitor for change in neuro status. Cerebral meningioma 1891 80400 D32.0 No tx recommende d currently. F/U with neurosurge ry prn Essential hypertension 79727885 I10 With occ. borderline SBP, but generally in good control on carvedilol 25 mg BID, amlodipine 10 mg qd, and losartan 100 mg qd.Monitor BP and labs. Hypothyroidism 88836859 E03.8 Last TSH WNL in 01/2022.Co ntinue levothyrox ine 88 mcg qd.Monitor TSH yearly, was supposed to be done in 06/2023, but not done.Reord ered in 07/2023, still not done. Overactive urinary bladder [id number] N32.81 Continue Myrbetriq 50 mg qd and Estrace 2 gms M/W/F in 01/2023.Mo nitor urinary function. Type 2 monty betes mellitus 25295595 E11.9 Sugars in better control since increased lantus. Continue Lantus 40U qd and continue SSIMonitor accuchecks TID and recheck HgA1C with next labs. Hypokalemia 76684291 E87 .6 K+ continues in good range on KCl 10 meq qd.Monitor labs monthly. [id number] CHRISSY CROCKETT [address] [address] 09/11/2023 10:09:18 09/23/2023 10:38:22 Urinary tract infectious disease 55393369 N39.0 resolved Type 2 monty betes mellitus 59483462 E11.9 BGL mainly under 200continu e lantus 40 unit continue Insulin SSCmonitor FS TID Essential hypertension 31711677 I10 continue:c arvedilol 25 mg BID,amlodi pine 10 mg qdand losartan 100 mg qd.Monitor BP and labs. Heart failure 35154664 I 50.9 appears to be stable.con tinued on carvedilol 25 mg and Lasix 20 mg dailymonit or weight, sob, edemamonit or VS and labs. [id number] CHRISSY CROCKETT [facility] [address] [place] [address] 10/30/2023 09:01:33 11/11/2023 08:30:21 Impaired cognition 916955085 R41.89 Continue escitalopr am 10 mg qd and mirtazapin e 7.5 mg qdContinue supportive care, expect decline.HC P invokedMon itor mood and behaviors. Psych follows Cerebrovas cular accident 078023959 Z86.79 In hxContinue atorvastat in 80 mg qd and clopidogre l 75 mg qd.Continu e supportive care, remains total care/flynn .Monitor for change in neuro status. Cerebral meningioma 9487 21748 D32.0 No tx recommende d currently. F/U with neurosurge ry prn Essential hypertension 74162889 I10 continueca rvedilol 25 mg BID, amlodipine 10 mg qd, and losartan 100 mg qd.Monitor BP and labs. Hypothyroidism 00612811 E03.8 Last TSH WNL in 01/2022.Co ntinue levothyrox ine 88 mcg qd.Monitor TSH yearly, was supposed to be done in 06/2023, but not done.Reord ered in 07/2023, still not done. Overactive urinary bladder 796887055 N32.81 Continue Myrbetriq 50 mg qd and Estrace 2 gms M/W/F in 01/2023.Mo nitor urinary function. Type 2 monty betes mellitus 62097253 E11.9 Continue Lantus 40U qd and continue SSIMonitor accuchecks TID and recheck HgA1C with next labs. Hypokalemia 25481512 E87 .6 continue KCl 10 meq qd.Monitor labs monthly. [id number] CHRISSY CROCKETT MATIAS [address] [place] [address] [place] [address] 12/31/2023 08:34:10 01/01/2024 12:01:23 Impaired cognition 075700588 R41.89 Continue escitalopr am 10 mg qd and mirtazapin e 7.5 mg qdContinue supportive care, expect decline.HC P invokedMon itor mood and behaviors. Psych follows Cerebrovas cular accident 664887138 Z86.79 Continue atorvastat in 80 mg qd and clopidogre l 75 mg qd.Continu e supportive care, remains total care/flynn .Monitor for change in neuro status. Essential hypertension 79190754 I10 continueca rvedilol 25 mg BID, amlodipine 10 mg qd, and losartan 100 mg qd.Monitor BP and labs. Hypothyroidism 76477994 E03.8 CBC, BMP, TSH, Free T4 on 01/05/24Con tinue levothyrox ine 88 mcg qd. Overactive urinary bladder 633391391 N32.81 Continue Myrbetriq 50 mg qd and Estrace 2 gmsMonitor urinary function. Type 2 monty betes mellitus 71110874 E11.9 lantus increase to 45 unit qd for bgl 250-300sco ntinue SSC with FS TIDmonitor for hypoglycem ia Hypokalemia 07766720 E87 .6 continue KCl 10 meq qd.Monitor labs monthly.la bs on 01/04 [id number] CHRISSY CROCKETT [address] [address] 02/20/2024 14:14:26 02/23/2024 13:38:42 Impaired cognition 976983178 R41.89 Continue escitalopr am 10 mg qd and mirtazapin e 7.5 mg qdContinue supportive care, expect decline.HC P invokedMon itor mood and behaviors. Psych follows Cerebrovas cular accident 309055024 Z86.79 Continue atorvastat in 80 mg qd and clopidogre l 75 mg qd.Continu e supportive care, remains total care/flynn .Monitor for change in neuro status. Essential hypertension 65905555 I10 continueca rvedilol 25 mg BID, amlodipine 10 mg qd, and losartan 100 mg qd.Monitor BP and labs. Hypothyroidism 53237541 E03.8 CBC, BMP, TSH, Free T4 on 01/05/24Con tinue levothyrox ine 88 mcg qd. Overactive urinary bladder 465815471 N32.81 Continue Myrbetriq 50 mg qd and Estrace 2 gmsMonitor urinary function. Type 2 monty betes mellitus 45956186 E11.9 lantus increase to 45 unit qd for bgl 250-300sco ntinue SSC with FS TIDmonitor for hypoglycem ia Hypokalemia 50315816 E87 .6 continue KCl 10 meq qd.Monitor labs monthly. [id number] CHRISSY CROCKETT [address] [address] 04/12/2024 10:23:08 04/13/2024 09:57:49 Impaired cognition 212847535 R41.89 Continue escitalopr am 10 mg qd and mirtazapin e 7.5 mg qdContinue supportive care, expect decline.HC P invokedMon itor mood and behaviors. Psych follows Cerebrovas cular accident 352845803 Z86.79 Continue atorvastat in 80 mg qd and clopidogre l 75 mg qd.Continu e supportive care, remains total care/flynn .Monitor for change in neuro status. Essential hypertension 94122597 I10 continueca rvedilol 25 mg BID, amlodipine 10 mg qd, and losartan 100 mg qd.Monitor BP and labs. Hypothyroidism 13026421 E03.8 Continue levothyrox ine 88 mcg qd. Overactive urinary bladder 334186996 N32.81 oncontinen tContinue Myrbetriq 50 mg qd and Estrace 2 gms -tapering to offMonitor urinary function. Type 2 monty betes mellitus 49584570 E11.9 04/12; lantus increase to 48 unit qd for bgl 250-300sco ntinue SSC with FS TIDmonitor for hypoglycem ia Hypokalemia 71216720 E87 .6 continue KCl 10 meq qd.Monitor labs monthly. [id number] CHRISSY CROCKETT [facility] [address] [place] [address] 07/18/2024 10:58:50 07/22/2024 16:16:46 Impaired cognition 079073683 R41.89 Continue escitalopr am 10 mg qd and mirtazapin e 7.5 mg qdContinue supportive care, expect decline.HC P invokedMon itor mood and behaviors. Psych follows Cerebrovas cular accident 592016074 Z86.79 stableCont inue atorvastat in 80 mg qd and clopidogre l 75 mg qd.Continu e supportive care, remains total care/flynn .Monitor for change in neuro status. Essential hypertension 09560581 I10 stablecarv edilol 25 mg BID, amlodipine 10 mg qd, and losartan 100 mg qd.Monitor BP and labs. Hypothyroidism 52312450 E03.8 Continue levothyrox ine 88 mcg qd. Overactive urinary bladder 901814431 N32.81 incontinen tContinue Myrbetriq 50 mg qd and Estrace 2 gms -tapering to offMonitor urinary function. Type 2 monty betes mellitus 33858903 E11.9 unstable- high 200 -300will increase lantus to 50 unit in divided dose BIDcontinu e SSC with FS TIDmonitor for hypoglycem ia Hypokalemia 63374332 E87 .6 continue KCl 10 meq qd.Monitor labs monthly. [id number] CHRISSY CROCKETT [address] [address] 10/27/2024 05:56:02 11/04/2024 14:51:55 Impaired cognition 608079507 R41.89 Continue escitalopr am 10 mg qd and mirtazapin e 7.5 mg qdContinue supportive care, expect decline.HC P invokedMon itor mood and behaviors. Psych follows Cerebrovas cular accident 251469519 Z86.79 Continue atorvastat in 80 mg qd and clopidogre l 75 mg qd.Continu e supportive care, remains total care/flynn .Monitor for change in neuro status. Essential hypertension 88118911 I10 stablecarv edilol 25 mg BID, amlodipine 10 mg qd, and losartan 100 mg qd.Monitor BP and labs. Hypothyroidism 46108488 E03.8 Continue levothyrox ine 88 mcg qd. Overactive urinary bladder 033358815 N32.81 incontinen tContinue Myrbetriq 50 mg qd and Estrace 2 gms -tapering to offMonitor urinary function. Type 2 monty betes mellitus 99522355 E11.9 stablecont inue lantus to 50 unit [...] Name 04/12/2024 2 [place] [id number] Sona Laguna [id number] Sona [place]una 10/27/2024 2 [place] [facility] Sona Laguna [id number] Sona [place]una 10/27/2024 1 [place] [employer] Sona Laguna [id number] Sona [place]una Notes Date Note Type Note Provider Name and Address Organization Details Recorded Time 12/31/2023 text/html ROS as noted in the HPI Ms. 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 Past medical history significant for dementia, hyperlipidemia, hypertension, CVA, type 2 diabetes mellitus on insulin, chronic systolic and diastolic CHF and hypothyroidism. She is stable with baseline dementia, dependant on staff to meet daily care needs, she is eating, drinking and eliminating without concerns, she has been getting OOB more and having meals in the common area. CHRISSY CROCKETT [address] [facility], [address], [place], [address], [employer] 12/31/2023 22:47:17 02/20/2024 text/html ROS as noted [...] medications and care plan. CHRISSY CROCKETT [address] [facility], [address], [place], [address], [employer] 02/20/2024 14:23:12 04/12/2024 text/html ROS as noted [...] diastolic CHF and hypothyroidism. CHRISSY CROCKETT [address] [facility], [address], [place], [address], [employer] 04/12/2024 13:44:49 07/18/2024 text/html ROS as noted [...] is compliant with medication. CHRISSY CROCKETT [address] [facility], [address], [place], [address], [employer] 07/19/2024 07:45:45 10/27/2024 text/html ROS as noted in the HPI This is an 79 yr old female LTC resident due for annual exam Medically she is stable, there is no acute concerns. CHRISSY CROCKETT [address] [facility], [address], [place], [address], [facility] 11/02/2024 13:54:45 OBGyn Episode No OBEpisode recorded.
[2025-04-05 08:47] LABS: Chlamydia pneumoniae PCR Not Detected (Not Detect.); Coronavirus 229E PCR Not Detected (Not Detect.); Coronavirus HKU1 PCR Not Detected (Not Detect.); Coronavirus NL63 PCR Not Detected (Not Detect.); Coronavirus OC43 PCR Not Detected (Not Detect.); RSV PCR Not Detected (Not Detect.); Rhino/Enterovirus PCR Not Detected (Not Detect.)
[2025-04-05 08:52] LABS: Influenza A H1 PCR Not Detected (Not Detect.); Influenza A H1-2009 PCR Not Detected (Not Detect.); Influenza A H3 PCR Not Detected (Not Detect.); SARS-CoV-2 PCR Not Detected (Not Detect.)
== END 2025-04-04 13:52 | disposition home or self-care (01) ==
LOC: HO.MMNH3L 13:51
PROVIDERS: Visit Provider Student in an Organized Health Care Education/Training Program
DX: I13.0 Hypertensive heart and chronic kidney disease with heart failure and stage 1 through stage 4 chronic kidney disease, or unspecified chronic kidney disease (principal); I50.42 Chronic combined systolic (congestive) and diastolic (congestive) heart failure; N18.9 Chronic kidney disease, unspecified; I73.9 Peripheral vascular disease, unspecified
CPT/HCPCS: 36415; 80053; 81001; 81003; 84145; 85025; 87086; 87633

== ENCOUNTER 2025-04-05 06:25 | Outpatient (REF) | payer MEDICARE, MEDICAID, SELFPAY ==
[2025-04-05 06:28] LABS: MANUAL DIFF FLAG NO
[2025-04-05 07:03] LABS: Hematocrit 36.6 % (37.0-47.0); Hemoglobin 11.6 g/dl (12.0-16.0); Imm Gran Abs Auto 0.07 X10*3/uL (0.00-0.03); Imm Gran Pct Auto 0.6 % (0.0-0.4); Lymphocytes Absolute Auto 1.3 X10*3/uL (1.2-4.9); Mean Corpuscular HGB Conc 31.7 g/dl (31.0-35.0); Mean Corpuscular Hemoglobin 28.2 pg (27.0-33.0); Mean Corpuscular Volume 89.1 fL (80.0-98.0); NRBC Abs Auto 0.000 X10*3/uL (0.0-0.012); NRBC Pct Auto 0.0 /100WBC (0.0-0.2); Platelet Count 200 X10*3/uL (160-400); Red Blood Count 4.11 X10*6/uL (4.20-5.50); White Blood Count 12.2 X10*3/uL (4.8-10.8)
[2025-04-05 07:27] LABS: Alanine Aminotransferase 10 U/L (0-31); Albumin Level 3.1 g/dL (3.5-5.0); Alkaline Phosphatase 103 U/L (39-117); Anion Gap 12 (12-20); Aspartate Amino Transferase 27 U/L (5-31); Blood Urea Nitrogen 26 mg/dL (9-16); Calcium 9.6 mg/dL (8.4-10.2); Carbon Dioxide 23 mmol/L (22-29); Chloride 117 mmol/L (96-108); Estimated Glomerular Filt Rate > 60; Potassium 3.5 mmol/L (3.3-5.1); Sodium 148 mmol/L (135-145); Total Protein 6.4 g/dL (6.5-8.0)
[2025-04-05 07:39] LABS: Procalcitonin 6.15 ng/mL
== END 2025-04-05 06:26 | disposition home or self-care (01) ==
LOC: HO.MMNH3L 06:25
PROVIDERS: Visit Provider Physician Assistant Medical
DX: E11.51 Type 2 diabetes mellitus with diabetic peripheral angiopathy without gangrene (principal); I13.0 Hypertensive heart and chronic kidney disease with heart failure and stage 1 through stage 4 chronic kidney disease, or unspecified chronic kidney disease; N18.9 Chronic kidney disease, unspecified; I50.42 Chronic combined systolic (congestive) and diastolic (congestive) heart failure
CPT/HCPCS: 36415; 80053; 84145; 85025

== ENCOUNTER 2025-04-06 07:11 | Outpatient (REF) | payer MEDICARE, MEDICAID, SELFPAY ==
[2025-04-06 07:15] LABS: MANUAL DIFF FLAG NO
[2025-04-06 08:02] LABS: Hematocrit 35.1 % (37.0-47.0); Hemoglobin 11.6 g/dl (12.0-16.0); Imm Gran Abs Auto 0.10 X10*3/uL (0.00-0.03); Imm Gran Pct Auto 0.9 % (0.0-0.4); Lymphocytes Absolute Auto 1.1 X10*3/uL (1.2-4.9); Mean Corpuscular HGB Conc 33.0 g/dl (31.0-35.0); Mean Corpuscular Hemoglobin 29.3 pg (27.0-33.0); Mean Corpuscular Volume 88.6 fL (80.0-98.0); NRBC Abs Auto 0.000 X10*3/uL (0.0-0.012); NRBC Pct Auto 0.0 /100WBC (0.0-0.2); Platelet Count 224 X10*3/uL (160-400); Red Blood Count 3.96 X10*6/uL (4.20-5.50); White Blood Count 11.6 X10*3/uL (4.8-10.8)
== END 2025-04-06 07:12 | disposition home or self-care (01) ==
LOC: HO.MMNH3L 07:11
PROVIDERS: Visit Provider Physician Assistant Medical
DX: E11.22 Type 2 diabetes mellitus with diabetic chronic kidney disease (principal); N18.9 Chronic kidney disease, unspecified; E46 Unspecified protein-calorie malnutrition
CPT/HCPCS: 36415; 85025

== ENCOUNTER 2025-04-11 06:27 | Outpatient (REF) | payer MEDICARE, MEDICAID, SELFPAY ==
--- OUTSIDE RECORDS SUMMARY | 2025-04-11 06:30 | XMS_ITS | Encounter Summary ---
Author Organization [facility], Address [address] [place] [address] Phone Care Team Providers Care Braider Operator Name Role Phone Gala Combs MD Primary Care Provider [phone] Reason for Visit * Reason Comments Med Refill Encounter Details Date Type Department Care Team (Late st Contact Info) Description 09/10/2019 Refill [facility] [address] [place] [phone] Es Luz PA Social History Tobacco Use [...] on filedocumented in this encounter Care Teams Braider Operator Relationship Specialty Start Date End Date Gala Combs MD [address] [place], [place] PCP - General 02/23/19 documented as of this encounter
--- OUTSIDE RECORDS SUMMARY | 2025-04-11 06:30 | XMS_ITS | Encounter Summary ---
Author Organization [facility], Address [address] [place] [address] Phone Care Team Providers Care Golf Range Attendant Name Role Phone Gala Combs MD Primary Care Provider [phone] Reason for Visit * Reason Comments Med Refill Encounter Details Date Type Department Care Team (Late st Contact Info) Description 10/28/2019 Refill [facility] [address] [place] [address] Es Luz PA Social History [...] on filedocumented in this encounter Care Teams Golf Range Attendant Relationship Specialty Start Date End Date Gala Combs MD [address] [place], [place] PCP - General 02/23/19 documented as of this encounter
--- OUTSIDE RECORDS SUMMARY | 2025-04-11 06:30 | XMS_ITS | Encounter Summary ---
Author Organization [facility], Address [address] [place] [address] Phone Care Team Providers Care Battery Plate Assembler Name Role Phone Gala Combs MD Primary Care Provider [phone] Reason for Visit * Reason Comments Med Refill Encounter Details Date Type Department Care Team (Late st Contact Info) Description 09/23/2019 Refill [facility] [address] [place] [address] Es Luz PA Social History [...] on filedocumented in this encounter Care Teams Battery Plate Assembler Relationship Specialty Start Date End Date Gala Combs MD [address] [place], [place] PCP - General 02/23/19 documented as of this encounter
--- OUTSIDE RECORDS SUMMARY | 2025-04-11 06:30 | XMS_ITS | Encounter Summary ---
Author Organization [facility], Address [address] [place] [address] Phone Care Team Providers Care Hot Cell Technician Name Role Phone Gala Combs MD Primary Care Provider [phone] Reason for Visit * Reason Comments Med Refill Encounter Details Date Type Department Care Team (Late st Contact Info) Description 07/05/2019 Refill [facility] [address] [place] [phone] Es Luz PA Social History Tobacco Use [...] on filedocumented in this encounter Care Teams Hot Cell Technician Relationship Specialty Start Date End Date Gala Combs MD [address] [place], [place] PCP - General 02/23/19 documented as of this encounter
--- OUTSIDE RECORDS SUMMARY | 2025-04-11 06:30 | XMS_ITS | Clinical Summary ---
Author Organization [facility], Address [address] [place] [address] [place] [address] Phone Care Team Providers Care Professor Of Genetics Name Role Phone Gala Combs MD Primary Care Provider [phone] Allergies No known active allergies Medications allopurinol [...] PM EDT) Hemoglobin A1C 8.6(H) (4-6) % [facility] Comment: HEMOGLOBIN A1C(%) GLUCOSE CONTROL INDEX <6% EXCELLENT 6-7% VERY GOOD 7-8% GOOD 8-10% FAIR >10% POOR Hemoglobin (Hb) A1c testing is performed by Piotr Marcela-quant immunoassay. Any cause of shortened erythrocyte survival will reduce exposure of erythrocytes to glucose with a consequent decrease in Hb A1c (%). Testing performed or reported by ~[facility], ~a Service of [facility], ~[address] [place] [address]~ 01/18/2019 2:4 2 PM EDT us Es [facility] BLOOD ORDERABLES Final Res ult [facility] from Last 3 Months or Most Recently Relevant to Health Maintenance Insurance Medicare [facility] Care Teams Professor Of Genetics Relationship Specialty Start Date End Date Gala Combs MD [address] [place] [address] PCP - General 02/23/19
--- OUTSIDE RECORDS SUMMARY | 2025-04-11 06:30 | XMS_ITS | Encounter Summary ---
Author Organization [facility], Address [address] [place] [address] Phone Care Team Providers Care Contracts Analyst Name Role Phone Gala Combs MD Primary Care Provider Reason for Visit * Reason Comments Med Refill Encounter Details Date Type Department Care Team (Late st Contact Info) Description 07/04/2019 Refill [facility] [address] [place] [address] Es Luz PA Social History [...] on filedocumented in this encounter Care Teams Contracts Analyst Relationship Specialty Start Date End Date Gala Combs MD [address] [place], [place] PCP - General 02/23/19 documented as of this encounter
--- OUTSIDE RECORDS SUMMARY | 2025-04-11 06:30 | XMS_ITS | Data Portability ---
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 [id number] JULISSA MAGAÑA MATIAS [address] [place] [address] [place] [address] 07/06/2021 10:19:49 07/09/2021 15:03:05 Cerebrovascular accident 024762125 Z86.79 atorvastat in 80 mg daily clopidogre l 75 mg daily will monitorPT/ OT prnPMR prn Cerebral meningioma 1891 58651 D32.0 f/u neurosurge ry prn Essential hypertension 32988488 I10 carvedilol 25 mg bidamlodip ine 10 mg dailylosar myers 100 mg dailykcl 10 meq dailywill monitor Gout 85709380 M10.09 allopurino l 100 mg dailywill monitor Hyperlipidemia 10583979 E78.49 atorvastat in 80 mg dailywill monitor Hypothyroidism 48809561 E03.8 levothyrox ine 88 mcg dailywill monitor 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 mirtazapin e 7.5 mg at hsescitalo pram 5 mg dailywill monitor Overactive urinary bladder 483976644 N32.81 oxybutynin 5 mg bidwill monitor Type 2 monty betes mellitus 55534829 E11.9 glargine 21 Units daily at hs lispro per sliding scale will monitor [id number] DEBO STACY NP [address] [address] 07/11/2021 09:07:17 07/18/2021 10:47:02 Cerebrovascular accident 226936815 Z86.79 atorvastat in 80 mg daily clopidogre l 75 mg daily will monitorPT/ OT prnPMR prn Mixed anxi ety and depressive disorder 062612993 F41.8 mirtazapin e 7.5 mg at hsescitalo pram 5 mg dailywill monitor [id number] DEBO STACY NP [address] [address] 07/19/2021 09:03:31 07/24/2021 12:12:05 Cerebrovascular accident 459789907 Z86.79 atorvastat in 80 mg daily clopidogre l 75 mg daily will monitorPT/ OT prnPMR prn Cerebral meningioma 1891 65106 D32.0 f/u neurosurge ry prn Essential hypertension 62138812 I10 carvedilol 25 mg bidamlodip ine 10 mg dailylosar myers 100 mg dailykcl 10 meq dailywill monitor Gout 24528731 M10.09 allopurino l 100 mg dailywill monitor Hyperlipidemia 51534610 E78.49 atorvastat in 80 mg dailywill monitor Hypothyroidism 94850814 E03.8 levothyrox ine 88 mcg dailywill monitor Mixed anxi ety and depressive disorder 412380801 F41.8 mirtazapin e 7.5 mg at hsescitalo pram 5 mg dailywill monitor Overactive urinary bladder 410052700 N32.81 oxybutynin 5 mg bidwill monitor Type 2 monty betes mellitus 45420659 E11.9 glargine 21 Units daily at hs lispro per sliding scale will monitor [id number] Ashley Guan MD [address] [address] 08/30/2021 21:05:24 09/04/2021 13:31:57 Cerebral meningioma 650908637 D32.0 f/u neurosurge ry prn Cerebrovas cular accident 118558227 Z86.79 Continues at baseline.C ontinue ASA 81 mg qd, atorvastat in 80 mg qd and clopidogre l 75 mg qd.Continu e supportive care, continues to be total care/flynn .Monitor neuros Essential hypertension 64411538 I10 Continues to be in good control on carvedilol 25 mg BID, amlodipine 10 mg qd, and losartan 100 mg qd.Monitor BP and labs. Gout 01263939 M10.09 No current sxs.Contin ue allopurino l 100 mg qd.Monitor for flare. Hyperlipidemia 87187961 E78.49 Continue atorvastat in 80 mg qd.Monitor labs yearly. Hypothyroidism 06495063 E03.8 Continue levothyrox ine 88 mcg qd.Monitor TSH yearly, due in August. Mixed anxi ety and depressive disorder 817235152 F41.8 Continue mirtazapin e 7.5 mg qhs and escitalopr am 5 mg qd.Monitor mood.Psych consult prn. Overactive urinary bladder 774082849 N32.81 Continue oxybutynin 5 mg BIDMonitor urinary function. Type 2 monty betes mellitus 69130477 E11.9 HgA1C up to 8.6, and sugars almost all >200 Would rather have mild hyperglyce tanner, than hypoglycem ia, but now sugars are consistent ly too high. Will increase Lantus from 21 U qd to 25U and monitor and continue SSIMonitor accuchecks TID and HgA1C q 3 months. Hypokalemia 60974457 E87 .6 K+ continues in good range on KCl 20 meq qd.Monitor labs monthly. Delusional disorder 4850 0005 F22 Pleasantly delusional .Continue mirtazapin e 7.5 mg qhsPsych consult prn. [id number] JULISSA MAGAÑA [address] [place] [address] rd [place] [address] 10/25/2021 11:09:18 10/30/2021 15:29:31 Cerebrovascular accident 315789047 Z86.79 atorvastat in 80 mg daily clopidogre l 75 mg daily will monitorPT/ OT prn Cerebral meningioma 1891 88425 D32.0 f/u neurosurge ry prn Essential hypertension 35287398 I10 carvedilol 25 mg bidamlodip ine 10 mg dailylosar myers 100 mg dailykcl 10 meq dailylasix 20 mg dailywill monitor Gout 75995918 M10.09 allopurino l 100 mg dailywill monitor Hyperlipidemia 79719119 E78.49 atorvastat in 80 mg dailywill monitor Hypothyroidism 87801398 E03.8 levothyrox ine 88 mcg dailywill monitor Mixed anxi ety and depressive disorder 083420217 F41.8 mirtazapin e 7.5 mg at hsescitalo pram 5 mg dailywill monitor Overactive urinary bladder 528048607 N32.81 oxybutynin 5 mg bidwill monitor Type 2 monty betes mellitus 82890817 E11.9 glargine 15 Units daily at hs lispro per sliding scale will monitor [id number] MD SHARMAINE Vicente [address] [place] [address] 12/11/2021 09:07:16 12/13/2021 12:40:52 Cerebrovascular accident 152711339 Z86.79 atorvastat in 80 mg daily clopidogre l 75 mg daily will monitorPT/ OT prnPMR prn Essential hypertension 19407960 I10 amlodipine 10 mg dailycarve dilol 25 mg bidlosarta n 100 mg dailyfuros emide 20 mg dailywill monitor Gout 70738173 M10.09 allopurino l 100 mg dailywill monitor Mixed anxi ety and depressive disorder 092584486 F41.8 mirtazapin e 7.5 mg at hsescitalo pram 5 mg dailywill monitor Rheumatoid arthritis 698 15117 M06.4 meloxicam 15 mg qodwill monitor Type 2 monty betes mellitus 23267616 E11.9 glargine 25U daily at hs lispro per sliding scale will monitor Overactive urinary bladder 142769533 N32.81 oxybutynin 5 mg bidwill monitor Hypothyroidism 22418384 E03.8 levothyrox ine 88 mcg dailywill monitor [id number] JULISSA MAGAÑA MATIAS [address] [place] [address] 02/01/2022 10:11:49 02/05/2022 15:30:32 Cerebrovascular accident 955220988 Z86.79 atorvastat in 80 mg daily clopidogre l 75 mg daily will monitorPT/ OT prn Cerebral meningioma 1891 51499 D32.0 f/u neurosurge ry prn Essential hypertension 49751373 I10 carvedilol 25 mg bidamlodip ine 10 mg dailylosar myers 100 mg dailykcl 10 meq dailylasix 20 mg dailywill monitor Gout 82461538 M10.09 allopurino l 100 mg dailywill monitor Hyperlipidemia 29728059 E78.49 atorvastat in 80 mg dailywill monitor Hypothyroidism 37074931 E03.8 levothyrox ine 88 mcg dailywill monitor Mixed anxi ety and depressive disorder 523537850 F41.8 mirtazapin e 7.5 mg at hsescitalo pram 5 mg dailywill monitor Overactive urinary bladder 020058328 N32.81 oxybutynin 5 mg bidwill monitor Type 2 monty betes mellitus 99863105 E11.9 glargine 15 Units daily at hs lispro per sliding scale will monitor [id number] Maryellen Muñoz MD [address] [address] 03/29/2022 06:45:42 04/02/2022 15:52:47 Essential hypertension 40975661 I10 amlodipine 10 mg dailycarve dilol 25 mg bidlosarta n 100 mg dailyfuros emide 20 mg dailywill monitor Mixed anxi ety and depressive disorder 439471201 F41.8 mirtazapin e 7.5 mg at hsescitalo pram 5 mg dailywill monitor Overactive urinary bladder 588848924 N32.81 oxybutynin 5 mg bidwill monitor Rheumatoid arthritis 698 38382 M06.4 meloxicam 15 mg qodPMR prnAPAP 650 mg q6h prnwill monitor Type 2 monty betes mellitus 21043854 E11.9 insulin glargine 25U daily at hs lispro per sliding scale will monitor History of cerebrovascular accident 426150071 Z86.73 atorvastat in 80 mg daily clopidogre l 75 mg daily will monitorPT/ OT prnPMR prn Gout 24624315 M10.09 allopurino l 100 mg dailywill monitor Hypothyroidism 05655542 E03.8 levothyrox ine 88 mcg dailywill monitor [id number] DEBO STACY NP [address] [address] 04/18/2022 12:53:11 04/26/2022 14:36:27 SARS-CoV-2 282039331 U07.1 04/16 covid positive encourage po fluids consider ivf for anorexiaco nsider paxlovid and dexamethas one for symptomsmo nitor for any changes in mental or medical status send to ED for decompensa tion [id number] DEBO STACY NP [address] [address] 04/19/2022 10:20:50 04/26/2022 15:14:17 SARS-CoV-2 973371468 U07.1 04/16 covid positive encourage po fluids consider ivf for anorexiaco nsider paxlovid and dexamethas one for symptomsmo nitor for any changes in mental or medical status send to ED for decompensa tion [id number] DEBO STACY NP [address] [address] 5 04/24/2022 11:25:00 04/26/2022 15:56:37 SARS-CoV-2 284617665 U07.1 04/16 covid positive-a symptomati c, recovered by date encourage po fluids consider ivf for anorexiaco nsider paxlovid and dexamethas one for symptomsmo nitor for any changes in mental or medical status send to ED for decompensa tion [id number] DEBO STACY NP [address] [address] 5 05/23/2022 12:31:45 05/28/2022 08:11:34 Essential hypertension 61969707 I10 amlodipine 10 mg dailycarve dilol 25 mg bidlosarta n 100 mg dailyfuros emide 20 mg dailywill monitor Mixed anxi ety and depressive disorder 003026280 F41.8 mirtazapin e 7.5 mg at hsescitalo pram 5 mg dailywill monitor Overactive urinary bladder 072943363 N32.81 oxybutynin 5 mg bidwill monitor Rheumatoid arthritis 698 15136 M06.4 meloxicam 15 mg qodPMR prnAPAP 650 mg q6h prnwill monitor Type 2 monty betes mellitus 22325088 E11.9 insulin glargine 25U daily at hs lispro per sliding scale will monitor History of cerebrovascular accident 009619976 Z86.73 atorvastat in 80 mg daily clopidogre l 75 mg daily will monitorPT/ OT prnPMR prn Gout 02482745 M10.09 allopurino l 100 mg dailywill monitor Hypothyroidism 68636543 E03.8 levothyrox ine 88 mcg dailywill monitor [id number] Maryellen Muñoz MD [address] [address] 07/31/2022 06:55:12 08/06/2022 12:13:09 Impaired cognition 531778472 R41.89 will monitor and support as needed Essential hypertension 08679741 I10 amlodipine 10 mg dailycarve dilol 25 mg bidlosarta n 100 mg dailyfuros emide 20 mg dailywill monitor Hyperlipidemia 29992985 E78.49 atorvastat in 80 mg dailywill monitor History of cerebrovascular accident 869677002 Z86.73 atorvastat in 80 mg daily clopidogre l 75 mg daily will monitorPT/ OT prnPMR prn Hypothyroidism 69509286 E03.8 levothyrox ine 88 mcg dailywill monitor Mixed anxi ety and depressive disorder 833241649 F41.8 mirtazapin e 7.5 mg at hsescitalo pram 5 mg dailywill monitor Gout 67578467 M10.09 allopurino l 100 mg dailywill monitor Overactive urinary bladder 332423370 N32.81 oxybutynin 5 mg bidwill monitor Type 2 monty betes mellitus 22080344 E11.9 insulin glargine 25U daily at hs lispro per sliding scale will monitor [id number] DEBO STACY NP [address] [address] 08/07/2022 13:54:18 08/09/2022 15:59:16 Essential hypertension 60196510 I10 amlodipine 10 mg dailycarve dilol 25 mg bidlosarta n 100 mg dailyfuros emide 20 mg dailywill monitor Mixed anxi ety and depressive disorder 977162121 F41.8 mirtazapin e 7.5 mg at hsescitalo pram 5 mg dailywill monitor Overactive urinary bladder 738801270 N32.81 oxybutynin 5 mg bidwill monitor Rheumatoid arthritis 698 76416 M06.4 meloxicam 15 mg qodPMR prnAPAP 650 mg q6h prnwill monitor Type 2 monty betes mellitus 98070955 E11.9 insulin glargine 25 Units daily at hs lispro per sliding scale will monitor History of cerebrovascular accident 744751133 Z86.73 atorvastat in 80 mg daily clopidogre l 75 mg daily will monitorPT/ OT prnPMR prn Gout 23244459 M10.09 allopurino l 100 mg dailywill monitor Hypothyroidism 94947760 E03.8 levothyrox ine 88 mcg dailywill monitor Hyperlipidemia 41187794 E78.49 atorvastat in 80 mg dailywill monitor [id number] JULISSA MAGAÑA [address] [place] [address] 5 09/18/2022 11:32:26 09/26/2022 11:00:23 Essential hypertension 27506486 I10 amlodipine 10 mg dailycarve dilol 25 mg bidlosarta n 100 mg dailyfuros emide 20 mg dailywill monitor Mixed anxi ety and depressive disorder 623285856 F41.8 mirtazapin e 7.5 mg at hsescitalo pram 10 mg dailywill monitor Overactive urinary bladder 475589119 N32.81 oxybutynin 5 mg bidwill monitor Rheumatoid arthritis 698 48242 M06.4 meloxicam 15 mg qodPMR prnAPAP 650 mg q6h prnwill monitor Type 2 monty betes mellitus 54988520 E11.9 insulin glargine 30 Units daily at hs lispro per sliding scale will monitor History of cerebrovascular accident 752629382 Z86.73 atorvastat in 80 mg daily clopidogre l 75 mg daily will monitorPT/ OT prnPMR prn Gout 01366860 M10.09 allopurino l 100 mg dailywill monitor Hypothyroidism 88800387 E03.8 levothyrox ine 88 mcg dailywill monitor Hyperlipidemia 21885336 E78.49 atorvastat in 80 mg dailywill monitor [id number] DEBO STACY NP [address] [address] 09/20/2022 10:27:37 09/26/2022 14:20:03 Epidermal burn of skin 665705477 T14.8XXA keflex 500 mg bid for 5 daysbacitr acin with dsd qshiftwoun d consult [id number] DEBO STACY NP [address] [address] 09/23/2022 14:55:08 09/26/2022 15:18:55 Epidermal burn of skin 806833675 T14.8XXA keflex 500 mg bid for 5 days acitra patty with dsd qshiftwoun d consult [id number] DEBO STACY NP [address] [address] 10/14/2022 12:39:30 10/17/2022 14:25:15 Cerebrovascular accident 563992501 Z86.79 atorvastat in 80 mg daily clopidogre l 75 mg daily will monitorPT/ OT prn Mixed anxi ety and depressive disorder 707558387 F41.8 mirtazapin e 7.5 mg at hsescitalo pram 10 mg dailywill monitorpsy ch prn Rheumatoid arthritis 698 63291 M06.4 meloxicam 15 mg qodPMR prnAPAP 650 mg q6h prnwill monitor Epidermal burn of skin 878694446 T14.8XXA healedkefl ex 500 mg bid for 5 days acitra patty with dsd qshiftwoun d consult Pneumonia 599281751 J18. 9 azithromyc in 500mg x1 then 250 mg x4 days [id number] Ashley Guan MD [address] [address] 12/17/2022 19:39:05 01/06/2023 12:24:08 Cerebrovascular accident 744868044 Z86.79 Hx of.Continu e atorvastat in 80 mg qd and clopidogre l 75 mg qd.Continu e supportive care, continues to be total care/flynn .Monitor for change in neuro status. Cerebral meningioma 1891 94901 D32.0 No tx recommende d currently. F/U with neurosurge ry prn Delusional disorder 4850 4 F22 As above. Essential hypertension 84882340 I10 Continues to be in good control on carvedilol 25 mg BID, amlodipine 10 mg qd, and losartan 100 mg qd.Monitor BP and labs. Hypothyroidism 61022579 E03.8 Last TSH WNL in 01/2022.Co ntinue levothyrox ine 88 mcg qd.Monitor TSH yearly, due in Jan. Overactive urinary bladder 455423612 N32.81 Continue oxybutynin 5 mg BIDMonitor urinary function. Type 2 monty betes mellitus 99301722 E11.9 HgA1C was 8.6 in 08/2021, not rechecked since then, sugars >200 about 1/3 of the time. Would rather have mild hyperglyce tanner, than hypoglycem ia. Lantus was increased to 36U in 09/2022, will continue this and continue SSIMonitor accuchecks TID and recheck HgA1C with next labs. Hypokalemia 53207529 E87 .6 K+ continues in good range on KCl 10 meq qd.Monitor labs monthly. Impaired cognition 08673 6002 R41.89 Continues at baselineCo ntinue escitalopr am 10 mg qd and mirtazapin e 7.5 mg qdContinue supportive care, expect decline.HC P invokedMon itor mood and behaviors. Psych consult prn. [id number] JULISSA MAGAÑA [address] [place] [address] [place] [address] 02/07/2023 14:18:45 02/11/2023 15:36:44 Impaired cognition 620988827 R41.89 Continues at baselinees citalopram 10 mg qdmirtazap ine 7.5 mg qdContinue supportive care, expect decline.HC P invokedMon itor mood and behaviors. Psych consult prn. Delusional disorder 0 4 F22 As above. Cerebrovas cular accident 106452490 Z86.79 Hx of--at baselineat orvastatin 80 mg qdclopidog rel 75 mg qd.Continu e supportive care, continues to be total care/flynn .Monitor for change in neuro status. Cerebral meningioma 1891 43100 D32.0 No tx recommende d currently. F/U with neurosurge ry prn Essential hypertension 67994840 I10 Continues to be in good control on carvedilol 25 mg BID,amlodi pine 10 mg qd,losarta n 100 mg qd.Monitor BP and labs. Hypothyroidism 62456182 E03.8 Last TSH WNL in 01/2022.le vothyroxin e 88 mcg qd.Monitor TSH yearly, due in Jan. Overactive urinary bladder 645353112 N32.81 oxybutynin 5 mg BIDMonitor urinary function. Type 2 monty betes mellitus 67818419 E11.9 HgA1C was 8.6 in 08/2021, not rechecked since then, sugars >200 about 1/3 of the time. Would rather have mild hyperglyce tanner, than hypoglycem ia. Lantus was increased to 36U in 09/2022, will continue this and continue SSIMonitor accuchecks TID and recheck HgA1C with next labs. Hypokalemia 89895968 E87 .6 K+ continues in good range on KCl 10 meq qd.Monitor labs monthly. [id number] Ashley Guan MD [address] [address] 04/11/2023 14:34:53 04/28/2023 16:03:28 Cough 03700277 R05.8 Appears acutely ill, with junky cough.So far is covid neg.Will check for RSV and influenza, and check labs on 04/15-CBC and CMP.Start Mucinex 600 mg q 6 hrs x 1 wk. and continue duonebs q 6 hrs prn. Impaired cognition 25814 6002 R41.89 Continues at baseline with delusions as usual.Cont inue escitalopr am 10 mg qd and mirtazapin e 7.5 mg qdContinue supportive care, expect decline.HC P invokedMon itor mood and behaviors. Psych follows Delusional disorder 4850 0005 F22 As above. Cerebrovas cular accident 164568498 Z86.79 In hx.No new sxsContinu e atorvastat in 80 mg qd and clopidogre l 75 mg qd.Continu e supportive care, remains total care/flynn .Monitor for change in neuro status. Cerebral meningioma 1891 49626 D32.0 No tx recommende d currently. F/U with neurosurge ry prn Essential hypertension 77297423 I10 With occ. borderline SBP, but generally in good control on carvedilol 25 mg BID, amlodipine 10 mg qd, and losartan 100 mg qd.Monitor BP and labs. Hypothyroidism 98528635 E03.8 Last TSH WNL in 01/2022.Co ntinue levothyrox ine 88 mcg qd.Monitor TSH yearly, was due in Jan., not done, will order with next labs due in 06/2023. Overactive urinary bladder 699908378 N32.81 Changed to Myrbetriq 50 mg qd on 03/25/23, from oxybutynin 5 mg BIDStarted on Estrace 2 gms M/W/ in 01/2023.Mo nitor urinary function. Type 2 monty betes mellitus 98125323 E11.9 Sugars are >200 about 1/2 of the time. Would rather have mild hyperglyce tanner, than hypoglycem ia, but overall too high.Will increase Lantus from 36U to 40U and continue SSIMonitor accuchecks TID and recheck HgA1C with next labs. Hypokalemia 34580633 E87 .6 K+ continues in good range on KCl 10 meq qd.Monitor labs monthly. [id number] [facility] [address] [place] [address] [place] [address] 05/20/2023 08:38:41 05/28/2023 08:36:29 Dyspnea 519019560 R06.00 chest xray suggestive of pneumoniap reviously started on augmentinh ydration encourages continue oxygen titrate to keep sat greater than 90%will send swab for covid, flu and rsv as well. Fall W19.XXXA 05/18/23:se e hpiunwitne ssed with no apparent injuries.+ ROM to all extremitie [facility] nuero checks per facility protocol. [id number] CHRISSY CROCKETT [address] [address] 06/17/2023 11:19:07 06/19/2023 12:27:49 Impaired cognition 974946659 R41.89 Continues at baseline with delusions as usual.Cont inue escitalopr am 10 mg qd and mirtazapin e 7.5 mg qdContinue supportive care, expect decline.HC P invokedMon itor mood and behaviors. Psych follows Delusional disorder 4850 0005 F22 As above. Cerebrovas cular accident 350215113 Z86.79 In hx.No new sxsContinu e atorvastat in 80 mg qd and clopidogre l 75 mg qd.Continu e supportive care, remains total care/flynn .Monitor for change in neuro status. Cerebral meningioma 1891 55926 D32.0 No tx recommende d currently. F/U with neurosurge ry prn Essential hypertension 94274963 I10 continue:c arvedilol 25 mg BID,amlodi pine 10 mg qdand losartan 100 mg qd.Monitor BP and labs. Hypothyroidism 74486506 E03.8 Last TSH WNL in 01/2022.Co ntinue levothyrox ine 88 mcg qd.Monitor TSH yearly, was due in Jan., not done, will order with next labs due in 06/2023. Overactive urinary bladder 973676873 N32.81 Myrbetriq 50 mg qdEstrace 2 gms M/W/F in 01/2023.Mo nitor urinary function.i ncontinent - nursing reports heavy wetter. Type 2 monty betes mellitus 65565058 E11.9 as high as 300 Will increase Lantus from 36U to 40U and continue SSIMonitor accuchecks TID and recheck HgA1C with next labs. [id number] [facility] [address] [place] [address] 08/11/2023 10:05:01 08/15/2023 15:28:26 Diarrhea and vomiting, symptom 196274915 R19.7 Concerned for Cdiff, nursing reports foul smelling, slimy mucous like stool.stoo l sample sent to labCBC with diff, and CMP orderedinc reased oral hydrationa waiting results to treat. [id number] CHRISSY CROCKETT [address] [address] 08/15/2023 16:10:25 08/19/2023 15:16:25 Urinary tract infectious disease 18352231 N39.0 see hpistarted on cefuroxime 250 mg BIDadd probiotic 1 tab BID for 10 dayincreas e oral hydration. Type 2 monty betes mellitus 15615246 E11.9 continue lantus 40 unit continue Insulin SSCmonitor FS TID Essential hypertension 16475522 I10 continue:c arvedilol 25 mg BID,amlodi pine 10 mg qdand losartan 100 mg qd.Monitor BP and labs. Hypothyroidism 53333179 E03.8 Continue levothyrox ine 88 mcg qd.check TSH at next rounding visit Heart failure 66323564 I 50.9 continued on carvedilol 25 mg and Lasix 20 mg dailymonit or weight, sob, edemamonit or VS and labs. [id number] [facility] [address] [place] [address] 08/21/2023 10:04:33 08/26/2023 10:06:00 Urinary tract infectious disease 15358935 N39.0 see hpistarted on cefuroxime 250 mg BID-comple carmelo.add probiotic 1 tab BID for 10 dayincreas e oral hydration. Type 2 monty betes mellitus 88334530 E11.9 BGL mainly under 200continu e lantus 40 unit continue Insulin SSCmonitor FS TID Essential hypertension 54949286 I10 continue:c arvedilol 25 mg BID,amlodi pine 10 mg qdand losartan 100 mg qd.Monitor BP and labs. Heart failure 29992877 I 50.9 appears to be stable.con tinued on carvedilol 25 mg and Lasix 20 mg dailymonit or weight, sob, edemamonit or VS and labs. [id number] [facility] [address] [place] [address] 09/01/2023 13:25:32 09/03/2023 10:00:39 Type 2 diabetes mellitus 60897461 E11.9 BGL mainly under 200continu e lantus 40 unit continue Insulin SSCmonitor FS TID Essential hypertension 46290692 I10 continue:c arvedilol 25 mg BID,amlodi pine 10 mg qdand losartan 100 mg qd.Monitor BP and labs. Heart failure 68410481 I 50.9 appears to be stable.con tinued on carvedilol 25 mg and Lasix 20 mg dailymonit or weight, sob, edemamonit or VS and labs. [id number] CHRISSY CROCKETT [address] [place] [address] 09/08/2023 13:58:44 09/11/2023 13:24:52 Urinary tract infectious disease 52659181 N39.0 resolved Type 2 monty betes mellitus 70718875 E11.9 BGL mainly under 200continu e lantus 40 unit continue Insulin SSCmonitor FS TID Essential hypertension 89525155 I10 continue:c arvedilol 25 mg BID,amlodi pine 10 mg qdand losartan 100 mg qd.Monitor BP and labs. Heart failure 28764010 I 50.9 appears to be stable.con tinued on carvedilol 25 mg and Lasix 20 mg dailymonit or weight, sob, edemamonit or VS and labs. [id number] Ashley Guan MD [address] [place] [address] 09/09/2023 21:18:06 10/15/2023 09:01:55 Impaired cognition 994856870 R41.89 Continues at baseline.C ontinue escitalopr am 10 mg qd and mirtazapin e 7.5 mg qdContinue supportive care, expect decline.HC P invokedMon itor mood and behaviors. Psych follows Delusional disorder 4850 0005 F22 As above. Cerebrovas cular accident 155305273 Z86.79 In hx.No new sxsContinu e atorvastat in 80 mg qd and clopidogre l 75 mg qd.Continu e supportive care, remains total care/flynn .Monitor for change in neuro status. Cerebral meningioma 1891 43533 D32.0 No tx recommende d currently. F/U with neurosurge ry prn Essential hypertension 73090465 I10 With occ. borderline SBP, but generally in good control on carvedilol 25 mg BID, amlodipine 10 mg qd, and losartan 100 mg qd.Monitor BP and labs. Hypothyroidism 08683161 E03.8 Last TSH WNL in 01/2022.Co ntinue levothyrox ine 88 mcg qd.Monitor TSH yearly, was supposed to be done in 06/2023, but not done.Reord ered in 07/2023, still not done. Overactive urinary bladder [id number] N32.81 Continue Myrbetriq 50 mg qd and Estrace 2 gms M/W/F in 01/2023.Mo nitor urinary function. Type 2 monty betes mellitus 47827391 E11.9 Sugars in better control since increased lantus. Continue Lantus 40U qd and continue SSIMonitor accuchecks TID and recheck HgA1C with next labs. Hypokalemia 34267774 E87 .6 K+ continues in good range on KCl 10 meq qd.Monitor labs monthly. [id number] CHRISSY CROCKETT [address] [address] 09/11/2023 10:09:18 09/23/2023 10:38:22 Urinary tract infectious disease [id number] N39.0 resolved Type 2 monty betes mellitus 73019868 E11.9 BGL mainly under 200continu e lantus 40 unit continue Insulin SSCmonitor FS TID Essential hypertension 33896201 I10 continue:c arvedilol 25 mg BID,amlodi pine 10 mg qdand losartan 100 mg qd.Monitor BP and labs. Heart failure 18611686 I 50.9 appears to be stable.con tinued on carvedilol 25 mg and Lasix 20 mg dailymonit or weight, sob, edemamonit or VS and labs. [id number] CHRISSY CROCKETT [facility] [address] [place] [id number] 10/30/2023 09:01:33 11/11/2023 08:30:21 Impaired cognition 566478288 R41.89 Continue escitalopr am 10 mg qd and mirtazapin e 7.5 mg qdContinue supportive care, expect decline.HC P invokedMon itor mood and behaviors. Psych follows Cerebrovas cular accident [id number] Z86.79 In hxContinue atorvastat in 80 mg qd and clopidogre l 75 mg qd.Continu e supportive care, remains total care/flynn .Monitor for change in neuro status. Cerebral meningioma 7396 07804 D32.0 No tx recommende d currently. F/U with neurosurge ry prn Essential hypertension 75026937 I10 continueca rvedilol 25 mg BID, amlodipine 10 mg qd, and losartan 100 mg qd.Monitor BP and labs. Hypothyroidism 93001775 E03.8 Last TSH WNL in 01/2022.Co ntinue levothyrox ine 88 mcg qd.Monitor TSH yearly, was supposed to be done in 06/2023, but not done.Reord ered in 07/2023, still not done. Overactive urinary bladder 034429031 N32.81 Continue Myrbetriq 50 mg qd and Estrace 2 gms M/W/F in 01/2023.Mo nitor urinary function. Type 2 monty betes mellitus 62620468 E11.9 Continue Lantus 40U qd and continue SSIMonitor accuchecks TID and recheck HgA1C with next labs. Hypokalemia 91290036 E87 .6 continue KCl 10 meq qd.Monitor labs monthly. [id number] CHRISSY CROCKETT [facility] [address] [place] [address] [place] [address] 12/31/2023 08:34:10 01/01/2024 12:01:23 Impaired cognition 429363518 R41.89 Continue escitalopr am 10 mg qd and mirtazapin e 7.5 mg qdContinue supportive care, expect decline.HC P invokedMon itor mood and behaviors. Psych follows Cerebrovas cular accident 180086132 Z86.79 Continue atorvastat in 80 mg qd and clopidogre l 75 mg qd.Continu e supportive care, remains total care/flynn .Monitor for change in neuro status. Essential hypertension 41220803 I10 continueca rvedilol 25 mg BID, amlodipine 10 mg qd, and losartan 100 mg qd.Monitor BP and labs. Hypothyroidism 22605914 E03.8 CBC, BMP, TSH, Free T4 on 01/05/24Con tinue levothyrox ine 88 mcg qd. Overactive urinary bladder 478281258 N32.81 Continue Myrbetriq 50 mg qd and Estrace 2 gmsMonitor urinary function. Type 2 monty betes mellitus 90231640 E11.9 lantus increase to 45 unit qd for bgl 250-300sco ntinue SSC with FS TIDmonitor for hypoglycem ia Hypokalemia 68877750 E87 .6 continue KCl 10 meq qd.Monitor labs monthly.la bs on 01/04 [id number] CHRISSY CROCKETT [address] [address] 02/20/2024 14:14:26 02/23/2024 13:38:42 Impaired cognition 825257644 R41.89 Continue escitalopr am 10 mg qd and mirtazapin e 7.5 mg qdContinue supportive care, expect decline.HC P invokedMon itor mood and behaviors. Psych follows Cerebrovas cular accident [id number] Z86.79 Continue atorvastat in 80 mg qd and clopidogre l 75 mg qd.Continu e supportive care, remains total care/flynn .Monitor for change in neuro status. Essential hypertension 58758969 I10 continueca rvedilol 25 mg BID, amlodipine 10 mg qd, and losartan 100 mg qd.Monitor BP and labs. Hypothyroidism 22141615 E03.8 CBC, BMP, TSH, Free T4 on 01/05/24Con tinue levothyrox ine 88 mcg qd. Overactive urinary bladder 457643469 N32.81 Continue Myrbetriq 50 mg qd and Estrace 2 gmsMonitor urinary function. Type 2 monty betes mellitus 88460081 E11.9 lantus increase to 45 unit qd for bgl 250-300sco ntinue SSC with FS TIDmonitor for hypoglycem ia Hypokalemia 33274144 E87 .6 continue KCl 10 meq qd.Monitor labs monthly. [id number] CHRISSY CROCKETT [address] [address] 04/12/2024 10:23:08 04/13/2024 09:57:49 Impaired cognition 629508099 R41.89 Continue escitalopr am 10 mg qd and mirtazapin e 7.5 mg qdContinue supportive care, expect decline.HC P invokedMon itor mood and behaviors. Psych follows Cerebrovas cular accident [id number] Z86.79 Continue atorvastat in 80 mg qd and clopidogre l 75 mg qd.Continu e supportive care, remains total care/flynn .Monitor for change in neuro status. Essential hypertension 11761991 I10 continueca rvedilol 25 mg BID, amlodipine 10 mg qd, and losartan 100 mg qd.Monitor BP and labs. Hypothyroidism 55628945 E03.8 Continue levothyrox ine 88 mcg qd. Overactive urinary bladder 671387517 N32.81 oncontinen tContinue Myrbetriq 50 mg qd and Estrace 2 gms -tapering to offMonitor urinary function. Type 2 monty betes mellitus 96243737 E11.9 04/12; lantus increase to 48 unit qd for bgl 250-300sco ntinue SSC with FS TIDmonitor for hypoglycem ia Hypokalemia 33938455 E87 .6 continue KCl 10 meq qd.Monitor labs monthly. [id number] CHRISSY CROCKETT [facility] [address] [place] [phone] 07/18/2024 10:58:50 07/22/2024 16:16:46 Impaired cognition 776712466 R41.89 Continue escitalopr am 10 mg qd and mirtazapin e 7.5 mg qdContinue supportive care, expect decline.HC P invokedMon itor mood and behaviors. Psych follows Cerebrovas cular accident 797066147 Z86.79 stableCont inue atorvastat in 80 mg qd and clopidogre l 75 mg qd.Continu e supportive care, remains total care/flynn .Monitor for change in neuro status. Essential hypertension 10942953 I10 stablecarv edilol 25 mg BID, amlodipine 10 mg qd, and losartan 100 mg qd.Monitor BP and labs. Hypothyroidism 79171216 E03.8 Continue levothyrox ine 88 mcg qd. Overactive urinary bladder 884558978 N32.81 incontinen tContinue Myrbetriq 50 mg qd and Estrace 2 gms -tapering to offMonitor urinary function. Type 2 monty betes mellitus 08053801 E11.9 unstable- high 200 -300will increase lantus to 50 unit in divided dose BIDcontinu e SSC with FS TIDmonitor for hypoglycem ia Hypokalemia 11391824 E87 .6 continue KCl 10 meq qd.Monitor labs monthly. [id number] CHRISSY CROCKETT [address] [address] 10/27/2024 05:56:02 11/04/2024 14:51:55 Impaired cognition 248724979 R41.89 Continue escitalopr am 10 mg qd and mirtazapin e 7.5 mg qdContinue supportive care, expect decline.HC P invokedMon itor mood and behaviors. Psych follows Cerebrovas cular accident 448581669 Z86.79 Continue atorvastat in 80 mg qd and clopidogre l 75 mg qd.Continu e supportive care, remains total care/flynn .Monitor for change in neuro status. Essential hypertension 17421779 I10 stablecarv edilol 25 mg BID, amlodipine 10 mg qd, and losartan 100 mg qd.Monitor BP and labs. Hypothyroidism 79626942 E03.8 Continue levothyrox ine 88 mcg qd. Overactive urinary bladder 452155080 N32.81 incontinen tContinue Myrbetriq 50 mg qd and Estrace 2 gms -tapering to offMonitor urinary function. Type 2 monty betes mellitus 54064513 E11.9 stablecont inue lantus to 50 unit [...] Name 04/12/2024 2 [place] [id number] Sona Laguna [id number] Sona [place]una 10/27/2024 2 [place]ICAID-[place]: [facility] Sona [place]una [id number] Sona [place]una 10/27/2024 1 [place] [employer] [facility] Sona [place]una [id number] Sona [place] Notes Date Note Type Note Provider Name and Address Organization Details Recorded Time 12/31/2023 text/html ROS as noted in the HPI Ms. 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 Past medical history significant for dementia, hyperlipidemia, hypertension, CVA, type 2 diabetes mellitus on insulin, chronic systolic and diastolic CHF and hypothyroidism. She is stable with baseline dementia, dependant on staff to meet daily care needs, she is eating, drinking and eliminating without concerns, she has been getting OOB more and having meals in the common area. CHRISSY CROCKETT [address] [facility], [address], [place], [address], [employer] 12/31/2023 22:47:17 02/20/2024 text/html ROS as noted [...] medications and care plan. CHRISSY CROCKETT [address] [facility] [address], [address], [place], [address], [employer] 02/20/2024 14:23:12 04/12/2024 text/html ROS as noted [...] diastolic CHF and hypothyroidism. CHRISSY CROCKETT [address] [facility], [address], [place], [address], [employer] 04/12/2024 13:44:49 07/18/2024 text/html ROS as noted [...] is compliant with medication. CHRISSY CROCKETT [address] [facility], [address], [place], [address], [employer] 07/19/2024 07:45:45 10/27/2024 text/html ROS as noted in the HPI This is an 79 yr old female LTC resident due for annual exam Medically she is stable, there is no acute concerns. CHRISSY CROCKETT [address] [facility], [address], [place], [address], [facility] 11/02/2024 13:54:45 OBGyn Episode No OBEpisode recorded.
[2025-04-11 06:41] LABS: MANUAL DIFF FLAG NO
[2025-04-11 07:05] LABS: Hematocrit 35.8 % (37.0-47.0); Hemoglobin 11.2 g/dl (12.0-16.0); Imm Gran Abs Auto 0.37 X10*3/uL (0.00-0.03); Imm Gran Pct Auto 4.0 % (0.0-0.4); Lymphocytes Absolute Auto 2.4 X10*3/uL (1.2-4.9); Mean Corpuscular HGB Conc 31.3 g/dl (31.0-35.0); Mean Corpuscular Hemoglobin 27.9 pg (27.0-33.0); Mean Corpuscular Volume 89.3 fL (80.0-98.0); NRBC Abs Auto 0.000 X10*3/uL (0.0-0.012); NRBC Pct Auto 0.0 /100WBC (0.0-0.2); Platelet Count 308 X10*3/uL (160-400); Red Blood Count 4.01 X10*6/uL (4.20-5.50); White Blood Count 9.1 X10*3/uL (4.8-10.8)
== END 2025-04-11 06:28 | disposition home or self-care (01) ==
LOC: HO.MMNH3L 06:27
PROVIDERS: Visit Provider Physician Assistant Medical
DX: E11.22 Type 2 diabetes mellitus with diabetic chronic kidney disease (principal); N18.9 Chronic kidney disease, unspecified; I63.9 Cerebral infarction, unspecified
CPT/HCPCS: 36415; 85025